=== PATIENT | female | born 1950 | race African-American/Black ===

== ENCOUNTER 2022-09-28 17:21 | Inpatient (IN) | payer OTHER, SELFPAY ==
[2022-09-28] VITALS (7 sets, daily range): BP systolic 133–145; BP diastolic 84–85; PULSE 98–106; RESP 20–28; TEMP 36.4–36.8; O2SAT 94–97; BMI 24.3
--- NOTE | ~2022-09-28 | US_ITS ---
EXAMINATION: US renal BI DATE: 10/01/2022 15:30 INDICATION: Recurrent urinary tract infection TECHNIQUE: Multiple grayscale and Doppler ultrasound images of the kidneys were obtained. COMPARISON: None. FINDINGS: The right kidney measures 7.8 x 4.1 x 3.4 cm. The left kidney measures 9.9 x 3.7 x 4.1 cm. The kidneys demonstrate increased parenchymal echogenicity. There are multiple cysts of the kidneys w hich measure up to 1.7 cm on the right. There is no hydronephrosis. The bladder is not well distended but unremarkable in appearance. IMPRESSION: 1. Bilateral atrophy of the kidneys with medical renal disease. Reviewed, dictated and finalized at location B.
--- NOTE | ~2022-09-28 | CT_ITS ---
EXAMINATION: CT brain wo con DATE: 09/28/2022 18:23 INDICATION: AMS . TECHNIQUE: Computed tomography (CT) of the head was performed without intravenous contrast. The mA wa s adjusted according to patient size. Iterative reconstruction technique was employed. The dose-lengt h product was 605.33 mGy-cm. COMPARISON: None. FINDINGS: No acute intracranial hemorrhage or extra-axial fluid collection. No hydrocephalus, mass, or herniation. No acute ischemic infarct. Unremarkable dural venous sinus attenuation. No acute osseous abnormality. Right inferior maxillary retention cyst or polyp, bilateral mastoid fluid, the remaining aerated spac es are clear. Moderate atrophy and chronic white matter change. Atherosclerotic intracranial calcification. IMPRESSION: No acute intracranial process. Reviewed, dictated and finalized at location K.
--- NOTE | ~2022-09-28 | XR_ITS ---
EXAMINATION: XR chest 1V Exam Date/Time: 09/28/2022 18:20 CDT HISTORY: AMS, UNABLE TO GIVE HX Comparison: None available. RESULT: Lines, tubes, and devices: Partially visualized stent overlying the left axilla. Lungs and pleura: Vascular congestion. Mild diffuse and peripheral reticular opacities. Cardiomediastinal silhouette: Stable. Other: No acute osseous or upper abdominal finding. IMPRESSION: Mild vascular congestion/interstitial edema. Reviewed, dictated and finalized at location K.
--- NOTE | ~2022-09-28 | MR_ITS ---
EXAMINATION: MR brain/brain stem wo con DATE: 10/05/2022 11:02 INDICATION: Altered mental status. TECHNIQUE: Magnetic resonance imaging (MRI) of the brain and brainstem was performed without intraven ous contrast. COMPARISON: Head CT 09/28/2022 FINDINGS: There are scattered areas of nonspecific increased T2-weighted signal intensity in the cere bral white matter. There is no intracranial hemorrhage, acute infarction, or abnormal intracranial ma ss lesion. The ventricles are normal in size. There are bilateral mastoid effusions. The orbits are n ormal. The paranasal sinuses are clear. IMPRESSION: 1. Extensive nonspecific cerebral white matter disease, which likely represents chronic small vessel ischemic disease. Reviewed, dictated and finalized at location A.
--- NOTE | 2022-09-28 18:08 | ECG_ITS ---
Measurements Intervals [place] Rate: 104 P: 59 AL: 158 QRS: 10 QRSD: 80 T: 96 QT: 325 QTc: 428 Interpretive Statements SINUS TACHYCARDIA DELAYED PRECORDIAL R/S TRANSITION LEFT VENTRICULAR HYPERTROPHY AND ST-T CHANGE CONSIDER INFERIOR INFARCT, AGE INDETERMINATE BASELINE ARTIFACT- V5 ABNORMAL ECG NO PREVIOUS ECG AVAILABLE FOR COMPARISON Electronically Signed On 09-28-2022 21:50:35 CDT by Vineet Kumar D.O.
[2022-09-28 18:38] LABS: Basophils Percent Auto 0.3 % (0.2-1.2); Eosinophils Absolute Auto 0.1 K/mm3 (0-0.3); Eosinophils Percent Auto 1.3 % (0-4.4); Hematocrit 32.1 % (37.0-47.0); Immature Granulocyte Absolute 0.02 K/mm3 (0.00-0.031); Immature Granulocyte Percent A 0.3 % (0-0.5); Lymphocytes Absolute Auto 0.75 K/mm3 (0.9-3.2); Lymphocytes Percent Auto 9.6 % (18.3-44.2); Mean Corpuscular HGB Conc 31.2 g/dl (32-36); Mean Corpuscular Volume 96.4 fl (80-100); Mean Platelet Volume 10.1 fl (7.4-10.4); Monocytes Absolute Auto 0.6 K/mm3 (0.1-0.6); Monocytes Percent Auto 7.1 % (2.6-8.5); Neutrophils Absolute Auto 6.3 K/mm3 (1.3-6.7); Neutrophils Percent Auto 81.4 % (45.5-73.1); Platelet Count Result 216 k/mm3 (150-375); Red Blood Count 3.33 M/mm3 (4.2-5.4); Red Cell Distribution Width 15.5 % (11.5-14.5); White Blood Count 7.8 K/mm3 (4.5-10.0)
[2022-09-28 18:48] LABS: Lipase 55 U/L (23-300)
[2022-09-28 18:49] LABS: INR 1.2; Partial Thromboplastin Time 36.7 SECONDS (22.3-36.8); Prothrombin Time 14.6 Seconds (11.1-14.7)
[2022-09-28 19:05] LABS: Troponin I 0.107 ng/mL (0.000-0.034)
[2022-09-28 19:06] LABS: Alanine Aminotransferase 41 U/L (6-35); Albumin Level 3.8 g/dL (3.5-5.1); Alkaline Phosphatase 115 U/L (38-126); Anion Gap 10 mmol/L (8-16); Aspartate Amino Transferase 59 U/L (14-36); Bilirubin,Total 0.8 mg/dL (0.2-1.3); Blood Urea Nitrogen 42 mg/dL (7-17); Calcium 9.3 mg/dL (8.4-10.2); Carbon Dioxide 28 mmol/L (22-30); Chloride 96 mmol/L (98-107); Estimated CRCL calculation 7 ml/min; Estimated Glomerular Filt Rate 8; Glucose 103 mg/dL (65-110); Sodium 134 mmol/L (137-145)
--- NOTE | 2022-09-28 19:34 | ED.GENADULT ---
HPI - General Adult General Chief complaint: Altered Mental Status Stated complaint: ams Time Seen by Provider: 09/28/22 17:54 History of Present Illness HPI narrative: Patient is a 71-year-old female who presents ER from the [facility] for evaluation. [facility] did not call nurse report and they are also not picking up the phone in order to give additional information. They did send the patient's paperwork. Apparently patient was discharged from [facility] yesterday at 1 in the morning and then arrived at their facility. After being at the facility for less than 24 hours she was sent to the ER for evaluation but its not known why. Patient lays in bed and stares at the physician but will not speak or answer questions. She does have dialysis access in her right upper extremity that has recently been accessed. She has an old dialysis access on the left side that does not seem to be working. Related Data Home Medications Medication Instructions Recorded Confirmed allopurinol 100 mg tablet 10 mg PO DAILY 09/28/22 09/28/22 atorvastatin 20 mg tablet 20 mg PO HS 09/28/22 09/28/22 Allergies Allergy/AdvReac Type Severity Reaction Status Date / Time Unable to Assess Allergy Unverified 09/28/22 20:27 Review of Systems Review of Systems: ROS unobtainable: Yes unobtainable due to medical condition PMFSH Past Medical History Medical History (Updated 09/28/22 @ 21:35 by Carlos Pavon MD) Alzheimer disease Schizophrenia Surgical History Surgical History (Updated 09/28/22 @ 21:35 by Carlos Pavon MD) Arteriovenous fistula Surgically formed Exam Narrative: GENERAL: Chronically ill-appearing, well-nourished, and in no acute distress. HEAD: Normocephalic, atraumatic. EYES: PERRL and EOMI. ENT: Mucous membranes moist. CHEST: Clear to auscultation. No respiratory distress. HEART: Regular rate and rhythm. Normal peripheral pulses. ABDOMEN: Soft, nontender, nondistended. EXTREMITIES: Dialysis access right upper extremity with thrill. Former access left upper extremity. SKIN: Warm, dry, no rash. NEURO: Awake alert to speech. She is not oriented. Course Course Emergency Course: I discussed the case with patient's granddaughter and patient has had UTI requiring ceftriaxone recently. She also believes that patient received some medication to stimulate her appetite that may be making her more obtunded. Patient's urine here is infected and she will be started on ceftriaxone. Troponin felt to be elevated in relation to her volume status is a dialysis patient but we will continue to trend it. We will have nephrology consulted as patient gets dialysis Tuesday. Vital Signs Vital signs: Vital Signs Temperature 98.3 F 09/28/22 17:27 Pulse Rate 104 H 09/28/22 17:27 Respiratory Rate 22 H 09/28/22 17:27 Blood Pressure 135/84 09/28/22 17:27 Pulse Oximetry 97 09/28/22 17:27 Oxygen Delivery Room Air 09/28/22 17:27 Temperature 98.3 F 09/28/22 17:27 Pulse Rate 104 H 09/28/22 17:56 Respiratory Rate 26 H 09/28/22 17:56 Blood Pressure 135/84 09/28/22 17:27 Pulse Oximetry 97 09/28/22 17:27 Oxygen Delivery Room Air 09/28/22 17:27 Medical Decision Making Vital Signs Vital Signs: Vital Signs Temperature 98.3 F 09/28/22 17:27 Pulse Rate 104 H 09/28/22 17:27 Respiratory Rate 22 H 09/28/22 17:27 Blood Pressure 135/84 09/28/22 17:27 Pulse Oximetry 97 09/28/22 17:27 Oxygen Delivery Room Air 09/28/22 17:27 Temperature 98.3 F 09/28/22 17:27 Pulse Rate 104 H 09/28/22 17:56 Respiratory Rate 26 H 09/28/22 17:56 Blood Pressure 135/84 09/28/22 17:27 Pulse Oximetry 97 09/28/22 17:27 Oxygen Delivery Room Air 09/28/22 17:27 Lab Data 09/28/22 18:33 09/28/22 18:33 Labs: Lab Results 09/28/22 09/28/22 09/28/22 Range/Units 18:33 18:33 18:33 WBC 7.8 (4.5-10.
[2022-09-28] MEDS: Please add drug allergy info to patient profile. 1 EACH XX (20:27)
--- NOTE | 2022-09-28 20:28 | PM.IMHP ---
H&P: HPI History of Present Illness Date/Time: 09/28/22 20:28 Chief Complaint: Altered mental status Narrative: This is a 71-year-old female with past medical history significant for end-stage renal disease on hemodialysis patient recently discharged from outside hospital to local halfway was sent to the emergency room for evaluation however unknown reason as patient is nonverbal at this time and no report was called. Preliminary workup was significant for urinalysis with numerous WBCs present patient was started on Rocephin in the emergency room. A CT of the head was reported as: FINDINGS: No acute intracranial hemorrhage or extra-axial fluid collection. No hydrocephalus, mass, or herniation. No acute ischemic infarct. Unremarkable dural venous sinus attenuation. No acute osseous abnormality. Right inferior maxillary retention cyst or polyp, bilateral mastoid fluid, the remaining aerated spaces are clear. Moderate atrophy and chronic white matter change. Atherosclerotic intracranial calcification. IMPRESSION:? No acute intracranial process. A chest x-ray was reported as: IMPRESSION: Mild vascular congestion/interstitial edema. Patient is been admitted for further evaluation management and treatment. Review of Systems Review of Systems: ROS unobtainable: Yes unobtainable due to mental status [facility] Past Medical History Medical History (Updated 09/29/22 @ 01:25 by Donny Gardner MD) Alzheimer disease Schizophrenia Surgical History Surgical History (Updated 09/28/22 @ 21:35 by Carlos Pavon MD) Arteriovenous fistula Surgically formed Family History Family History (Updated 09/28/22 @ 23:03 by Anny Gonsales RN) Other Unknown family medical history Social History Social History Smoking status: Unknown if ever smoked Alcohol intake: unknown Substance use: unknown Spiritual care concerns: No Meds Home Medications and Allergies Home Medications Medication Instructions Recorded Confirmed Type acetaminophen 650 mg tablet 650 mg PO Q4H PRN Headache 09/28/22 09/28/22 History allopurinol 100 mg tablet 100 mg PO DAILY 09/28/22 09/28/22 History atorvastatin 20 mg tablet 20 mg PO HS 09/28/22 09/28/22 History folic acid 1 mg tablet 800 mcg PO DAILY 09/28/22 09/28/22 History haloperidol 5 mg tablet 5 mg PO BID 09/28/22 09/28/22 History magnesium hydroxide 400 mg/5 mL 30 ml PO HS PRN Constipation 09/28/22 09/28/22 History oral suspension midodrine 5 mg tablet 5 mg PO PRN PRN Blood Pressure 09/28/22 09/28/22 History ondansetron 4 mg disintegrating 4 mg PO Q6H PRN Nausea And Vomiting 09/28/22 09/28/22 History tablet vitamin B complex and vitamin C 1 cap PO HS 09/28/22 09/28/22 History no.20-folic acid 1 mg capsule (Joey Caps) Allergies Allergy/AdvReac Type Severity Reaction Status Date / Time Unable to Assess Allergy Unverified 09/28/22 20:27 Vital Signs Vital Signs - 24 hr 09/28/22 17:27 09/28/22 17:32 09/28/22 17:56 Temperature 98.3 F Pulse Rate 104 H 102 H 104 H Respiratory Rate 22 H 26 H 26 H Blood Pressure 135/84 Pulse Oximetry 97 Oxygen Delivery Room Air Exam Narrative: Patient is laying in a stretcher in supine position Const: General: comfortable, no acute distress, well developed, alert, awake, ill appearing, thin and other (Dry mucous membranes) Nutritional Appearance: average body habitus Orientation/consciousness: Other orientation findings (Nonverbal) HENMT: Head: normal to inspection, normocephalic and atraumatic Ears: hearing grossly normal bilaterally Face/Nose/Sinus: normal facial exam Face and sinus: normal facial exam Other: Dry mucous membranes Eyes: General: appearance normal, both eyes and all related structures Pupils: Equal, round and reactive pupils present EOM: EOMs intact bilaterally Neck: Neck: full ROM, no lymphadenopathy and no JVD Thyroid: thyroid normal Lymphatic: no lymphadenopathy no
[2022-09-28 21:19] LABS: Appearance Urine Turbid (Clear); Bacteria Urine 4+ /hpf; Bilirubin Urine Negative (Negative); Blood Urine 3+ (Negative); Color Urine Dark Yellow (Yellow); Glucose Urine UA Negative (Negative); Ketones Urine Negative (Negative); Leukocyte Esterase Ur 3+ LEU/UL (Negative); Need Manual Microscopic Reviewed; Nitrate Urine Negative (Negative); Non Pathogenic Casts >20; Protein Urine 3+ mg/dL (Negative); RBC Urine >100 /hpf (0-2); Specific Grav Ur 1.014 (1.001-1.035); Squamous Epithelial Cell Urine Few /hpf (Few); Urobilinogen Urine 0.2 mg/dL (<2.0); WBC Urine >100 /hpf
--- NOTE | 2022-09-28 21:26 | ADMGEN ---
This patient, Dania Demarco, was admitted to IMU Room 210-01 at 2127. Patient/family oriented to hospital policies and general routines including ID bracelet, bed and alarms, visiting hours, pain management, procedures, bathroom and other care routines, personal items, smoking policy, room service/diet, and visiting hours. Information on how to activate the Rapid Response Team has been discussed. Patient/Family are encouraged to report perceived risks to care and to ask questions if they do not understand what they are told or what they should do.
[2022-09-28 21:28] LABS: Add Urine Microscopic? YES
[2022-09-29] VITALS (29 sets, daily range): BP systolic 100–178; BP diastolic 24–83; PULSE 87–110; RESP 18–20; TEMP 36–37; O2SAT 93–100; BMI 25.7
[2022-09-29 00:34] LABS: Troponin I 0.103 ng/mL (0.000-0.034)
--- NOTE | 2022-09-29 12:00 | PM.IMPN ---
Progress Note: A&P Assessment and Plan (1) Altered mental status: Code(s): R41.82 - Altered mental status, unspecified Status: Acute (2) UTI (urinary tract infection): Code(s): N39.0 - Urinary tract infection, site not specified Status: Acute (3) Elevated troponin: Code(s): R77.8 - Other specified abnormalities of plasma proteins Status: Acute (4) End-stage renal disease on hemodialysis: Code(s): N18.6 - End stage renal disease; Z99.2 - Dependence on renal dialysis Status: Acute (5) Alzheimer disease: Code(s): G30.9 - Alzheimer's disease, unspecified; F02.80 - Dementia in other diseases classified elsewhere, unspecified severity, without behavioral disturbance, psychotic disturbance, mood disturbance, and anxiety Status: Acute (6) Schizophrenia: Code(s): F20.9 - Schizophrenia, unspecified Status: Acute Plan # acute encephalopathy may have underlying dementia does have evidence of UTI. Treat with ceftriaxone. Patient was reported to be given appetite stimulant which had made her more sleepy. Will hold this medication. CT head with no acute abnormality. Unclear baseline. # end-stage renal disease on hemodialysis nephrology consulted Tuesday # UTI ceftriaxone blood culture obtained follow urine culture # elevated troponin likely related to underlying end-stage renal disease # dementia # schizophrenia # hyperlipidemia # hypertension no medication at home. Reported to be on midodrine. Will hold this as she is more hypertensive now # DVT prophylaxis: Heparin # code status full code Subjective Date/time seen: 09/29/22 12:00 Interval history: Patient presented from long term for unclear reason. Apparently altered mental status minimally verbal so further history could not be elucidated. Normally goes to [facility] she is on dialysis. Noted to have UTI. Review of Systems Review of Systems: ROS unobtainable: Yes unobtainable due to mental status Exam Narrative: GENERAL: Chronically ill-appearing, thin built, and in no acute distress. HEAD: Normocephalic, atraumatic. EYES: PERRL and EOMI. ENT: Mucous membranes moist. CHEST: Clear to auscultation.? No respiratory distress. HEART: Regular rate and rhythm.? Normal peripheral pulses. ABDOMEN: Soft, nontender, nondistended. EXTREMITIES: Dialysis access right upper extremity with thrill.? Former access left upper extremity. SKIN: Warm, dry, no rash. NEURO: Awake alert minimally verbal states her name. Objective Data Vital Signs Vital Signs: Vital Signs - 24 hr 09/28/22 17:27 09/28/22 17:32 09/28/22 17:56 Temperature 98.3 F Pulse Rate 104 H 102 H 104 H Respiratory Rate 22 H 26 H 26 H Blood Pressure 135/84 Pulse Oximetry 97 Oxygen Delivery Room Air 09/28/22 21:34 09/28/22 22:00 09/28/22 23:55 Temperature 98.0 F Pulse Rate 98 106 H 99 Respiratory Rate 26 H 20 Blood Pressure 145/84 H Pulse Oximetry 97 94 Oxygen Delivery Room Air 09/29/22 00:00 09/29/22 00:00 09/29/22 02:00 Temperature Pulse Rate 98 98 100 Respiratory Rate 20 Blood Pressure Pulse Oximetry 94 Oxygen Delivery Room Air 09/29/22 04:00 09/28/22 21:30 09/29/22 04:00 Temperature 97.4 F L 97.6 F Pulse Rate 100 103 H 95 Respiratory Rate 20 28 H Blood Pressure 147/81 H 133/85 Pulse Oximetry 94 96 Oxygen Delivery 09/29/22 04:00 09/29/22 06:00 09/29/22 08:00 Temperature 97.9 F Pulse Rate 95 88 97 Respiratory Rate 20 18 Blood Pressure 178/77 H Pulse Oximetry 94 99 Oxygen Delivery Room Air 09/29/22 09:03 09/29/22 08:00 09/29/22 08:00 Temperature Pulse Rate 94 94 Respiratory Rate Blood Pressure Pulse Oximetry 93 Oxygen Delivery Room Air Room Air 09/29/22 10:00 Temperature Pulse Rate 98 Respiratory Rate Blood Pressure Pulse Oximetry Oxygen Delivery Meds/Results Medications: Active Medica
--- NOTE | 2022-09-29 14:30 | PM.CNNEP ---
Assessment and Plan Assessment and plan (1) End stage renal disease: Code(s): N18.6 - End stage renal disease Status: Chronic Assessment and Plan: HD today and continue M/W/F dialysis schedule follow electrolytes, volume status, and clearance (2) Altered mental status: Code(s): R41.82 - Altered mental status, unspecified Status: Acute Assessment and Plan: baseline unknown complicated by history of dementia CT of head noted possibly worsened by UTI follow mentation (3) UTI (urinary tract infection): Code(s): N39.0 - Urinary tract infection, site not specified Status: Acute Assessment and Plan: as suggested by admission UA follow culture data empiric antibiotics (4) Hypertension: Code(s): I10 - Essential (primary) hypertension Status: Chronic Assessment and Plan: holding midodrine since BP elevated follow trend of hemodynamics Will continue to follow. History of Present Illness Reason for Consult Consult date: 09/29/22 Reason for consult: end stage renal disease Chief Complaint Chief complaint: altered mental status, elevated troponin History of Present Illness Narrative: All the information I have obtained is from review of the electronic medical record, discussion with her outpatient dialysis unit, and the physicians/ nurses involved in the patient's care as the patient is currently nonverbal at the time my visit. The patient is a 71-year-old female with a past medical history as outlined below who was transferred to [facility] Emergency room from her nursing facility for unclear reasons. The accompanying paperwork did not outline with the concerns were from her nursing facility and attempts to call her nursing facility to get any further information were unsuccessful.The patient is also unable to provide any history as she is non-verbal. Apparently, the patient was just recently discharged for a previous facility for treatment of urinary tract infection. I am assuming her treatment was completed by the time of discharge but I have no records to verify this. Workup and evaluation in the emergency room demonstrated the patient be hemodynamically stable and in no acute distress. There has been some concern about her mental status but she does have a history of schizophrenia as well as dementia so I am unclear what her baseline mentation normally is. Routine blood test demonstrated labs consistent with her known history of end-stage renal disease but her urinalysis was somewhat suggestive of a possible urinary tract infection. CT scan of her head did not demonstrate any acute intracranial process. Her chest x-ray shows some mild interstitial edema. The patient was subsequently admitted to the hospital for further evaluation and therapy. Renal consultation was requested due to her end-stage renal disease. The patient normally receives dialysis on a Tuesday, Tuesday, Tuesday dialysis schedule at [facility] under the care of Dr. Remigio Fuentes. I believe her last dialysis session was on Tuesday and she is due for dialysis today. In spite of her end-stage renal disease, she does not appear to be markedly volume overloaded and she has no critical electrolyte abnormalities. I suppose uremia could be playing a role with her mental status but it is difficult to know since we do not have an established baseline mentation from any type of records available. Currently, the patient is receiving dialysis at the time my visit (seen on HD at 2:30PM) and appears in no apparent distress. Review of Systems Review of Systems: As per HPI (limited by patient's mentation) [facility], [facility] Past Medical History Medical History (Updated 09/29/22 @ 18:11 by Kiran Troncoso MD) Alzheimer disease End-stage renal disease on hemodialysis Hyperlipidemia Schizophrenia Surgical History Surgical History (Updated 09/28/22 @ 21:35
[2022-09-29 14:55] LABS: Hepatitis B Surface Antigen Negative (Negative)
[2022-09-29 15:00] LABS: Hepatitis B Core IgM Result Negative (Negative)
[2022-09-29 15:34] LABS: Hepatitis B Surface Anti Res Positive
[2022-09-29] MEDS: EPOETIN ALFA-EPBX 4,000 UNITS/ML VIAL 4000 UNITS IV PUSH (17:31)
[2022-09-30] VITALS (10 sets, daily range): BP systolic 147–157; BP diastolic 37–61; PULSE 83–110; RESP 16–20; TEMP 36.3–36.8; O2SAT 98–100
[2022-09-30 05:11] LABS: Basophils Percent Auto 0.6 % (0.2-1.2); Eosinophils Absolute Auto 0.4 K/mm3 (0-0.3); Eosinophils Percent Auto 6.5 % (0-4.4); Hematocrit 31.9 % (37.0-47.0); Immature Granulocyte Absolute 0.02 K/mm3 (0.00-0.031); Immature Granulocyte Percent A 0.3 % (0-0.5); Lymphocytes Absolute Auto 0.75 K/mm3 (0.9-3.2); Lymphocytes Percent Auto 11.6 % (18.3-44.2); Mean Corpuscular HGB Conc 31.3 g/dl (32-36); Mean Corpuscular Hemoglobin 30.9 pg (26-34); Mean Corpuscular Volume 98.5 fl (80-100); Mean Platelet Volume 9.5 fl (7.4-10.4); Monocytes Absolute Auto 0.5 K/mm3 (0.1-0.6); Monocytes Percent Auto 7.1 % (2.6-8.5); Neutrophils Absolute Auto 4.8 K/mm3 (1.3-6.7); Neutrophils Percent Auto 73.9 % (45.5-73.1); Platelet Count Result 204 k/mm3 (150-375); Red Blood Count 3.24 M/mm3 (4.2-5.4); Red Cell Distribution Width 15.5 % (11.5-14.5); White Blood Count 6.5 K/mm3 (4.5-10.0)
[2022-09-30 05:33] LABS: Alanine Aminotransferase 47 U/L (6-35); Albumin Level 3.5 g/dL (3.5-5.1); Alkaline Phosphatase 111 U/L (38-126); Anion Gap 8 mmol/L (8-16); Aspartate Amino Transferase 60 U/L (14-36); Bilirubin,Total 0.6 mg/dL (0.2-1.3); Blood Urea Nitrogen 30 mg/dL (7-17); Calcium 9.3 mg/dL (8.4-10.2); Carbon Dioxide 31 mmol/L (22-30); Chloride 100 mmol/L (98-107); Estimated CRCL calculation 8 ml/min; Estimated Glomerular Filt Rate 10; Glucose 116 mg/dL (65-110); Magnesium 2.2 mg/dL (1.6-2.3); Potassium 4.1 mmol/L (3.4-5.0); Sodium 139 mmol/L (137-145)
[2022-09-30] MEDS: FOLIC ACID 0.4 MG TABLET 0.8 MG PO (08:29)
[2022-09-30] MEDS: HALOPERIDOL 5 MG TABLET PO (08:30)
[2022-09-30] MEDS: allopurinoL 100 MG TABLET PO (08:30)
--- NOTE | 2022-09-30 12:52 | PM.PNNEP ---
Progress Note: A&P Assessment and Plan (1) End stage renal disease: Code(s): N18.6 - End stage renal disease Status: Chronic Assessment and Plan: HD tomorrow and continue M/W/F dialysis schedule follow electrolytes, volume status, and clearance (2) Altered mental status: Code(s): R41.82 - Altered mental status, unspecified Status: Acute Assessment and Plan: baseline unknown complicated by history of dementia CT of head noted possibly worsened by UTI (although culture negative) follow mentation (3) UTI (urinary tract infection): Code(s): N39.0 - Urinary tract infection, site not specified Status: Acute Assessment and Plan: as suggested by admission UA however, culture data (blood + urine) negative to date empiric antibiotics (4) Hypertension: Code(s): I10 - Essential (primary) hypertension Status: Chronic Assessment and Plan: holding midodrine since BP elevated follow trend of hemodynamics (5) Anemia: Code(s): D64.9 - Anemia, unspecified Status: Chronic Assessment and Plan: due to ESRD H/H relatively stable Epogen with HD Will continue to follow. Subjective Date/time seen: 09/30/22 12:52 Tolerated dialysis treatment yesterday afternoon without any issues or problems; remains awake and alert but non-verbal but it seems she is nodding to yes/no questions; no apparent distress noted at the time of my visit; no other issues/events overnight or earlier this AM. Exam Narrative: General: chronically ill appearing AA female in NAD Heart: normal S1 and S2; no rub Lungs: clear to auscultation Abdomen: soft, nontender, nondistended, positive bowel sounds Extremities: no cyanosis or clubbing; no edema Skin: warm and dry Objective Data Vital Signs Vital Signs: Vital Signs Temp Pulse Resp BP Pulse Ox O2 Del Method 09/30/22 12:00 83 09/30/22 12:00 97.3 F L 88 20 149/37 H 100 09/30/22 11:53 Room Air 09/30/22 10:00 92 09/30/22 08:00 Room Air 09/30/22 08:00 110 H 09/30/22 08:00 98.3 F 107 H 16 147/51 H 100 09/30/22 06:00 99 09/30/22 04:00 97 20 99 Room Air 09/30/22 04:00 91 09/30/22 02:00 104 H 09/30/22 04:00 97.8 F 97 20 157/40 H 99 09/29/22 22:50 99 Room Air 09/30/22 00:00 92 18 99 Room Air 09/30/22 00:00 92 09/29/22 22:00 95 09/29/22 23:45 97.8 F 92 18 140/47 L 99 09/29/22 20:00 97 09/29/22 20:00 90 18 100 Room Air 09/29/22 19:56 97.8 F 90 18 137/54 L 100 09/29/22 18:15 97.9 F 93 20 156/67 H 96 09/29/22 18:00 99 09/29/22 16:00 94 09/29/22 18:10 98.6 F 95 20 174/75 H 09/29/22 18:00 92 168/66 H 09/29/22 17:40 102 H 149/24 H 09/29/22 17:20 110 H 118/24 L 09/29/22 17:00 94 161/68 H 09/29/22 16:40 102 H 138/50 L 09/29/22 16:20 87 175/80 H 09/29/22 16:00 96 140/78 09/29/22 15:40 87 171/83 H 09/29/22 15:20 95 143/75 H 09/29/22 15:00 108 H 114/53 L Intake/Output Intake/Output: Intake & Output 09/27/22 09/28/22 09/29/22 09/30/22 23:59 23:59 23:59 23:59 Intake Total 452 770 Output Total 500 Balance -48 770 Meds/Results Medications: Active Medications Generic Name Dose Route Start Last Admin Trade Name Freq PRN Reason Stop Dose Admin Acetaminophen 650 mg 09/28/22 20:05 Acetaminophen 325 Mg Tablet PO Q4H PRN Mild Pain (1-3) or Fever Allopurinol 100 mg 09/29/22 08:00 09/30/22 08:30 Allopurinol 100 Mg Tablet PO 100 mg DAILY@0800 MADISYN Administration Atorvastatin Calcium 20 mg 09/29/22 21:00 09/29/22 20:58 Atorvastatin 20 Mg Tablet PO Not Given HS MADISYN Folic Acid 0.8 mg 09/29/22 09:00 09/30/22 08:29 Folic Acid 0.4 Mg Tablet PO 0.8 mg DAILY MADISYN Administration Haloperidol 5 mg 03
--- NOTE | 2022-09-30 15:43 | PM.IMPN ---
Progress Note: A&P Assessment and Plan (1) Altered mental status: Code(s): R41.82 - Altered mental status, unspecified Status: Acute (2) UTI (urinary tract infection): Code(s): N39.0 - Urinary tract infection, site not specified Status: Acute (3) Elevated troponin: Code(s): R77.8 - Other specified abnormalities of plasma proteins Status: Acute (4) End-stage renal disease on hemodialysis: Code(s): N18.6 - End stage renal disease; Z99.2 - Dependence on renal dialysis Status: Acute (5) Alzheimer disease: Code(s): G30.9 - Alzheimer's disease, unspecified; F02.80 - Dementia in other diseases classified elsewhere, unspecified severity, without behavioral disturbance, psychotic disturbance, mood disturbance, and anxiety Status: Acute (6) Schizophrenia: Code(s): F20.9 - Schizophrenia, unspecified Status: Acute Plan # acute encephalopathy may have underlying dementia does have evidence of UTI. Treat with ceftriaxone. Patient was reported to be given appetite stimulant which had made her more sleepy. Will hold this medication. CT head with no acute abnormality. Still remains altered. Unclear baseline. # end-stage renal disease on hemodialysis nephrology consulted Tuesday hemodialysis yesterday # UTI ceftriaxone blood culture negative to date. Urine culture with no growth # elevated troponin likely related to underlying end-stage renal disease # dementia # schizophrenia # hyperlipidemia # hypertension no medication at home. Reported to be on midodrine. Will hold this as she is more hypertensive now # DVT prophylaxis: Heparin # code status full code Subjective Date/time seen: 09/30/22 15:43 Interval history: Patient presented from correction for unclear reason. Apparently altered mental status minimally verbal so further history could not be elucidated. Normally goes to [facility] she is on dialysis. Noted to have UTI. 09/30/2022: No overnight events. Discussed the nursing staff. Still slow to respond. Awake and alert. Minimally verbal. Review of Systems Review of Systems: ROS unobtainable: Yes unobtainable due to mental status Exam Narrative: GENERAL: Chronically ill-appearing, thin built, and in no acute distress. HEAD: Normocephalic, atraumatic. EYES: PERRL and EOMI. ENT: Mucous membranes moist. CHEST: Clear to auscultation.? No respiratory distress. HEART: Regular rate and rhythm.? Normal peripheral pulses. ABDOMEN: Soft, nontender, nondistended. EXTREMITIES: Dialysis access right upper extremity with thrill.? Former access left upper extremity. SKIN: Warm, dry, no rash. NEURO: Awake alert minimally verbal Objective Data Vital Signs Vital Signs: Vital Signs - 24 hr 09/29/22 16:00 09/29/22 16:20 09/29/22 16:40 Temperature Pulse Rate 96 87 102 H Respiratory Rate Blood Pressure 140/78 175/80 H 138/50 L Pulse Oximetry Oxygen Delivery 09/29/22 17:00 09/29/22 17:20 09/29/22 17:40 Temperature Pulse Rate 94 110 H 102 H Respiratory Rate Blood Pressure 161/68 H 118/24 L 149/24 H Pulse Oximetry Oxygen Delivery 09/29/22 18:00 09/29/22 18:10 09/29/22 16:00 Temperature 98.6 F Pulse Rate 92 95 94 Respiratory Rate 20 Blood Pressure 168/66 H 174/75 H Pulse Oximetry Oxygen Delivery 09/29/22 18:00 09/29/22 18:15 09/29/22 19:56 Temperature 97.9 F 97.8 F Pulse Rate 99 93 90 Respiratory Rate 20 18 Blood Pressure 156/67 H 137/54 L Pulse Oximetry 96 100 Oxygen Delivery 09/29/22 20:00 09/29/22 20:00 09/29/22 23:45 Temperature 97.8 F Pulse Rate 90 97 92 Respiratory Rate 18 18 Blood Pressure 140/47 L Pulse Oximetry 100 99 Oxygen Delivery Room Air 09/29/22 22:00 09/30/22 00:00 09/30/22 00:00 Temperature Pulse Rate 95 92 92 Respiratory Rate 18 Blood Pressure Pulse Oximetry 99 Oxygen Delivery Room Air 09/29/22
[2022-09-30 17:00] LABS: Ammonia < 9 umol/L (9-30)
[2022-09-30] MEDS: VITAMIN B CMPLX/VIT C/FOLIC AC 1 CAPSULE 1 CAP PO (21:00)
[2022-09-30] MEDS: ATORVASTATIN 20 MG TABLET PO (21:00)
[2022-10-01] VITALS: BP 185/63; PULSE 80; RESP 14; TEMP 36.4; O2SAT 98
[2022-10-01 00:44] VITALS: BP 157/38
[2022-10-01 05:56] LABS: Basophils Percent Auto 0.3 % (0.2-1.2); Eosinophils Absolute Auto 0.5 K/mm3 (0-0.3); Eosinophils Percent Auto 7.8 % (0-4.4); Hematocrit 28.6 % (37.0-47.0); Immature Granulocyte Absolute 0.03 K/mm3 (0.00-0.031); Immature Granulocyte Percent A 0.5 % (0-0.5); Lymphocytes Absolute Auto 0.96 K/mm3 (0.9-3.2); Lymphocytes Percent Auto 16.6 % (18.3-44.2); Mean Corpuscular HGB Conc 31.5 g/dl (32-36); Mean Corpuscular Hemoglobin 31.3 pg (26-34); Mean Corpuscular Volume 99.3 fl (80-100); Mean Platelet Volume 10.2 fl (7.4-10.4); Monocytes Absolute Auto 0.5 K/mm3 (0.1-0.6); Monocytes Percent Auto 8.4 % (2.6-8.5); Neutrophils Absolute Auto 3.9 K/mm3 (1.3-6.7); Neutrophils Percent Auto 66.4 % (45.5-73.1); Platelet Count Result 195 k/mm3 (150-375); Red Blood Count 2.88 M/mm3 (4.2-5.4); Red Cell Distribution Width 15.4 % (11.5-14.5); White Blood Count 5.8 K/mm3 (4.5-10.0)
[2022-10-01 06:11] LABS: Alanine Aminotransferase 49 U/L (6-35); Albumin Level 3.1 g/dL (3.5-5.1); Alkaline Phosphatase 92 U/L (38-126); Anion Gap 4 mmol/L (8-16); Aspartate Amino Transferase 54 U/L (14-36); Bilirubin,Total 0.5 mg/dL (0.2-1.3); Blood Urea Nitrogen 46 mg/dL (7-17); Calcium 9.1 mg/dL (8.4-10.2); Carbon Dioxide 33 mmol/L (22-30); Chloride 100 mmol/L (98-107); Estimated CRCL calculation 6 ml/min; Estimated Glomerular Filt Rate 7; Glucose 108 mg/dL (65-110); Magnesium 2.1 mg/dL (1.6-2.3); Potassium 4.1 mmol/L (3.4-5.0); Sodium 137 mmol/L (137-145)
[2022-10-01 06:13] LABS: Vancomycin Random 13.5 ug/mL (10-20)
[2022-10-01 08:00] VITALS: BP 154/54; PULSE 82; RESP 16; TEMP 36.2; O2SAT 100
[2022-10-01] MEDS: allopurinoL 100 MG TABLET PO (08:33)
[2022-10-01] MEDS: FOLIC ACID 0.4 MG TABLET 0.8 MG PO (08:33)
[2022-10-01] MEDS: HALOPERIDOL 5 MG TABLET PO ×2 (08:33→18:37)
[2022-10-01] MEDS: amLODIPine BESYLATE 5 MG TABLET PO (12:37)
[2022-10-01] MEDS: ACETAMINOPHEN 325 MG TABLET 650 MG PO (12:42)
--- NOTE | 2022-10-01 13:12 | PM.IMPN ---
Progress Note: A&P Assessment and Plan (1) Altered mental status: Code(s): R41.82 - Altered mental status, unspecified Status: Acute (2) UTI (urinary tract infection): Code(s): N39.0 - Urinary tract infection, site not specified Status: Acute (3) Elevated troponin: Code(s): R77.8 - Other specified abnormalities of plasma proteins Status: Acute (4) End-stage renal disease on hemodialysis: Code(s): N18.6 - End stage renal disease; Z99.2 - Dependence on renal dialysis Status: Acute (5) Alzheimer disease: Code(s): G30.9 - Alzheimer's disease, unspecified; F02.80 - Dementia in other diseases classified elsewhere, unspecified severity, without behavioral disturbance, psychotic disturbance, mood disturbance, and anxiety Status: Acute (6) Schizophrenia: Code(s): F20.9 - Schizophrenia, unspecified Status: Acute Plan # acute encephalopathy may have underlying dementia does have evidence of UTI. Treat with ceftriaxone. Patient was reported to be given appetite stimulant which had made her more sleepy. Medication on hold cT head with no acute abnormality. Still remains altered. Unclear baseline. However previous facility report reviewed and was alert and oriented x1 there.. Likely at her baseline or almost at baseline. Continue to treat UTI. # end-stage renal disease on hemodialysis nephrology consulted Tuesday inpatient hemodialysis as directed by horse wrangler # UTI ceftriaxone blood culture negative to date. Urine culture with no growth recently treated with antibiotics as well # elevated troponin likely related to underlying end-stage renal disease # dementia # schizophrenia # hyperlipidemia # hypertension no medication at home. Reported to be on midodrine. Will hold this as she is more hypertensive now. Will add amlodipine for blood pressure control today. # DVT prophylaxis: Heparin # code status full code # PT OT to see Subjective Date/time seen: 10/01/22 13:12 Interval history: Patient presented from prison for unclear reason. Apparently altered mental status minimally verbal so further history could not be elucidated. Normally goes to [facility] she is on dialysis. Noted to have UTI. 09/30/2022: No overnight events. Discussed the nursing staff. Still slow to respond. Awake and alert. Minimally verbal. 10/01/2022: No overnight events. Patient more verbal today answers few questions. Still slow to respond but answers appropriately. Review of Systems Review of Systems: ROS unobtainable: Yes unobtainable due to mental status Exam Narrative: GENERAL: Chronically ill-appearing, thin built, and in no acute distress. HEAD: Normocephalic, atraumatic. EYES: PERRL and EOMI. ENT: Mucous membranes moist. CHEST: Clear to auscultation.? No respiratory distress. HEART: Regular rate and rhythm.? Normal peripheral pulses. ABDOMEN: Soft, nontender, nondistended. EXTREMITIES: Dialysis access right upper extremity with thrill.? Former access left upper extremity. SKIN: Warm, dry, no rash. NEURO: Awake alert minimally verbal Objective Data Vital Signs Vital Signs: Vital Signs - 24 hr 09/30/22 16:00 09/30/22 20:07 09/30/22 20:00 Temperature 97.5 F L 97.5 F L Pulse Rate 86 84 Respiratory Rate 16 16 Blood Pressure 157/39 H 154/61 H Pulse Oximetry 100 98 Oxygen Delivery Room Air 10/01/22 00:00 10/01/22 00:44 09/30/22 21:52 Temperature 97.6 F Pulse Rate 80 Respiratory Rate 14 Blood Pressure 185/63 H 157/38 H Pulse Oximetry 98 98 Oxygen Delivery Room Air 10/01/22 08:00 Temperature 97.1 F L Pulse Rate 82 Respiratory Rate 16 Blood Pressure 154/54 H Pulse Oximetry 100 Oxygen Delivery Intake/Output Intake/Output: Intake & Output 09/28/22 09/29/22 09/30/22 10/01/22 23:59 23:59 23:59 23:59 Intake Total 452 1180 440 Output Total 500 0 Balance -48 1180
--- NOTE | 2022-10-01 13:50 | PM.PNNEP ---
Progress Note: A&P Assessment and Plan (1) End stage renal disease: Code(s): N18.6 - End stage renal disease Status: Chronic Assessment and Plan: planned HD today and continue M/W/F dialysis schedule unfortunately. due to more critical patient in the ICU who need dialysis, will plan HD treatment tomorrow follow electrolytes, volume status, and clearance (2) Altered mental status: Code(s): R41.82 - Altered mental status, unspecified Status: Acute Assessment and Plan: baseline unknown complicated by history of dementia CT of head noted possibly worsened by UTI/infection urine culture negative one blood culture positive but suspect contamination as repeat cultures negative to date follow mentation (3) UTI (urinary tract infection): Code(s): N39.0 - Urinary tract infection, site not specified Status: Acute Assessment and Plan: as suggested by admission UA however, culture data (urine) negative to date empiric antibiotics (4) Hypertension: Code(s): I10 - Essential (primary) hypertension Status: Chronic Assessment and Plan: holding midodrine since BP elevated started on low dose amlodipine today follow trend of hemodynamics (5) Anemia: Code(s): D64.9 - Anemia, unspecified Status: Chronic Assessment and Plan: due to ESRD H/H relatively stable Epogen with HD Will continue to follow. Subjective Date/time seen: 10/01/22 13:50 A bit more verbal today in comparison to yesterday -- answering a few questions but still somewhat slow to respond; no other acute issue/events noted overnight or earlier today; no distress noted at the time of my visit; no other concerns voiced. Exam Narrative: General: chronically ill appearing AA female in NAD Heart: normal S1 and S2; no rub Lungs: clear to auscultation Abdomen: soft, nontender, nondistended, positive bowel sounds Extremities: no cyanosis or clubbing; no edema Skin: warm and intact Objective Data Vital Signs Vital Signs: Vital Signs Temp Pulse Resp BP Pulse Ox O2 Del Method 10/01/22 08:00 Room Air 10/01/22 08:00 97.1 F L 82 16 154/54 H 100 09/30/22 21:52 98 Room Air 10/01/22 00:44 157/38 H 10/01/22 00:00 97.6 F 80 14 185/63 H 98 09/30/22 20:00 Room Air 09/30/22 20:07 97.5 F L 84 16 154/61 H 98 Intake/Output Intake/Output: Intake & Output 09/28/22 09/29/22 09/30/22 10/01/22 23:59 23:59 23:59 23:59 Intake Total 452 1180 440 Output Total 500 0 Balance -48 1180 440 Meds/Results Medications: Active Medications Generic Name Dose Route Start Last Admin Trade Name Mara PRN Reason Stop Dose Admin Acetaminophen 650 mg 09/28/22 20:05 10/01/22 12:42 Acetaminophen 325 Mg Tablet PO 650 mg Q4H PRN Administration Mild Pain (1-3) or Fever Allopurinol 100 mg 09/29/22 08:00 10/01/22 08:33 Allopurinol 100 Mg Tablet PO 100 mg DAILY@0800 MADISYN Administration Amlodipine Besylate 5 mg 10/01/22 10:46 10/01/22 12:37 Amlodipine Besylate 5 Mg Tablet PO 5 mg DAILY MADISYN Administration Atorvastatin Calcium 20 mg 09/29/22 21:00 09/30/22 21:00 Atorvastatin 20 Mg Tablet PO 20 mg HS MADISYN Administration Epoetin Lucho-epbx 10,000 units 10/01/22 20:20 Epoetin Lucho-Epbx 10,000 Units/Ml Vial IV PUSH 10/01/22 20:21 ONCE ONE Folic Acid 0.8 mg 09/29/22 09:00 10/01/22 08:33 Folic Acid 0.4 Mg Tablet PO 0.8 mg DAILY MADISYN Administration Haloperidol 5 mg 09/29/22 09:00 10/01/22 08:33 Haloperidol 5 Mg Tablet PO 5 mg BID MADISYN Administration Albumin Human 50 mls @ 999 mls/hr 10/01/22 07:20 Albutein IVPB 10/31/22 07:19 Q10M PRN HYPOTENSION Levofloxacin 750 mg 10/01/22 21:00 Levofloxacin 750 Mg Tablet PO 10/01/22 21:01 ONCE ONE Levofloxacin 500 mg 10/03/22 21:00 Levofloxacin 500 Mg Tablet PO 0
--- NOTE | 2022-10-01 13:50 | P.PNNP_ITS ---
Progress Note: A&P Assessment and Plan (1) End stage renal disease: Code(s): N18.6 - End stage renal disease Status: Chronic Assessment and Plan: * planned HD today and continue M/W/ dialysis schedule * unfortunately. due to more critical patient in the ICU who need dialysis, will plan HD treatment tomorrow * follow electrolytes, volume status, and clearance (2) Altered mental status: Code(s): R41.82 - Altered mental status, unspecified Status: Acute Assessment and Plan: * baseline unknown * complicated by history of dementia * CT of head noted * possibly worsened by UTI/infection * urine culture negative * one blood culture positive but suspect contamination as repeat cultures negative to date * follow mentation (3) UTI (urinary tract infection): Code(s): N39.0 - Urinary tract infection, site not specified Status: Acute Assessment and Plan: * as suggested by admission UA * however, culture data (urine) negative to date * empiric antibiotics (4) Hypertension: Code(s): I10 - Essential (primary) hypertension Status: Chronic Assessment and Plan: * holding midodrine since BP elevated * started on low dose amlodipine today * follow trend of hemodynamics (5) Anemia: Code(s): D64.9 - Anemia, unspecified Status: Chronic Assessment and Plan: * due to ESRD * H/H relatively stable * Epogen with HD Will continue to follow. Subjective Date/time seen: 10/01/22 13:50 A bit more verbal today in comparison to yesterday -- answering a few questions but still somewhat slow to respond; no other acute issue/events noted overnight or earlier today; no distress noted at the time of my visit; no other concerns voiced. Exam Narrative: General: chronically ill appearing AA female in NAD Heart: normal S1 and S2; no rub Lungs: clear to auscultation Abdomen: soft, nontender, nondistended, positive bowel sounds Extremities: no cyanosis or clubbing; no edema Skin: warm and intact Objective Data Vital Signs Vital Signs: Vital Signs Temp Pulse Resp BP Pulse Ox O2 Del Method 10/01/22 08:00 Room Air 10/01/22 08:00 97.1 F L 82 16 154/54 H 100 09/30/22 21:52 98 Room Air 10/01/22 00:44 157/38 H 10/01/22 00:00 97.6 F 80 14 185/63 H 98 09/30/22 20:00 Room Air 09/30/22 20:07 97.5 F L 84 16 154/61 H 98 Intake/Output Intake/Output: Intake & Output 09/28/22 09/29/22 09/30/22 10/01/22 23:59 23:59 23:59 23:59 Intake Total 452 1180 440 Output Total 500 0 Balance -48 1180 440 Meds/Results Medications: Active Medications Generic Name Dose Route Start Last Admin Trade Name Freq PRN Reason Stop Dose Admin Acetaminophen 650 mg 09/28/22 20:05 10/01/22 12:42 Acetaminophen 325 Mg Tablet PO 650 mg Q4H PRN Administration Mild Pain (1-3) or Fever Allopurinol 100 mg 09/29/22 08:00 10/01/22 08:33 Allopurinol 100 Mg Tablet PO 100 mg DAILY@0800 MADISYN Administration Amlodipine Besylate 5 mg 10/01/22 10:46 10/01/22 12:37 Amlodipine Besylate 5 Mg
--- NOTE | 2022-10-01 15:15 | PC.NURSE ---
This patient, Dania Demarco, was transferred to [ [facility]-02] on 10/01/22 at 1515. Personal belongings sent with patient. Report given to [Majo ]. Appropriate documentation sent with patient.
--- NOTE | 2022-10-01 16:02 | ADMGEN ---
This patient, Dania Demarco, was admitted to [facility] Surg Room 332-02. Patient oriented to hospital policies and general routines including ID bracelet, bed and alarms, visiting hours, pain management, procedures, bathroom and other care routines, personal items, smoking policy, room service/diet, and visiting hours. Information on how to activate the Rapid Response Team has been discussed. Patient/Family are encouraged to report perceived risks to care and to ask questions if they do not understand what they are told or what they should do.
[2022-10-01 20:00] VITALS: PULSE 82; RESP 16; O2SAT 100
[2022-10-01] MEDS: ATORVASTATIN 20 MG TABLET PO (22:17)
[2022-10-01] MEDS: levoFLOXacin 750 MG TABLET PO (22:17)
[2022-10-01] MEDS: VITAMIN B CMPLX/VIT C/FOLIC AC 1 CAPSULE 1 CAP PO (22:17)
[2022-10-01 23:57] VITALS: BP 152/49; PULSE 94; RESP 16; TEMP 36.7; O2SAT 98
[2022-10-02] VITALS (16 sets, daily range): BP systolic 98–216; BP diastolic 44–88; PULSE 70–97; RESP 18–24; TEMP 35.5–36.5; O2SAT 100
[2022-10-02] MEDS: FOLIC ACID 0.4 MG TABLET 0.8 MG PO (08:56)
[2022-10-02] MEDS: amLODIPine BESYLATE 5 MG TABLET PO ×2 (08:57→18:52)
[2022-10-02] MEDS: HALOPERIDOL 5 MG TABLET PO ×2 (08:57→21:54)
[2022-10-02] MEDS: allopurinoL 100 MG TABLET PO (08:57)
--- NOTE | 2022-10-02 15:26 | PCOTNOTE ---
Attempted to see patient for OT evaluation this afternoon. Patient awake, but not following 1 step commands. When attempting to help her move to the edge of the bed, she yells out in pain, resists therapists attempts to help her. Will continue to attempt as appropriate.
--- NOTE | 2022-10-02 15:27 | PM.IMPN ---
Progress Note: A&P Assessment and Plan (1) Altered mental status: Code(s): R41.82 - Altered mental status, unspecified Status: Acute (2) UTI (urinary tract infection): Code(s): N39.0 - Urinary tract infection, site not specified Status: Acute (3) Elevated troponin: Code(s): R77.8 - Other specified abnormalities of plasma proteins Status: Acute (4) End-stage renal disease on hemodialysis: Code(s): N18.6 - End stage renal disease; Z99.2 - Dependence on renal dialysis Status: Acute (5) Alzheimer disease: Code(s): G30.9 - Alzheimer's disease, unspecified; F02.80 - Dementia in other diseases classified elsewhere, unspecified severity, without behavioral disturbance, psychotic disturbance, mood disturbance, and anxiety Status: Acute (6) Schizophrenia: Code(s): F20.9 - Schizophrenia, unspecified Status: Acute Plan # acute encephalopathy may have underlying dementia does have evidence of UTI. Treat with ceftriaxone. Patient was reported to be given appetite stimulant which had made her more sleepy. Medication on hold cT head with no acute abnormality. Still remains altered. Unclear baseline. However previous facility report reviewed and was alert and oriented x1 there.. Likely at her baseline or almost at baseline. Continue to treat UTI. # end-stage renal disease on hemodialysis nephrology consulted Tuesday inpatient hemodialysis as directed by resource analyst # UTI ceftriaxone blood culture negative to date. Urine culture with no growth recently treated with antibiotics as well recently was treated with cephalosporins. Was switched to Levaquin here. Finished 7 day course of treatment tomorrow # bacteremia: Vancomycin started. B12 blood culture obtained. Came back as Staph hominis. Vancomycin stopped # elevated troponin likely related to underlying end-stage renal disease # dementia # schizophrenia # hyperlipidemia # hypertension no medication at home. Reported to be on midodrine. Will hold this as she is more hypertensive now. added amlodipine for blood pressure control . Will titrate to 10 mg daily # DVT prophylaxis: Heparin # code status full code # PT OT to see Subjective Date/time seen: 10/02/22 15:27 Interval history: Patient presented from senior care for unclear reason. Apparently altered mental status minimally verbal so further history could not be elucidated. Normally goes to [facility] she is on dialysis. Noted to have UTI. 09/30/2022: No overnight events. Discussed the nursing staff. Still slow to respond. Awake and alert. Minimally verbal. 10/01/2022: No overnight events. Patient more verbal today answers few questions. Still slow to respond but answers appropriately. 10/02/2022: No overnight events. Patient more awake and alert talkative today. Denies any chest pain shortness of breath abdominal pain vomiting. Discussed with nursing staff. Labs reviewed. Exam Narrative: GENERAL: Chronically ill-appearing, thin built, and in no acute distress. HEAD: Normocephalic, atraumatic. EYES: PERRL and EOMI. ENT: Mucous membranes moist. CHEST: Clear to auscultation.? No respiratory distress. HEART: Regular rate and rhythm.? Normal peripheral pulses. ABDOMEN: Soft, nontender, nondistended. EXTREMITIES: Dialysis access right upper extremity with thrill.? Former access left upper extremity. SKIN: Warm, dry, no rash. NEURO: Awake alert More communicative today Objective Data Vital Signs Vital Signs: Vital Signs - 24 hr 10/01/22 20:00 10/01/22 23:57 10/02/22 08:55 Temperature 98.1 F Pulse Rate 82 94 Respiratory Rate 16 16 Blood Pressure 152/49 H Pulse Oximetry 100 98 Oxygen Delivery Room Air Room Air 10/02/22 13:21 Temperature 97.7 F Pulse Rate 71 Respiratory Rate 18 Blood Pressure 160/50 H Pulse Oximetry 100 Oxygen Delivery Intake/Output Intake/Outp
--- NOTE | 2022-10-02 17:05 | PC.NURSE ---
To dialysis via bed.
--- NOTE | 2022-10-02 17:30 | P.PNNP_ITS ---
Progress Note: A&P Assessment and Plan (1) End stage renal disease: Code(s): N18.6 - End stage renal disease Status: Chronic Assessment and Plan: * HD today and resume M/W/F dialysis schedule next week * follow electrolytes, volume status, and clearance (2) Altered mental status: Code(s): R41.82 - Altered mental status, unspecified Status: Acute Assessment and Plan: * slow improvement noted * baseline unknown * complicated by history of dementia * CT of head noted * possibly worsened by UTI/infection * urine culture negative * one blood culture positive but suspect contamination as repeat cultures negative to date * follow mentation (3) UTI (urinary tract infection): Code(s): N39.0 - Urinary tract infection, site not specified Status: Acute Assessment and Plan: * as suggested by admission UA * however, culture data (urine) negative to date * empiric antibiotics (4) Hypertension: Code(s): I10 - Essential (primary) hypertension Status: Chronic Assessment and Plan: * holding midodrine since BP elevated * started on low dose amlodipine * follow trend of hemodynamics (5) Anemia: Code(s): D64.9 - Anemia, unspecified Status: Chronic Assessment and Plan: * due to ESRD * H/H relatively stable * Epogen with HD Will continue to follow. Subjective Date/time seen: 10/02/22 17:30 Tolerating hemodialysis treatment at the time of my visit (seen on HD at 5:20PM); mentation seems to be doing better -- she is more awake & alert as well as verbal today; no other issues/events overnight or earlier this morning. Exam Narrative: General: chronically ill appearing AA female in NAD Heart: normal S1 and S2; no rub Lungs: clear to auscultation Abdomen: soft, nontender, nondistended, positive bowel sounds Extremities: no cyanosis or clubbing; no edema Skin: warm and intact Objective Data Vital Signs Vital Signs: Vital Signs Temp Pulse Resp BP Pulse Ox O2 Del Method 10/02/22 13:21 97.7 F 71 18 160/50 H 100 10/02/22 08:55 Room Air 10/01/22 23:57 98.1 F 94 16 152/49 H 98 10/01/22 20:00 82 16 100 Room Air Intake/Output Intake/Output: Intake & Output 09/29/22 09/30/22 10/01/22 10/02/22 23:59 23:59 23:59 23:59 Intake Total 452 1180 676 910 Output Total 500 0 Balance -48 1180 676 910 Meds/Results Medications: Active Medications Generic Name Dose Route Start Last Admin Trade Name Freq PRN Reason Stop Dose Admin Acetaminophen 650 mg 09/28/22 20:05 10/01/22 12:42 Acetaminophen 325 Mg Tablet PO 650 mg Q4H PRN Administration Mild Pain (1-3) or Fever Allopurinol 100 mg 09/29/22 08:00 10/02/22 08:57 Allopurinol 100 Mg Tablet PO 100 mg DAILY@0800 MADISYN Administration Amlodipine Besylate 5 mg 10/02/22 17:00 Amlodipine Besylate 5 Mg Tablet PO BID MADISYN Atorvastatin Calcium 20 mg 09/29/22 21:00 10/01/22 22:17 Atorvastatin 20 Mg Tablet PO 20 mg HS MADISYN Administration Folic Acid 0.8 mg 09/29/22 09:00 10/02/22 08:56 Fo
--- NOTE | 2022-10-02 17:30 | PM.PNNEP ---
Progress Note: A&P Assessment and Plan (1) End stage renal disease: Code(s): N18.6 - End stage renal disease Status: Chronic Assessment and Plan: HD today and resume M/W/F dialysis schedule next week follow electrolytes, volume status, and clearance (2) Altered mental status: Code(s): R41.82 - Altered mental status, unspecified Status: Acute Assessment and Plan: slow improvement noted baseline unknown complicated by history of dementia CT of head noted possibly worsened by UTI/infection urine culture negative one blood culture positive but suspect contamination as repeat cultures negative to date follow mentation (3) UTI (urinary tract infection): Code(s): N39.0 - Urinary tract infection, site not specified Status: Acute Assessment and Plan: as suggested by admission UA however, culture data (urine) negative to date empiric antibiotics (4) Hypertension: Code(s): I10 - Essential (primary) hypertension Status: Chronic Assessment and Plan: holding midodrine since BP elevated started on low dose amlodipine follow trend of hemodynamics (5) Anemia: Code(s): D64.9 - Anemia, unspecified Status: Chronic Assessment and Plan: due to ESRD H/H relatively stable Epogen with HD Will continue to follow. Subjective Date/time seen: 10/02/22 17:30 Tolerating hemodialysis treatment at the time of my visit (seen on HD at 5:20PM); mentation seems to be doing better -- she is more awake & alert as well as verbal today; no other issues/events overnight or earlier this morning. Exam Narrative: General: chronically ill appearing AA female in NAD Heart: normal S1 and S2; no rub Lungs: clear to auscultation Abdomen: soft, nontender, nondistended, positive bowel sounds Extremities: no cyanosis or clubbing; no edema Skin: warm and intact Objective Data Vital Signs Vital Signs: Vital Signs Temp Pulse Resp BP Pulse Ox O2 Del Method 10/02/22 13:21 97.7 F 71 18 160/50 H 100 10/02/22 08:55 Room Air 10/01/22 23:57 98.1 F 94 16 152/49 H 98 10/01/22 20:00 82 16 100 Room Air Intake/Output Intake/Output: Intake & Output 09/29/22 09/30/22 10/01/22 10/02/22 23:59 23:59 23:59 23:59 Intake Total 452 1180 676 910 Output Total 500 0 Balance -48 1180 676 910 Meds/Results Medications: Active Medications Generic Name Dose Route Start Last Admin Trade Name Mara PRN Reason Stop Dose Admin Acetaminophen 650 mg 09/28/22 20:05 10/01/22 12:42 Acetaminophen 325 Mg Tablet PO 650 mg Q4H PRN Administration Mild Pain (1-3) or Fever Allopurinol 100 mg 09/29/22 08:00 10/02/22 08:57 Allopurinol 100 Mg Tablet PO 100 mg DAILY@0800 MADISYN Administration Amlodipine Besylate 5 mg 10/02/22 17:00 Amlodipine Besylate 5 Mg Tablet PO BID MADISYN Atorvastatin Calcium 20 mg 09/29/22 21:00 10/01/22 22:17 Atorvastatin 20 Mg Tablet PO 20 mg HS MADISYN Administration Folic Acid 0.8 mg 09/29/22 09:00 10/02/22 08:56 Folic Acid 0.4 Mg Tablet PO 0.8 mg DAILY MADISYN Administration Haloperidol 5 mg 09/29/22 09:00 10/02/22 08:57 Haloperidol 5 Mg Tablet PO 5 mg BID MADISYN Administration Albumin Human 50 mls @ 999 mls/hr 10/01/22 07:20 Albutein IVPB 10/31/22 07:19 Q10M PRN HYPOTENSION Levofloxacin 500 mg 10/03/22 21:00 Levofloxacin 500 Mg Tablet PO 10/03/22 21:01 ONCE ONE Magnesium Hydroxide 30 ml 09/29/22 01:10 Magnesium Hydroxide Susp 30 Ml Udc PO HS PRN Constipation Midodrine 5 mg 09/29/22 01:10 Midodrine Hcl 2.5 Mg Tablet PO TuThSa PRN Blood Pressure Promethazine HCl 12.5 mg 09/28/22 20:05 Promethazine Hcl 25 Mg/Ml Ampul IV PUSH Q6H PRN Nausea Vitamin B Complex/Folic Acid 1 cap 09/29/22 21:00 10/01/22 22:17 Vitamin B Cmplx/Vit C/Folic Ac 1 Capsule
[2022-10-02 17:44] LABS: Basophils Percent Auto 1.1 % (0.2-1.2); Eosinophils Absolute Auto 0.2 K/mm3 (0-0.3); Eosinophils Percent Auto 8.6 % (0-4.4); Hematocrit 27.1 % (37.0-47.0); Hemoglobin 8.7 g/dL (12.0-15.0); Immature Granulocyte Absolute 0.01 K/mm3 (0.00-0.031); Immature Granulocyte Percent A 0.4 % (0-0.5); Lymphocytes Absolute Auto 0.83 K/mm3 (0.9-3.2); Lymphocytes Percent Auto 30.9 % (18.3-44.2); Mean Corpuscular HGB Conc 32.1 g/dl (32-36); Mean Corpuscular Volume 96.4 fl (80-100); Monocytes Absolute Auto 0.2 K/mm3 (0.1-0.6); Monocytes Percent Auto 6.7 % (2.6-8.5); Neutrophils Absolute Auto 1.4 K/mm3 (1.3-6.7); Neutrophils Percent Auto 52.3 % (45.5-73.1); Platelet Count Result 198 k/mm3 (150-375); Red Blood Count 2.81 M/mm3 (4.2-5.4); Red Cell Distribution Width 15.4 % (11.5-14.5); White Blood Count 2.7 K/mm3 (4.5-10.0)
[2022-10-02 17:55] LABS: Alanine Aminotransferase 60 U/L (6-35); Alkaline Phosphatase 92 U/L (38-126); Anion Gap 5 mmol/L (8-16); Aspartate Amino Transferase 61 U/L (14-36); Bilirubin,Total 0.5 mg/dL (0.2-1.3); Blood Urea Nitrogen 64 mg/dL (7-17); Calcium 8.7 mg/dL (8.4-10.2); Carbon Dioxide 30 mmol/L (22-30); Chloride 99 mmol/L (98-107); Estimated CRCL calculation 5 ml/min; Estimated Glomerular Filt Rate 6; Glucose 105 mg/dL (65-110); Magnesium 2.1 mg/dL (1.6-2.3); Potassium 4.7 mmol/L (3.4-5.0); Sodium 134 mmol/L (137-145)
[2022-10-02] MEDS: EPOETIN ALFA-EPBX 10,000 UNITS/ML VIAL 10000 UNITS IV PUSH (19:35)
[2022-10-02] MEDS: SODIUM CHLORIDE 0.9% IV 1,000 ML 999 ML IV CONT (19:36)
--- NOTE | 2022-10-02 21:00 | PCHDNOTE ---
Dialysis treatment completed as ordered. Time and UF met. Hemostasis achieved in cannulation sites x 2. Net UF 1.5 Liters. No acute distress noted.
--- NOTE | 2022-10-02 21:40 | PC.NURSE ---
Spoke with Dr. Gardner at this time r/t elevated BP of 201/88. Dr. Gardner says to give hydralazine 10 mg IV push now and we will go from there.
[2022-10-02] MEDS: ATORVASTATIN 20 MG TABLET PO (21:54)
[2022-10-02] MEDS: VITAMIN B CMPLX/VIT C/FOLIC AC 1 CAPSULE 1 CAP PO (21:54)
[2022-10-02] MEDS: hydrALAZINE HCL 20 MG/ML VIAL 10 MG IV PUSH (21:55)
[2022-10-03 00:26] VITALS: BP 102/64
[2022-10-03 05:09] VITALS: BP 154/25; PULSE 64; RESP 16; TEMP 36.2; O2SAT 100
--- NOTE | 2022-10-03 08:45 | PCOTNOTE ---
Attempted OT evaluation, patient is awake but unable to follow simple one step commands, repositioned in bed and patient unable to follow commands to assist, not appropriate for therapy evaluation at this time. Will follow.
--- NOTE | 2022-10-03 08:45 | PCPTNOTE ---
The patient treatment was not able to be completed on [10/03/22] due to inability to follow one step instruction. Will recheck patient status tomorrow.
[2022-10-03 09:00] VITALS: BP 153/77; PULSE 102; O2SAT 100
[2022-10-03] MEDS: allopurinoL 100 MG TABLET PO (09:00)
[2022-10-03] MEDS: HALOPERIDOL 5 MG TABLET PO ×2 (09:00→16:30)
[2022-10-03] MEDS: FOLIC ACID 0.4 MG TABLET 0.8 MG PO (09:00)
[2022-10-03] MEDS: amLODIPine BESYLATE 5 MG TABLET PO ×2 (09:00→16:30)
--- NOTE | 2022-10-03 12:14 | PM.PNNEP ---
Progress Note: A&P Assessment and Plan (1) End stage renal disease: Code(s): N18.6 - End stage renal disease Status: Chronic Assessment and Plan: HD yesterday and resume M/W/ dialysis schedule next week follow electrolytes, volume status, and clearance (2) Altered mental status: Code(s): R41.82 - Altered mental status, unspecified Status: Acute Assessment and Plan: slow improvement noted baseline unknown complicated by history of dementia CT of head noted possibly worsened by UTI/infection urine culture negative one blood culture positive but suspect contamination as repeat cultures negative to date follow mentation (3) UTI (urinary tract infection): Code(s): N39.0 - Urinary tract infection, site not specified Status: Acute Assessment and Plan: as suggested by admission UA however, culture data (urine) negative to date empiric antibiotics (4) Hypertension: Code(s): I10 - Essential (primary) hypertension Status: Chronic Assessment and Plan: holding midodrine since BP elevated titrate amlodipine but may need another agent (i.e. lsinopril) follow trend of hemodynamics (5) Anemia: Code(s): D64.9 - Anemia, unspecified Status: Chronic Assessment and Plan: due to ESRD Epogen with HD follow trend of H/H Will continue to follow. Subjective Date/time seen: 10/03/22 12:14 Tolerated dialysis treatment yesterday afternoon/evening without any issues or problems; no other acute issues/events/problems overnight or earlier this morning; no apparent distress noted at the time of my visit; mentation seems stable although she is not as communicative today; BP noted to be running on the higher side in the last 24 hours. Exam Narrative: General: chronically ill appearing AA female in NAD Heart: normal S1 and S2; no rub Lungs: clear to auscultation Abdomen: soft, nontender, nondistended, positive bowel sounds Extremities: no cyanosis or clubbing; no edema Skin: no rash Objective Data Vital Signs Vital Signs: Vital Signs Temp Pulse Resp BP Pulse Ox O2 Del Method 10/03/22 12:00 98.4 F 105 H 16 184/63 H 100 10/03/22 09:00 102 H 153/77 H 100 10/03/22 09:00 Room Air 10/03/22 05:09 97.1 F L 64 16 154/25 H 100 10/03/22 00:26 102/64 10/02/22 20:51 87 202/64 H 10/02/22 20:40 85 189/57 H 10/02/22 22:00 97 F L 97 24 H 98/72 L 100 10/02/22 20:00 Room Air 10/02/22 20:20 78 164/54 H 10/02/22 20:56 97.4 F L 84 18 201/88 H 10/02/22 19:40 93 210/79 H 10/02/22 19:20 89 216/58 H 10/02/22 19:00 70 210/58 H 10/02/22 18:40 76 208/87 H 10/02/22 18:20 92 191/47 H 10/02/22 18:00 93 178/47 H 10/02/22 20:00 81 194/70 H 10/02/22 17:40 92 198/60 H 10/02/22 17:20 92 174/57 H 10/02/22 17:09 97.6 F 94 18 182/44 H Intake/Output Intake/Output: Intake & Output 09/30/22 10/01/22 10/02/22 10/03/22 23:59 23:59 23:59 23:59 Intake Total 1180 676 910 150 Output Total 0 1500 Balance 1180 676 -590 150 Meds/Results Medications: Active Medications Generic Name Dose Route Start Last Admin Trade Name Mraa PRN Reason Stop Dose Admin Acetaminophen 650 mg 09/28/22 20:05 10/01/22 12:42 Acetaminophen 325 Mg Tablet PO 650 mg Q4H PRN Administration Mild Pain (1-3) or Fever Allopurinol 100 mg 09/29/22 08:00 10/03/22 09:00 Allopurinol 100 Mg Tablet PO 100 mg DAILY@0800 MADISYN Administration Amlodipine Besylate 5 mg 10/02/22 17:00 10/03/22 09:00 Amlodipine Besylate 5 Mg Tablet PO 5 mg BID MADISYN Administration Atorvastatin Calcium 20 mg 09/29/22 21:00 10/02/22 21:54 Atorvastatin 20 Mg Tablet PO 20 mg HS MADISYN Administration Folic Acid 0.8 mg 09/29/22 09:00 10/03/22 09:00 Folic Acid 0.4 Mg Tablet PO 0.8 mg DAILY MADISYN
[2022-10-03 14:00] VITALS: BP 184/63; PULSE 105; RESP 16; TEMP 36.9; O2SAT 100
--- NOTE | 2022-10-03 15:23 | PM.IMPN ---
Progress Note: A&P Assessment and Plan (1) Altered mental status: Code(s): R41.82 - Altered mental status, unspecified Status: Acute (2) UTI (urinary tract infection): Code(s): N39.0 - Urinary tract infection, site not specified Status: Acute (3) Elevated troponin: Code(s): R77.8 - Other specified abnormalities of plasma proteins Status: Acute (4) End-stage renal disease on hemodialysis: Code(s): N18.6 - End stage renal disease; Z99.2 - Dependence on renal dialysis Status: Acute (5) Alzheimer disease: Code(s): G30.9 - Alzheimer's disease, unspecified; F02.80 - Dementia in other diseases classified elsewhere, unspecified severity, without behavioral disturbance, psychotic disturbance, mood disturbance, and anxiety Status: Acute (6) Schizophrenia: Code(s): F20.9 - Schizophrenia, unspecified Status: Acute Plan # acute encephalopathy may have underlying dementia does have evidence of UTI. Treat with ceftriaxone. Patient was reported to be given appetite stimulant which had made her more sleepy. Medication on hold cT head with no acute abnormality. Still remains altered. Unclear baseline. However previous facility report reviewed and was alert and oriented x1 there.. Likely at her baseline or almost at baseline. Continue to treat UTI. # end-stage renal disease on hemodialysis nephrology consulted Tuesday inpatient hemodialysis as directed by dry room attendant # UTI ceftriaxone blood culture negative to date. Urine culture with no growth recently treated with antibiotics as well recently was treated with cephalosporins. Was switched to Levaquin here. Finished 7 day course of treatment tomorrow # bacteremia: Vancomycin started. B12 blood culture obtained. Came back as Staph hominis. Vancomycin stopped # elevated troponin likely related to underlying end-stage renal disease # dementia # schizophrenia # hyperlipidemia # hypertension no medication at home. Reported to be on midodrine. Will hold this as she is more hypertensive now. added amlodipine for blood pressure control . Will titrate to 10 mg daily # DVT prophylaxis: Heparin # code status full code # PT OT to see comes from [facility] Subjective Date/time seen: 10/03/22 15:23 Interval history: [facility]. Apparently altered mental status minimally verbal so further history could not be elucidated. Normally goes to [facility] she is on dialysis. Noted to have UTI. 09/30/2022: No overnight events. Discussed the nursing staff. Still slow to respond. Awake and alert. Minimally verbal. 10/01/2022: No overnight events. Patient more verbal today answers few questions. Still slow to respond but answers appropriately. 10/02/2022: No overnight events. Patient more awake and alert talkative today. Denies any chest pain shortness of breath abdominal pain vomiting. Discussed with nursing staff. Labs reviewed. 10/03/2022: No overnight events. Patient awake and alert less conversive today. Follow some commands though. Review of Systems Review of Systems: ROS unobtainable: Yes unobtainable due to mental status Exam Narrative: GENERAL: Chronically ill-appearing, thin built, and in no acute distress. HEAD: Normocephalic, atraumatic. EYES: PERRL and EOMI. ENT: Mucous membranes moist. CHEST: Clear to auscultation.? No respiratory distress. HEART: Regular rate and rhythm.? Normal peripheral pulses. ABDOMEN: Soft, nontender, nondistended. EXTREMITIES: Dialysis access right upper extremity with thrill.? Former access left upper extremity. SKIN: Warm, dry, no rash. NEURO: Awake alert S communicative today Objective Data Vital Signs Vital Signs: Vital Signs - 24 hr 10/02/22 17:09 10/02/22 17:20 10/02/22 17:40 Temperature 97.6 F Pulse Rate 94 92 92 Respiratory Rate 18 Bloo
[2022-10-03 20:00] VITALS: PULSE 99; RESP 20; O2SAT 100
[2022-10-03] MEDS: levoFLOXacin 500 MG TABLET PO (21:52)
[2022-10-03] MEDS: VITAMIN B CMPLX/VIT C/FOLIC AC 1 CAPSULE 1 CAP PO (21:52)
[2022-10-03] MEDS: ATORVASTATIN 20 MG TABLET PO (21:52)
[2022-10-03 22:00] VITALS: BP 106/81; PULSE 99; RESP 20; TEMP 36.5; O2SAT 100
[2022-10-04] VITALS (17 sets, daily range): BP systolic 113–161; BP diastolic 45–82; PULSE 65–110; RESP 16–20; TEMP 35.3–37.1; O2SAT 98–100; BMI 11.0
[2022-10-04] MEDS: HALOPERIDOL 5 MG TABLET PO ×2 (09:39→17:30)
[2022-10-04] MEDS: allopurinoL 100 MG TABLET PO (09:39)
[2022-10-04] MEDS: amLODIPine BESYLATE 5 MG TABLET PO ×2 (09:39→17:30)
[2022-10-04] MEDS: FOLIC ACID 0.4 MG TABLET 0.8 MG PO (09:40)
--- NOTE | 2022-10-04 10:07 | PCNFU ---
Nutrition Follow-Up Complete: Inadequate oral intake related to altered mental status, loss of appetite as evidenced by RN report Goal: Improved PO intake at least 50% meals and supplements - Progressing toward goal. Not meeting goal consistently Pt current nutrition is Heart healthy diet. intakes 5-100% over last 48 hours. Drinking Ensure compact 100%. Nutrition recommendation: Continue with same care plan. Agree with orders. Last recorded weight is 65.5 kg. Bowel Motility: Last BM 09/30/22 Labs Reviewed: Hgb 8.7, Hct 27.1, Alb 3.0, Na 134, GFR 6, BUN 64, Cre 8.1 Meds Noted: Albumin; folic acid; milk of magnesia, phenergan, nephrocaps vitamins Skin: WNL Additional Notes: Appetite is sporadic. She is drinking supplements. Mental status improved. Continue same care plan and orders. Agree with orders. Monitoring intakes, supplement tolerance, labs, weights, plan of care Follow up in 5 days
--- NOTE | 2022-10-04 13:10 | PC.NURSE ---
To dialysis via bed.
[2022-10-04 13:34] LABS: Basophils Percent Auto 0.4 % (0.2-1.2); Eosinophils Absolute Auto 0.3 K/mm3 (0-0.3); Eosinophils Percent Auto 3.9 % (0-4.4); Hematocrit 29.2 % (37.0-47.0); Hemoglobin 9.1 g/dL (12.0-15.0); Immature Granulocyte Absolute 0.05 K/mm3 (0.00-0.031); Immature Granulocyte Percent A 0.6 % (0-0.5); Lymphocytes Percent Auto 11.2 % (18.3-44.2); Mean Corpuscular HGB Conc 31.2 g/dl (32-36); Mean Corpuscular Hemoglobin 30.8 pg (26-34); Monocytes Absolute Auto 0.6 K/mm3 (0.1-0.6); Monocytes Percent Auto 7.5 % (2.6-8.5); Neutrophils Absolute Auto 6.2 K/mm3 (1.3-6.7); Neutrophils Percent Auto 76.4 % (45.5-73.1); Platelet Count Result 221 k/mm3 (150-375); Red Blood Count 2.95 M/mm3 (4.2-5.4); Red Cell Distribution Width 15.8 % (11.5-14.5); White Blood Count 8.1 K/mm3 (4.5-10.0)
--- NOTE | 2022-10-04 13:38 | P.PNNP_ITS ---
Progress Note: A&P Assessment and Plan (1) End stage renal disease: Code(s): N18.6 - End stage renal disease Status: Chronic Assessment and Plan: * HD today to resume M/W/ dialysis schedule * follow electrolytes, volume status, and clearance (2) Altered mental status: Code(s): R41.82 - Altered mental status, unspecified Status: Acute Assessment and Plan: * continues to fluctuate * baseline unknown * complicated by history of dementia * CT of head noted * possibly worsened by UTI/infection * urine culture negative * one blood culture positive but suspect contamination as repeat cultures negative to date * follow mentation (3) UTI (urinary tract infection): Code(s): N39.0 - Urinary tract infection, site not specified Status: Acute Assessment and Plan: * as suggested by admission UA * however, culture data (urine) negative to date * empiric antibiotics (4) Hypertension: Code(s): I10 - Essential (primary) hypertension Status: Chronic Assessment and Plan: * holding midodrine since BP elevated * titrate amlodipine but may need another agent (i.e. lsinopril) * follow trend of hemodynamics (5) Anemia: Code(s): D64.9 - Anemia, unspecified Status: Chronic Assessment and Plan: * due to ESRD * Epogen with HD * follow trend of H/H Will continue to follow. Subjective Date/time seen: 10/04/22 13:38 Tolerating dialysis treatment at the time of my visit (seen on HD at 1:30PM); she seems a bit more lethargic/somnolent today but in no apparent distress; apparently, mentation has been fluctuation as reported she was more awake/alert earlier today; no issues/events overnight or earlier this AM. Exam Narrative: General: chronically ill appearing AA female in NAD Heart: normal S1 and S2; no rub Lungs: clear to auscultation Abdomen: soft, nontender, nondistended, positive bowel sounds Extremities: no cyanosis or clubbing; no edema Skin: no nodules Objective Data Vital Signs Vital Signs: Vital Signs Temp Pulse Resp BP Pulse Ox O2 Del Method 10/04/22 13:30 90 138/72 10/04/22 13:05 98.3 F 97 16 157/82 H 10/04/22 13:18 94 153/74 H 10/04/22 08:30 Room Air 10/04/22 08:35 Room Air 10/04/22 03:15 96.6 F L 97 18 149/45 H 100 10/03/22 20:00 99 20 100 Room Air 10/03/22 22:00 97.7 F 99 20 106/81 100 10/03/22 14:00 98.4 F 105 H 16 184/63 H 100 Intake/Output Intake/Output: Intake & Output 10/01/22 10/02/22 10/03/22 10/04/22 23:59 23:59 23:59 23:59 Intake Total 676 910 350 265 Output Total 0 1500 Balance 676 -590 350 265 Meds/Results Medications: Active Medications Generic Name Dose Route Start Last Admin Trade Name Domenicoq PRN Reason Stop Dose Admin Acetaminophen 650 mg 09/28/22 20:05 10/01/22 12:42 Acetaminophen 325 Mg Tablet PO 650 mg Q4H PRN Administration Mild Pain (1-3) or Fever Allopurinol 100 mg 09/29/22 08:00 10/04/22 09:39 Allopurinol 100 Mg Tablet PO 100 mg DAILY@0800 MADISYN Administration Amlodipine Besyl
--- NOTE | 2022-10-04 13:38 | PM.PNNEP ---
Progress Note: A&P Assessment and Plan (1) End stage renal disease: Code(s): N18.6 - End stage renal disease Status: Chronic Assessment and Plan: HD today to resume M/W/F dialysis schedule follow electrolytes, volume status, and clearance (2) Altered mental status: Code(s): R41.82 - Altered mental status, unspecified Status: Acute Assessment and Plan: continues to fluctuate baseline unknown complicated by history of dementia CT of head noted possibly worsened by UTI/infection urine culture negative one blood culture positive but suspect contamination as repeat cultures negative to date follow mentation (3) UTI (urinary tract infection): Code(s): N39.0 - Urinary tract infection, site not specified Status: Acute Assessment and Plan: as suggested by admission UA however, culture data (urine) negative to date empiric antibiotics (4) Hypertension: Code(s): I10 - Essential (primary) hypertension Status: Chronic Assessment and Plan: holding midodrine since BP elevated titrate amlodipine but may need another agent (i.e. lsinopril) follow trend of hemodynamics (5) Anemia: Code(s): D64.9 - Anemia, unspecified Status: Chronic Assessment and Plan: due to ESRD Epogen with HD follow trend of H/H Will continue to follow. Subjective Date/time seen: 10/04/22 13:38 Tolerating dialysis treatment at the time of my visit (seen on HD at 1:30PM); she seems a bit more lethargic/somnolent today but in no apparent distress; apparently, mentation has been fluctuation as reported she was more awake/alert earlier today; no issues/events overnight or earlier this AM. Exam Narrative: General: chronically ill appearing AA female in NAD Heart: normal S1 and S2; no rub Lungs: clear to auscultation Abdomen: soft, nontender, nondistended, positive bowel sounds Extremities: no cyanosis or clubbing; no edema Skin: no nodules Objective Data Vital Signs Vital Signs: Vital Signs Temp Pulse Resp BP Pulse Ox O2 Del Method 10/04/22 13:30 90 138/72 10/04/22 13:05 98.3 F 97 16 157/82 H 10/04/22 13:18 94 153/74 H 10/04/22 08:30 Room Air 10/04/22 08:35 Room Air 10/04/22 03:15 96.6 F L 97 18 149/45 H 100 10/03/22 20:00 99 20 100 Room Air 10/03/22 22:00 97.7 F 99 20 106/81 100 10/03/22 14:00 98.4 F 105 H 16 184/63 H 100 Intake/Output Intake/Output: Intake & Output 10/01/22 10/02/22 10/03/22 10/04/22 23:59 23:59 23:59 23:59 Intake Total 676 910 350 265 Output Total 0 1500 Balance 676 -590 350 265 Meds/Results Medications: Active Medications Generic Name Dose Route Start Last Admin Trade Name Freq PRN Reason Stop Dose Admin Acetaminophen 650 mg 09/28/22 20:05 10/01/22 12:42 Acetaminophen 325 Mg Tablet PO 650 mg Q4H PRN Administration Mild Pain (1-3) or Fever Allopurinol 100 mg 09/29/22 08:00 10/04/22 09:39 Allopurinol 100 Mg Tablet PO 100 mg DAILY@0800 MADISYN Administration Amlodipine Besylate 5 mg 10/02/22 17:00 10/04/22 09:39 Amlodipine Besylate 5 Mg Tablet PO 5 mg BID MADISYN Administration Atorvastatin Calcium 20 mg 09/29/22 21:00 10/03/22 21:52 Atorvastatin 20 Mg Tablet PO 20 mg HS MADISYN Administration Epoetin Lucho-epbx 10,000 units 10/04/22 21:19 Epoetin Lucho-Epbx 10,000 Units/Ml Vial IV PUSH 10/04/22 21:20 ONCE ONE Folic Acid 0.8 mg 09/29/22 09:00 10/04/22 09:40 Folic Acid 0.4 Mg Tablet PO 0.8 mg DAILY MADISYN Administration Haloperidol 5 mg 09/29/22 09:00 10/04/22 09:39 Haloperidol 5 Mg Tablet PO 5 mg BID MADISYN Administration Albumin Human 50 mls @ 999 mls/hr 10/01/22 07:20 Albutein IVPB 10/31/22 07:19 Q10M PRN HYPOTENSION Magnesium Hydroxide 30 ml 09/29/22 01:10 Magnesium Hydroxide Susp 30 Ml Udc PO HS PRN Consti
[2022-10-04 14:04] LABS: Alanine Aminotransferase 71 U/L (6-35); Albumin Level 3.3 g/dL (3.5-5.1); Alkaline Phosphatase 101 U/L (38-126); Anion Gap 8 mmol/L (8-16); Aspartate Amino Transferase 85 U/L (14-36); Bilirubin,Total 0.5 mg/dL (0.2-1.3); Blood Urea Nitrogen 60 mg/dL (7-17); Calcium 9.5 mg/dL (8.4-10.2); Carbon Dioxide 30 mmol/L (22-30); Chloride 101 mmol/L (98-107); Estimated CRCL calculation 5 ml/min; Estimated Glomerular Filt Rate 6; Glucose 133 mg/dL (65-110); Magnesium 2.3 mg/dL (1.6-2.3); Potassium 5.1 mmol/L (3.4-5.0); Sodium 139 mmol/L (137-145)
[2022-10-04] MEDS: SODIUM CHLORIDE 0.9% IV 1,000 ML 999 ML IV CONT (15:12)
[2022-10-04] MEDS: EPOETIN ALFA-EPBX 10,000 UNITS/ML VIAL 10000 UNITS IV PUSH (15:12)
--- NOTE | 2022-10-04 16:01 | PM.IMPN ---
Progress Note: A&P Assessment and Plan (1) Altered mental status: Code(s): R41.82 - Altered mental status, unspecified Status: Acute (2) UTI (urinary tract infection): Code(s): N39.0 - Urinary tract infection, site not specified Status: Acute (3) Elevated troponin: Code(s): R77.8 - Other specified abnormalities of plasma proteins Status: Acute (4) End-stage renal disease on hemodialysis: Code(s): N18.6 - End stage renal disease; Z99.2 - Dependence on renal dialysis Status: Acute (5) Alzheimer disease: Code(s): G30.9 - Alzheimer's disease, unspecified; F02.80 - Dementia in other diseases classified elsewhere, unspecified severity, without behavioral disturbance, psychotic disturbance, mood disturbance, and anxiety Status: Acute (6) Schizophrenia: Code(s): F20.9 - Schizophrenia, unspecified Status: Acute Plan # acute encephalopathy may have underlying dementia does have evidence of UTI. Treat with ceftriaxone. Patient was reported to be given appetite stimulant which had made her more sleepy. Medication on hold cT head with no acute abnormality. Still remains altered. Unclear baseline. However previous facility report reviewed and was alert and oriented x1 there.. Likely at her baseline or almost at baseline. Continue to treat UTI. Not her baseline. Encephalopathy likely due to medication side effect/UTI. Will get MRI brain to further evaluate any underlying neurological problem. Get EEG # end-stage renal disease on hemodialysis nephrology consulted Tuesday inpatient hemodialysis as directed by refinery operator # UTI ceftriaxone blood culture negative to date. Urine culture with no growth recently treated with antibiotics as well recently was treated with cephalosporins. Was switched to Levaquin here. Finished 7 day course of treatment tomorrow. Off antibiotics now continue to monitor # bacteremia: Vancomycin started. B12 blood culture obtained. Came back as Staph hominis. Vancomycin stopped # elevated troponin likely related to underlying end-stage renal disease # dementia # schizophrenia # hyperlipidemia # hypertension no medication at home. Reported to be on midodrine. Will hold this as she is more hypertensive now. added amlodipine for blood pressure control . Will titrate to 10 mg daily. Blood pressure much better now # DVT prophylaxis: Heparin # code status full code # PT OT to see comes from [facility] Subjective Date/time seen: 10/04/22 16:01 Interval history: Patient presented from residential for unclear reason. Apparently altered mental status minimally verbal so further history could not be elucidated. Normally goes to [facility] she is on dialysis. Noted to have UTI. 09/30/2022: No overnight events. Discussed the nursing staff. Still slow to respond. Awake and alert. Minimally verbal. 10/01/2022: No overnight events. Patient more verbal today answers few questions. Still slow to respond but answers appropriately. 10/02/2022: No overnight events. Patient more awake and alert talkative today. Denies any chest pain shortness of breath abdominal pain vomiting. Discussed with nursing staff. Labs reviewed. 10/03/2022: No overnight events. Patient awake and alert less conversive today. Follow some commands though. 10/04/2022: No overnight events. Patient awake and alert converses okay but slow to respond. Follows commands. Did not eat well yesterday however she did ate her breakfast today. Discussed with her granddaughter over the phone today. Review of Systems Review of Systems: ROS unobtainable: Yes unobtainable due to mental status Exam Narrative: GENERAL: Chronically ill-appearing, thin built, and in no acute distress. HEAD: Normocephalic, atraumatic. EYES: PERRL and EOMI. ENT: Mucous membranes moist. CHEST: Clear to auscultation.? No r
--- NOTE | 2022-10-04 16:45 | PC.NURSE ---
Back from dialysis via bed.
[2022-10-04] MEDS: VITAMIN B CMPLX/VIT C/FOLIC AC 1 CAPSULE 1 CAP PO (20:03)
[2022-10-04] MEDS: ATORVASTATIN 20 MG TABLET PO (20:03)
[2022-10-05 05:39] VITALS: BP 134/48; PULSE 94; RESP 16; TEMP 36; O2SAT 97
[2022-10-05 08:52] LABS: Basophils Percent Auto 0.4 % (0.2-1.2); Eosinophils Percent Auto 0.5 % (0-4.4); Hematocrit 31.6 % (37.0-47.0); Hemoglobin 9.8 g/dL (12.0-15.0); Immature Granulocyte Absolute 0.04 K/mm3 (0.00-0.031); Immature Granulocyte Percent A 0.5 % (0-0.5); Lymphocytes Absolute Auto 0.59 K/mm3 (0.9-3.2); Mean Corpuscular Hemoglobin 30.8 pg (26-34); Mean Corpuscular Volume 99.4 fl (80-100); Mean Platelet Volume 9.3 fl (7.4-10.4); Monocytes Absolute Auto 0.5 K/mm3 (0.1-0.6); Monocytes Percent Auto 5.5 % (2.6-8.5); Neutrophils Absolute Auto 7.3 K/mm3 (1.3-6.7); Neutrophils Percent Auto 86.1 % (45.5-73.1); Platelet Count Result 195 k/mm3 (150-375); Red Blood Count 3.18 M/mm3 (4.2-5.4); Red Cell Distribution Width 15.9 % (11.5-14.5); White Blood Count 8.4 K/mm3 (4.5-10.0)
[2022-10-05 09:05] LABS: Alanine Aminotransferase 83 U/L (6-35); Albumin Level 3.2 g/dL (3.5-5.1); Alkaline Phosphatase 110 U/L (38-126); Anion Gap 7 mmol/L (8-16); Aspartate Amino Transferase 93 U/L (14-36); Bilirubin,Total 0.6 mg/dL (0.2-1.3); Blood Urea Nitrogen 36 mg/dL (7-17); Calcium 9.4 mg/dL (8.4-10.2); Carbon Dioxide 31 mmol/L (22-30); Chloride 99 mmol/L (98-107); Estimated CRCL calculation 8 ml/min; Estimated Glomerular Filt Rate 10; Glucose 122 mg/dL (65-110); Magnesium 2.2 mg/dL (1.6-2.3); Potassium 4.9 mmol/L (3.4-5.0); Sodium 137 mmol/L (137-145)
[2022-10-05] MEDS: HALOPERIDOL 5 MG TABLET PO ×2 (09:14→17:23)
[2022-10-05] MEDS: allopurinoL 100 MG TABLET PO (09:14)
[2022-10-05] MEDS: FOLIC ACID 0.4 MG TABLET 0.8 MG PO (09:15)
[2022-10-05] MEDS: amLODIPine BESYLATE 5 MG TABLET PO ×2 (09:15→17:24)
[2022-10-05] MEDS: ACETAMINOPHEN 325 MG TABLET 650 MG PO (09:23)
--- NOTE | 2022-10-05 10:48 | WPDNEUROLOGY ---
Neurology EEG Report General Information Date of Study: 10/05/22 TEST Routine EEG DIAGNOSIS Altered mental status CONDITION OF RECORDING Sleeping EEG NUMBER [id number] CLINICAL HISTORY Patient has a history of dementia, currently admitted with UTI. Patient has been encephalopathic during admission. EEG DESCRIPTION The recording is continuos. Background is symmetric and consists of diffuse theta range activity, and at times slower at delta range. Normal posterior dominant rhythm and anterior posterior gradient are not present. There are occasional triphasic waves noted. Normal sleep architecture is not noted. Hyperventilation and photic stimulation were not performed. There are no epileptiform discharges or electrographic seizures noted during the recording. IMPRESSION This is an abnormal EEG. There are no electrographic seizures or epileptiform features identified. Diffuse slowing and triphasic waves may be seen in the setting of metabolic encephalopathy. Clinical correlation is recommended.
--- NOTE | 2022-10-05 11:26 | PM.PNNEP ---
Progress Note: A&P Assessment and Plan (1) End stage renal disease: Code(s): N18.6 - End stage renal disease Status: Chronic Assessment and Plan: HD tomorrow and continue M/W/F dialysis schedule follow electrolytes, volume status, and clearance (2) Altered mental status: Code(s): R41.82 - Altered mental status, unspecified Status: Acute Assessment and Plan: continues to fluctuate baseline reportedly A & O x 1 complicated by history of dementia CT of head noted possibly worsened by UTI/infection urine culture negative one blood culture positive but suspect contamination as repeat cultures negative to date follow mentation Neurology consultation? (3) UTI (urinary tract infection): Code(s): N39.0 - Urinary tract infection, site not specified Status: Acute Assessment and Plan: as suggested by admission UA however, culture data (urine) negative to date - suspect colonization empiric antibiotics (4) Hypertension: Code(s): I10 - Essential (primary) hypertension Status: Chronic Assessment and Plan: holding midodrine since BP elevated titrate amlodipine but may need another agent (i.e. lsinopril) follow trend of hemodynamics (5) Anemia: Code(s): D64.9 - Anemia, unspecified Status: Chronic Assessment and Plan: due to ESRD Epogen with HD follow trend of H/H Will continue to follow. Subjective Date/time seen: 10/05/22 11:26 Tolerated dialysis treatment yesterday without any issues or problems; mentation seems about the same (no worse but no better); no issues/events overnight or earlier this AM; no apparent distress noted at the time of my visit. Exam Narrative: General: chronically ill appearing AA female in NAD Heart: normal S1 and S2; no rub Lungs: clear to auscultation Abdomen: soft, nontender, nondistended, positive bowel sounds Extremities: no cyanosis or clubbing; no edema Skin: warm and dry Objective Data Vital Signs Vital Signs: Vital Signs Temp Pulse Resp BP Pulse Ox O2 Del Method 10/05/22 09:15 Room Air 10/05/22 05:39 96.8 F L 94 16 134/48 L 97 10/04/22 22:00 96.3 F L 110 H 18 135/80 100 10/04/22 20:00 Room Air 10/04/22 17:25 97.4 F L 105 H 19 161/75 H 98 10/04/22 16:43 98.7 F 78 20 156/78 H 10/04/22 16:34 102 H 136/56 L 10/04/22 16:20 81 147/65 H 10/04/22 16:00 81 147/65 H 10/04/22 15:40 75 145/55 H 10/04/22 15:20 71 148/55 H 10/04/22 15:00 72 147/60 H 10/04/22 14:40 94 113/61 10/04/22 14:20 105 H 129/74 10/04/22 14:05 71 146/57 H 10/04/22 13:45 65 132/50 L 10/04/22 13:30 90 138/72 10/04/22 13:18 94 153/74 H Intake/Output Intake/Output: Intake & Output 10/02/22 10/03/22 10/04/22 10/05/22 23:59 23:59 23:59 23:59 Intake Total 910 350 385 550 Output Total 1500 2000 Balance -590 350 -1615 550 Meds/Results Medications: Active Medications Generic Name Dose Route Start Last Admin Trade Name Mara PRN Reason Stop Dose Admin Acetaminophen 650 mg 09/28/22 20:05 10/05/22 09:23 Acetaminophen 325 Mg Tablet PO 650 mg Q4H PRN Administration Mild Pain (1-3) or Fever Allopurinol 100 mg 09/29/22 08:00 10/05/22 09:14 Allopurinol 100 Mg Tablet PO 100 mg DAILY@0800 MADISYN Administration Amlodipine Besylate 5 mg 10/02/22 17:00 10/05/22 09:15 Amlodipine Besylate 5 Mg Tablet PO 5 mg BID MADISYN Administration Atorvastatin Calcium 20 mg 09/29/22 21:00 10/04/22 20:03 Atorvastatin 20 Mg Tablet PO 20 mg HS MADISYN Administration Folic Acid 0.8 mg 09/29/22 09:00 10/05/22 09:15 Folic Acid 0.4 Mg Tablet PO 0.8 mg DAILY MADISYN Administration Haloperidol 5 mg 09/29/22 09:00 10/05/22 09:14 Haloperidol 5 Mg Tablet PO 5 mg BID MADISYN Administration Albumin Human 50 mls @ 999 mls/hr
--- NOTE | 2022-10-05 11:26 | P.PNNP_ITS ---
Progress Note: A&P Assessment and Plan (1) End stage renal disease: Code(s): N18.6 - End stage renal disease Status: Chronic Assessment and Plan: * HD tomorrow and continue M/W/F dialysis schedule * follow electrolytes, volume status, and clearance (2) Altered mental status: Code(s): R41.82 - Altered mental status, unspecified Status: Acute Assessment and Plan: * continues to fluctuate * baseline reportedly A & O x 1 * complicated by history of dementia * CT of head noted * possibly worsened by UTI/infection * urine culture negative * one blood culture positive but suspect contamination as repeat cultures negative to date * follow mentation * Neurology consultation? (3) UTI (urinary tract infection): Code(s): N39.0 - Urinary tract infection, site not specified Status: Acute Assessment and Plan: * as suggested by admission UA * however, culture data (urine) negative to date - suspect colonization * empiric antibiotics (4) Hypertension: Code(s): I10 - Essential (primary) hypertension Status: Chronic Assessment and Plan: * holding midodrine since BP elevated * titrate amlodipine but may need another agent (i.e. lsinopril) * follow trend of hemodynamics (5) Anemia: Code(s): D64.9 - Anemia, unspecified Status: Chronic Assessment and Plan: * due to ESRD * Epogen with HD * follow trend of H/H Will continue to follow. Subjective Date/time seen: 10/05/22 11:26 Tolerated dialysis treatment yesterday without any issues or problems; mentation seems about the same (no worse but no better); no issues/events overnight or earlier this AM; no apparent distress noted at the time of my visit. Exam Narrative: General: chronically ill appearing AA female in NAD Heart: normal S1 and S2; no rub Lungs: clear to auscultation Abdomen: soft, nontender, nondistended, positive bowel sounds Extremities: no cyanosis or clubbing; no edema Skin: warm and dry Objective Data Vital Signs Vital Signs: Vital Signs Temp Pulse Resp BP Pulse Ox O2 Del Method 10/05/22 09:15 Room Air 10/05/22 05:39 96.8 F L 94 16 134/48 L 97 10/04/22 22:00 96.3 F L 110 H 18 135/80 100 10/04/22 20:00 Room Air 10/04/22 17:25 97.4 F L 105 H 19 161/75 H 98 10/04/22 16:43 98.7 F 78 20 156/78 H 10/04/22 16:34 102 H 136/56 L 10/04/22 16:20 81 147/65 H 10/04/22 16:00 81 147/65 H 10/04/22 15:40 75 145/55 H 10/04/22 15:20 71 148/55 H 10/04/22 15:00 72 147/60 H 10/04/22 14:40 94 113/61 10/04/22 14:20 105 H 129/74 10/04/22 14:05 71 146/57 H 10/04/22 13:45 65 132/50 L 10/04/22 13:30 90 138/72 10/04/22 13:18 94 153/74 H Intake/Output Intake/Output: Intake & Output 10/02/22 10/03/22 10/04/22 10/05/22 23:59 23:59 23:59 23:59 Intake Total 910 350 385 550 Output Total 1500 1999 Balance -590 350 -4169 550 Meds/Results Medications: Active Medications Generic Name Dose Route Start Last Admin Trade Name F
[2022-10-05 14:00] VITALS: BP 141/50; PULSE 100; RESP 16; TEMP 36.5; O2SAT 100
--- NOTE | 2022-10-05 14:45 | PM.IMPN ---
Progress Note: A&P Assessment and Plan (1) Altered mental status: Code(s): R41.82 - Altered mental status, unspecified Status: Acute (2) UTI (urinary tract infection): Code(s): N39.0 - Urinary tract infection, site not specified Status: Acute (3) Elevated troponin: Code(s): R77.8 - Other specified abnormalities of plasma proteins Status: Acute (4) End-stage renal disease on hemodialysis: Code(s): N18.6 - End stage renal disease; Z99.2 - Dependence on renal dialysis Status: Acute (5) Alzheimer disease: Code(s): G30.9 - Alzheimer's disease, unspecified; F02.80 - Dementia in other diseases classified elsewhere, unspecified severity, without behavioral disturbance, psychotic disturbance, mood disturbance, and anxiety Status: Acute (6) Schizophrenia: Code(s): F20.9 - Schizophrenia, unspecified Status: Acute Plan # acute encephalopathy may have underlying dementia does have evidence of UTI. Treat with ceftriaxone. Patient was reported to be given appetite stimulant which had made her more sleepy. Medication on hold cT head with no acute abnormality. Still remains altered. Unclear baseline. However previous facility report reviewed and was alert and oriented x1 there.. Likely at her baseline or almost at baseline. Continue to treat UTI. Not her baseline. Encephalopathy likely due to medication side effect/UTI. MRI brain with extensive ischemic changes with no acute findings. EEG without any seizure-like activity. Will have Neurology evaluate her # end-stage renal disease on hemodialysis nephrology consulted Tuesday inpatient hemodialysis as directed by senior software analyst # UTI ceftriaxone blood culture negative to date. Urine culture with no growth recently treated with antibiotics as well recently was treated with cephalosporins. Was switched to Levaquin here. Finished 7 day course of treatment tomorrow. Off antibiotics now continue to monitor. Will recheck urinalysis # bacteremia: Vancomycin started. B12 blood culture obtained. Came back as Staph hominis. Vancomycin stopped # elevated troponin likely related to underlying end-stage renal disease # dementia # schizophrenia # hyperlipidemia # hypertension no medication at home. Reported to be on midodrine. Will hold this as she is more hypertensive now. added amlodipine for blood pressure control . Will titrate to 10 mg daily. Blood pressure much better now # DVT prophylaxis: Heparin # code status full code # PT OT to see comes from [facility] Subjective Date/time seen: 10/05/22 14:45 Interval history: Patient presented from snf for unclear reason. Apparently altered mental status minimally verbal so further history could not be elucidated. Normally goes to [facility] she is on dialysis. Noted to have UTI. 09/30/2022: No overnight events. Discussed the nursing staff. Still slow to respond. Awake and alert. Minimally verbal. 10/01/2022: No overnight events. Patient more verbal today answers few questions. Still slow to respond but answers appropriately. 10/02/2022: No overnight events. Patient more awake and alert talkative today. Denies any chest pain shortness of breath abdominal pain vomiting. Discussed with nursing staff. Labs reviewed. 10/03/2022: No overnight events. Patient awake and alert less conversive today. Follow some commands though. 10/04/2022: No overnight events. Patient awake and alert converses okay but slow to respond. Follows commands. Did not eat well yesterday however she did ate her breakfast today. Discussed with her granddaughter over the phone today. 10/05/2022: No overnight events patient very slow to respond. Reviewed MRI brain and. much Attentive today does follow commands slowly Review of Systems Review of Systems: ROS unobtainable: Yes unobtainable due to mental s
[2022-10-05] MEDS: ATORVASTATIN 20 MG TABLET PO (21:45)
[2022-10-05] MEDS: VITAMIN B CMPLX/VIT C/FOLIC AC 1 CAPSULE 1 CAP PO (21:45)
[2022-10-05 22:00] VITALS: BP 142/48; PULSE 99; RESP 16; TEMP 35.8; O2SAT 100
[2022-10-06] VITALS (18 sets, daily range): BP systolic 93–170; BP diastolic 24–62; PULSE 71–107; RESP 16–23; TEMP 35.8–36.8; O2SAT 100
[2022-10-06 04:21] LABS: Appearance Urine Turbid (Clear); Bacteria Urine 4+ /hpf; Bilirubin Urine Negative (Negative); Blood Urine 2+ (Negative); Color Urine Orange (Yellow); Glucose Urine UA Negative (Negative); Ketones Urine Negative (Negative); Leukocyte Esterase Ur 3+ LEU/UL (NEGATIVE); Mucus Urine Present /lpf; Nitrate Urine Positive (Negative); Non Pathogenic Casts >20; Protein Urine 3+ mg/dL (Negative); RBC Urine >100 /hpf (0-2); Squamous Epithelial Cell Urine Many /hpf (Few); Urobilinogen Urine 0.2 mg/dL (<2.0); WBC Urine >100 /hpf (0-3)
[2022-10-06 04:24] LABS: Add Urine Microscopic? YES
--- NOTE | 2022-10-06 08:10 | PC.NURSE ---
Patient to dialysis at 0810 via bed.
[2022-10-06 08:37] LABS: Basophils Absolute Auto 0.1 K/mm3 (0.0-0.1); Basophils Percent Auto 0.7 % (0.2-1.2); Eosinophils Absolute Auto 0.3 K/mm3 (0-0.3); Eosinophils Percent Auto 3.4 % (0-4.4); Hematocrit 28.4 % (37.0-47.0); Hemoglobin 8.8 g/dL (12.0-15.0); Immature Granulocyte Absolute 0.04 K/mm3 (0.00-0.031); Immature Granulocyte Percent A 0.6 % (0-0.5); Lymphocytes Absolute Auto 0.87 K/mm3 (0.9-3.2); Mean Corpuscular Volume 96.9 fl (80-100); Mean Platelet Volume 9.9 fl (7.4-10.4); Monocytes Absolute Auto 0.6 K/mm3 (0.1-0.6); Monocytes Percent Auto 8.3 % (2.6-8.5); Neutrophils Absolute Auto 5.5 K/mm3 (1.3-6.7); Platelet Count Result 213 k/mm3 (150-375); Red Blood Count 2.93 M/mm3 (4.2-5.4); Red Cell Distribution Width 15.5 % (11.5-14.5); White Blood Count 7.3 K/mm3 (4.5-10.0)
[2022-10-06 09:00] LABS: Alanine Aminotransferase 84 U/L (6-35); Albumin Level 3.3 g/dL (3.5-5.1); Alkaline Phosphatase 103 U/L (38-126); Anion Gap 6 mmol/L (8-16); Aspartate Amino Transferase 76 U/L (14-36); Bilirubin,Total 0.6 mg/dL (0.2-1.3); Blood Urea Nitrogen 52 mg/dL (7-17); Calcium 9.3 mg/dL (8.4-10.2); Carbon Dioxide 31 mmol/L (22-30); Chloride 99 mmol/L (98-107); Estimated CRCL calculation 5 ml/min; Estimated Glomerular Filt Rate 6; Glucose 115 mg/dL (65-110); Magnesium 2.2 mg/dL (1.6-2.3); Potassium 4.8 mmol/L (3.4-5.0); Sodium 136 mmol/L (137-145)
--- NOTE | 2022-10-06 09:43 | WPDNEURCNPN ---
Assessment and Plan Assessment and plan (1) Alzheimer disease: Code(s): G30.9 - Alzheimer's disease, unspecified; F02.80 - Dementia in other diseases classified elsewhere, unspecified severity, without behavioral disturbance, psychotic disturbance, mood disturbance, and anxiety Status: Acute (2) Schizophrenia: Code(s): F20.9 - Schizophrenia, unspecified Status: Acute (3) Altered mental status: Code(s): R41.82 - Altered mental status, unspecified Status: Acute (4) UTI (urinary tract infection): Code(s): N39.0 - Urinary tract infection, site not specified Status: Acute (5) End stage renal disease: Code(s): N18.6 - End stage renal disease Status: Chronic Plan Dania Demarco is a 71 year old female with a history of dementia, schizophrenia, ESRD who presented from assisted, found to have a UTI. There has been ongoing concern for encephalopathy. MRI brain and EEG unrevealing. Patient's UTI was treated, but most recent UA did show positive LE and bacteria -- unclear significance. This could be patient's baseline mental status. Would confirm with patient's assisted. Consult date: 10/07/22 Reason for consult: Altered mental status HPI: Dania Demarco is a 71 year old female with a history of dementia, schizophrenia, ESRD who presented from assisted due to unknown concerns. When she was brought to the ED she was non-verbal. Patient was ultimately found to have a urinary tract infection. She was treated with Rocephin. Her urine culture showed no growth. Her blood culture grew staph hominis. Her repeat UTI yesterday is positive for leukocyte esterase and bacteria. Due to concerns for ongoing encephalopathy, patient had an MRI brain which showed extensive white matter disease but no acute findings. Her EEG showed diffuse slowing. Unclear what patient's baseline is, but she does have a documented history of dementia. She is on Haldol 5mg BID scheduled, but this is a home medication. Review of Systems Review of Systems: ROS unobtainable: Yes unobtainable due to mental status PMFSH Past Medical History Medical History Alzheimer disease End-stage renal disease on hemodialysis Hyperlipidemia Schizophrenia Surgical History Surgical History Arteriovenous fistula Surgically formed Family History Family History Other Unknown family medical history Social History Social History Smoking status: Unknown if ever smoked Alcohol intake: unknown Substance use: unknown Spiritual care concerns: No Meds Home Medications and Allergies Home Medications Medication Instructions Recorded Confirmed Type acetaminophen 650 mg tablet 650 mg PO Q4H PRN Headache 09/28/22 09/28/22 History allopurinol 100 mg tablet 100 mg PO DAILY 09/28/22 09/28/22 History atorvastatin 20 mg tablet 20 mg PO HS 09/28/22 09/28/22 History folic acid 1 mg tablet 800 mcg PO DAILY 09/28/22 09/28/22 History haloperidol 5 mg tablet 5 mg PO BID 09/28/22 09/28/22 History magnesium hydroxide 400 mg/5 mL 30 ml PO HS PRN Constipation 09/28/22 09/28/22 History oral suspension midodrine 5 mg tablet 5 mg PO PRN PRN Blood Pressure 09/28/22 09/28/22 History ondansetron 4 mg disintegrating 4 mg PO Q6H PRN Nausea And Vomiting 09/28/22 09/28/22 History tablet vitamin B complex and vitamin C 1 cap PO HS 09/28/22 09/28/22 History no.20-folic acid 1 mg capsule (Joey Caps) Allergies Allergy/AdvReac Type Severity Reaction Status Date / Time aspirin Allergy Unknown Verified 09/29/22 02:19 cabbage Allergy Unknown Verified 09/29/22 02:19 chocolate flavor Allergy Unknown Verified 09/29/22 02:19 erythromycin base Allergy Unknown Verified 09/29/22 02:19 metrizamide Allergy Un
[2022-10-06] MEDS: EPOETIN ALFA-EPBX 10,000 UNITS/ML VIAL 10000 UNITS IV PUSH (11:28)
--- NOTE | 2022-10-06 12:02 | PM.PNNEP ---
Progress Note: A&P Assessment and Plan (1) End stage renal disease: Code(s): N18.6 - End stage renal disease Status: Chronic Assessment and Plan: HD today and continue M/W/F dialysis schedule follow electrolytes, volume status, and clearance (2) Altered mental status: Code(s): R41.82 - Altered mental status, unspecified Status: Acute Assessment and Plan: continues to fluctuate baseline reportedly A & O x 1 complicated by history of dementia CT and MRI of head noted possibly worsened by UTI/infection urine culture negative one blood culture positive but suspect contamination as repeat cultures negative to date follow mentation Neurology recommendations noted (3) UTI (urinary tract infection): Code(s): N39.0 - Urinary tract infection, site not specified Status: Acute Assessment and Plan: as suggested by admission UA however, culture data (urine) negative to date - suspect colonization empiric antibiotics completed (4) Hypertension: Code(s): I10 - Essential (primary) hypertension Status: Chronic Assessment and Plan: holding midodrine since BP elevated titrate amlodipine but may need another agent (i.e. lsinopril) follow trend of hemodynamics (5) Anemia: Code(s): D64.9 - Anemia, unspecified Status: Chronic Assessment and Plan: due to ESRD Epogen with HD follow trend of H/H Will continue to follow. Subjective Date/time seen: 10/06/22 12:02 Tolerating dialysis treatment at the time of my visit (seen on HD at 11:50AM); mentation seems about the same/stable; no acute issues/events overnight or earlier this AM; Neurology consulted with recommendations noted. Exam Narrative: General: chronically ill appearing AA female in NAD Heart: normal S1 and S2; no rub Lungs: clear to auscultation Abdomen: soft, nontender, nondistended, positive bowel sounds Extremities: no cyanosis or clubbing; no edema Skin: warm and intact Objective Data Vital Signs Vital Signs: Vital Signs Temp Pulse Resp BP Pulse Ox O2 Del Method 10/06/22 11:50 96 105/31 L 10/06/22 11:00 88 113/37 L 10/06/22 10:40 81 93/37 L 10/06/22 10:20 84 102/42 L 10/06/22 10:00 78 103/41 L 10/06/22 09:40 71 104/24 L 10/06/22 09:20 83 124/39 L 10/06/22 09:00 78 138/41 L 10/06/22 08:40 80 149/47 H 10/06/22 08:37 85 135/39 L 10/06/22 08:10 97.5 F L 84 16 156/50 H 10/06/22 06:00 96.5 F L 87 16 147/39 H 100 10/05/22 22:00 96.5 F L 99 16 142/48 H 100 10/05/22 20:00 Room Air 10/05/22 14:00 97.7 F 100 16 141/50 H 100 Intake/Output Intake/Output: Intake & Output 10/03/22 10/04/22 10/05/22 10/06/22 23:59 23:59 23:59 23:59 Intake Total 835 459 8144 50 Output Total 2000 25 Balance 350 -1615 1030 25 Meds/Results Medications: Active Medications Generic Name Dose Route Start Last Admin Trade Name Mara PRN Reason Stop Dose Admin Acetaminophen 650 mg 09/28/22 20:05 10/05/22 09:23 Acetaminophen 325 Mg Tablet PO 650 mg Q4H PRN Administration Mild Pain (1-3) or Fever Allopurinol 100 mg 09/29/22 08:00 10/05/22 09:14 Allopurinol 100 Mg Tablet PO 100 mg DAILY@0800 MADISYN Administration Amlodipine Besylate 5 mg 10/02/22 17:00 10/05/22 17:24 Amlodipine Besylate 5 Mg Tablet PO 5 mg BID MADISYN Administration Atorvastatin Calcium 20 mg 09/29/22 21:00 10/05/22 21:45 Atorvastatin 20 Mg Tablet PO 20 mg HS MADISYN Administration Epoetin Lucho-epbx 10,000 units 10/06/22 21:08 10/06/22 11:28 Epoetin Lucho-Epbx 10,000 Units/Ml Vial IV PUSH 10/06/22 21:09 10,000 units ONCE ONE Administration Folic Acid 0.8 mg 09/29/22 09:00 10/05/22 09:15 Folic Acid 0.4 Mg Tablet PO 0.8 mg DAILY MADISYN Administration Haloperidol 5 mg 09/29/22 09:00 10/05/22 17:23 Haloperidol 5 Mg Tab
--- NOTE | 2022-10-06 12:02 | P.PNNP_ITS ---
Progress Note: A&P Assessment and Plan (1) End stage renal disease: Code(s): N18.6 - End stage renal disease Status: Chronic Assessment and Plan: * HD today and continue M/W/ dialysis schedule * follow electrolytes, volume status, and clearance (2) Altered mental status: Code(s): R41.82 - Altered mental status, unspecified Status: Acute Assessment and Plan: * continues to fluctuate * baseline reportedly A & O x 1 * complicated by history of dementia * CT and MRI of head noted * possibly worsened by UTI/infection * urine culture negative * one blood culture positive but suspect contamination as repeat cultures negative to date * follow mentation * Neurology recommendations noted (3) UTI (urinary tract infection): Code(s): N39.0 - Urinary tract infection, site not specified Status: Acute Assessment and Plan: * as suggested by admission UA * however, culture data (urine) negative to date - suspect colonization * empiric antibiotics completed (4) Hypertension: Code(s): I10 - Essential (primary) hypertension Status: Chronic Assessment and Plan: * holding midodrine since BP elevated * titrate amlodipine but may need another agent (i.e. lsinopril) * follow trend of hemodynamics (5) Anemia: Code(s): D64.9 - Anemia, unspecified Status: Chronic Assessment and Plan: * due to ESRD * Epogen with HD * follow trend of H/H Will continue to follow. Subjective Date/time seen: 10/06/22 12:02 Tolerating dialysis treatment at the time of my visit (seen on HD at 11:50AM); mentation seems about the same/stable; no acute issues/events overnight or earlier this AM; Neurology consulted with recommendations noted. Exam Narrative: General: chronically ill appearing AA female in NAD Heart: normal S1 and S2; no rub Lungs: clear to auscultation Abdomen: soft, nontender, nondistended, positive bowel sounds Extremities: no cyanosis or clubbing; no edema Skin: warm and intact Objective Data Vital Signs Vital Signs: Vital Signs Temp Pulse Resp BP Pulse Ox O2 Del Method 10/06/22 11:50 96 105/31 L 10/06/22 11:00 88 113/37 L 10/06/22 10:40 81 93/37 L 10/06/22 10:20 84 102/42 L 10/06/22 10:00 78 103/41 L 10/06/22 09:40 71 104/24 L 10/06/22 09:20 83 124/39 L 10/06/22 09:00 78 138/41 L 10/06/22 08:40 80 149/47 H 10/06/22 08:37 85 135/39 L 10/06/22 08:10 97.5 F L 84 16 156/50 H 10/06/22 06:00 96.5 F L 87 16 147/39 H 100 10/05/22 22:00 96.5 F L 99 16 142/48 H 100 10/05/22 20:00 Room Air 10/05/22 14:00 97.7 F 100 16 141/50 H 100 Intake/Output Intake/Output: Intake & Output 10/03/22 10/04/22 10/05/22 10/06/22 23:59 23:59 23:59 23:59 Intake Total 058 072 8886 50 Output Total 1999 25 Balance 350 -1615 1030 25 Meds/Results Medications: Active Medications Generic Name Dose Route Start Last Admin Trade Name Mara PRN Reason Stop Dose Admin Acetaminophen 650 mg 09/28/22 20:05 10/05/22 09:23 Acetaminop
--- NOTE | 2022-10-06 12:20 | PC.NURSE ---
Back from dialysis via bed.
--- NOTE | 2022-10-06 12:31 | PM.IMPN ---
Progress Note: A&P Assessment and Plan (1) Altered mental status: Code(s): R41.82 - Altered mental status, unspecified Status: Acute (2) UTI (urinary tract infection): Code(s): N39.0 - Urinary tract infection, site not specified Status: Acute (3) Elevated troponin: Code(s): R77.8 - Other specified abnormalities of plasma proteins Status: Acute (4) End-stage renal disease on hemodialysis: Code(s): N18.6 - End stage renal disease; Z99.2 - Dependence on renal dialysis Status: Acute (5) Alzheimer disease: Code(s): G30.9 - Alzheimer's disease, unspecified; F02.80 - Dementia in other diseases classified elsewhere, unspecified severity, without behavioral disturbance, psychotic disturbance, mood disturbance, and anxiety Status: Acute (6) Schizophrenia: Code(s): F20.9 - Schizophrenia, unspecified Status: Acute Plan # acute encephalopathy may have underlying dementia. does have evidence of UTI. Treat with ceftriaxone. CT head with no acute abnormality. Still remains altered. Unclear baseline. Encephalopathy likely due to medication side effect/UTI. MRI brain with extensive ischemic changes with no acute findings. EEG without any seizure-like activity. Will have Neurology evaluate her # end-stage renal disease on hemodialysis. nephrology consulted Tuesday inpatient hemodialysis as directed by cogn[employer] bi developer # UTI Finished 7 day course of treatment. Off antibiotics now continue to monitor. urinalysis again shows bacteria and leukocytes. Not sure if she has actual infection or this is bacteriuria versus colonization # bacteremia: Vancomycin started. B12 blood culture obtained. Came back as Staph hominis. Vancomycin stopped # elevated troponin likely related to underlying end-stage renal disease # dementia # schizophrenia # hyperlipidemia # hypertension no medication at home. amlodipine for blood pressure control . # DVT prophylaxis: Heparin # code status full code # PT OT to see. comes from Health system Subjective Date/time seen: 10/06/22 12:31 Confused Review of Systems Review of Systems: ROS unobtainable: Yes unobtainable due to mental status Exam Narrative: GENERAL: Chronically ill-appearing, thin built, and in no acute distress. HEAD: Normocephalic, atraumatic. EYES: PERRL and EOMI. ENT: Mucous membranes moist. CHEST: Clear to auscultation.? No respiratory distress. HEART: Regular rate and rhythm.? Normal peripheral pulses. ABDOMEN: Soft, nontender, nondistended. EXTREMITIES: Dialysis access right upper extremity with thrill.? Former access left upper extremity. SKIN: Warm, dry, no rash. NEURO: Awake alert communicative today following command slow to respond Objective Data Vital Signs Vital Signs: Vital Signs - 24 hr 10/05/22 14:00 10/05/22 20:00 10/05/22 22:00 Temperature 97.7 F 96.5 F L Pulse Rate 100 99 Respiratory Rate 16 16 Blood Pressure 141/50 H 142/48 H Pulse Oximetry 100 100 Oxygen Delivery Room Air 10/06/22 06:00 10/06/22 08:10 10/06/22 08:37 Temperature 96.5 F L 97.5 F L Pulse Rate 87 84 85 Respiratory Rate 16 16 Blood Pressure 147/39 H 156/50 H 135/39 L Pulse Oximetry 100 Oxygen Delivery 10/06/22 08:40 10/06/22 09:00 10/06/22 09:20 Temperature Pulse Rate 80 78 83 Respiratory Rate Blood Pressure 149/47 H 138/41 L 124/39 L Pulse Oximetry Oxygen Delivery 10/06/22 09:40 10/06/22 10:00 10/06/22 10:20 Temperature Pulse Rate 71 78 84 Respiratory Rate Blood Pressure 104/24 L 103/41 L 102/42 L Pulse Oximetry Oxygen Delivery 10/06/22 10:40 10/06/22 11:00 10/06/22 11:20 Temperature Pulse Rate 81 88 96 Respiratory Rate Blood Pressure 93/37 L 113/37 L 105/31 L Pulse Oximetry Oxygen Delivery 10/06/22 08:00 Temperature Pulse Rate Respiratory Rate Blood Pressure Pulse Oximetry
[2022-10-06] MEDS: ACETAMINOPHEN 325 MG TABLET 650 MG PO (13:04)
[2022-10-06] MEDS: allopurinoL 100 MG TABLET PO (13:05)
[2022-10-06] MEDS: amLODIPine BESYLATE 5 MG TABLET PO ×2 (13:06→21:14)
[2022-10-06] MEDS: FOLIC ACID 0.4 MG TABLET 0.8 MG PO (13:06)
[2022-10-06] MEDS: HALOPERIDOL 5 MG TABLET PO ×2 (13:06→21:14)
[2022-10-06] MEDS: VITAMIN B CMPLX/VIT C/FOLIC AC 1 CAPSULE 1 CAP PO (21:14)
[2022-10-06] MEDS: ATORVASTATIN 20 MG TABLET PO (21:14)
[2022-10-07 05:50] VITALS: BP 128/54
[2022-10-07 06:28] VITALS: BP 102/71; PULSE 104; RESP 14; TEMP 36.6; O2SAT 100
--- NOTE | 2022-10-07 06:37 | ADMGEN ---
This patient, Dania Demarco, was admitted to [facility] Surg Room 332-02. Patient/family oriented to hospital policies and general routines including ID bracelet, bed and alarms, visiting hours, pain management, procedures, bathroom and other care routines, personal items, smoking policy, room service/diet, and visiting hours. Information on how to activate the Rapid Response Team has been discussed. Patient/Family are encouraged to report perceived risks to care and to ask questions if they do not understand what they are told or what they should do.
--- NOTE | 2022-10-07 11:00 | PCNFU ---
Nutrition Follow-Up Complete: Inadequate oral intake related to altered mental status, loss of appetite as evidenced by RN report Goal:Improved PO intake at least 50% meals and supplements. Pt not consistently hitting goal. Pt current nutrition is heart healthy, Ensure compact BID. Nutrition recommendation: Increased ensure compact to TID Last recorded weight is 60.6 kg. Bowel Motility: +BM 10/05 Labs Reviewed: Hgb:8.8, HCT:28.4, Alb:3.3, Na:136, GFR:6, BUN:52, Cr:7.6 Meds Noted: folic acid, nephrocaps Skin: WNL Additional Notes: pt intake remains sporadic, 0-50% of meals. Ensure compact BID in place and pt consuming. Will increase to TID. Encourage po intake of meals and supplements. Monitoring intakes, supplement tolerance, labs, weights, plan of care Follow up in 5 days
--- NOTE | 2022-10-07 11:09 | PM.IMPN ---
Progress Note: A&P Assessment and Plan (1) Altered mental status: Code(s): R41.82 - Altered mental status, unspecified Status: Acute (2) UTI (urinary tract infection): Code(s): N39.0 - Urinary tract infection, site not specified Status: Acute (3) Elevated troponin: Code(s): R77.8 - Other specified abnormalities of plasma proteins Status: Acute (4) End-stage renal disease on hemodialysis: Code(s): N18.6 - End stage renal disease; Z99.2 - Dependence on renal dialysis Status: Acute (5) Alzheimer disease: Code(s): G30.9 - Alzheimer's disease, unspecified; F02.80 - Dementia in other diseases classified elsewhere, unspecified severity, without behavioral disturbance, psychotic disturbance, mood disturbance, and anxiety Status: Acute (6) Schizophrenia: Code(s): F20.9 - Schizophrenia, unspecified Status: Acute Plan # acute encephalopathy. may have underlying dementia. CT head with no acute abnormality. Still remains altered. Unclear baseline. Encephalopathy likely due to medication side effect/UTI. MRI brain with extensive ischemic changes with no acute findings. EEG without any seizure-like activity. Appreciate neurology input # end-stage renal disease on hemodialysis. nephrology consulted Tuesday inpatient hemodialysis as directed by commissioning specialist # UTI - Initial UA showed UTI, patient was treated with ceftriaxone. Urine culture was negative. Repeat UA again shows bacteria and leukocytes. Repeat culture pending. Hold off on antibiotics for now # bacteremia: Vancomycin started. blood culture obtained. Came back as Staph hominis. Vancomycin stopped # elevated troponin likely related to underlying end-stage renal disease # dementia # schizophrenia # hyperlipidemia # hypertension no medication at home. amlodipine for blood pressure control . # DVT prophylaxis: Heparin # code status full code # PT OT to see. comes from [facility] Subjective Date/time seen: 10/07/22 11:09 Patient remains confused Review of Systems Review of Systems: ROS unobtainable: Yes unobtainable due to mental status Exam Narrative: GENERAL: Chronically ill-appearing, thin built, and in no acute distress. HEAD: Normocephalic, atraumatic. EYES: PERRL and EOMI. ENT: Mucous membranes moist. CHEST: Clear to auscultation.? No respiratory distress. HEART: Regular rate and rhythm.? Normal peripheral pulses. ABDOMEN: Soft, nontender, nondistended. EXTREMITIES: Dialysis access right upper extremity with thrill.? Former access left upper extremity. SKIN: Warm, dry, no rash. NEURO: Confused Objective Data Vital Signs Vital Signs: Vital Signs - 24 hr 10/06/22 11:20 10/06/22 11:40 10/06/22 11:52 Temperature Pulse Rate 96 100 79 Respiratory Rate Blood Pressure 105/31 L 122/31 L 109/51 L Pulse Oximetry Oxygen Delivery 10/06/22 11:58 10/06/22 14:18 10/06/22 20:00 Temperature 97.6 F 97.5 F L Pulse Rate 83 107 H Respiratory Rate 20 23 H Blood Pressure 147/33 H 133/47 L Pulse Oximetry 100 Oxygen Delivery Room Air 10/06/22 22:00 10/07/22 05:50 10/07/22 06:28 Temperature 98.2 F 97.9 F Pulse Rate 93 104 H Respiratory Rate 16 14 Blood Pressure 170/62 H 128/54 L 102/71 Pulse Oximetry 100 100 Oxygen Delivery Intake/Output Intake/Output: Intake & Output 10/04/22 10/05/22 10/06/22 10/07/22 23:59 23:59 23:59 23:59 Intake Total 385 / 385 1030 / 1030 430 / 430 170 / 170 Output Total 1999 1525 / 1525 Balance -1615 / -1615 1030 / 1030 -1095 / -1095 170 / 170 Meds/Results Medications: Active Medications Generic Name Dose Route Start Last Admin Trade Name Freq PRN Reason Stop Dose Admin Acetaminophen 650 mg 09/28/22 20:05 10/06/22 13:04 Acetaminophen 325 Mg Tablet PO 650 mg Q4H PRN Administration Mild Pain (1-3) or Fever Allopurinol 100 mg
--- NOTE | 2022-10-07 12:32 | PM.PNNEP ---
Progress Note: A&P Assessment and Plan (1) End stage renal disease: Code(s): N18.6 - End stage renal disease Status: Chronic Assessment and Plan: HD tomorrow and continue M/W/ dialysis schedule follow electrolytes, volume status, and clearance (2) Altered mental status: Code(s): R41.82 - Altered mental status, unspecified Status: Acute Assessment and Plan: continues to fluctuate -- suspect at baseline baseline reportedly A & O x 1 complicated by history of dementia CT and MRI of head noted possibly worsened by UTI/infection urine culture negative one blood culture positive but suspect contamination as repeat cultures negative to date follow mentation Neurology recommendations noted (3) UTI (urinary tract infection): Code(s): N39.0 - Urinary tract infection, site not specified Status: Acute Assessment and Plan: as suggested by admission UA however, culture data (urine) negative to date - suspect colonization empiric antibiotics completed (4) Hypertension: Code(s): I10 - Essential (primary) hypertension Status: Chronic Assessment and Plan: holding midodrine since BP elevated titrate amlodipine but may need another agent (i.e. lsinopril) follow trend of hemodynamics (5) Anemia: Code(s): D64.9 - Anemia, unspecified Status: Chronic Assessment and Plan: due to ESRD Epogen with HD follow trend of H/H Discussed with Dr. Pan. Will continue to follow. Subjective Date/time seen: 10/07/22 12:32 Tolerated dialysis yesterday without any issues or problems; mentation remains stable (awake but non-verbal); no other acute issues/events overnight or earlier this AM. Exam Narrative: General: chronically ill appearing AA female in NAD Heart: normal S1 and S2; no rub Lungs: clear to auscultation Abdomen: soft, nontender, nondistended, positive bowel sounds Extremities: no cyanosis or clubbing; no edema Skin: no rash or nodules Objective Data Vital Signs Vital Signs: Vital Signs Temp Pulse Resp BP Pulse Ox O2 Del Method 10/07/22 06:28 97.9 F 104 H 14 102/71 100 10/07/22 05:50 128/54 L 10/06/22 22:00 98.2 F 93 16 170/62 H 100 10/06/22 20:00 Room Air Intake/Output Intake/Output: Intake & Output 10/04/22 10/05/22 10/06/22 10/07/22 23:59 23:59 23:59 23:59 Intake Total 385 1030 430 170 Output Total 1133 0914 Balance -1615 1030 -1095 170 Meds/Results Medications: Active Medications Generic Name Dose Route Start Last Admin Trade Name Freq PRN Reason Stop Dose Admin Acetaminophen 650 mg 09/28/22 20:05 10/07/22 13:59 Acetaminophen 325 Mg Tablet PO 650 mg Q4H PRN Administration Mild Pain (1-3) or Fever Allopurinol 100 mg 09/29/22 08:00 10/07/22 13:56 Allopurinol 100 Mg Tablet PO 100 mg DAILY@0800 MADISYN Administration Amlodipine Besylate 5 mg 10/02/22 17:00 10/07/22 13:57 Amlodipine Besylate 5 Mg Tablet PO Not Given BID MADISYN Atorvastatin Calcium 20 mg 09/29/22 21:00 10/06/22 21:14 Atorvastatin 20 Mg Tablet PO 20 mg HS MADISYN Administration Folic Acid 0.8 mg 09/29/22 09:00 10/07/22 13:57 Folic Acid 0.4 Mg Tablet PO 0.8 mg DAILY MADISYN Administration Haloperidol 5 mg 09/29/22 09:00 10/07/22 13:56 Haloperidol 5 Mg Tablet PO 5 mg BID MADISYN Administration Albumin Human 50 mls @ 999 mls/hr 10/01/22 07:20 Albutein IVPB 10/31/22 07:19 Q10M PRN HYPOTENSION Magnesium Hydroxide 30 ml 09/29/22 01:10 Magnesium Hydroxide Susp 30 Ml Udc PO HS PRN Constipation Midodrine 5 mg 09/29/22 01:10 10/07/22 13:56 Midodrine Hcl 2.5 Mg Tablet PO 5 mg TuThSa PRN Administration Blood Pressure Promethazine HCl 12.5 mg 09/28/22 20:05 Promethazine Hcl 25 Mg/Ml Ampul IV PUSH Q6H PRN Nausea Vitamin B Complex/Folic Acid 1 cap 09/29/22 21:00
--- NOTE | 2022-10-07 12:32 | P.PNNP_ITS ---
Progress Note: A&P Assessment and Plan (1) End stage renal disease: Code(s): N18.6 - End stage renal disease Status: Chronic Assessment and Plan: * HD tomorrow and continue M/W/ dialysis schedule * follow electrolytes, volume status, and clearance (2) Altered mental status: Code(s): R41.82 - Altered mental status, unspecified Status: Acute Assessment and Plan: * continues to fluctuate -- suspect at baseline * baseline reportedly A & O x 1 * complicated by history of dementia * CT and MRI of head noted * possibly worsened by UTI/infection * urine culture negative * one blood culture positive but suspect contamination as repeat cultures negative to date * follow mentation * Neurology recommendations noted (3) UTI (urinary tract infection): Code(s): N39.0 - Urinary tract infection, site not specified Status: Acute Assessment and Plan: * as suggested by admission UA * however, culture data (urine) negative to date - suspect colonization * empiric antibiotics completed (4) Hypertension: Code(s): I10 - Essential (primary) hypertension Status: Chronic Assessment and Plan: * holding midodrine since BP elevated * titrate amlodipine but may need another agent (i.e. lsinopril) * follow trend of hemodynamics (5) Anemia: Code(s): D64.9 - Anemia, unspecified Status: Chronic Assessment and Plan: * due to ESRD * Epogen with HD * follow trend of H/H Discussed with Dr. Pan. Will continue to follow. Subjective Date/time seen: 10/07/22 12:32 Tolerated dialysis yesterday without any issues or problems; mentation remains stable (awake but non-verbal); no other acute issues/events overnight or earlier this AM. Exam Narrative: General: chronically ill appearing AA female in NAD Heart: normal S1 and S2; no rub Lungs: clear to auscultation Abdomen: soft, nontender, nondistended, positive bowel sounds Extremities: no cyanosis or clubbing; no edema Skin: no rash or nodules Objective Data Vital Signs Vital Signs: Vital Signs Temp Pulse Resp BP Pulse Ox O2 Del Method 10/07/22 06:28 97.9 F 104 H 14 102/71 100 10/07/22 05:50 128/54 L 10/06/22 22:00 98.2 F 93 16 170/62 H 100 10/06/22 20:00 Room Air Intake/Output Intake/Output: Intake & Output 10/04/22 10/05/22 10/06/22 10/07/22 23:59 23:59 23:59 23:59 Intake Total 385 1030 430 170 Output Total 1999 1525 Balance -1615 1030 -1095 170 Meds/Results Medications: Active Medications Generic Name Dose Route Start Last Admin Trade Name Freq PRN Reason Stop Dose Admin Acetaminophen 650 mg 09/28/22 20:05 10/07/22 13:59 Acetaminophen 325 Mg Tablet PO 650 mg Q4H PRN Administration Mild Pain (1-3) or Fever Allopurinol 100 mg 09/29/22 08:00 10/07/22 13:56 Allopurinol 100 Mg Tablet PO 100 mg DAILY@0800 MADISYN Administration Amlodipine Besylate 5 mg 10/02/22 17:00 10/07/22 13:57 Amlodipine Besylate 5 Mg Tablet PO Not Given BID MADISYN Atorvastatin Calcium 20 mg 09/29/22 21:00 10/06/22 21:14 Atorvastatin 2
--- NOTE | 2022-10-07 12:55 | PM.DS ---
DS: Admitting Diagnosis Discharge Date 10/07/22 Admitting Diagnosis AMS DS: Discharge Diagnosis Discharge Diagnosis (1) End-stage renal disease on hemodialysis: Code(s): N18.6 - End stage renal disease; Z99.2 - Dependence on renal dialysis Status: Acute (2) Altered mental status: Code(s): R41.82 - Altered mental status, unspecified Status: Acute (3) Alzheimer disease: Code(s): G30.9 - Alzheimer's disease, unspecified; F02.80 - Dementia in other diseases classified elsewhere, unspecified severity, without behavioral disturbance, psychotic disturbance, mood disturbance, and anxiety Status: Acute (4) Schizophrenia: Code(s): F20.9 - Schizophrenia, unspecified Status: Acute (5) UTI (urinary tract infection): Code(s): N39.0 - Urinary tract infection, site not specified Status: Acute DS: Summary Hospital Course Hospital Course: # acute encephalopathy. may have underlying dementia.? CT head with no acute abnormality.? Unclear baseline.? Encephalopathy likely due to medication side effect/UTI. ? MRI brain with extensive ischemic changes? with no acute findings.? EEG? without any seizure-like activity.? Appreciate neurology input. this appears to be her baseline. # end-stage renal disease on hemodialysis. nephrology consulted Tuesday inpatient hemodialysis as directed by parts coordinator # UTI? - Initial UA showed UTI, patient was treated with ceftriaxone.? Urine culture was negative.? Repeat UA again shows bacteria and leukocytes.? patient is likely colonized. Hold off on antibiotics for now # bacteremia:? Vancomycin started.? blood culture obtained.? Came back as Staph hominis.? Vancomycin stopped # elevated troponin likely related to underlying end-stage renal disease # dementia # schizophrenia # hyperlipidemia # hypertension no medication at home.? patient back to baseline and is being discharged back to [place]. Time Spent with Patient Time attestation: Total time spent providing and/or coordinating discharge services: Exam Narrative: GENERAL: Chronically ill-appearing, thin built, and in no acute distress. HEAD: Normocephalic, atraumatic. EYES: PERRL and EOMI. ENT: Mucous membranes moist. CHEST: Clear to auscultation.? No respiratory distress. HEART: Regular rate and rhythm.? Normal peripheral pulses. ABDOMEN: Soft, nontender, nondistended. EXTREMITIES: Dialysis access right upper extremity with thrill.? Former access left upper extremity. SKIN: Warm, dry, no rash. NEURO: Confused Discharge Plan Discharge Consulting providers: Kiran Troncoso ; Bloss[employer] Discharging Clinician: Neftali Pan Anticipated Discharge Date/Time: 10/07/22 12:54 Patient Disposition: SNF Activity: may shower Diet: renal Stand Alone Forms: General Discharge Information Follow-up/Referrals: Erin,MD Daron [Primary Care Provider] - Discharge Medications: Continued atorvastatin 20 mg tablet 20 mg PO HS allopurinol 100 mg tablet 100 mg PO DAILY haloperidol 5 mg Tablet 5 mg PO BID midodrine 5 mg Tablet 5 mg PO PRN PRN (Reason: Blood Pressure) Rx Instructions: do not give last dose of day after 6PM or within 4 hrs of bedtime Take as need on Tuesday - - Tuesday acetaminophen 650 mg Tablet 650 mg PO Q4H PRN (Reason: Headache) magnesium hydroxide 400 mg/5 mL Suspension 30 ml PO HS PRN (Reason: Constipation) folic acid [Folvite] 1 mg Tablet 800 mcg PO DAILY Joey Caps 1 mg Capsule 1 cap PO HS ondansetron 4 mg Tablet,Disintegrating 4 mg PO Q6H PRN (Reason: Nausea And Vomiting) Date of admission: 09/30/22 16:22 Primary Care Provider: AnnettaDaron Admitting Provider: Donny Gardner V. Attending physician on admission: Neftali Pan Condition: Stable
[2022-10-07] MEDS: MIDODRINE HCL 2.5 MG TABLET 5 MG PO (13:56)
[2022-10-07] MEDS: HALOPERIDOL 5 MG TABLET PO ×2 (13:56→20:09)
[2022-10-07] MEDS: allopurinoL 100 MG TABLET PO (13:56)
[2022-10-07] MEDS: FOLIC ACID 0.4 MG TABLET 0.8 MG PO (13:57)
[2022-10-07] MEDS: ACETAMINOPHEN 325 MG TABLET 650 MG PO (13:59)
[2022-10-07 14:00] VITALS: BP 162/68; PULSE 90; RESP 16; TEMP 36.6; O2SAT 100
[2022-10-07 16:19] LABS: EDCOVIDSCREEN Negative (Negative)
[2022-10-07] MEDS: VITAMIN B CMPLX/VIT C/FOLIC AC 1 CAPSULE 1 CAP PO (20:09)
[2022-10-07] MEDS: amLODIPine BESYLATE 5 MG TABLET PO (20:10)
[2022-10-07] MEDS: ATORVASTATIN 20 MG TABLET PO (20:10)
[2022-10-07 22:00] VITALS: BP 153/61; PULSE 87; RESP 16; TEMP 36.3; O2SAT 100
== END 2022-10-07 23:55 | DRG 463 ==
LOC: ANHED 17:54 → ANHIMU 20:29 → ANH3MEDSUR 10-01 15:58
PROVIDERS: Internal Medicine; Internal Medicine Nephrology; Admitting Provider Internal Medicine; Emergency Provider Emergency Medicine; PCP Internal Medicine; Visit Provider Hospitalist
DX: N39.0 Urinary tract infection, site not specified (principal); G93.41 Metabolic encephalopathy; G92.8 Other toxic encephalopathy; B95.7 Other staphylococcus as the cause of diseases classified elsewhere; R78.81 Bacteremia; T50.905A Adverse effect of unspecified drugs, medicaments and biological substances, initial encounter; I12.0 Hypertensive chronic kidney disease with stage 5 chronic kidney disease or end stage renal disease; N18.6 End stage renal disease; Z20.822 Contact with and (suspected) exposure to COVID-19; F20.9 Schizophrenia, unspecified; G30.9 Alzheimer's disease, unspecified; F02.80 Dementia in other diseases classified elsewhere, unspecified severity, without behavioral disturbance, psychotic disturbance, mood disturbance, and anxiety; D63.1 Anemia in chronic kidney disease; R41.82 Altered mental status, unspecified; E78.5 Hyperlipidemia, unspecified; R77.8 Other specified abnormalities of plasma proteins; Z99.2 Dependence on renal dialysis
CPT/HCPCS: 36415; 70450; 70551; 71045; 76775; 80053; 80202; 81001; 82140; 83690; 83735; 84484; 85025; 85610; 85730; 86705; 86706; 87040; 87086; 87147; 87181; 87186; 87340; 87426; 93005; 95816; 96365; 96366; 96374; 96375; 97161; 97165; 97530; 99285; A9270; C9803; G0257; G0378; G0379; J0360; J0696; J3370; J7030; Q5105

== ENCOUNTER 2022-10-21 16:35 | Emergency (ER) | payer OTHER, SELFPAY ==
[2022-10-21] VITALS (19 sets, daily range): BP systolic 103–109; BP diastolic 52–85; PULSE 83–94; RESP 17–20; TEMP 36.6; O2SAT 91–100
--- NOTE | ~2022-10-21 | XR_ITS ---
EXAMINATION: XR knee LT min 4V DATE: 10/21/2022 21:58 INDICATION: Left knee pain TECHNIQUE: Four views of the left knee were obtained. COMPARISON: None. FINDINGS: Alignment is normal. No fracture or osteochondral lesion. There is tricompartmental osteoar thritis of the knee. Moderate in the patellofemoral compartment and mild in the lateral and medial co mpartments. There is a large joint effusion. Soft tissues are unremarkable. IMPRESSION: 1. Large knee joint effusion and osteoarthritis without acute osseous abnormality. Reviewed, dictated and finalized at location F. IMPRESSION: 1. Large knee joint effusion and osteoarthritis without acute osseous abnormali ty.
--- NOTE | ~2022-10-21 | CT_ITS ---
EXAMINATION: CT cervical spine wo con DATE: 10/21/2022 17:45 INDICATION: Head injury TECHNIQUE: Computed tomography (CT) of the cervical spine was performed without intravenous contrast. The dose-length product (DLP) was 233.11 mGy-cm. Automated exposure control and iterative reconstruc tion technique were employed. COMPARISON: None FINDINGS: Bone alignment is normal. There is no fracture. The vertebral body heights are maintained. There is mild loss of intervertebral disc space height throughout the cervical spine. The odontoid pr ocess is intact. There is moderate to severe arthritis at the atlantoaxial joint. The prevertebral so ft tissues are normal. There are bilateral calcified thyroid nodules. IMPRESSION: 1. Mild cervical spondylosis without acute findings. 2. Multinodular goiter. Consider nonemergent thyroid ultrasound for risk stratification. Reviewed, dictated and finalized at location F. IMPRESSION: 1. Mild cervical spondylosis without acute findings. 2. Multinodular goiter. Consider nonemergent thyroid ultrasound for risk strati fication.
--- NOTE | ~2022-10-21 | CT_ITS ---
EXAMINATION: CT lumbar spine wo con DATE: 10/21/2022 21:49 INDICATION: Low back pain TECHNIQUE: Computed tomography (CT) of the lumbar spine was performed without intravenous contrast. T he dose-length product (DLP) was 1104.48 mGy-cm. Iterative reconstruction was used. COMPARISON: None FINDINGS: There are 3 mm of anterolisthesis of L4 on L5. There is mild loss of intervertebral disc sp ochoa height at L3-4 and L4-5. The vertebral body heights are maintained. There is no fracture. There i s moderate loss of intervertebral disc space height at T12-L1. There is moderate facet joint osteoart hritis at L4-5 and L5-S1. Nonobstructing stones of the kidneys measure up to 3 mm on the left. There are cysts of the kidneys which measure up to 2.3 cm on the left. There are at least two soft tissue d ensity masses of the left kidney which measure up torr 2.6 cm. IMPRESSION: 1. Mild lumbar spondylosis without acute findings. 2. At least two soft tissue density masses of the left kidney. Follow-up with nonemergent CT or MRI w ithout and with contrast is recommended. Reviewed, dictated and finalized at location F. IMPRESSION: 1. Mild lumbar spondylosis without acute findings. 2. At least two soft tissue density masses of the left kidney. Follow-up with n onemergent CT or MRI without and with contrast is recommended.
--- NOTE | ~2022-10-21 | CT_ITS ---
EXAMINATION: CT brain wo con INDICATION: Head injury COMPARISON: 09/28/2022 TECHNIQUE: Standard unenhanced head CT. The dose-length product (DLP) was 605.33 mGy-cm. The mA was a djusted according to patient size. Iterative reconstruction technique was employed. FINDINGS: There is no acute intraparenchymal hemorrhage. No evidence of mass lesion. No evidence of a cute infarction. There is mild periventricular and subcortical hypodensity probably related to small vessel ischemic disease. There is mild prominence of the sulci and ventricles related to cerebral atr ophy. Intracranial calcified cerebral atherosclerosis is noted. There are no extra-axial collections. There is no mass effect or midline shift. The orbits and soft tissues are unremarkable. There is mil d mucosal thickening of the paranasal sinuses. There are small mastoid effusions. IMPRESSION: 1. No acute intracranial abnormality. 2. Age related findings. Reviewed, dictated and finalized at location F.
--- NOTE | ~2022-10-21 | XR_ITS ---
EXAMINATION: XR chest 1V INDICATION: Pain after fall TECHNIQUE: AP view of the chest is obtained. COMPARISON: 09/28/2022 FINDINGS: A vascular stent projects in the left axilla. There is chronic elevation of the right hemid iaphragm. The lungs are free of acute opacities. No pleural effusion or pneumothorax. The cardiomedia stinal silhouette is stable. IMPRESSION: 1. No acute cardiopulmonary abnormality. Reviewed, dictated and finalized at location F.
--- NOTE | ~2022-10-21 | XR_ITS ---
EXAMINATION: XR hip RT 2V w AP pelvis INDICATION: Right hip pain TECHNIQUE: AP view the pelvis and two views of the right hip are obtained. COMPARISON: None available FINDINGS: Bone alignment is normal. There is no fracture. There is moderate osteoarthritis of the hip s. IMPRESSION: 1. No acute osseous abnormality. Reviewed, dictated and finalized at location F.
--- NOTE | ~2022-10-21 | CT_ITS ---
EXAMINATION: CT pelvis wo con DATE: 10/21/2022 21:54 INDICATION: Pain after fall TECHNIQUE: Computed tomography (CT) of the pelvis was performed without intravenous contrast. The dos e-length product (DLP) was 372.81 mGy-cm. Automated exposure control and iterative reconstruction steve hnique were employed. COMPARISON: None FINDINGS: There is no acute fracture. There appears to be an old healed fracture of left inferior pub ic ramus. Osteitis pubis is noted. There is moderate osteoarthritis of the hips. Calcified atheroscle rosis is noted. There are no pathologically enlarged pelvic lymph nodes. IMPRESSION: 1. No acute osseous abnormality. Reviewed, dictated and finalized at location F.
--- NOTE | 2022-10-21 17:26 | ED.FALL ---
HPI - Fall General Chief Complaint: Fall Stated Complaint: fall x2 Time Seen by Provider: 10/21/22 17:26 Source: EMS Mode of arrival: EMS Limitations: altered mental status, clinical condition and dementia History of Present Illness HPI Narrative: Patient is a 72-year-old female with a history of hypertension, hyperlipidemia, end-stage renal disease on hemodialysis, dementia, presenting to the emergency department for evaluation of falls. Per report from her for [place], patient apparently had 2 unwitnessed falls today. It was reported that patient was found wedged between bed and wheelchair. These falls were not witnessed. Patient reportedly positive for COVID. No hypoxia per facility. Patient is currently alert to person, not to place or time. Apparently this is consistent with her dementia. Pt not a realiable historian. She does report buttock pain as well as left knee pain. Per my review of the patient's chart, patient was recently admitted to this facility for falls and encephalopathy, found to have a urinary tract infection, discharged back to facility. Related Data Home Medications Medication Instructions Recorded Confirmed acetaminophen 650 mg tablet 650 mg PO Q4H PRN Headache 09/28/22 09/28/22 allopurinol 100 mg tablet 100 mg PO DAILY 09/28/22 09/28/22 atorvastatin 20 mg tablet 20 mg PO HS 09/28/22 09/28/22 folic acid 1 mg tablet 800 mcg PO DAILY 09/28/22 09/28/22 haloperidol 5 mg tablet 5 mg PO BID 09/28/22 09/28/22 magnesium hydroxide 400 mg/5 mL 30 ml PO HS PRN Constipation 09/28/22 09/28/22 oral suspension midodrine 5 mg tablet 5 mg PO PRN PRN Blood Pressure 09/28/22 09/28/22 ondansetron 4 mg disintegrating 4 mg PO Q6H PRN Nausea And Vomiting 09/28/22 09/28/22 tablet vitamin B complex and vitamin C 1 cap PO HS 09/28/22 09/28/22 no.20-folic acid 1 mg capsule (Toole Caps) Allergies Allergy/AdvReac Type Severity Reaction Status Date / Time aspirin Allergy Unknown Verified 10/21/22 22:05 cabbage Allergy Unknown Verified 10/21/22 22:05 chocolate flavor Allergy Unknown Verified 10/21/22 22:05 erythromycin base Allergy Unknown Verified 10/21/22 22:05 metrizamide Allergy Unknown Verified 10/21/22 22:05 nitrofurantoin Allergy Unknown Verified 10/21/22 22:05 Penicillins Allergy Unknown Verified 10/21/22 22:05 tositumomab Allergy Unknown Verified 10/21/22 22:05 Review of Systems Review of Systems: ROS unobtainable: Yes unobtainable due to medical condition (dementia) COUNTS INCLUDE 234 BEDS AT THE [facility] Past Medical History Medical History Alzheimer disease End-stage renal disease on hemodialysis Hyperlipidemia Schizophrenia Surgical History Surgical History Arteriovenous fistula Surgically formed Family History Family History Other Unknown family medical history Social History Social History Smoking status: Unknown if ever smoked Alcohol intake: unknown Substance use: unknown Spiritual care concerns: No Exam Narrative: GENERAL: Awake, alert HEAD: Normocephalic, atraumatic. EYES: PERRLA and EOMI. ENT: Nares clear, no rhinorrhea or epistaxis. Mucous membranes moist. NECK: Supple. CHEST: No respiratory distress, breathing even and non labored HEART: Regular rate, sinus rhythm ABDOMEN:Non distended, non tender EXTREMITIES: Pain with internal and external rotation of the right leg. Pain with palpation of right hip. DP pulses 2+ bilaterally. Right leg held in ext rotation. SKIN: Warm, dry, no rash. NEURO:No focal deficits. Alert,oriented to person, not to place or time Course Vital Signs Vital signs: Vital Signs Temperature 36.6 C 10/21/22 16:47 Pulse Rate 88 10/21/22 16:47 Respiratory Rate 17 10/21/22 16:47 Blood Pressure 105/85 10/21/22 16:47 Pulse Oximetry 100
--- NOTE | 2022-10-21 17:29 | ECG_ITS ---
Measurements Intervals [place] Rate: 89 P: 60 MS: 164 QRS: 16 QRSD: 88 T: 34 QT: 368 QTc: 448 Interpretive Statements SINUS RHYTHM WITH SINUS ARRHYTHMIA BASELINE ARTIFACT NONSPECIFIC T-WAVE ABNORMALITY BORDERLINE ECG COMPARED TO ECG 09/28/2022 18:50:42 HEART RATE HAS DECREASED Electronically Signed On 10-22-2022 16:33:33 CDT by Aneesh Zendejas M.D.
--- NOTE | 2022-10-21 18:51 | PC.NURSE ---
Attempting to obtain IV and get blood work. Provider made aware of delay.
[2022-10-21 20:21] LABS: Basophils Absolute Auto 0.1 K/mm3 (0.0-0.1); Basophils Percent Auto 0.7 % (0.2-1.2); Eosinophils Absolute Auto 0.6 K/mm3 (0-0.3); Eosinophils Percent Auto 8.2 % (0-4.4); Hematocrit 26.6 % (37.0-47.0); Hemoglobin 8.4 g/dL (12.0-15.0); Immature Granulocyte Absolute 0.19 K/mm3 (0.00-0.031); Immature Granulocyte Percent A 2.5 % (0-0.5); Lymphocytes Absolute Auto 0.92 K/mm3 (0.9-3.2); Lymphocytes Percent Auto 12.2 % (18.3-44.2); Mean Corpuscular HGB Conc 31.6 g/dl (32-36); Mean Corpuscular Hemoglobin 29.6 pg (26-34); Mean Corpuscular Volume 93.7 fl (80-100); Mean Platelet Volume 9.8 fl (7.4-10.4); Monocytes Absolute Auto 0.6 K/mm3 (0.1-0.6); Monocytes Percent Auto 7.9 % (2.6-8.5); Neutrophils Absolute Auto 5.2 K/mm3 (1.3-6.7); Neutrophils Percent Auto 68.5 % (45.5-73.1); Nucleated Red Blood Cells Perc 0.3 % (0.0-0.2); Platelet Count Result 200 k/mm3 (150-375); Red Blood Count 2.84 M/mm3 (4.2-5.4); Red Cell Distribution Width 15.6 % (11.5-14.5); White Blood Count 7.6 K/mm3 (4.5-10.0)
--- NOTE | 2022-10-21 20:26 | PC.NURSE ---
Unable to obtain IV. Provider obtained blood draw, but no IV was placed.
[2022-10-21 20:34] LABS: Anion Gap 7 mmol/L (8-16); Blood Urea Nitrogen 37 mg/dL (7-17); Calcium 8.9 mg/dL (8.4-10.2); Carbon Dioxide 33 mmol/L (22-30); Chloride 89 mmol/L (98-107); Estimated CRCL calculation 10 ml/min; Estimated Glomerular Filt Rate 12; Glucose 111 mg/dL (65-110); Potassium 3.6 mmol/L (3.4-5.0); Sodium 129 mmol/L (137-145)
[2022-10-21 21:18] LABS: Appearance Urine Turbid (Clear); Bacteria Urine 4+ /hpf; Bilirubin Urine 1+ (Negative); Blood Urine 3+ (Negative); Color Urine Dark Yellow (Yellow); Glucose Urine UA Negative (Negative); Ketones Urine Negative (Negative); Leukocyte Esterase Ur 3+ LEU/UL (Negative); Mucus Urine Present /lpf; Need Manual Microscopic Reviewed; Nitrate Urine Positive (Negative); Protein Urine 3+ mg/dL (Negative); RBC Urine >100 /hpf (0-2); Specific Grav Ur 1.021 (1.001-1.035); Squamous Epithelial Cell Urine Many /hpf (Few); Urobilinogen Urine 0.2 mg/dL (<2.0); WBC Urine >100 /hpf
[2022-10-21 21:19] LABS: Add Urine Microscopic? YES
[2022-10-21 22:54] LABS: Influenza A QL RT-PCR Negative (Negative); Influenza B QL RT-PCR Negative (Negative); RSV RNA, RT-PCR Negative (Negative); SARS-CoV-2 RNA PCR Positive
== END 2022-10-21 23:49 ==
PROVIDERS: Emergency Provider Emergency Medicine; PCP Internal Medicine
DX: S89.92XA Unspecified injury of left lower leg, initial encounter (principal); U07.1 COVID-19; N39.0 Urinary tract infection, site not specified; G30.9 Alzheimer's disease, unspecified; F02.80 Dementia in other diseases classified elsewhere, unspecified severity, without behavioral disturbance, psychotic disturbance, mood disturbance, and anxiety; I12.0 Hypertensive chronic kidney disease with stage 5 chronic kidney disease or end stage renal disease; N18.6 End stage renal disease; Z99.2 Dependence on renal dialysis; E78.5 Hyperlipidemia, unspecified; M17.12 Unilateral primary osteoarthritis, left knee; R94.31 Abnormal electrocardiogram [ECG] [EKG]; M47.812 Spondylosis without myelopathy or radiculopathy, cervical region; E04.2 Nontoxic multinodular goiter; M47.816 Spondylosis without myelopathy or radiculopathy, lumbar region; N28.89 Other specified disorders of kidney and ureter; W19.XXXA Unspecified fall, initial encounter
CPT/HCPCS: 36415; 70450; 71045; 72125; 72131; 72192; 73502; 73564; 80048; 81001; 85025; 87086; 87637; 93005; 96372; 99283; 99284

== ENCOUNTER 2022-10-24 18:17 | Emergency (ER) | payer OTHER, SELFPAY ==
[2022-10-24] VITALS (20 sets, daily range): BP systolic 98–132; BP diastolic 49–85; PULSE 88–96; RESP 14–21; TEMP 36.5; O2SAT 98–100
--- NOTE | ~2022-10-24 | CT_ITS ---
EXAMINATION: CT cervical spine wo con DATE: 10/24/2022 20:22 INDICATION: Patient with dementia and head injury 3 days prior presenting with recurrent falls. TECHNIQUE: Computed tomography (CT) of the cervical spine was performed without intravenous contrast. Automated exposure control and iterative reconstruction technique were employed. The dose-length pro duct was 380.76 mGy-cm. COMPARISON: 10/21/2022 FINDINGS: Severe osteoarthritis at the atlantoaxial articulation. Straightening of the normal cervical lordosis . Vertebral body heights are normal. Small corticated ossicle posterior to the tip of the C7 spinous process which could represent heterotopic ossification or potentially a chronic nonunited avulsion fr acture. No acute fractures identified. And minimal to mild disc height loss throughout the cervical s pine and visualized upper thoracic spine. Multilevel disc bulges along with some ossification along t he posterior longitudinal ligament resulting in mild central canal stenosis throughout the cervical s pine and at T1-T2. There is also bilateral multilevel mild facet and uncovertebral osteoarthritis thr oughout the cervical spine. No significant neural foraminal stenosis. Atherosclerotic calcific a cyst at the bilateral carotid bulbs. Multinodular goiter including a 2.1 cm nodule with coarse calcificat ions in the left thyroid. Cervical soft tissues are otherwise unremarkable. Visualized upper lungs ar e clear. IMPRESSION: 1. Mild cervical spondylosis with no acute onset multiple. 2. Multinodular goiter. Consider thyroid ultrasound for risk stratification. Reviewed, dictated and finalized at location A.
--- NOTE | ~2022-10-24 | XR_ITS ---
EXAMINATION: XR pelvis 1-2V DATE: 10/24/2022 21:08 INDICATION: Fall TECHNIQUE: An anteroposterior view of the pelvis was obtained. COMPARISON: CT pelvis dated 10/21/2022 FINDINGS: Alignment is normal. No fracture. Mild bilateral hip osteoarthritis. Osteitis pubis and bilateral sac roiliitis. Postoperative changes with multiple sutures project over the central pelvis. IMPRESSION: 1. No acute osseous abnormality. Reviewed, dictated and finalized at location A.
--- NOTE | ~2022-10-24 | CT_ITS ---
EXAMINATION: CT brain wo con DATE: 10/24/2022 20:23 INDICATION: Head injury 3 days prior with recurrent falls in a patient with dementia. TECHNIQUE: Computed tomography (CT) of the head was performed without intravenous contrast. Sagittal and coronal reconstructions were performed. The mA was adjusted according to patient size. Iterative reconstruction technique was employed. The dose-length product was 605.33 mGy-cm. COMPARISON: head CT dated 10/21/2022 FINDINGS: No fracture. No acute intracranial hemorrhage, acute infarction or abnormal extra axial fluid collect ion. There is moderate scattered white matter hypoattenuation consistent with chronic small vessel is chemic disease. Symmetric prominence of the sulci consistent with moderate age-appropriate diffuse ce rebral volume loss. Ventricles are normal and symmetric. No mass/mass effect. Mild mucosal thickenin g the paranasal sinuses. Unchanged bilateral mastoid effusions, left greater than right. The orbits a re normal. Intracranial calcified cerebral atherosclerosis is noted. IMPRESSION: 1. No fracture or acute intracranial process. 2. Age-related changes including moderate diffuse volume loss and moderate scattered white matter hyp oattenuation consistent with chronic small vessel ischemic disease. Reviewed, dictated and finalized at location A. IMPRESSION: 1. No fracture or acute intracranial process. 2. Age-related changes including moderate diffuse volume loss and moderate scat tered white matter hypoattenuation consistent with chronic small vessel ischemi c disease.
--- NOTE | ~2022-10-24 | XR_ITS ---
EXAMINATION: XR chest 1V portable DATE: 10/24/2022 19:40 INDICATION: Weakness TECHNIQUE: frontal view of the chest was obtained. COMPARISON: Chest radiograph dated 10/21/2022 FINDINGS: Again seen is chronic elevation the right hemidiaphragm. No focal airspace opacities, pulmonary edema , pleural effusion or pneumothorax. The cardiomediastinal silhouette is within normal limits for AP t echnique. Postoperative change including a vascular stent in several surgical clips at the left upper arm. Electronic device possibly external to the patient projects of the lateral left chest wall. IMPRESSION: 1. Chronic elevation the right hemidiaphragm. No acute cardiopulmonary disease. Reviewed, dictated and finalized at location A.
--- NOTE | 2022-10-24 18:25 | ECG_ITS ---
Measurements Intervals [place] Rate: 90 P: 59 IN: 163 QRS: 16 QRSD: 81 T: 42 QT: 358 QTc: 439 Interpretive Statements SINUS RHYTHM WITH OCCASIONAL VENTRICULAR PREMATURE COMPLEXES WITH OCCASIONAL SUPRAVENTRICULAR PREMATURE COMPLEXES POOR R-WAVE PROGRESSION ABNORMAL ECG COMPARED TO ECG 10/21/2022 18:16:17 ECTOPIC ACTIVITY IS NOW SEEN Electronically Signed On 10-25-2022 10:33:52 CDT by Jaime Varela M.D.
[2022-10-24 18:58] LABS: Basophils Absolute Auto 0.1 K/mm3 (0.0-0.1); Basophils Percent Auto 0.6 % (0.2-1.2); Eosinophils Absolute Auto 0.3 K/mm3 (0-0.3); Eosinophils Percent Auto 4.2 % (0-4.4); Hematocrit 30.1 % (37.0-47.0); Hemoglobin 9.3 g/dL (12.0-15.0); Immature Granulocyte Absolute 0.16 K/mm3 (0.00-0.031); Lymphocytes Percent Auto 12.7 % (18.3-44.2); Mean Corpuscular HGB Conc 30.9 g/dl (32-36); Mean Corpuscular Hemoglobin 29.6 pg (26-34); Mean Corpuscular Volume 95.9 fl (80-100); Mean Platelet Volume 8.9 fl (7.4-10.4); Monocytes Absolute Auto 0.5 K/mm3 (0.1-0.6); Monocytes Percent Auto 5.7 % (2.6-8.5); Neutrophils Absolute Auto 5.9 K/mm3 (1.3-6.7); Neutrophils Percent Auto 74.8 % (45.5-73.1); Platelet Count Result 250 k/mm3 (150-375); Red Blood Count 3.14 M/mm3 (4.2-5.4); Red Cell Distribution Width 16.6 % (11.5-14.5); White Blood Count 7.9 K/mm3 (4.5-10.0)
[2022-10-24 19:07] LABS: Alanine Aminotransferase 51 U/L (6-35); Albumin Level 3.6 g/dL (3.5-5.1); Alkaline Phosphatase 126 U/L (38-126); Anion Gap 11 mmol/L (8-16); Aspartate Amino Transferase 36 U/L (14-36); Bilirubin,Total 0.7 mg/dL (0.2-1.3); Blood Urea Nitrogen 38 mg/dL (7-17); Calcium 9.2 mg/dL (8.4-10.2); Carbon Dioxide 29 mmol/L (22-30); Chloride 93 mmol/L (98-107); Estimated Glomerular Filt Rate 9; Glucose 109 mg/dL (65-110); Sodium 133 mmol/L (137-145)
--- NOTE | 2022-10-24 19:10 | PC.NURSE ---
Report given to Oralia Cabrera RN at this time.
--- NOTE | 2022-10-24 19:16 | PC.NURSE ---
Report received from KESHA Sims. Assumed care of patient at this time.
--- NOTE | 2022-10-24 19:21 | ED.GENADULT ---
HPI - General Adult General Chief complaint: Fall Stated complaint: covid+/doesn't feel well/GLF Time Seen by Provider: 10/24/22 18:58 History of Present Illness HPI narrative: This is a 72[facility] with a history of dementia, end-stage renal disease, and heart failure presenting ED with multiple ground level falls. Patient has dementia and cannot provide me any information other than that she feels weak. Related Data Home Medications Medication Instructions Recorded Confirmed acetaminophen 650 mg tablet 650 mg PO Q4H PRN Headache 09/28/22 09/28/22 allopurinol 100 mg tablet 100 mg PO DAILY 09/28/22 09/28/22 atorvastatin 20 mg tablet 20 mg PO HS 09/28/22 09/28/22 folic acid 1 mg tablet 800 mcg PO DAILY 09/28/22 09/28/22 haloperidol 5 mg tablet 5 mg PO BID 09/28/22 09/28/22 magnesium hydroxide 400 mg/5 mL 30 ml PO HS PRN Constipation 09/28/22 09/28/22 oral suspension midodrine 5 mg tablet 5 mg PO PRN PRN Blood Pressure 09/28/22 09/28/22 ondansetron 4 mg disintegrating 4 mg PO Q6H PRN Nausea And Vomiting 09/28/22 09/28/22 tablet vitamin B complex and vitamin C 1 cap PO HS 09/28/22 09/28/22 no.20-folic acid 1 mg capsule ([facility] Caps) Allergies Allergy/AdvReac Type Severity Reaction Status Date / Time aspirin Allergy Unknown Verified 10/24/22 18:21 cabbage Allergy Unknown Verified 10/24/22 18:21 chocolate flavor Allergy Unknown Verified 10/24/22 18:21 erythromycin base Allergy Unknown Verified 10/24/22 18:21 iodine Allergy Unknown Verified 10/24/22 18:21 metrizamide Allergy Unknown Verified 10/24/22 18:21 nitrofurantoin Allergy Unknown Verified 10/24/22 18:21 Penicillins Allergy Unknown Verified 10/24/22 18:21 tositumomab Allergy Unknown Verified 10/24/22 18:21 [facility] Past Medical History Medical History Alzheimer disease End-stage renal disease on hemodialysis Hyperlipidemia Schizophrenia Surgical History Surgical History Arteriovenous fistula Surgically formed Family History Family History Other Unknown family medical history Social History Social History Smoking status: Unknown if ever smoked Alcohol intake: unknown Substance use: unknown Spiritual care concerns: No Exam Narrative: APPEARANCE: No apparent distress. A&O x1 Head: atraumatic. EYES: EOMI, NOSE: Atraumatic NECK: Trachea midline RESPIRATORY: No increased rate of breathing, scattered crackles, 100% on room air CARDIOVASCULAR: RRR, no peripheral edema ABDOMINAL: Non-distended, soft no guarding rebound MUSCULOSKELETAl: No obvious deformities, Head to toe trauma exam was performed which revealed no obvious deformities or areas of pain /tenderness. NEURO: Alert. Moving 4/4 extremities SKIN:: Stage II/3 decubitus ulcer without evidence of infection, Warm, dry. Normal color PSYCHIATRIC: Normal affect Course Vital Signs Vital signs: Vital Signs Temperature 97.7 F 10/24/22 18:16 Pulse Rate 92 10/24/22 18:16 Respiratory Rate 18 10/24/22 18:16 Blood Pressure 106/85 10/24/22 18:16 Pulse Oximetry 100 10/24/22 18:16 Oxygen Delivery Room Air 10/24/22 18:16 Temperature 97.7 F 10/24/22 18:16 Pulse Rate 92 10/24/22 18:16 Respiratory Rate 20 10/24/22 18:29 Blood Pressure 106/85 10/24/22 18:16 Pulse Oximetry 100 10/24/22 18:16 Oxygen Delivery Room Air 10/24/22 18:16 Medical Decision Making [facility] Narrative Medical decision making narrative: -Presentation: 72-year-old female presenting with weakness and multiple falls. -DDX includes but is not limited to: Sepsis, UTI, dehydration, pneumonia, COVID -Co-morbidities complicating care: dementia, end-stage renal disease, heart failure, history of TIA -Social determinants of health:
[2022-10-24 19:25] LABS: Magnesium 2.1 mg/dL (1.6-2.3)
[2022-10-24] MEDS: SODIUM CHLORIDE 0.9% IV 1,000 ML 999 ML IV CONT (19:33)
[2022-10-24 19:35] LABS: NT Pro B Type Natriuretic Pept 6790 pg/mL (19.9-100)
[2022-10-24 19:35] LABS: Lactic Acid Reflex 1.9 mmol/L (0.7-2.0)
[2022-10-24 20:03] LABS: Influenza A QL RT-PCR Negative (Negative); Influenza B QL RT-PCR Negative (Negative); RSV RNA, RT-PCR Negative (Negative); SARS-CoV-2 RNA PCR Positive
--- NOTE | 2022-10-24 21:49 | PC.NURSE ---
[facility]
--- NOTE | 2022-10-24 21:49 | PC.NURSE ---
Attempted to call report twice, no answer. EMS here to transport patient back to the [place].
== END 2022-10-24 21:52 ==
PROVIDERS: Emergency Medicine; Emergency Provider Emergency Medicine; PCP Internal Medicine
DX: U07.1 COVID-19 (principal); G30.9 Alzheimer's disease, unspecified; F02.80 Dementia in other diseases classified elsewhere, unspecified severity, without behavioral disturbance, psychotic disturbance, mood disturbance, and anxiety; F20.9 Schizophrenia, unspecified; N18.6 End stage renal disease; Z99.2 Dependence on renal dialysis; E78.5 Hyperlipidemia, unspecified
CPT/HCPCS: 36415; 70450; 71045; 72125; 72170; 80053; 83605; 83735; 83880; 85025; 87040; 87637; 93005; 96360; 99284; J7030

== ENCOUNTER 2023-02-26 13:12 | Inpatient (IN) | payer OTHER, SELFPAY ==
[2023-02-26] VITALS (22 sets, daily range): BP systolic 113–143; BP diastolic 60–77; PULSE 83–101; RESP 19–29; TEMP 36–36.6; O2SAT 100; BMI 22.8
--- NOTE | ~2023-02-26 | XR_ITS ---
EXAMINATION: XR humerus LT DATE: 03/01/2023 18:21 INDICATION: Concern for foreign body TECHNIQUE: AP and lateral views of the left humerus were obtained. COMPARISON: None. FINDINGS: Bone alignment is normal. No fracture. Mild osteoarthritis at the left shoulder and elbow. Prominent erosive change along the greater tuberosity which can be seen in the setting of chronic rotator cuff disease. Postoperative change of prior dialysis graft placement with surgical clips along the medial side of the upper arm and subtle tubular density in the soft tissues at the anterolateral aspect of t he distal left forearm. Vascular stent likely along the efferent limb of the graft extending from the mid upper arm to the left axilla. Partially visualized catheter external to the patient projects ove r the left forearm. No other radiopaque foreign bodies identified. IMPRESSION: 1. Likely dialysis graft and vascular stenting at the left upper arm. Correlate with surgical history . No other radiopaque foreign bodies identified. Reviewed, dictated and finalized at location A. IMPRESSION: 1. Likely dialysis graft and vascular stenting at the left upper arm. Correlate with surgical history. No other radiopaque foreign bodies identified.
--- NOTE | ~2023-02-26 | XR_ITS ---
EXAMINATION: XR chest 1V DATE: 02/26/2023 14:00 INDICATION: Altered mental status. TECHNIQUE: A single frontal view of the chest was obtained. COMPARISON: Chest single view 10/24/2022 FINDINGS: There is chronic mild elevation of right hemidiaphragm. There is no pneumonia, pleural effu dona, or pneumothorax. Cardiomegaly is noted. Surgical clips in the right upper quadrant are likely f rom cholecystectomy. IMPRESSION: 1. Cardiomegaly. Reviewed, dictated and finalized at location A. IMPRESSION: 1. Cardiomegaly.
--- NOTE | ~2023-02-26 | CT_ITS ---
EXAMINATION: CT brain wo con DATE: 02/26/2023 13:57 INDICATION: Transient alteration of awareness. TECHNIQUE: Computed tomography (CT) of the head was performed without intravenous contrast. The mA wa s adjusted according to patient size. Iterative reconstruction technique was employed. The dose-lengt h product was 605.33 mGy-cm. COMPARISON: Head CT 10/24/2022 FINDINGS: There are scattered areas of low attenuation in the cerebral white matter. There is no intr acranial hemorrhage, acute infarction, or abnormal intracranial mass lesion. The ventricles are asia l in size. The orbits are normal. There is mucosal thickening in the paranasal sinuses. There are rayshawn ateral mastoid effusions. IMPRESSION: 1. Stable moderate nonspecific cerebral white matter disease, which likely represents chronic small v essel ischemic disease. Reviewed, dictated and finalized at location A. IMPRESSION: 1. Stable moderate nonspecific cerebral white matter disease, which likely repr esents chronic small vessel ischemic disease.
--- NOTE | 2023-02-26 13:16 | ECG_ITS ---
Measurements Intervals [place] Rate: 91 P: 67 OR: 144 QRS: 5 QRSD: 85 T: 123 QT: 346 QTc: 426 Interpretive Statements SINUS RHYTHM WITH SINUS ARRHYTHMIA LEFT VENTRICULAR HYPERTROPHY WITH SECONDARY REPOLARIZATION ABNORMALITY ABNORMAL ECG COMPARED TO ECG 10/24/2022 18:29:04 LATERAL T-WAVE INVERSION IS NOW PRESENT MOST CONSISTENT WITH LVH Electronically Signed On 02-27-2023 7:10:33 CDT by Jaime Varela M.D.
--- NOTE | 2023-02-26 13:34 | ED.AMS ---
HPI - Altered Mental Status General Chief Complaint: Altered Mental Status Stated Complaint: Less Responsive Than Normal Time Seen by Provider: 02/26/23 13:34 History of Present Illness HPI narrative: 72 years old -[place] female came from prison with altered mental status. Patient has been at the prison for 7 days, the nurse who is taking care of her today just not familiar with the patient and today was the first time to take care of her she noted that the patient is lethargic which could be chronically lethargic then referred her to our emergency room. I was able to speak to the granddaughter who have the power of commercial attorney and told me that patient normally awake, alert with history of dementia and he can carry sometimes normal conversation. In the last 2 days been going south. Last hemodialysis was yesterday. Patient is full code. Patient normally goes to [facility] Related Data Home Medications Medication Instructions Recorded Confirmed acetaminophen 650 mg tablet 650 mg PO Q4H PRN Headache 09/28/22 09/28/22 allopurinol 100 mg tablet 100 mg PO DAILY 09/28/22 09/28/22 atorvastatin 20 mg tablet 20 mg PO HS 09/28/22 09/28/22 folic acid 1 mg tablet 800 mcg PO DAILY 09/28/22 09/28/22 haloperidol 5 mg tablet 5 mg PO BID 09/28/22 09/28/22 magnesium hydroxide 400 mg/5 mL 30 ml PO HS PRN Constipation 09/28/22 09/28/22 oral suspension midodrine 5 mg tablet 5 mg PO PRN PRN Blood Pressure 09/28/22 09/28/22 ondansetron 4 mg disintegrating 4 mg PO Q6H PRN Nausea And Vomiting 09/28/22 09/28/22 tablet vitamin B complex and vitamin C 1 cap PO HS 09/28/22 09/28/22 no.20-folic acid 1 mg capsule ([facility] Caps) Allergies Allergy/AdvReac Type Severity Reaction Status Date / Time aspirin Allergy Unknown Verified 02/26/23 13:27 cabbage Allergy Unknown Verified 02/26/23 13:27 chocolate flavor Allergy Unknown Verified 02/26/23 13:27 erythromycin base Allergy Unknown Verified 02/26/23 13:27 iodine Allergy Unknown Verified 02/26/23 13:27 metrizamide Allergy Unknown Verified 02/26/23 13:27 nitrofurantoin Allergy Unknown Verified 02/26/23 13:27 Penicillins Allergy Unknown Verified 02/26/23 13:27 tositumomab Allergy Unknown Verified 02/26/23 13:27 Review of Systems Review of Systems: All systems reviewed & are unremarkable except as noted in HPI and below PMFSH Past Medical History Medical History Alzheimer disease End-stage renal disease on hemodialysis Hyperlipidemia Schizophrenia Surgical History Surgical History Arteriovenous fistula Surgically formed Family History Family History Other Unknown family medical history Social History Social History Smoking status: Unknown if ever smoked Alcohol intake: unknown Substance use: unknown Spiritual care concerns: No Exam Narrative: General appearance: Well-developed, well-nourished, somnolent, nonverbal Skin: Normal color Head: Normocephalic, nontraumatic Eyes: Clear conjunctiva ENT: Oropharynx normal, ears normal, nose normal, no teeth Neck: Supple, nontender Chest and respiratory: Airway patent, no respiratory distress, no accessory muscle use Heart: Regular rate/rhythm Abdomen: Soft, nontender, no organomegaly, quiet bowel sounds Musculoskeletal: Normal range of motion, nontender back Neurologic: Nonverbal, unresponsive to verbal commands, responsive to painful stimuli Course Reevaluation(s) Reevaluation #1: No new changes c
[2023-02-26 13:44] LABS: Basophils Percent Auto 0.4 % (0.2-1.2); Eosinophils Absolute Auto 0.1 K/mm3 (0-0.3); Hematocrit 41.4 % (37.0-47.0); Immature Granulocyte Absolute 0.05 K/mm3 (0.00-0.031); Immature Granulocyte Percent A 0.6 % (0-0.5); Lymphocytes Absolute Auto 0.66 K/mm3 (0.9-3.2); Lymphocytes Percent Auto 8.2 % (18.3-44.2); Mean Corpuscular HGB Conc 31.4 g/dl (32-36); Mean Corpuscular Hemoglobin 27.3 pg (26-34); Mean Platelet Volume 9.9 fl (7.4-10.4); Monocytes Absolute Auto 0.9 K/mm3 (0.1-0.6); Monocytes Percent Auto 11.6 % (2.6-8.5); Neutrophils Absolute Auto 6.3 K/mm3 (1.3-6.7); Neutrophils Percent Auto 78.2 % (45.5-73.1); Platelet Count Result 194 k/mm3 (150-375); Red Blood Count 4.76 M/mm3 (4.2-5.4); Red Cell Distribution Width 18.7 % (11.5-14.5)
[2023-02-26 13:53] LABS: INR 1.1; Prothrombin Time 14.5 Seconds (11.1-14.7)
[2023-02-26 13:54] LABS: Partial Thromboplastin Time 29.8 SECONDS (22.3-36.8)
[2023-02-26 15:00] LABS: Alanine Aminotransferase 27 U/L (6-35); Albumin Level 3.7 g/dL (3.5-5.1); Alkaline Phosphatase 77 U/L (38-126); Anion Gap 9 mmol/L (8-16); Aspartate Amino Transferase 29 U/L (14-36); Bilirubin,Total 0.5 mg/dL (0.2-1.3); Blood Urea Nitrogen 46 mg/dL (7-17); Calcium 10.1 mg/dL (8.4-10.2); Carbon Dioxide 32 mmol/L (22-30); Chloride 89 mmol/L (98-107); Estimated Glomerular Filt Rate 9; Glucose 127 mg/dL (65-110); Potassium 4.3 mmol/L (3.4-5.0); Sodium 130 mmol/L (137-145)
[2023-02-26 15:26] LABS: Appearance Urine Turbid (Clear); Bacteria Urine Rare /hpf; Bilirubin Urine Negative (Negative); Blood Urine 3+ (Negative); Color Urine Dark Yellow (Yellow); Glucose Urine UA Negative (Negative); Hyaline Casts Urine Present /lpf; Ketones Urine Negative (Negative); Leukocyte Esterase Ur 3+ LEU/UL (Negative); Nitrate Urine Negative (Negative); Protein Urine 4+ mg/dL (Negative); RBC Urine 21-50 /hpf (0-2); Specific Grav Ur 1.014 (1.001-1.035); Squamous Epithelial Cell Urine Few /hpf (Few); Urobilinogen Urine 0.2 mg/dL (<2.0); WBC Urine 21-50 /hpf; pH Urine 7.5 (5.0-9.0)
[2023-02-26 15:27] LABS: Add Urine Microscopic? YES
--- NOTE | 2023-02-26 16:10 | PC.NURSE ---
Lying on stretcher with eyes open. Turns head when spoken to but is nonverbal.
--- NOTE | 2023-02-27 01:29 | PM.IMHP ---
H&P: HPI History of Present Illness Date/Time: 02/26/230 Chief Complaint: Altered mental status Narrative: This is a 72-year-old female patient that resides at a correction. She came to the emergency room did today due to altered mental status. According to the ER notes the correction staff felt that the patient was lethargic. The ER provider did speak with the granddaughter has the power border machine operator. It was reported that the patient is normally awake but she does have a history of dementia. It was noted that the patient can sometimes carry on a normal conversation. Patient has a history of hemodialysis and had her last dialysis treatment yesterday. The patient typically goes to [facility] [place]. Her sodium is 130 which appears to be her baseline. BUN is 46 creatinine 5.6 which is her baseline. Her urine is turbid 4+ protein 3+ blood. 3+ leukocyte esterase. RBCs 21-50 with white count 21-50. The patient was started on Rocephin. The patient refused to open her eyes and is not answering any questions for me. The patient is nonverbal. After reviewing patient's chart she had been nonverbal with her previous admission. Chest x-ray today was read as cardiomegaly. Head CT from today Stable moderate nonspecific cerebral white matter disease, which likely represents chronic small vessel ischemic disease. the patient is being admitted to observation status on the date of service of 02/26/2023. Review of Systems Review of Systems: All systems reviewed & are unremarkable except as noted in HPI and below Constitutional: Constitutional: Reports as per HPI and Reports no additional constitutional complaints Eyes: Eyes: Reports as per HPI and Reports no additional eye complaints ENT: Reports system reviewed and no additional complaints, except as documented and Reports Normal hearing present Cardiovascular: Cardiovascular: Reports no additional cardiovascular complaints Respiratory: Respiratory: Reports no additional respiratory complaints and Reports no additional respiratory complaints Gastrointestinal: Gastrointestinal: Reports as per HPI and Reports no additional gastrointestinal complaints Musculoskeletal: Musculoskeletal: Reports no additional musculoskeletal complaints Integumentary/Breasts: Skin/Breast: Reports system reviewed and no additional complaints, except as docu and Reports as per HPI Neurologic: Reports system reviewed and no additional complaints, except as documented, Reports as per HPI and Reports Normal hearing present Psychiatric: Psychiatric: Reports no additional psychiatric complaints and Reports as per HPI Endocrine: Endocrine: Reports no additional endocrine complaints Hematologic/Lymphatic: Hematologic/Lymphatic: Reports no additional hematologic/lymphatic complaints Allergic/Immunologic: Allergic/Immunologic: Reports no additional allergic/immunologic complaints PMFSH Past Medical History Medical History Alzheimer disease End-stage renal disease on hemodialysis Hyperlipidemia Schizophrenia Surgical History Surgical History Arteriovenous fistula Surgically formed Family History Family History Other Unknown family medical history Social History Social History (Updated 02/27/23 @ 01:42 by Suzan Bergeron NP) Social History: The patient is reported as being and retired. She only has a granddaughter who is listed as a contact. She is a former smoker. She is from and [facility] home Code status full code Smoking status: Former smoker Alcohol intake: unknown Substance use: unknown Spiritual care concerns: No Meds Home Medications and Allergies Home Medications Medication Instructions Recorded Confirmed Type allopurinol 100 mg tablet 100 mg PO DAILY 09/28/22
[2023-02-27 06:00] VITALS: BP 148/63; PULSE 98; RESP 20; TEMP 36; O2SAT 100
[2023-02-27 07:07] LABS: Hematocrit 38.7 % (37.0-47.0); Hemoglobin 12.1 g/dL (12.0-15.0); Mean Corpuscular HGB Conc 31.3 g/dl (32-36); Mean Corpuscular Hemoglobin 27.2 pg (26-34); Mean Platelet Volume 9.6 fl (7.4-10.4); Platelet Count Result 179 k/mm3 (150-375); Red Blood Count 4.45 M/mm3 (4.2-5.4); Red Cell Distribution Width 18.6 % (11.5-14.5); White Blood Count 6.2 K/mm3 (4.5-10.0)
[2023-02-27 07:27] LABS: Estimated CRCL calculation 7 ml/min; Estimated Glomerular Filt Rate 8
[2023-02-27 11:41] LABS: Alanine Aminotransferase 25 U/L (6-35); Albumin Level 3.4 g/dL (3.5-5.1); Alkaline Phosphatase 80 U/L (38-126); Anion Gap 10 mmol/L (8-16); Aspartate Amino Transferase 28 U/L (14-36); Bilirubin,Total 0.5 mg/dL (0.2-1.3); Blood Urea Nitrogen 55 mg/dL (7-17); Calcium 10.6 mg/dL (8.4-10.2); Carbon Dioxide 29 mmol/L (22-30); Chloride 88 mmol/L (98-107); Glucose 118 mg/dL (65-110); Magnesium 2.4 mg/dL (1.6-2.3); Phosphorus 6.2 mg/dL (2.5-4.5); Potassium 4.4 mmol/L (3.4-5.0); Sodium 127 mmol/L (137-145)
[2023-02-27 14:00] VITALS: BP 145/76; PULSE 91; RESP 22; TEMP 37.4; O2SAT 100
--- NOTE | 2023-02-27 14:07 | PM.IMPN ---
Progress Note: A&P Assessment and Plan (1) UTI (urinary tract infection): Qualifiers: Hematuria presence: without hematuria Urinary tract infection type: site unspecified Qualified Code(s): N39.0 - Urinary tract infection, site not specified Code(s): N39.0 - Urinary tract infection, site not specified Status: Acute Assessment and Plan: UA with 4+ protein, 3+ blood 3+ leukocyte esterase, 21-50 rbc's, 21-50 wbc's The patient was started on Rocephin. Blood and urine cultures are pending IV fluids, monitor fluid status. Discussed with criminal court judge before starting fluids. Patient has been treated for multiple UTIs. She gets them every couple months. Consider urology consultation (2) Altered mental status: Qualifiers: Altered mental status type: somnolence Qualified Code(s): R40.0 - Somnolence Code(s): R41.82 - Altered mental status, unspecified Status: Acute Assessment and Plan: From her old records from here the patient was nonverbal. Although according to patient's daughter she was walking and talking 1 month ago. According to the granddaughter this happens every several months and is always due to UTI. She does have a history of dementia and schizophrenia. The patient is nonverbal today. She has had an EEG to rule out any seizure activity earlier this year September of this year. The patient also had a UTI her last admission and was felt that the UTI exacerbate her dementia. Please see her discharge note and neurology evaluation September of this year. (3) Alzheimer disease: Code(s): G30.9 - Alzheimer's disease, unspecified; F02.80 - Dementia in other diseases classified elsewhere, unspecified severity, without behavioral disturbance, psychotic disturbance, mood disturbance, and anxiety Status: Acute Assessment and Plan: Restart her home medications with at this point she does not look like she will be able to take them. (4) Schizophrenia: Code(s): F20.9 - Schizophrenia, unspecified Status: Acute Assessment and Plan: Continue with home medications when she is able to take oral intake. The patient is on Haldol b.i.d. but according to the granddaughter she has not taken this for couple weeks. Will hold due to do patient not being able to take anything by mouth currently. (5) End-stage renal disease on hemodialysis: Code(s): N18.6 - End stage renal disease; Z99.2 - Dependence on renal dialysis Status: Acute Assessment and Plan: She has dialysis on Tuesday and is reported that she had her last dialysis this Tuesday. Nephrology has been consulted. Continue with her Renvela and she is on midodrine. (6) Hypertension: Code(s): I10 - Essential (primary) hypertension Status: Chronic Assessment and Plan: It looks like the patient is on midodrine for hypotension. (7) Anemia: Code(s): D64.9 - Anemia, unspecified Status: Chronic Assessment and Plan: Anemia of chronic disease she is at her baseline. Subjective Date/time seen: 02/27/23 14:07 Interval history: Patient only opens her eyes but does not communicate. This is not her normal cording to her granddaughter. Patient typically lives with her granddaughter and the granddaughter is primary roof panel hanger as well as power of civil rights attorney. According to the granddaughter patient was walking and talking at the end of January, approximately 1 month ago. Approximately 4 days ago patient was up in her bed and eating wall she was being fed by her granddaughter. At that time granddaughter noticed that patient was a little bit more drowsy than usual. According to the granddaughter this happens every several months and is always due to UTI. Patient [facility] She was recently at [facility] for treatment
--- NOTE | 2023-02-27 14:37 | PM.CNNEP ---
Assessment and Plan Assessment and plan (1) End-stage renal disease on hemodialysis: Code(s): N18.6 - End stage renal disease; Z99.2 - Dependence on renal dialysis Status: Acute Assessment and Plan: the patient has end-stage renal disease. She is due for dialysis tomorrow. Her potassium is okay. Her volume status looks okay my exam and also by chest x-ray. She is comfortable lying flat in bed. Will order dialysis for the morning. (2) Alzheimer disease: Code(s): G30.9 - Alzheimer's disease, unspecified; F02.80 - Dementia in other diseases classified elsewhere, unspecified severity, without behavioral disturbance, psychotic disturbance, mood disturbance, and anxiety Status: Acute Assessment and Plan: The patient does have senile dementia of the Alzheimer's type. Fortunately she does not have anxiety or depression. She is getting supportive care. (3) Anemia: Code(s): D64.9 - Anemia, unspecified Status: Chronic Assessment and Plan: Hemoglobin is 13. No need for Epogen (4) Renal osteodystrophy: Code(s): N25.0 - Renal osteodystrophy Status: Acute Assessment and Plan: will check a phosphorus level morning History of Present Illness Reason for Consult Consult date: 02/27/23 Chief Complaint Chief complaint: Urinary Tract Infection/Change of Mental Status History of Present Illness Narrative: Dania is a very pleasant 72-year-old lady who has end-stage renal disease under the care of Dr. Miranda in [facility]. The patient dialyzes 3 days a week on Wednesdays and Fridays. The patient also has senile dementia of the Alzheimer's type, hyperlipidemia, schizophrenia, anemia of chronic kidney disease, renal osteodystrophy, hyperlipidemia, and chronic hypotension. The patient was newly in a residential. Apparently the staff did not know her very well and felt that she had change in mental status so sent her to the ER. She was admitted from the ER. According to the granddaughter the patient does have conversations although is forgetful. Yesterday on admission the patient would not open her eyes and would not say anything to LISA Bergeron. the patient was found to have pyuria and so urine culture was obtained and she was started on Rocephin. CT of the brain was unremarkable for acute changes. renal consultation was requested because she needs dialysis tomorrow. The patient really can't give a history. She does say okay when I ask her how she is doing but does not elaborate on any other symptoms and review of systems was not able to be done. Review of Systems Review of Systems: ROS unobtainable: Yes unobtainable due to medical condition PMFSH Past Medical History Medical History Alzheimer disease End-stage renal disease on hemodialysis Hyperlipidemia Schizophrenia Surgical History Surgical History Arteriovenous fistula Surgically formed Family History Family History Other Unknown family medical history Social History Social History Social History: The patient is reported as being and retired. She only has a granddaughter who is listed as a contact. She is a former smoker. She is from [facility] Code status full code Smoking status: Former smoker Alcohol intake: unknown Substance use: unknown Spiritual care concerns: No Meds Home Medications and Allergies Home Medications Medication Instructions Recorded Confirmed Type allopurinol 100 mg tablet 100 mg PO DAILY 09/28/22 02/26/23 History atorvastatin 20 mg tablet 20 mg PO HS 09/28/22 02/26/23 History folic acid 1 mg tablet 800 mcg PO DAILY 09/28/22 02/26/23 History haloperid
[2023-02-27] MEDS: DEXTROSE 5%/0.9% SOD CHL 1,000 ML 50 ML IV CONT (14:45)
[2023-02-27 17:15] LABS: Hepatitis B Surface Antigen Negative (Negative)
[2023-02-27 21:32] VITALS: BP 140/51; PULSE 90; RESP 20; TEMP 35.9; O2SAT 100
[2023-02-28] VITALS (16 sets, daily range): BP systolic 120–176; BP diastolic 51–88; PULSE 84–101; RESP 15–20; TEMP 35.8–36.6; O2SAT 97–100
--- NOTE | 2023-02-28 07:23 | PC.NURSE ---
Upon the beginning of shift, pt was asked if she was in any pain, pt states you are so loud. Pt was asked again if she was in pain and pt responded yeah. Pt was asked where was she feeling pain and no response was was given ever since. Pt is known to be non-verbal. Pt does make moaning noises when in pain or when uncomfortable. Communication with pt maintained throughout the night even when pt does not respond.
[2023-02-28] MEDS: DEXTROSE 5%/0.9% SOD CHL 1,000 ML 50 ML IV CONT (08:18)
--- NOTE | 2023-02-28 09:49 | PCPTNOTE ---
Attempted PT evaluation, pt not able to follow 1 step commands to participate in skilled therapy at this time. Will follow.
--- NOTE | 2023-02-28 09:56 | PCOTNOTE ---
Attempted to evaluate pt. for occupational therapy evaluation. Pt. unable to consistently follow directions and communicate verbally and non-verbally. Pt. not appropriate for participation in at this time. Nursing and hospitalist aware. Following.
--- NOTE | 2023-02-28 13:58 | PM.IMPN ---
Progress Note: A&P Assessment and Plan (1) UTI (urinary tract infection): Qualifiers: Hematuria presence: without hematuria Urinary tract infection type: site unspecified Qualified Code(s): N39.0 - Urinary tract infection, site not specified Code(s): N39.0 - Urinary tract infection, site not specified Status: Acute Assessment and Plan: UA with 4+ protein, 3+ blood 3+ leukocyte esterase, 21-50 rbc's, 21-50 wbc's The patient was started on Rocephin. Blood no growth to date. Urine culture negative but will continue to treat due to symptoms. IV fluids, monitor fluid status. Discussed with flight coordinator before starting fluids. Patient has been treated for multiple UTIs. She gets them every couple months. Consider urology consultation (2) Altered mental status: Qualifiers: Altered mental status type: somnolence Qualified Code(s): R40.0 - Somnolence Code(s): R41.82 - Altered mental status, unspecified Status: Acute Assessment and Plan: From her old records from here the patient was nonverbal. Although according to patient's daughter she was walking and talking 1 month ago. According to the granddaughter this happens every several months and is always due to UTI. She does have a history of dementia and schizophrenia. The patient is nonverbal today. She has had an EEG to rule out any seizure activity earlier this year September of this year. The patient also had a UTI her last admission and was felt that the UTI exacerbate her dementia. Please see her discharge note and neurology evaluation September of this year. (3) Alzheimer disease: Code(s): G30.9 - Alzheimer's disease, unspecified; F02.80 - Dementia in other diseases classified elsewhere, unspecified severity, without behavioral disturbance, psychotic disturbance, mood disturbance, and anxiety Status: Acute Assessment and Plan: Restart her home medications with at this point she does not look like she will be able to take them. (4) Schizophrenia: Code(s): F20.9 - Schizophrenia, unspecified Status: Acute Assessment and Plan: Continue with home medications when she is able to take oral intake. The patient is on Haldol b.i.d. but according to the granddaughter she has not taken this for couple weeks. Will hold due to do patient not being able to take anything by mouth currently. (5) End-stage renal disease on hemodialysis: Code(s): N18.6 - End stage renal disease; Z99.2 - Dependence on renal dialysis Status: Acute Assessment and Plan: She has dialysis on Tuesday and is reported that she had her last dialysis this Tuesday. Nephrology has been consulted. Continue with her Renvela and she is on midodrine. (6) Hypertension: Code(s): I10 - Essential (primary) hypertension Status: Chronic Assessment and Plan: It looks like the patient is on midodrine for hypotension. (7) Anemia: Code(s): D64.9 - Anemia, unspecified Status: Chronic Assessment and Plan: Anemia of chronic disease she is at her baseline. Subjective Date/time seen: 02/28/23 13:58 Interval history: Patient is slightly more alert today. She was able to move her left arm slightly when I asked her to. When I asked if she was hungry she also nodded her head slightly. Other than those 2 things she was pretty much the same as yesterday. Exam Narrative: GENERAL: Comfortable, no acute distress, nonverbal, follows with eyes HENMT: moist mucous membranes EYES: EOM intact b/l NECK: no lymphadenopathy RESPIRATORY: clear to auscultation CARDIO: RRR GI: soft, nontender, bowel sounds present SKIN: no rashes EXTREMITIES: no edema, redness or tenderness Objective Data Vital Signs Vital Signs: Vital Signs - 24 hr 02/27/23 14:00 02/27/23 21:32 02/27/23 20:00 Temperat
[2023-02-28 15:31] LABS: Basophils Percent Auto 0.5 % (0.2-1.2); Eosinophils Absolute Auto 0.2 K/mm3 (0-0.3); Eosinophils Percent Auto 3.9 % (0-4.4); Hematocrit 34.4 % (37.0-47.0); Hemoglobin 10.8 g/dL (12.0-15.0); Immature Granulocyte Absolute 0.04 K/mm3 (0.00-0.031); Immature Granulocyte Percent A 0.7 % (0-0.5); Lymphocytes Absolute Auto 0.46 K/mm3 (0.9-3.2); Lymphocytes Percent Auto 8.1 % (18.3-44.2); Mean Corpuscular HGB Conc 31.4 g/dl (32-36); Mean Corpuscular Hemoglobin 26.8 pg (26-34); Mean Corpuscular Volume 85.4 fl (80-100); Mean Platelet Volume 8.9 fl (7.4-10.4); Monocytes Absolute Auto 0.4 K/mm3 (0.1-0.6); Monocytes Percent Auto 7.6 % (2.6-8.5); Neutrophils Absolute Auto 4.5 K/mm3 (1.3-6.7); Neutrophils Percent Auto 79.2 % (45.5-73.1); Platelet Count Result 182 k/mm3 (150-375); Red Blood Count 4.03 M/mm3 (4.2-5.4); Red Cell Distribution Width 18.5 % (11.5-14.5); White Blood Count 5.7 K/mm3 (4.5-10.0)
[2023-02-28 15:52] LABS: Alanine Aminotransferase 19 U/L (6-35); Alkaline Phosphatase 71 U/L (38-126); Anion Gap 6 mmol/L (8-16); Aspartate Amino Transferase 21 U/L (14-36); Bilirubin,Total 0.4 mg/dL (0.2-1.3); Blood Urea Nitrogen 40 mg/dL (7-17); Carbon Dioxide 30 mmol/L (22-30); Chloride 97 mmol/L (98-107); Estimated CRCL calculation 9 ml/min; Estimated Glomerular Filt Rate 12; Glucose 98 mg/dL (65-110); Phosphorus 4.5 mg/dL (2.5-4.5); Potassium 3.4 mmol/L (3.4-5.0); Sodium 133 mmol/L (137-145)
[2023-02-28] MEDS: HEPARIN SODIUM 1,000 UNITS/ML VIAL 500 UNITS IV CONT (16:38)
--- NOTE | 2023-02-28 16:46 | P.PNNP_ITS ---
Progress Note: A&P Assessment and Plan (1) End stage renal disease: Code(s): N18.6 - End stage renal disease Status: Chronic Assessment and Plan: * HD today and continue M/W/ dialysis schedule * follow electrolytes, volume status, and clearance (2) UTI (urinary tract infection): Qualifiers: Hematuria presence: without hematuria Urinary tract infection type: site unspecified Qualified Code(s): N39.0 - Urinary tract infection, site not specified Code(s): N39.0 - Urinary tract infection, site not specified Status: Acute Assessment and Plan: * admission UA highly suggestive * however, blood and urine cultures negative to date * on antibiotics * possibly this is just reflective of bladder colonization(?) (3) Altered mental status: Qualifiers: Altered mental status type: somnolence Qualified Code(s): R40.0 - Somnolence Code(s): R41.82 - Altered mental status, unspecified Status: Acute Assessment and Plan: * seems at baseline per my previous care of her on last [facility] admission * baseline reportedly A & O x 1 (from discussion with outpatient dialysis unit) * complicated by history of dementia * possibly worsened by UTI/infection * however, blood/urine culture negative * follow mentation * extensive evaluation on last hospitalization here (4) Hypertension: Code(s): I10 - Essential (primary) hypertension Status: Chronic Assessment and Plan: * reasonable control at this time * follow trend of hemodynamics (5) Anemia: Code(s): D64.9 - Anemia, unspecified Status: Chronic Assessment and Plan: * due to ESRD * holding Epogen with HD at this time * follow trend of H/H Will continue to follow. Subjective Date/time seen: 02/28/23 16:46 Interval history: Follow-up for end stage renal disease on hemodialysis. Tolerating HD treatment at the time of my visit (seen on HD at ~ 4:35PM); mentation seems about baseline to me (awake and regards examiner but is non- communicative/nonverbal) in comparison the last time I took care of her when she was hospitalized here at [facility]; no apparent distress noted; no issues/events overnight or earlier this AM. Exam Narrative: General: elderly female in NAD Heart: normal S1 and S2; no rub Lungs: clear to auscultation Abdomen: soft, nontender, nondistended, positive bowel sounds Extremities: no cyanosis or clubbing; no edema Skin: warm and dry Objective Data Vital Signs Vital Signs: Vital Signs Temp Pulse Resp BP Pulse Ox O2 Del Method 02/28/23 13:54 96.6 F L 86 16 156/76 H 100 02/28/23 08:00 Room Air 02/28/23 06:00 96.7 F L 84 20 137/80 97 02/27/23 20:00 Room Air 02/27/23 21:32 96.7 F L 90 20 140/51 L 100 Intake/Output Intake/Output: Intake & Output 02/25/23 02/26/23 02/27/23 02/28/23 23:59 23:59 23:59 23:59 Intake Total 50 150 1100 Output Total 0 Balance 50 150 1100 Meds/Results Medications: Active Medications Generic Name Dose Route Start Last Admin Trade Name Freq PRN Reason Stop Dose Admin Acetaminophen 650 mg 02/27/23 01:
--- NOTE | 2023-02-28 16:46 | PM.PNNEP ---
Progress Note: A&P Assessment and Plan (1) End stage renal disease: Code(s): N18.6 - End stage renal disease Status: Chronic Assessment and Plan: HD today and continue M/W/F dialysis schedule follow electrolytes, volume status, and clearance (2) UTI (urinary tract infection): Qualifiers: Hematuria presence: without hematuria Urinary tract infection type: site unspecified Qualified Code(s): N39.0 - Urinary tract infection, site not specified Code(s): N39.0 - Urinary tract infection, site not specified Status: Acute Assessment and Plan: admission UA highly suggestive however, blood and urine cultures negative to date on antibiotics possibly this is just reflective of bladder colonization(?) (3) Altered mental status: Qualifiers: Altered mental status type: somnolence Qualified Code(s): R40.0 - Somnolence Code(s): R41.82 - Altered mental status, unspecified Status: Acute Assessment and Plan: seems at baseline per my previous care of her on last [facility] admission baseline reportedly A & O x 1 (from discussion with outpatient dialysis unit) complicated by history of dementia possibly worsened by UTI/infection however, blood/urine culture negative follow mentation extensive evaluation on last hospitalization here (4) Hypertension: Code(s): I10 - Essential (primary) hypertension Status: Chronic Assessment and Plan: reasonable control at this time follow trend of hemodynamics (5) Anemia: Code(s): D64.9 - Anemia, unspecified Status: Chronic Assessment and Plan: due to ESRD holding Epogen with HD at this time follow trend of H/H Will continue to follow. Subjective Date/time seen: 02/28/23 16:46 Interval history: Follow-up for end stage renal disease on hemodialysis. Tolerating HD treatment at the time of my visit (seen on HD at ~ 4:35PM); mentation seems about baseline to me (awake and regards examiner but is non-communicative/nonverbal) in comparison the last time I took care of her when she was hospitalized here at [facility]; no apparent distress noted; no issues/events overnight or earlier this AM. Exam Narrative: General: elderly female in NAD Heart: normal S1 and S2; no rub Lungs: clear to auscultation Abdomen: soft, nontender, nondistended, positive bowel sounds Extremities: no cyanosis or clubbing; no edema Skin: warm and dry Objective Data Vital Signs Vital Signs: Vital Signs Temp Pulse Resp BP Pulse Ox O2 Del Method 02/28/23 13:54 96.6 F L 86 16 156/76 H 100 02/28/23 08:00 Room Air 02/28/23 06:00 96.7 F L 84 20 137/80 97 02/27/23 20:00 Room Air 02/27/23 21:32 96.7 F L 90 20 140/51 L 100 Intake/Output Intake/Output: Intake & Output 02/25/23 02/26/23 02/27/23 02/28/23 23:59 23:59 23:59 23:59 Intake Total 50 150 1100 Output Total 0 Balance 50 150 1100 Meds/Results Medications: Active Medications Generic Name Dose Route Start Last Admin Trade Name Freq PRN Reason Stop Dose Admin Acetaminophen 650 mg 02/27/23 01:33 Acetaminophen 325 Mg Tablet PO Q4H PRN Pain Rated 1-3 Allopurinol 100 mg 02/27/23 09:00 02/28/23 08:14 Allopurinol 100 Mg Tablet PO Not Given DAILY MADISYN Atorvastatin Calcium 20 mg 02/27/23 21:00 02/27/23 20:32 Atorvastatin 20 Mg Tablet PO Not Given HS MADISYN Bisacodyl 10 mg 02/27/23 01:33 Bisacodyl 10 Mg Suppository RECTAL DAILY PRN Constipation Folic Acid 0.8 mg 02/27/23 09:00 02/28/23 08:14 Folic Acid 0.4 Mg Tablet PO Not Given DAILY MADISYN Haloperidol 5 mg 02/27/23 09:00 02/27/23 08:10 Haloperidol 5 Mg Tablet PO Not Given BID MADISYN Ceftriaxone Sodium 1 gm in 50 mls @ 100 mls/hr 02/27/23 18:00 02/28/23 18:14 Rocephin 1 Gm/Ns 50 Ml IVPB Infused Q24H SC
[2023-02-28 18:28] LABS: Hepatitis B Surface Antigen Negative (Negative)
[2023-02-28 18:46] LABS: Hepatitis B Surface Anti Res Positive
[2023-03-01 06:00] VITALS: BP 138/60; PULSE 74; RESP 16; TEMP 35.6; O2SAT 99
[2023-03-01 09:14] VITALS: BMI 11.0
[2023-03-01 09:33] LABS: Hematocrit 40.7 % (37.0-47.0); Hemoglobin 12.1 g/dL (12.0-15.0); Mean Corpuscular HGB Conc 29.7 g/dl (32-36); Mean Corpuscular Hemoglobin 26.7 pg (26-34); Mean Corpuscular Volume 89.8 fl (80-100); Mean Platelet Volume 8.9 fl (7.4-10.4); Platelet Count Result 198 k/mm3 (150-375); Red Blood Count 4.53 M/mm3 (4.2-5.4); Red Cell Distribution Width 18.7 % (11.5-14.5); White Blood Count 5.7 K/mm3 (4.5-10.0)
[2023-03-01 09:34] LABS: Basophils Absolute Auto 0.1 K/mm3 (0.0-0.1); Basophils Percent Auto 0.9 % (0.2-1.2); Eosinophils Absolute Auto 0.2 K/mm3 (0-0.3); Eosinophils Percent Auto 3.1 % (0-4.4); Immature Granulocyte Absolute 0.04 K/mm3 (0.00-0.031); Immature Granulocyte Percent A 0.7 % (0-0.5); Lymphocytes Absolute Auto 0.75 K/mm3 (0.9-3.2); Lymphocytes Percent Auto 13.1 % (18.3-44.2); Monocytes Absolute Auto 0.6 K/mm3 (0.1-0.6); Monocytes Percent Auto 10.5 % (2.6-8.5); Neutrophils Absolute Auto 4.1 K/mm3 (1.3-6.7); Neutrophils Percent Auto 71.7 % (45.5-73.1)
[2023-03-01 09:51] LABS: Alanine Aminotransferase 22 U/L (6-35); Albumin Level 3.5 g/dL (3.5-5.1); Alkaline Phosphatase 76 U/L (38-126); Anion Gap 8 mmol/L (8-16); Aspartate Amino Transferase 25 U/L (14-36); Bilirubin,Total 0.6 mg/dL (0.2-1.3); Blood Urea Nitrogen 41 mg/dL (7-17); Carbon Dioxide 26 mmol/L (22-30); Chloride 99 mmol/L (98-107); Estimated CRCL calculation 8 ml/min; Estimated Glomerular Filt Rate 10; Glucose 96 mg/dL (65-110); Potassium 4.4 mmol/L (3.4-5.0); Sodium 133 mmol/L (137-145)
--- NOTE | 2023-03-01 11:37 | PM.PNNEP ---
Progress Note: A&P Assessment and Plan (1) End stage renal disease: Code(s): N18.6 - End stage renal disease Status: Chronic Assessment and Plan: HD tomorrow and continue M/W/F dialysis schedule follow electrolytes, volume status, and clearance (2) UTI (urinary tract infection): Qualifiers: Hematuria presence: without hematuria Urinary tract infection type: site unspecified Qualified Code(s): N39.0 - Urinary tract infection, site not specified Code(s): N39.0 - Urinary tract infection, site not specified Status: Acute Assessment and Plan: admission UA highly suggestive however, blood and urine cultures negative to date on antibiotics possibly this is just reflection of bladder colonization(?) (3) Altered mental status: Qualifiers: Altered mental status type: somnolence Qualified Code(s): R40.0 - Somnolence Code(s): R41.82 - Altered mental status, unspecified Status: Acute Assessment and Plan: seems at baseline per my previous care of her on last [facility] admission baseline reportedly A & O x 1 (from discussion with outpatient dialysis unit) complicated by history of dementia possibly worsened by UTI/infection however, blood/urine culture negative follow mentation extensive evaluation on last hospitalization here (4) Hypertension: Code(s): I10 - Essential (primary) hypertension Status: Chronic Assessment and Plan: reasonable control at this time follow trend of hemodynamics (5) Anemia: Code(s): D64.9 - Anemia, unspecified Status: Chronic Assessment and Plan: due to ESRD holding Epogen with HD at this time follow trend of H/H Will continue to follow. Subjective Date/time seen: 03/01/23 11:37 Interval history: Follow-up for end stage renal disease on hemodialysis. Tolerated dialysis treatment yesterday without any issue or problems; no apparent distress noted; remains non-verbal at the time of my visit but looks at me and follows me with her eyes when I talk with her. Exam Narrative: General: elderly female in NAD Heart: normal S1 and S2; no rub Lungs: clear to auscultation Abdomen: soft, nontender, nondistended, positive bowel sounds Extremities: no cyanosis or clubbing; no edema Skin: warm and intact Objective Data Vital Signs Vital Signs: Vital Signs Temp Pulse Resp BP Pulse Ox O2 Del Method 03/01/23 11:07 153/79 H 03/01/23 09:14 Room Air 03/01/23 06:00 96.1 F L 74 16 138/60 99 02/28/23 22:00 96.4 F L 101 H 16 147/75 H 99 02/28/23 20:00 Room Air 02/28/23 17:23 98 F 95 15 152/57 H 02/28/23 17:00 91 135/53 L 02/28/23 16:40 88 134/52 L 02/28/23 16:20 88 130/52 L 02/28/23 16:00 89 120/53 L 02/28/23 15:40 89 138/56 L 02/28/23 15:20 90 147/65 H 02/28/23 15:00 89 121/51 L 02/28/23 14:40 87 128/58 L 02/28/23 14:20 92 129/61 02/28/23 14:00 88 176/69 H 02/28/23 13:56 92 170/88 H 02/28/23 13:45 97.7 F 92 16 170/88 H 02/28/23 13:54 96.6 F L 86 16 156/76 H 100 Intake/Output Intake/Output: Intake & Output 02/26/23 02/27/23 02/28/23 03/01/23 23:59 23:59 23:59 23:59 Intake Total 50 150 1100 100 Output Total 0 Balance 50 150 1100 100 Meds/Results Medications: Active Medications Generic Name Dose Route Start Last Admin Trade Name [facility] PRN Reason Stop Dose Admin Acetaminophen 650 mg 02/27/23 01:33 Acetaminophen 325 Mg Tablet PO Q4H PRN Pain Rated 1-3 Allopurinol 100 mg 02/27/23 09:00 03/01/23 08:41 Allopurinol 100 Mg Tablet PO Not Given DAILY MADISYN Atorvastatin Calcium 20 mg 02/27/23 21:00 02/28/23 20:08 Atorvastatin 20 Mg Tablet PO Not Given HS MADISYN Bisacodyl 10 mg 02/27/23 01:33 Bisacodyl 10 Mg Suppository RECTAL DAILY DE
[2023-03-01 12:07] VITALS: BP 153/79
--- NOTE | 2023-03-01 15:03 | PM.IMPN ---
Progress Note: A&P Assessment and Plan (1) UTI (urinary tract infection): Qualifiers: Hematuria presence: without hematuria Urinary tract infection type: site unspecified Qualified Code(s): N39.0 - Urinary tract infection, site not specified Code(s): N39.0 - Urinary tract infection, site not specified Status: Acute Assessment and Plan: UA with 4+ protein, 3+ blood 3+ leukocyte esterase, 21-50 rbc's, 21-50 wbc's The patient was started on Rocephin. Blood no growth to date. Urine culture negative but will continue to treat due to symptoms. IV fluids, monitor fluid status. Discussed with tile sprayer before starting fluids. Patient has been treated for multiple UTIs. She gets them every couple months. Consider urology consultation. (2) Altered mental status: Qualifiers: Altered mental status type: somnolence Qualified Code(s): R40.0 - Somnolence Code(s): R41.82 - Altered mental status, unspecified Status: Acute Assessment and Plan: From her old records from here the patient was nonverbal. Although according to patient's daughter she was walking and talking 1 month ago. According to the granddaughter this happens every several months and is always due to UTI. She does have a history of dementia and schizophrenia. The patient is nonverbal today. She has had an EEG to rule out any seizure activity earlier this year September of this year. The patient also had a UTI her last admission and was felt that the UTI exacerbate her dementia. Please see her discharge note and neurology evaluation September of this year. (3) Alzheimer disease: Code(s): G30.9 - Alzheimer's disease, unspecified; F02.80 - Dementia in other diseases classified elsewhere, unspecified severity, without behavioral disturbance, psychotic disturbance, mood disturbance, and anxiety Status: Acute Assessment and Plan: Restart her home medications with at this point she does not look like she will be able to take them. (4) Schizophrenia: Code(s): F20.9 - Schizophrenia, unspecified Status: Acute Assessment and Plan: Continue with home medications when she is able to take oral intake. The patient is on Haldol b.i.d. but according to the granddaughter she has not taken this for couple weeks. Will hold due to do patient not being able to take anything by mouth currently. (5) End-stage renal disease on hemodialysis: Code(s): N18.6 - End stage renal disease; Z99.2 - Dependence on renal dialysis Status: Acute Assessment and Plan: She has dialysis on Tuesday and is reported that she had her last dialysis this Tuesday. Nephrology has been consulted. Continue with her Renvela and she is on midodrine. (6) Hypertension: Code(s): I10 - Essential (primary) hypertension Status: Chronic Assessment and Plan: It looks like the patient is on midodrine for hypotension. (7) Anemia: Code(s): D64.9 - Anemia, unspecified Status: Chronic Assessment and Plan: Anemia of chronic disease she is at her baseline. Subjective Date/time seen: 03/01/23 15:03 Interval history: Patient stable and not showing much sign of improvement as far as talking or moving involuntarily. Continuing to try and get her to work with PT and OT. Again according to patient's granddaughter this is not her normal and she was walking and talking several days prior to ED arrival. Very conflicted rather this is patient has normal or not. Exam Narrative: GENERAL: Comfortable, no acute distress, nonverbal, follows with eyes HENMT: moist mucous membranes EYES: EOM intact b/l NECK: no lymphadenopathy RESPIRATORY: clear to auscultation CARDIO: RRR GI: soft, nontender, bowel sounds present SKIN: no rashes EXTREMITIES: no edema, redness or tenderness Objective Data V
[2023-03-01 16:22] VITALS: BP 137/64; PULSE 93; RESP 18; TEMP 36.3; O2SAT 98
[2023-03-01 22:00] VITALS: BP 129/29; PULSE 70; RESP 18; TEMP 36.4; O2SAT 98
[2023-03-02] VITALS (19 sets, daily range): BP systolic 110–194; BP diastolic 26–100; PULSE 89–109; RESP 16–24; TEMP 36–37.2; O2SAT 97–99
[2023-03-02 06:42] LABS: Basophils Absolute Auto 0.1 K/mm3 (0.0-0.1); Basophils Percent Auto 0.8 % (0.2-1.2); Eosinophils Absolute Auto 0.2 K/mm3 (0-0.3); Hematocrit 34.4 % (37.0-47.0); Hemoglobin 10.3 g/dL (12.0-15.0); Immature Granulocyte Absolute 0.04 K/mm3 (0.00-0.031); Immature Granulocyte Percent A 0.7 % (0-0.5); Lymphocytes Percent Auto 9.9 % (18.3-44.2); Mean Corpuscular HGB Conc 29.9 g/dl (32-36); Mean Corpuscular Hemoglobin 26.5 pg (26-34); Mean Corpuscular Volume 88.7 fl (80-100); Monocytes Absolute Auto 0.7 K/mm3 (0.1-0.6); Monocytes Percent Auto 11.7 % (2.6-8.5); Neutrophils Absolute Auto 4.5 K/mm3 (1.3-6.7); Neutrophils Percent Auto 73.9 % (45.5-73.1); Platelet Count Result 200 k/mm3 (150-375); Red Blood Count 3.88 M/mm3 (4.2-5.4); Red Cell Distribution Width 18.6 % (11.5-14.5); White Blood Count 6.1 K/mm3 (4.5-10.0)
[2023-03-02 06:55] LABS: Alanine Aminotransferase 19 U/L (6-35); Albumin Level 3.1 g/dL (3.5-5.1); Alkaline Phosphatase 68 U/L (38-126); Anion Gap 9 mmol/L (8-16); Aspartate Amino Transferase 22 U/L (14-36); Bilirubin,Total 0.5 mg/dL (0.2-1.3); Blood Urea Nitrogen 55 mg/dL (7-17); Calcium 9.6 mg/dL (8.4-10.2); Carbon Dioxide 25 mmol/L (22-30); Chloride 99 mmol/L (98-107); Glucose 91 mg/dL (65-110); Potassium 4.6 mmol/L (3.4-5.0); Sodium 133 mmol/L (137-145)
[2023-03-02 07:00] LABS: Estimated CRCL calculation 3 ml/min; Estimated Glomerular Filt Rate 7
--- NOTE | 2023-03-02 10:03 | PCSTNOTE ---
Please refer to the Bedside Swallow Evaluation in the EMR. Please note, silent aspiration cannot be ruled out at bedside.
--- NOTE | 2023-03-02 10:30 | PM.IMPN ---
Progress Note: A&P Assessment and Plan (1) UTI (urinary tract infection): Qualifiers: Hematuria presence: without hematuria Urinary tract infection type: site unspecified Qualified Code(s): N39.0 - Urinary tract infection, site not specified Code(s): N39.0 - Urinary tract infection, site not specified Status: Acute Assessment and Plan: UA with 4+ protein, 3+ blood 3+ leukocyte esterase, 21-50 rbc's, 21-50 wbc's The patient was started on Rocephin. Blood no growth to date. Will continue current treatment and IV ceftriaxone. (2) Altered mental status: Qualifiers: Altered mental status type: somnolence Qualified Code(s): R40.0 - Somnolence Code(s): R41.82 - Altered mental status, unspecified Status: Acute Assessment and Plan: From her old records from here the patient was nonverbal. Although according to patient's daughter she was walking and talking 1 month ago. According to the granddaughter this happens every several months and is always due to UTI. She does have a history of dementia and schizophrenia. The patient is nonverbal today. She has had an EEG to rule out any seizure activity earlier this year September of this year. The patient also had a UTI her last admission and was felt that the UTI exacerbate her dementia. Please see her discharge note and neurology evaluation September this year. 03/02/2023 Will continue physical therapy and monitor closely. Patient getting treatment for UTI. (3) Alzheimer disease: Code(s): G30.9 - Alzheimer's disease, unspecified; F02.80 - Dementia in other diseases classified elsewhere, unspecified severity, without behavioral disturbance, psychotic disturbance, mood disturbance, and anxiety Status: Acute Assessment and Plan: Restart her home medications with at this point she does not look like she will be able to take them. Stable, continue current regimen. (4) Schizophrenia: Code(s): F20.9 - Schizophrenia, unspecified Status: Acute Assessment and Plan: Continue with home medications when she is able to take oral intake. (5) End-stage renal disease on hemodialysis: Code(s): N18.6 - End stage renal disease; Z99.2 - Dependence on renal dialysis Status: Acute Assessment and Plan: She has dialysis on Tuesday and is reported that she had her last dialysis this Tuesday. Nephrology has been consulted. Continue with her Renvela and she is on midodrine. Stable, continue continued treatment. (6) Hypertension: Code(s): I10 - Essential (primary) hypertension Status: Chronic Assessment and Plan: Stable (7) Anemia: Code(s): D64.9 - Anemia, unspecified Status: Chronic Assessment and Plan: Anemia of chronic disease she is at her baseline. Subjective Date/time seen: 03/02/23 10:30 Interval history: Patient was seen during morning rounds today. No new overnight complaints. No shortness of breath or chest pain No abdominal pain, nausea, no vomiting. Mood stable Review of Systems Review of Systems: All systems reviewed & are unremarkable except as noted in HPI and below Constitutional: Constitutional: Reports as per HPI and Reports no additional constitutional complaints Eyes: Eyes: Reports as per HPI and Reports no additional eye complaints ENT: Reports system reviewed and no additional complaints, except as documented and Reports Normal hearing present Cardiovascular: Cardiovascular: Reports no additional cardiovascular complaints Respiratory: Respiratory: Reports no additional respiratory complaints and Reports no additional respiratory complaints Gastrointestinal: Gastrointestinal: Reports as per HPI and Reports no additional gastrointestinal complaints Musculoskeletal: Musculoskeletal: Reports no additional musculoskeletal complaints In
--- NOTE | 2023-03-02 11:28 | PCDIET ---
Nutrition note: Pt was screened for BMI 10.6 with recorded weight of 61 lb. Re-weighed pt on bedscale (covers not removed) and obtained weight of 62.8 kg, which is consistent with pt's weight history. Weight corrected in EMR. RN aware. Will continue to monitor or consult for additional needs.
[2023-03-02] MEDS: SEVELAMER CARBONATE 800 MG TABLET PO ×2 (12:13→18:38)
--- NOTE | 2023-03-02 14:00 | PC.NURSE ---
patient going to dialysis per bed
[2023-03-02] MEDS: allopurinoL 100 MG TABLET PO (14:01)
--- NOTE | 2023-03-02 15:20 | PM.PNNEP ---
Progress Note: A&P Assessment and Plan (1) End stage renal disease: Code(s): N18.6 - End stage renal disease Status: Chronic Assessment and Plan: HD today and continue M/W/ dialysis schedule follow electrolytes, volume status, and clearance (2) UTI (urinary tract infection): Qualifiers: Hematuria presence: without hematuria Urinary tract infection type: site unspecified Qualified Code(s): N39.0 - Urinary tract infection, site not specified Code(s): N39.0 - Urinary tract infection, site not specified Status: Acute Assessment and Plan: admission UA highly suggestive however, blood and urine cultures negative to date on antibiotics possibly this is just reflection of bladder colonization(?) (3) Altered mental status: Qualifiers: Altered mental status type: somnolence Qualified Code(s): R40.0 - Somnolence Code(s): R41.82 - Altered mental status, unspecified Status: Acute Assessment and Plan: seems at baseline per my previous care of her on last [facility] admission baseline reportedly A & O x 1 (from discussion with outpatient dialysis unit) complicated by history of dementia possibly worsened by UTI/infection however, blood/urine culture negative follow mentation extensive evaluation on last hospitalization here (4) Hypertension: Code(s): I10 - Essential (primary) hypertension Status: Chronic Assessment and Plan: reasonable control at this time follow trend of hemodynamics (5) Anemia: Code(s): D64.9 - Anemia, unspecified Status: Chronic Assessment and Plan: due to ESRD holding Epogen with HD at this time follow trend of H/H Not opposed to discharge from renal perspective if otherwise medically stable. Will continue to follow. Subjective Date/time seen: 03/02/23 15:20 Interval history: Follow-up for end stage renal disease on hemodialysis. Tolerating dialysis treatment at the time of my visit (seen on HD at 3:15PM); no apparent distress noted currently; no issues/events overnight or earlier this morning. Exam Narrative: General: elderly female in NAD Heart: normal S1 and S2; no rub Lungs: clear to auscultation Abdomen: soft, nontender, nondistended, positive bowel sounds Extremities: no cyanosis or clubbing; no edema Skin: no rash Objective Data Vital Signs Vital Signs: Vital Signs Temp Pulse Resp BP Pulse Ox O2 Del Method 03/02/23 15:20 103 H 159/38 H 03/02/23 15:00 102 H 174/46 H 03/02/23 14:40 100 151/39 H 03/02/23 14:35 102 H 178/32 H 03/02/23 14:08 99.0 F 105 H 16 144/40 H 03/02/23 14:00 98.5 F 104 H 24 H 194/56 H 98 03/02/23 08:42 97 Room Air 03/02/23 06:00 97 F L 100 16 110/52 L 99 03/01/23 22:00 97.5 F L 70 18 129/29 L 98 Intake/Output Intake/Output: Intake & Output 02/27/23 02/28/23 03/01/23 03/02/23 23:59 23:59 23:59 23:59 Intake Total 150 1100 100 240 Output Total 0 0 Balance 150 1100 100 240 Meds/Results Medications: Active Medications Generic Name Dose Route Start Last Admin Trade Name Freq PRN Reason Stop Dose Admin Acetaminophen 650 mg 02/27/23 01:33 Acetaminophen 325 Mg Tablet PO Q4H PRN Pain Rated 1-3 Allopurinol 100 mg 02/27/23 09:00 03/02/23 14:01 Allopurinol 100 Mg Tablet PO 100 mg DAILY MADISYN Administration Atorvastatin Calcium 20 mg 02/27/23 21:00 03/01/23 21:32 Atorvastatin 20 Mg Tablet PO Not Given HS MADISYN Bisacodyl 10 mg 02/27/23 01:33 Bisacodyl 10 Mg Suppository RECTAL DAILY PRN Constipation Folic Acid 0.8 mg 02/27/23 09:00 03/02/23 08:00 Folic Acid 0.4 Mg Tablet PO Not Given DAILY MADISYN Haloperidol 5 mg 02/27/23 09:00 02/27/23 08:10 Haloperidol 5 Mg Tablet PO Not Given BID MADISYN Hydralazine HCl 10 mg 03/01/23 15:03 Hyd
--- NOTE | 2023-03-02 15:20 | P.PNNP_ITS ---
Progress Note: A&P Assessment and Plan (1) End stage renal disease: Code(s): N18.6 - End stage renal disease Status: Chronic Assessment and Plan: * HD today and continue M// dialysis schedule * follow electrolytes, volume status, and clearance (2) UTI (urinary tract infection): Qualifiers: Hematuria presence: without hematuria Urinary tract infection type: site unspecified Qualified Code(s): N39.0 - Urinary tract infection, site not specified Code(s): N39.0 - Urinary tract infection, site not specified Status: Acute Assessment and Plan: * admission UA highly suggestive * however, blood and urine cultures negative to date * on antibiotics * possibly this is just reflection of bladder colonization(?) (3) Altered mental status: Qualifiers: Altered mental status type: somnolence Qualified Code(s): R40.0 - Somnolence Code(s): R41.82 - Altered mental status, unspecified Status: Acute Assessment and Plan: * seems at baseline per my previous care of her on last [facility] admission * baseline reportedly A & O x 1 (from discussion with outpatient dialysis unit) * complicated by history of dementia * possibly worsened by UTI/infection * however, blood/urine culture negative * follow mentation * extensive evaluation on last hospitalization here (4) Hypertension: Code(s): I10 - Essential (primary) hypertension Status: Chronic Assessment and Plan: * reasonable control at this time * follow trend of hemodynamics (5) Anemia: Code(s): D64.9 - Anemia, unspecified Status: Chronic Assessment and Plan: * due to ESRD * holding Epogen with HD at this time * follow trend of H/H Not opposed to discharge from renal perspective if otherwise medically stable. Will continue to follow. Subjective Date/time seen: 03/02/23 15:20 Interval history: Follow-up for end stage renal disease on hemodialysis. Tolerating dialysis treatment at the time of my visit (seen on HD at 3:15PM); no apparent distress noted currently; no issues/events overnight or earlier this morning. Exam Narrative: General: elderly female in NAD Heart: normal S1 and S2; no rub Lungs: clear to auscultation Abdomen: soft, nontender, nondistended, positive bowel sounds Extremities: no cyanosis or clubbing; no edema Skin: no rash Objective Data Vital Signs Vital Signs: Vital Signs Temp Pulse Resp BP Pulse Ox O2 Del Method 03/02/23 15:20 103 H 159/38 H 03/02/23 15:00 102 H 174/46 H 03/02/23 14:40 100 151/39 H 03/02/23 14:35 102 H 178/32 H 03/02/23 14:08 99.0 F 105 H 16 144/40 H 03/02/23 14:00 98.5 F 104 H 24 H 194/56 H 98 03/02/23 08:42 97 Room Air 03/02/23 06:00 97 F L 100 16 110/52 L 99 03/01/23 22:00 97.5 F L 70 18 129/29 L 98 Intake/Output Intake/Output: Intake & Output 02/27/23 02/28/23 03/01/23 03/02/23 23:59 23:59 23:59 23:59 Intake Total 150 1100 100 240 Output Total 0 0 Balance 150 1100 100 240 Meds/Results Medications: Active Medications Generic Name Dose Route S
--- NOTE | 2023-03-02 18:37 | PC.NURSE ---
patient returning to room from dialysis.
[2023-03-02] MEDS: ACETAMINOPHEN 325 MG TABLET 650 MG PO (18:49)
[2023-03-02] MEDS: ATORVASTATIN 20 MG TABLET PO (21:09)
[2023-03-02] MEDS: VITAMIN B CMPLX/VIT C/FOLIC AC 1 CAPSULE 1 CAP PO (21:09)
[2023-03-03 06:00] VITALS: BP 99/58; PULSE 97; RESP 18; TEMP 36.1; O2SAT 97
[2023-03-03] MEDS: allopurinoL 100 MG TABLET PO (08:40)
[2023-03-03] MEDS: SEVELAMER CARBONATE 800 MG TABLET PO ×3 (08:40→17:04)
[2023-03-03] MEDS: FOLIC ACID 0.4 MG TABLET 0.8 MG PO (08:40)
[2023-03-03] MEDS: VITAMIN B COMPLEX/VIT C CAPSULE 1 EACH PO (08:41)
[2023-03-03 13:57] VITALS: BP 146/71; PULSE 98; RESP 18; TEMP 36.9; O2SAT 100
--- NOTE | 2023-03-03 14:30 | P.PNNP_ITS ---
Progress Note: A&P Assessment and Plan (1) End stage renal disease: Code(s): N18.6 - End stage renal disease Status: Chronic Assessment and Plan: * HD tomorrow and continue M/W/ dialysis schedule * follow electrolytes, volume status, and clearance (2) UTI (urinary tract infection): Qualifiers: Hematuria presence: without hematuria Urinary tract infection type: site unspecified Qualified Code(s): N39.0 - Urinary tract infection, site not specified Code(s): N39.0 - Urinary tract infection, site not specified Status: Acute Assessment and Plan: * admission UA highly suggestive * however, blood and urine cultures negative to date * on antibiotics * possibly this is just reflection of bladder colonization(?) (3) Altered mental status: Qualifiers: Altered mental status type: somnolence Qualified Code(s): R40.0 - Somnolence Code(s): R41.82 - Altered mental status, unspecified Status: Acute Assessment and Plan: * seems at baseline per my previous care of her on last [facility] admission * baseline reportedly A & O x 1 (from discussion with outpatient dialysis unit) * complicated by history of dementia * possibly worsened by UTI/infection * however, blood/urine culture negative * follow mentation * extensive evaluation on last hospitalization here (4) Hypertension: Code(s): I10 - Essential (primary) hypertension Status: Chronic Assessment and Plan: * reasonable control at this time * follow trend of hemodynamics (5) Anemia: Code(s): D64.9 - Anemia, unspecified Status: Chronic Assessment and Plan: * due to ESRD * holding Epogen with HD at this time * follow trend of H/H Not opposed to discharge from renal perspective if otherwise medically stable. Will continue to follow. Subjective Date/time seen: 03/03/23 14:30 Interval history: Follow-up for end stage renal disease on hemodialysis. Tolerated dialysis yesterday without any issues or problems; mentation seems about the same (follows me with her eyes but remains non-verbal without any responses to questions asked); no apparnet distress noted; no issues/events overnight. Exam Narrative: General: elderly female in NAD Heart: normal S1 and S2; no rub Lungs: clear to auscultation Abdomen: soft, nontender, nondistended, positive bowel sounds Extremities: no cyanosis or clubbing; no edema Skin: no nodules Objective Data Vital Signs Vital Signs: Vital Signs Temp Pulse Resp BP Pulse Ox 03/03/23 13:57 98.4 F 98 18 146/71 H 100 03/03/23 06:00 97 F L 97 18 99/58 L 97 03/02/23 22:00 98.1 F 98 18 120/26 L 97 Intake/Output Intake/Output: Intake & Output 02/28/23 03/01/23 03/02/23 03/03/23 23:59 23:59 23:59 23:59 Intake Total 1100 150 590 780 Output Total 0 0 500 Balance 1100 150 90 780 Meds/Results Medications: Active Medications Generic Name Dose Route Start Last Admin Trade Name Freq PRN Reason Stop Dose Admin Acetaminophen 650 mg 02/27/23 01:33 03/02/23 18:49 Acetaminophen 325 Mg Tablet PO 650 mg Q4H PRN Administration
--- NOTE | 2023-03-03 14:30 | PM.PNNEP ---
Progress Note: A&P Assessment and Plan (1) End stage renal disease: Code(s): N18.6 - End stage renal disease Status: Chronic Assessment and Plan: HD tomorrow and continue M/W/ dialysis schedule follow electrolytes, volume status, and clearance (2) UTI (urinary tract infection): Qualifiers: Hematuria presence: without hematuria Urinary tract infection type: site unspecified Qualified Code(s): N39.0 - Urinary tract infection, site not specified Code(s): N39.0 - Urinary tract infection, site not specified Status: Acute Assessment and Plan: admission UA highly suggestive however, blood and urine cultures negative to date on antibiotics possibly this is just reflection of bladder colonization(?) (3) Altered mental status: Qualifiers: Altered mental status type: somnolence Qualified Code(s): R40.0 - Somnolence Code(s): R41.82 - Altered mental status, unspecified Status: Acute Assessment and Plan: seems at baseline per my previous care of her on last [facility] admission baseline reportedly A & O x 1 (from discussion with outpatient dialysis unit) complicated by history of dementia possibly worsened by UTI/infection however, blood/urine culture negative follow mentation extensive evaluation on last hospitalization here (4) Hypertension: Code(s): I10 - Essential (primary) hypertension Status: Chronic Assessment and Plan: reasonable control at this time follow trend of hemodynamics (5) Anemia: Code(s): D64.9 - Anemia, unspecified Status: Chronic Assessment and Plan: due to ESRD holding Epogen with HD at this time follow trend of H/H Not opposed to discharge from renal perspective if otherwise medically stable. Will continue to follow. Subjective Date/time seen: 03/03/23 14:30 Interval history: Follow-up for end stage renal disease on hemodialysis. Tolerated dialysis yesterday without any issues or problems; mentation seems about the same (follows me with her eyes but remains non-verbal without any responses to questions asked); no apparnet distress noted; no issues/events overnight. Exam Narrative: General: elderly female in NAD Heart: normal S1 and S2; no rub Lungs: clear to auscultation Abdomen: soft, nontender, nondistended, positive bowel sounds Extremities: no cyanosis or clubbing; no edema Skin: no nodules Objective Data Vital Signs Vital Signs: Vital Signs Temp Pulse Resp BP Pulse Ox 08/24/23 13:57 98.4 F 98 18 146/71 H 100 03/03/23 06:00 97 F L 97 18 99/58 L 97 03/02/23 22:00 98.1 F 98 18 120/26 L 97 Intake/Output Intake/Output: Intake & Output 02/28/23 03/01/23 03/02/23 03/03/23 23:59 23:59 23:59 23:59 Intake Total 1100 150 590 780 Output Total 0 0 500 Balance 1100 150 90 780 Meds/Results Medications: Active Medications Generic Name Dose Route Start Last Admin Trade Name Freq PRN Reason Stop Dose Admin Acetaminophen 650 mg 02/27/23 01:33 03/02/23 18:49 Acetaminophen 325 Mg Tablet PO 650 mg Q4H PRN Administration Pain Rated 1-3 Allopurinol 100 mg 02/27/23 09:00 03/03/23 08:40 Allopurinol 100 Mg Tablet PO 100 mg DAILY MADISYN Administration Atorvastatin Calcium 20 mg 02/27/23 21:00 03/02/23 21:09 Atorvastatin 20 Mg Tablet PO 20 mg HS MADISYN Administration Bisacodyl 10 mg 02/27/23 01:33 Bisacodyl 10 Mg Suppository RECTAL DAILY PRN Constipation Folic Acid 0.8 mg 02/27/23 09:00 03/03/23 08:40 Folic Acid 0.4 Mg Tablet PO 0.8 mg DAILY MADISYN Administration Haloperidol 5 mg 02/27/23 09:00 02/27/23 08:10 Haloperidol 5 Mg Tablet PO Not Given BID MADISYN Hydralazine HCl 10 mg 03/01/23 15:03 Hydralazine Hcl 20 Mg/Ml Vial IV PUSH Q8H PRN Blood Pressure - High Ceftriaxone Sodium 1 gm in 50 mls @ 10
--- NOTE | 2023-03-03 17:06 | PM.IMPN ---
Progress Note: A&P Assessment and Plan (1) UTI (urinary tract infection): Qualifiers: Hematuria presence: without hematuria Urinary tract infection type: site unspecified Qualified Code(s): N39.0 - Urinary tract infection, site not specified Code(s): N39.0 - Urinary tract infection, site not specified Status: Acute Assessment and Plan: UA with 4+ protein, 3+ blood 3+ leukocyte esterase, 21-50 rbc's, 21-50 wbc's On Rocephin Blood culture negative to date (2) Altered mental status: Qualifiers: Altered mental status type: somnolence Qualified Code(s): R40.0 - Somnolence Code(s): R41.82 - Altered mental status, unspecified Status: Acute Assessment and Plan: From her old records from here the patient was nonverbal. Although according to patient's daughter she was walking and talking 1 month ago. According to the granddaughter this happens every several months and is always due to UTI. She does have a history of dementia and schizophrenia. The patient is nonverbal She has had an EEG to rule out any seizure activity earlier this year September of this year. The patient also had a UTI her last admission and was felt that the UTI exacerbate her dementia. Please see her discharge note and neurology evaluation September of this year. (3) Alzheimer disease: Code(s): G30.9 - Alzheimer's disease, unspecified; F02.80 - Dementia in other diseases classified elsewhere, unspecified severity, without behavioral disturbance, psychotic disturbance, mood disturbance, and anxiety Status: Acute Assessment and Plan: Home medication (4) Schizophrenia: Code(s): F20.9 - Schizophrenia, unspecified Status: Acute Assessment and Plan: Continue with home medications (5) End-stage renal disease on hemodialysis: Code(s): N18.6 - End stage renal disease; Z99.2 - Dependence on renal dialysis Status: Acute Assessment and Plan: She has dialysis on Tuesday nephrology on board (6) Hypertension: Code(s): I10 - Essential (primary) hypertension Status: Chronic Assessment and Plan: Stable (7) Anemia: Code(s): D64.9 - Anemia, unspecified Status: Chronic Assessment and Plan: Anemia of chronic disease she is at her baseline. Subjective Date/time seen: 03/03/23 17:06 Interval history: Patient seen and examined. Chart reviewed. Discussed with nursing staff. Patient nonverbal at baseline. Review of system could not be completed. Review of Systems Review of Systems: ROS unobtainable: Yes unobtainable due to medical condition Exam Narrative: GENERAL: Comfortable, no acute distress, nonverbal, follows with eyes HENMT: moist mucous membranes EYES: EOM intact b/l NECK: no lymphadenopathy RESPIRATORY: clear to auscultation CARDIO: RRR GI: soft, nontender, bowel sounds present SKIN: no rashes EXTREMITIES: no edema, redness or tenderness Objective Data Vital Signs Vital Signs: Vital Signs - 24 hr 03/02/23 17:20 03/02/23 17:40 03/02/23 18:28 Temperature 98.7 F Pulse Rate 109 H 107 H 106 H Respiratory Rate 18 Blood Pressure 135/88 165/76 H 145/34 H Pulse Oximetry 03/02/23 18:00 03/02/23 18:06 03/02/23 22:00 Temperature 98.1 F Pulse Rate 106 H 93 98 Respiratory Rate 18 Blood Pressure 144/74 H 134/34 L 120/26 L Pulse Oximetry 97 03/03/23 06:00 03/03/23 13:57 Temperature 97 F L 98.4 F Pulse Rate 97 98 Respiratory Rate 18 18 Blood Pressure 99/58 L 146/71 H Pulse Oximetry 97 100 Intake/Output Intake/Output: Intake & Output 02/28/23 03/01/23 03/02/23 03/03/23 23:59 23:59 23:59 23:59 Intake Total 1100 150 540 490 Output Total 0 0 500 Balance 1100 150 40 490 Meds/Results Medications: Active Medications Generic Name Dose Route Start Last Admin Trade Name Freq PRN Reason Sto
[2023-03-03] MEDS: ATORVASTATIN 20 MG TABLET PO (20:09)
[2023-03-03] MEDS: VITAMIN B CMPLX/VIT C/FOLIC AC 1 CAPSULE 1 CAP PO (20:10)
[2023-03-03 22:00] VITALS: BP 170/26; PULSE 98; RESP 18; TEMP 36.3; O2SAT 100
[2023-03-04] VITALS (16 sets, daily range): BP systolic 89–144; BP diastolic 24–72; PULSE 66–104; RESP 16–17; TEMP 36–36.9; O2SAT 98–100
[2023-03-04 06:24] LABS: Basophils Percent Auto 0.5 % (0.2-1.2); Eosinophils Absolute Auto 0.4 K/mm3 (0-0.3); Hematocrit 36.5 % (37.0-47.0); Hemoglobin 10.7 g/dL (12.0-15.0); Immature Granulocyte Absolute 0.04 K/mm3 (0.00-0.031); Immature Granulocyte Percent A 0.7 % (0-0.5); Lymphocytes Absolute Auto 0.94 K/mm3 (0.9-3.2); Lymphocytes Percent Auto 15.6 % (18.3-44.2); Mean Corpuscular HGB Conc 29.3 g/dl (32-36); Mean Corpuscular Hemoglobin 26.6 pg (26-34); Mean Corpuscular Volume 90.6 fl (80-100); Mean Platelet Volume 8.9 fl (7.4-10.4); Monocytes Absolute Auto 0.6 K/mm3 (0.1-0.6); Monocytes Percent Auto 10.6 % (2.6-8.5); Neutrophils Percent Auto 66.6 % (45.5-73.1); Platelet Count Result 155 k/mm3 (150-375); Red Blood Count 4.03 M/mm3 (4.2-5.4); Red Cell Distribution Width 18.7 % (11.5-14.5)
[2023-03-04 06:38] LABS: Alanine Aminotransferase 18 U/L (6-35); Albumin Level 3.2 g/dL (3.5-5.1); Alkaline Phosphatase 71 U/L (38-126); Anion Gap 6 mmol/L (8-16); Aspartate Amino Transferase 23 U/L (14-36); Bilirubin,Total 0.4 mg/dL (0.2-1.3); Blood Urea Nitrogen 42 mg/dL (7-17); Calcium 9.6 mg/dL (8.4-10.2); Carbon Dioxide 27 mmol/L (22-30); Chloride 104 mmol/L (98-107); Estimated CRCL calculation 7 ml/min; Estimated Glomerular Filt Rate 9; Glucose 115 mg/dL (65-110); Magnesium 2.2 mg/dL (1.6-2.3); Potassium 4.9 mmol/L (3.4-5.0); Sodium 137 mmol/L (137-145)
[2023-03-04] MEDS: FOLIC ACID 0.4 MG TABLET 0.8 MG PO (08:51)
[2023-03-04] MEDS: allopurinoL 100 MG TABLET PO (08:52)
[2023-03-04] MEDS: VITAMIN B COMPLEX/VIT C CAPSULE 1 EACH PO (08:52)
[2023-03-04] MEDS: SEVELAMER CARBONATE 800 MG TABLET PO ×3 (08:52→18:43)
--- NOTE | 2023-03-04 14:43 | PC.NURSE ---
Transported pt to dialysis room.
--- NOTE | 2023-03-04 15:20 | PM.IMPN ---
Progress Note: A&P Assessment and Plan (1) UTI (urinary tract infection): Qualifiers: Hematuria presence: without hematuria Urinary tract infection type: site unspecified Qualified Code(s): N39.0 - Urinary tract infection, site not specified Code(s): N39.0 - Urinary tract infection, site not specified Status: Acute Assessment and Plan: UA with 4+ protein, 3+ blood 3+ leukocyte esterase, 21-50 rbc's, 21-50 wbc's On Rocephin see finishes the course today Blood culture negative to date (2) Altered mental status: Qualifiers: Altered mental status type: somnolence Qualified Code(s): R40.0 - Somnolence Code(s): R41.82 - Altered mental status, unspecified Status: Acute Assessment and Plan: From her old records from here the patient was nonverbal. Although according to patient's daughter she was walking and talking 1 month ago. According to the granddaughter this happens every several months and is always due to UTI. She does have a history of dementia and schizophrenia. The patient is nonverbal She has had an EEG to rule out any seizure activity earlier this year September of this year. The patient also had a UTI her last admission and was felt that the UTI exacerbate her dementia. Please see her discharge note and neurology evaluation September of this year. (3) Alzheimer disease: Code(s): G30.9 - Alzheimer's disease, unspecified; F02.80 - Dementia in other diseases classified elsewhere, unspecified severity, without behavioral disturbance, psychotic disturbance, mood disturbance, and anxiety Status: Acute Assessment and Plan: Home medication (4) Schizophrenia: Code(s): F20.9 - Schizophrenia, unspecified Status: Acute Assessment and Plan: Continue with home medications (5) End-stage renal disease on hemodialysis: Code(s): N18.6 - End stage renal disease; Z99.2 - Dependence on renal dialysis Status: Acute Assessment and Plan: She has dialysis on Tuesday nephrology on board (6) Hypertension: Code(s): I10 - Essential (primary) hypertension Status: Chronic Assessment and Plan: Stable (7) Anemia: Code(s): D64.9 - Anemia, unspecified Status: Chronic Assessment and Plan: Anemia of chronic disease she is at her baseline. Subjective Date/time seen: 03/04/23 15:20 Interval history: No overnight events. Patient nonverbal. Review of system could not be completed. Labs and vitals reviewed. Discussed with nursing staff. Review of Systems Review of Systems: ROS unobtainable: Yes unobtainable due to medical condition Exam Narrative: GENERAL: Comfortable, no acute distress, nonverbal, HENMT: moist mucous membranes EYES: EOM intact b/l NECK: no lymphadenopathy RESPIRATORY: clear to auscultation CARDIO: RRR GI: soft, nontender, bowel sounds present SKIN: no rashes EXTREMITIES: no edema, redness or tenderness Objective Data Vital Signs Vital Signs: Vital Signs - 24 hr 03/03/23 22:00 03/04/23 06:00 03/04/23 08:00 Temperature 97.3 F L 97 F L Pulse Rate 98 71 Respiratory Rate 18 16 Blood Pressure 170/26 H 89/63 L Pulse Oximetry 100 100 Oxygen Delivery Room Air 03/04/23 12:35 Temperature 97.4 F L Pulse Rate 70 Respiratory Rate 16 Blood Pressure 97/63 L Pulse Oximetry 98 Oxygen Delivery Intake/Output Intake/Output: Intake & Output 03/01/23 03/02/23 03/03/23 03/04/23 23:59 23:59 23:59 23:59 Intake Total 150 590 780 530 Output Total 0 500 Balance 150 90 780 530 Meds/Results Medications: Active Medications Generic Name Dose Route Start Last Admin Trade Name Freq PRN Reason Stop Dose Admin Acetaminophen 650 mg 02/27/23 01:33 03/02/23 18:49 Acetaminophen 325 Mg Tablet PO 650 mg Q4H PRN Administration Pain Rated 1-3 Allopurinol 100 mg
--- NOTE | 2023-03-04 15:49 | PM.PNNEP ---
Progress Note: A&P Assessment and Plan (1) End stage renal disease: Code(s): N18.6 - End stage renal disease Status: Chronic Assessment and Plan: HD today and continue M/W/ dialysis schedule follow electrolytes, volume status, and clearance (2) UTI (urinary tract infection): Qualifiers: Hematuria presence: without hematuria Urinary tract infection type: site unspecified Qualified Code(s): N39.0 - Urinary tract infection, site not specified Code(s): N39.0 - Urinary tract infection, site not specified Status: Acute Assessment and Plan: admission UA highly suggestive however, blood and urine cultures negative to date on antibiotics possibly this is just reflection of bladder colonization(?) (3) Altered mental status: Qualifiers: Altered mental status type: somnolence Qualified Code(s): R40.0 - Somnolence Code(s): R41.82 - Altered mental status, unspecified Status: Acute Assessment and Plan: seems at baseline per my previous care of her on last [facility] admission baseline reportedly A & O x 1 (from discussion with outpatient dialysis unit) complicated by history of dementia possibly worsened by UTI/infection however, blood/urine culture negative follow mentation extensive evaluation on last hospitalization here (4) Hypertension: Code(s): I10 - Essential (primary) hypertension Status: Chronic Assessment and Plan: reasonable control at this time follow trend of hemodynamics (5) Anemia: Code(s): D64.9 - Anemia, unspecified Status: Chronic Assessment and Plan: due to ESRD holding Epogen with HD at this time follow trend of H/H Not opposed to discharge from renal perspective if otherwise medically stable. Will continue to follow. Subjective Date/time seen: 03/04/23 15:49 Interval history: Follow-up for end stage renal disease on hemodialysis. Tolerating dialysis treatment at the time of my visit (seen on HD at 3:40PM); no apparent distress noted; a bit more verbal at the time of my visit (she usually is non-communicative when seen previously); no other issues/events overnight or earlier this morning. Exam Narrative: General: elderly female in NAD Heart: normal S1 and S2; no rub Lungs: clear to auscultation Abdomen: soft, nontender, nondistended, positive bowel sounds Extremities: no cyanosis or clubbing; no edema Skin: warm and dry Objective Data Vital Signs Vital Signs: Vital Signs Temp Pulse Resp BP Pulse Ox O2 Del Method 03/04/23 15:20 66 127/57 L 03/04/23 15:10 68 136/48 L 03/04/23 15:00 98.5 F 93 17 140/72 03/04/23 12:35 97.4 F L 70 16 97/63 L 98 03/04/23 08:00 Room Air 03/04/23 06:00 97 F L 71 16 89/63 L 100 03/03/23 22:00 97.3 F L 98 18 170/26 H 100 Intake/Output Intake/Output: Intake & Output 03/01/23 03/02/23 03/03/23 03/04/23 23:59 23:59 23:59 23:59 Intake Total 150 590 780 530 Output Total 0 500 Balance 150 90 780 530 Meds/Results Medications: Active Medications Generic Name Dose Route Start Last Admin Trade Name Freq PRN Reason Stop Dose Admin Acetaminophen 650 mg 02/27/23 01:33 03/02/23 18:49 Acetaminophen 325 Mg Tablet PO 650 mg Q4H PRN Administration Pain Rated 1-3 Allopurinol 100 mg 02/27/23 09:00 03/04/23 08:52 Allopurinol 100 Mg Tablet PO 100 mg DAILY MADISYN Administration Atorvastatin Calcium 20 mg 02/27/23 21:00 03/03/23 20:09 Atorvastatin 20 Mg Tablet PO 20 mg HS MADISYN Administration Bisacodyl 10 mg 02/27/23 01:33 Bisacodyl 10 Mg Suppository RECTAL DAILY PRN Constipation Epoetin Lucho 10,000 units 03/04/23 20:00 03/04/23 17:26 Epoetin Lucho 10,000 Units/Ml Vial IV PUSH 03/04/23 20:01 10,000 units ONCE ONE Administration Folic Acid 0.8 mg 02/27/23 09:00
[2023-03-04] MEDS: EPOETIN ALFA 10,000 UNITS/ML VIAL 10000 UNITS IV PUSH (17:26)
[2023-03-04] MEDS: HALOPERIDOL 5 MG TABLET PO (18:43)
--- NOTE | 2023-03-04 18:44 | PC.NURSE ---
returned from HD
[2023-03-04] MEDS: ATORVASTATIN 20 MG TABLET PO (20:19)
[2023-03-04] MEDS: VITAMIN B CMPLX/VIT C/FOLIC AC 1 CAPSULE 1 CAP PO (20:19)
--- NOTE | 2023-03-04 21:56 | ECG_ITS ---
Measurements Intervals [place] Rate: 101 P: 67 NM: 128 QRS: 20 QRSD: 81 T: 129 QT: 325 QTc: 423 Interpretive Statements SINUS TACHYCARDIA POSSIBLE LEFT ATRIAL ENLARGEMENT [-0.1mV P WAVE IN V1/V2] LEFT VENTRICULAR HYPERTROPHY AND ST-T CHANGE [VOLTAGE CRITERIA PLUS ST/T ABNORMALITY] COMPARED TO ECG 02/26/2023 13:17:24 [address]INUS [address]YCARDIA NOW PRESENT ST (T WAVE) DEVIATION NOW PRESENT Electronically Signed On 03-05-2023 11:37:54 CDT by Farrah Velez MD
--- NOTE | 2023-03-04 22:27 | PC.NURSE ---
ekg sinus tachycardiac possible Left atrial enlargement left ventricular hypertrophy and ST- t changes called to MD Reina
--- NOTE | 2023-03-04 22:50 | PC.NURSE ---
bp 136/24 reported to MD Gardner
[2023-03-05 02:06] LABS: Anion Gap 0 mmol/L (8-16); Blood Urea Nitrogen 28 mg/dL (7-17); Calcium 9.4 mg/dL (8.4-10.2); Carbon Dioxide 32 mmol/L (22-30); Chloride 102 mmol/L (98-107); Estimated CRCL calculation 11 ml/min; Estimated Glomerular Filt Rate 14; Glucose 134 mg/dL (65-110); Magnesium 2.1 mg/dL (1.6-2.3); Phosphorus 3.7 mg/dL (2.5-4.5); Potassium 4.5 mmol/L (3.4-5.0); Sodium 134 mmol/L (137-145)
[2023-03-05 06:00] VITALS: BP 133/71; PULSE 87; RESP 13; TEMP 36.3; O2SAT 100
[2023-03-05 08:52] VITALS: O2SAT 100
[2023-03-05] MEDS: allopurinoL 100 MG TABLET PO (09:32)
[2023-03-05] MEDS: VITAMIN B COMPLEX/VIT C CAPSULE 1 EACH PO (09:32)
[2023-03-05] MEDS: FOLIC ACID 0.4 MG TABLET 0.8 MG PO (09:32)
[2023-03-05] MEDS: SEVELAMER CARBONATE 800 MG TABLET PO ×3 (09:32→17:28)
[2023-03-05] MEDS: HALOPERIDOL 5 MG TABLET PO ×2 (09:32→17:28)
--- NOTE | 2023-03-05 12:15 | PM.PNNEP ---
Progress Note: A&P Assessment and Plan (1) End stage renal disease: Code(s): N18.6 - End stage renal disease Status: Chronic Assessment and Plan: HD yesterday and continue M// dialysis schedule follow electrolytes, volume status, and clearance (2) UTI (urinary tract infection): Qualifiers: Hematuria presence: without hematuria Urinary tract infection type: site unspecified Qualified Code(s): N39.0 - Urinary tract infection, site not specified Code(s): N39.0 - Urinary tract infection, site not specified Status: Acute Assessment and Plan: admission UA highly suggestive however, blood and urine cultures negative to date completed course of antibiotics possibly this is just reflection of bladder colonization(?) (3) Altered mental status: Qualifiers: Altered mental status type: somnolence Qualified Code(s): R40.0 - Somnolence Code(s): R41.82 - Altered mental status, unspecified Status: Acute Assessment and Plan: seems at baseline per my previous care of her on last [facility] admission baseline reportedly A & O x 1 (from discussion with outpatient dialysis unit) complicated by history of dementia possibly worsened by UTI/infection however, blood/urine culture negative follow mentation extensive evaluation on last hospitalization here (4) Hypertension: Code(s): I10 - Essential (primary) hypertension Status: Chronic Assessment and Plan: reasonable control at this time follow trend of hemodynamics (5) Anemia: Code(s): D64.9 - Anemia, unspecified Status: Chronic Assessment and Plan: due to ESRD holding Epogen with HD at this time follow trend of H/H Not opposed to discharge from renal perspective if otherwise medically stable. Will continue to follow. Subjective Date/time seen: 03/05/23 12:15 Interval history: Follow-up for end stage renal disease on hemodialysis. Tolerated dialysis treatment yesterday without any issues or problems; mentation seems back to baseline (although it seems to fluctuate in general); no apparent distress noted; no other issues/events overnight or earlier this morning. Exam Narrative: General: elderly female in NAD Heart: normal S1 and S2; no rub Lungs: clear to auscultation Abdomen: soft, nontender, nondistended, positive bowel sounds Extremities: no cyanosis or clubbing; no edema Skin: warm and intact Objective Data Vital Signs Vital Signs: Vital Signs Temp Pulse Resp BP Pulse Ox O2 Del Method 03/05/23 12:15 97.5 F L 99 14 132/50 L 100 03/05/23 09:30 Room Air 03/05/23 08:52 100 Room Air 03/05/23 06:00 97.3 F L 87 13 133/71 100 03/04/23 18:30 98 F 103 H 16 114/58 L 03/04/23 18:11 104 H 122/54 L 03/04/23 18:00 100 121/58 L 03/04/23 17:40 100 114/50 L 03/04/23 17:20 102 H 119/58 L 03/04/23 17:00 100 127/62 03/04/23 20:00 101 H 16 98 Room Air 03/04/23 21:59 97.6 F 101 H 16 136/24 L 98 Intake/Output Intake/Output: Intake & Output 03/02/23 03/03/23 03/04/23 03/05/23 23:59 23:59 23:59 23:59 Intake Total 590 780 650 740 Output Total 500 2000 Balance 90 780 -1350 740 Meds/Results Medications: Active Medications Generic Name Dose Route Start Last Admin Trade Name Freq PRN Reason Stop Dose Admin Acetaminophen 650 mg 02/27/23 01:33 03/02/23 18:49 Acetaminophen 325 Mg Tablet PO 650 mg Q4H PRN Administration Pain Rated 1-3 Allopurinol 100 mg 02/27/23 09:00 03/05/23 09:32 Allopurinol 100 Mg Tablet PO 100 mg DAILY MADISYN Administration Atorvastatin Calcium 20 mg 02/27/23 21:00 03/04/23 20:19 Atorvastatin 20 Mg Tablet PO 20 mg HS MADISYN Administration Bisacodyl 10 mg 02/27/23 01:33 Bisacodyl 10 Mg Suppository RECTAL DAILY PRN Constipation Folic Aci
[2023-03-05 14:15] VITALS: BP 132/50; PULSE 99; RESP 14; TEMP 36.4; O2SAT 100
[2023-03-05] MEDS: SODIUM CHLORIDE 0.9% IV 500 ML 167 ML IV CONT (14:49)
[2023-03-05 17:30] VITALS: BP 130/70
--- NOTE | 2023-03-05 18:09 | PM.IMPN ---
Progress Note: A&P Assessment and Plan (1) UTI (urinary tract infection): Qualifiers: Hematuria presence: without hematuria Urinary tract infection type: site unspecified Qualified Code(s): N39.0 - Urinary tract infection, site not specified Code(s): N39.0 - Urinary tract infection, site not specified Status: Acute Assessment and Plan: UA with 4+ protein, 3+ blood 3+ leukocyte esterase, 21-50 rbc's, 21-50 wbc's patient finished 5 days course of IV Rocephin Blood culture negative to date (2) Altered mental status: Qualifiers: Altered mental status type: somnolence Qualified Code(s): R40.0 - Somnolence Code(s): R41.82 - Altered mental status, unspecified Status: Acute Assessment and Plan: From her old records from here the patient was nonverbal. Although according to patient's daughter she was walking and talking 1 month ago. According to the granddaughter this happens every several months and is always due to UTI. She does have a history of dementia and schizophrenia. The patient is nonverbal She has had an EEG to rule out any seizure activity earlier this year September of this year. The patient also had a UTI her last admission and was felt that the UTI exacerbate her dementia. Please see her discharge note and neurology evaluation September 2022 (3) Alzheimer disease: Code(s): G30.9 - Alzheimer's disease, unspecified; F02.80 - Dementia in other diseases classified elsewhere, unspecified severity, without behavioral disturbance, psychotic disturbance, mood disturbance, and anxiety Status: Acute Assessment and Plan: please see above continue with Home medications (4) Schizophrenia: Code(s): F20.9 - Schizophrenia, unspecified Status: Acute Assessment and Plan: Continue with home medications (5) End-stage renal disease on hemodialysis: Code(s): N18.6 - End stage renal disease; Z99.2 - Dependence on renal dialysis Status: Acute Assessment and Plan: She has dialysis on Tuesday nephrology on board (6) Hypertension: Code(s): I10 - Essential (primary) hypertension Status: Chronic Assessment and Plan: Stable (7) Anemia: Code(s): D64.9 - Anemia, unspecified Status: Chronic Assessment and Plan: Anemia of chronic disease she is at her baseline. (8) Hypotension due to hypovolemia: Code(s): I95.89 - Other hypotension; E86.1 - Hypovolemia Status: Acute Assessment and Plan: patient has mild diastolic hypertension likely due to hemodialysis Patient given IV normal saline 500 cc over 3 hours x1 dose monitor vitals closely Plan ? Patient seen and examined at bedside during my morning rounds ? Collaborated with patient's nurse at the bedside in detail and addressed all concerns ? Labs, electrolytes, radiology, investigations and test results reviewed ? Consult notes on the case reviewed and appreciated ? Spoke with patient/family at the bedside and answered all the questions that they had Repeat labs in a.m. Electrolyte replacement as per protocol. Patient will be monitored very closely on the floor. Further recommendations as per the hospital course. Subjective Date/time seen: 03/05/23 18:09 Interval history: 03/04/2023: Follow-up for end stage renal disease on hemodialysis. Tolerated dialysis treatment yesterday without any issues or problems; mentation seems back to baseline (although it seems to fluctuate in general); no apparent distress noted; no other issues/events overnight or earlier this morning. 03/05/2023: patient remains nonverbal with limited interaction. her diastolic blood pressure was 50 hence I ordered 500 cc IV normal saline bolus x1. kidney functions responding to hemodialysis. Review of Systems Review of Systems: ROS unobtainable: Yes unobta
[2023-03-05 20:00] VITALS: PULSE 64; RESP 13; O2SAT 100
[2023-03-05] MEDS: ATORVASTATIN 20 MG TABLET PO (20:03)
[2023-03-05] MEDS: VITAMIN B CMPLX/VIT C/FOLIC AC 1 CAPSULE 1 CAP PO (20:03)
[2023-03-05 21:26] VITALS: BP 173/63; PULSE 64; RESP 13; TEMP 36.3; O2SAT 100
[2023-03-06 05:42] VITALS: BP 148/71; PULSE 65; RESP 14; TEMP 36.1; O2SAT 100
[2023-03-06 06:12] LABS: Hematocrit 32.8 % (37.0-47.0); Hemoglobin 9.8 g/dL (12.0-15.0); Mean Corpuscular HGB Conc 29.9 g/dl (32-36); Mean Corpuscular Hemoglobin 26.6 pg (26-34); Mean Corpuscular Volume 89.1 fl (80-100); Mean Platelet Volume 9.4 fl (7.4-10.4); Platelet Count Result 144 k/mm3 (150-375); Red Blood Count 3.68 M/mm3 (4.2-5.4); Red Cell Distribution Width 18.5 % (11.5-14.5); White Blood Count 6.4 K/mm3 (4.5-10.0)
[2023-03-06 06:27] LABS: Anion Gap 4 mmol/L (8-16); Blood Urea Nitrogen 43 mg/dL (7-17); Calcium 9.5 mg/dL (8.4-10.2); Carbon Dioxide 28 mmol/L (22-30); Chloride 102 mmol/L (98-107); Estimated CRCL calculation 7 ml/min; Estimated Glomerular Filt Rate 9; Glucose 116 mg/dL (65-110); Potassium 4.3 mmol/L (3.4-5.0); Sodium 134 mmol/L (137-145)
[2023-03-06] MEDS: FOLIC ACID 0.4 MG TABLET 0.8 MG PO (08:27)
[2023-03-06] MEDS: allopurinoL 100 MG TABLET PO (08:28)
[2023-03-06] MEDS: HALOPERIDOL 5 MG TABLET PO ×2 (08:28→16:09)
[2023-03-06] MEDS: VITAMIN B COMPLEX/VIT C CAPSULE 1 EACH PO (08:28)
[2023-03-06] MEDS: SEVELAMER CARBONATE 800 MG TABLET PO ×3 (08:28→16:09)
--- NOTE | 2023-03-06 12:19 | PM.IMPN ---
Progress Note: A&P Assessment and Plan (1) UTI (urinary tract infection): Qualifiers: Hematuria presence: without hematuria Urinary tract infection type: site unspecified Qualified Code(s): N39.0 - Urinary tract infection, site not specified Code(s): N39.0 - Urinary tract infection, site not specified Status: Acute Assessment and Plan: UA with 4+ protein, 3+ blood 3+ leukocyte esterase, 21-50 rbc's, 21-50 wbc's patient finished 5 days course of IV Rocephin Blood culture negative to date no leukocytosis (2) Altered mental status: Qualifiers: Altered mental status type: somnolence Qualified Code(s): R40.0 - Somnolence Code(s): R41.82 - Altered mental status, unspecified Status: Acute Assessment and Plan: From her old records from here the patient was nonverbal. Although according to patient's daughter she was walking and talking 1 month ago. According to the granddaughter this happens every several months and is always due to UTI. She does have a history of dementia and schizophrenia. The patient is nonverbal She has had an EEG to rule out any seizure activity earlier this year September of this year. The patient also had a UTI her last admission and was felt that the UTI exacerbate her dementia. Please see her discharge note and neurology evaluation September 2022 (3) Alzheimer disease: Code(s): G30.9 - Alzheimer's disease, unspecified; F02.80 - Dementia in other diseases classified elsewhere, unspecified severity, without behavioral disturbance, psychotic disturbance, mood disturbance, and anxiety Status: Acute Assessment and Plan: please see above continue with Home medications (4) Schizophrenia: Code(s): F20.9 - Schizophrenia, unspecified Status: Acute Assessment and Plan: Continue with home medications (5) End-stage renal disease on hemodialysis: Code(s): N18.6 - End stage renal disease; Z99.2 - Dependence on renal dialysis Status: Acute Assessment and Plan: She has dialysis on Tuesday nephrology on board follow-up closely as per catalytic converter operator monitor renal functions (6) Hypertension: Code(s): I10 - Essential (primary) hypertension Status: Chronic Assessment and Plan: Stable (7) Anemia: Code(s): D64.9 - Anemia, unspecified Status: Chronic Assessment and Plan: Anemia of chronic disease she is at her baseline. (8) Hypotension due to hypovolemia: Code(s): I95.89 - Other hypotension; E86.1 - Hypovolemia Status: Acute Assessment and Plan: 03/05/2023 ... patient had mild diastolic hypertension likely due to hemodialysis which responded well to IV normal saline 500 cc over 3 hours x1 dose vitals are now stable monitor vitals closely Plan ? Patient seen and examined at bedside during my morning rounds ? Collaborated with patient's nurse at the bedside in detail and addressed all concerns ? Labs, electrolytes, radiology, investigations and test results reviewed ? Consult notes on the case reviewed and appreciated ? Spoke with patient/family at the bedside and answered all the questions that they had Repeat labs in a.m. Electrolyte replacement as per protocol. Patient will be monitored very closely on the floor. Further recommendations as per the hospital course. Subjective Date/time seen: 03/06/23 12:19 Interval history: 03/04/2023: Follow-up for end stage renal disease on hemodialysis. Tolerated dialysis treatment yesterday without any issues or problems; mentation seems back to baseline (although it seems to fluctuate in general); no apparent distress noted; no other issues/events overnight or earlier this morning. 03/05/2023: patient remains nonverbal with limited interaction. her diastolic blood pressure was 50 hence I ordered 500 cc IV normal salin
--- NOTE | 2023-03-06 13:31 | PM.PNNEP ---
Progress Note: A&P Assessment and Plan (1) End stage renal disease: Code(s): N18.6 - End stage renal disease Status: Chronic Assessment and Plan: HD tomorrow continue M/W/F dialysis schedule follow electrolytes, volume status, and clearance (2) UTI (urinary tract infection): Qualifiers: Hematuria presence: without hematuria Urinary tract infection type: site unspecified Qualified Code(s): N39.0 - Urinary tract infection, site not specified Code(s): N39.0 - Urinary tract infection, site not specified Status: Acute Assessment and Plan: admission UA highly suggestive however, blood and urine cultures negative to date completed course of antibiotics possibly this is just reflection of bladder colonization(?) (3) Altered mental status: Qualifiers: Altered mental status type: somnolence Qualified Code(s): R40.0 - Somnolence Code(s): R41.82 - Altered mental status, unspecified Status: Acute Assessment and Plan: seems at baseline per my previous care of her on last [facility] admission baseline reportedly A & O x 1 (from discussion with outpatient dialysis unit) complicated by history of dementia possibly worsened by UTI/infection however, blood/urine culture negative follow mentation extensive evaluation on last hospitalization here (4) Hypertension: Code(s): I10 - Essential (primary) hypertension Status: Chronic Assessment and Plan: reasonable control at this time follow trend of hemodynamics (5) Anemia: Code(s): D64.9 - Anemia, unspecified Status: Chronic Assessment and Plan: due to ESRD holding Epogen with HD at this time follow trend of H/H Not opposed to discharge from renal perspective if otherwise medically stable. Will continue to follow. Subjective Date/time seen: 03/06/23 13:31 Interval history: Follow-up for end stage renal disease on hemodialysis. No new issues or problems noted at the time of my visit; mentation seems stable if not better (minimally verbal which is unchanged from admission and apparently her baseline); no events overnight or earlier this morning; no apparent distress. Exam Narrative: General: elderly female in NAD Heart: normal S1 and S2; no rub Lungs: clear to auscultation Abdomen: soft, nontender, nondistended, positive bowel sounds Extremities: no cyanosis or clubbing; no edema Skin: warm and intact Objective Data Vital Signs Vital Signs: Vital Signs Temp Pulse Resp BP Pulse Ox O2 Del Method 03/06/23 13:30 98.4 F 88 32 H 121/82 100 03/06/23 05:42 97.0 F L 65 14 148/71 H 100 03/05/23 20:00 64 13 100 Room Air 03/05/23 21:26 97.4 F L 64 13 173/63 H 100 03/05/23 17:30 130/70 Intake/Output Intake/Output: Intake & Output 03/03/23 03/04/23 03/05/23 03/06/23 23:59 23:59 23:59 23:59 Intake Total 780 938 164 3450 Output Total 1999 Balance 780 -5461 722 2500 Meds/Results Medications: Active Medications Generic Name Dose Route Start Last Admin Trade Name Freq PRN Reason Stop Dose Admin Acetaminophen 650 mg 02/27/23 01:33 03/02/23 18:49 Acetaminophen 325 Mg Tablet PO 650 mg Q4H PRN Administration Pain Rated 1-3 Allopurinol 100 mg 02/27/23 09:00 03/06/23 08:28 Allopurinol 100 Mg Tablet PO 100 mg DAILY MADISYN Administration Atorvastatin Calcium 20 mg 02/27/23 21:00 03/05/23 20:03 Atorvastatin 20 Mg Tablet PO 20 mg HS MADISYN Administration Bisacodyl 10 mg 02/27/23 01:33 Bisacodyl 10 Mg Suppository RECTAL DAILY PRN Constipation Folic Acid 0.8 mg 02/27/23 09:00 03/06/23 08:27 Folic Acid 0.4 Mg Tablet PO 0.8 mg DAILY MADISYN Administration Haloperidol 5 mg 02/27/23 09:00 03/06/23 16:09 Haloperidol 5 Mg Tablet PO 5 mg BID MADISYN Administration Hydralazine HCl 10 mg 03/01/23
--- NOTE | 2023-03-06 13:31 | P.PNNP_ITS ---
Progress Note: A&P Assessment and Plan (1) End stage renal disease: Code(s): N18.6 - End stage renal disease Status: Chronic Assessment and Plan: * HD tomorrow * continue M/W/F dialysis schedule * follow electrolytes, volume status, and clearance (2) UTI (urinary tract infection): Qualifiers: Hematuria presence: without hematuria Urinary tract infection type: site unspecified Qualified Code(s): N39.0 - Urinary tract infection, site not specified Code(s): N39.0 - Urinary tract infection, site not specified Status: Acute Assessment and Plan: * admission UA highly suggestive * however, blood and urine cultures negative to date * completed course of antibiotics * possibly this is just reflection of bladder colonization(?) (3) Altered mental status: Qualifiers: Altered mental status type: somnolence Qualified Code(s): R40.0 - Somnolence Code(s): R41.82 - Altered mental status, unspecified Status: Acute Assessment and Plan: * seems at baseline per my previous care of her on last [facility] admission * baseline reportedly A & O x 1 (from discussion with outpatient dialysis unit) * complicated by history of dementia * possibly worsened by UTI/infection * however, blood/urine culture negative * follow mentation * extensive evaluation on last hospitalization here (4) Hypertension: Code(s): I10 - Essential (primary) hypertension Status: Chronic Assessment and Plan: * reasonable control at this time * follow trend of hemodynamics (5) Anemia: Code(s): D64.9 - Anemia, unspecified Status: Chronic Assessment and Plan: * due to ESRD * holding Epogen with HD at this time * follow trend of H/H Not opposed to discharge from renal perspective if otherwise medically stable. Will continue to follow. Subjective Date/time seen: 03/06/23 13:31 Interval history: Follow-up for end stage renal disease on hemodialysis. No new issues or problems noted at the time of my visit; mentation seems stable if not better (minimally verbal which is unchanged from admission and apparently her baseline); no events overnight or earlier this morning; no apparent distress. Exam Narrative: General: elderly female in NAD Heart: normal S1 and S2; no rub Lungs: clear to auscultation Abdomen: soft, nontender, nondistended, positive bowel sounds Extremities: no cyanosis or clubbing; no edema Skin: warm and intact Objective Data Vital Signs Vital Signs: Vital Signs Temp Pulse Resp BP Pulse Ox O2 Del Method 03/06/23 13:30 98.4 F 88 32 H 121/82 100 03/06/23 05:42 97.0 F L 65 14 148/71 H 100 03/05/23 20:00 64 13 100 Room Air 03/05/23 21:26 97.4 F L 64 13 173/63 H 100 03/05/23 17:30 130/70 Intake/Output Intake/Output: Intake & Output 03/03/23 03/04/23 03/05/23 03/06/23 23:59 23:59 23:59 23:59 Intake Total 780 652 208 1362 Output Total 1999 Balance 780 -9131 843 4091 Meds/Results Medications: Active Medications Generic Name Dose Route Start Last Admin Trade Name Freq PRN Reason Stop Dose Admin Acetami
[2023-03-06 14:00] VITALS: BP 121/82; PULSE 88; RESP 32; TEMP 36.9; O2SAT 100
[2023-03-06 16:10] VITALS: RESP 25
[2023-03-06 21:11] VITALS: BP 101/56; PULSE 99; RESP 18; TEMP 36.2; O2SAT 98
[2023-03-06] MEDS: VITAMIN B CMPLX/VIT C/FOLIC AC 1 CAPSULE 1 CAP PO (22:17)
[2023-03-06] MEDS: ATORVASTATIN 20 MG TABLET PO (22:18)
[2023-03-07] VITALS (18 sets, daily range): BP systolic 90–204; BP diastolic 51–92; PULSE 75–111; RESP 14–20; TEMP 36–37; O2SAT 99–100; BMI 23.0
[2023-03-07 06:37] LABS: Hematocrit 34.5 % (37.0-47.0); Hemoglobin 10.7 g/dL (12.0-15.0); Mean Corpuscular Hemoglobin 26.6 pg (26-34); Mean Corpuscular Volume 85.6 fl (80-100); Mean Platelet Volume 9.2 fl (7.4-10.4); Platelet Count Result 189 k/mm3 (150-375); Red Blood Count 4.03 M/mm3 (4.2-5.4); Red Cell Distribution Width 18.2 % (11.5-14.5); White Blood Count 6.8 K/mm3 (4.5-10.0)
[2023-03-07 06:45] LABS: Anion Gap 6 mmol/L (8-16); Blood Urea Nitrogen 53 mg/dL (7-17); Calcium 9.6 mg/dL (8.4-10.2); Carbon Dioxide 28 mmol/L (22-30); Chloride 100 mmol/L (98-107); Estimated CRCL calculation 5 ml/min; Estimated Glomerular Filt Rate 6; Glucose 125 mg/dL (65-110); Potassium 5.2 mmol/L (3.4-5.0); Sodium 134 mmol/L (137-145)
[2023-03-07] MEDS: MIDODRINE HCL 2.5 MG TABLET 5 MG PO ×2 (08:42→13:09)
[2023-03-07] MEDS: EPOETIN ALFA 10,000 UNITS/ML VIAL 10000 UNITS IV PUSH (09:57)
--- NOTE | 2023-03-07 10:47 | P.PNNP_ITS ---
Progress Note: A&P Assessment and Plan (1) End stage renal disease: Code(s): N18.6 - End stage renal disease Status: Chronic Assessment and Plan: * HD today * continue M/W/ dialysis schedule * follow electrolytes, volume status, and clearance (2) UTI (urinary tract infection): Qualifiers: Hematuria presence: without hematuria Urinary tract infection type: site unspecified Qualified Code(s): N39.0 - Urinary tract infection, site not specified Code(s): N39.0 - Urinary tract infection, site not specified Status: Acute Assessment and Plan: * admission UA highly suggestive * however, blood and urine cultures negative to date * completed course of antibiotics * possibly this is just reflection of bladder colonization(?) (3) Altered mental status: Qualifiers: Altered mental status type: somnolence Qualified Code(s): R40.0 - Somnolence Code(s): R41.82 - Altered mental status, unspecified Status: Acute Assessment and Plan: * seems at baseline per my previous care of her on last [facility] admission * baseline reportedly A & O x 1 (from discussion with outpatient dialysis unit) * complicated by history of dementia * possibly worsened by UTI/infection * however, blood/urine culture negative * follow mentation * extensive evaluation on last hospitalization here (4) Hypertension: Code(s): I10 - Essential (primary) hypertension Status: Chronic Assessment and Plan: * reasonable control at this time * follow trend of hemodynamics (5) Anemia: Code(s): D64.9 - Anemia, unspecified Status: Chronic Assessment and Plan: * due to ESRD * holding Epogen with HD at this time * follow trend of H/H Not opposed to discharge from renal perspective if otherwise medically stable. Will continue to follow. Subjective Date/time seen: 03/07/23 10:47 Interval history: Follow-up for end stage renal disease on hemodialysis. Tolerating dialysis treatment at the time of my visit (seen on HD at 10:35AM); no apparent distress noted currently; mentation seems stable if not back to baseline; no other issues/events overnight or earlier this morning. Exam Narrative: General: elderly female in NAD Heart: normal S1 and S2; no rub Lungs: clear to auscultation Abdomen: soft, nontender, nondistended, positive bowel sounds Extremities: no cyanosis or clubbing; no edema Skin: no rash Objective Data Vital Signs Vital Signs: Vital Signs Temp Pulse Resp BP Pulse Ox O2 Del Method 03/07/23 10:40 109 H 114/60 03/07/23 10:20 108 H 131/69 03/07/23 10:00 99 118/67 03/07/23 09:40 75 204/92 H 03/07/23 09:20 94 204/58 H 03/07/23 09:09 93 175/58 H 03/07/23 08:56 98.3 F 93 16 176/58 H 03/07/23 06:00 97.2 F L 80 18 103/61 100 03/06/23 20:00 Room Air 03/06/23 21:11 97.2 F L 99 18 101/56 L 98 03/06/23 16:10 25 H 03/06/23 14:00 98.4 F 88 32 H 121/82 100 Intake/Output Intake/Output: Intake & Output 03/04/23 03/05/23 03/06/23 03/07/23 23:59 23:59 23:59 23:59 Intake Total 482 194 4922 60 Output Total 1999
--- NOTE | 2023-03-07 10:47 | PM.PNNEP ---
Progress Note: A&P Assessment and Plan (1) End stage renal disease: Code(s): N18.6 - End stage renal disease Status: Chronic Assessment and Plan: HD today continue M/W/F dialysis schedule follow electrolytes, volume status, and clearance (2) UTI (urinary tract infection): Qualifiers: Hematuria presence: without hematuria Urinary tract infection type: site unspecified Qualified Code(s): N39.0 - Urinary tract infection, site not specified Code(s): N39.0 - Urinary tract infection, site not specified Status: Acute Assessment and Plan: admission UA highly suggestive however, blood and urine cultures negative to date completed course of antibiotics possibly this is just reflection of bladder colonization(?) (3) Altered mental status: Qualifiers: Altered mental status type: somnolence Qualified Code(s): R40.0 - Somnolence Code(s): R41.82 - Altered mental status, unspecified Status: Acute Assessment and Plan: seems at baseline per my previous care of her on last [facility] admission baseline reportedly A & O x 1 (from discussion with outpatient dialysis unit) complicated by history of dementia possibly worsened by UTI/infection however, blood/urine culture negative follow mentation extensive evaluation on last hospitalization here (4) Hypertension: Code(s): I10 - Essential (primary) hypertension Status: Chronic Assessment and Plan: reasonable control at this time follow trend of hemodynamics (5) Anemia: Code(s): D64.9 - Anemia, unspecified Status: Chronic Assessment and Plan: due to ESRD holding Epogen with HD at this time follow trend of H/H Not opposed to discharge from renal perspective if otherwise medically stable. Will continue to follow. Subjective Date/time seen: 03/07/23 10:47 Interval history: Follow-up for end stage renal disease on hemodialysis. Tolerating dialysis treatment at the time of my visit (seen on HD at 10:35AM); no apparent distress noted currently; mentation seems stable if not back to baseline; no other issues/events overnight or earlier this morning. Exam Narrative: General: elderly female in NAD Heart: normal S1 and S2; no rub Lungs: clear to auscultation Abdomen: soft, nontender, nondistended, positive bowel sounds Extremities: no cyanosis or clubbing; no edema Skin: no rash Objective Data Vital Signs Vital Signs: Vital Signs Temp Pulse Resp BP Pulse Ox O2 Del Method 03/07/23 10:40 109 H 114/60 03/07/23 10:20 108 H 131/69 03/07/23 10:00 99 118/67 03/07/23 09:40 75 204/92 H 03/07/23 09:20 94 204/58 H 03/07/23 09:09 93 175/58 H 03/07/23 08:56 98.3 F 93 16 176/58 H 03/07/23 06:00 97.2 F L 80 18 103/61 100 03/06/23 20:00 Room Air 03/06/23 21:11 97.2 F L 99 18 101/56 L 98 03/06/23 16:10 25 H 03/06/23 14:00 98.4 F 88 32 H 121/82 100 Intake/Output Intake/Output: Intake & Output 03/04/23 03/05/23 03/06/23 03/07/23 23:59 23:59 23:59 23:59 Intake Total 207 331 4053 60 Output Total 1999 Balance -3162 121 6161 60 Meds/Results Medications: Active Medications Generic Name Dose Route Start Last Admin Trade Name Freq PRN Reason Stop Dose Admin Acetaminophen 650 mg 02/27/23 01:33 03/02/23 18:49 Acetaminophen 325 Mg Tablet PO 650 mg Q4H PRN Administration Pain Rated 1-3 Allopurinol 100 mg 02/27/23 09:00 03/06/23 08:28 Allopurinol 100 Mg Tablet PO 100 mg DAILY MADISYN Administration Atorvastatin Calcium 20 mg 02/27/23 21:00 03/06/23 22:18 Atorvastatin 20 Mg Tablet PO 20 mg HS MADISYN Administration Bisacodyl 10 mg 02/27/23 01:33 Bisacodyl 10 Mg Suppository RECTAL DAILY PRN Constipation Epoetin Lucho 10,000 units 03/07/23 20:00 03/07/23 09:57 Epoe
--- NOTE | 2023-03-07 12:36 | PC.NURSE ---
morning meds late this am due to pt in dialysis. dialysis nurse told this nurse to hold all meds besides midodrine until after dialysis
[2023-03-07] MEDS: SEVELAMER CARBONATE 800 MG TABLET PO ×2 (13:10→16:32)
[2023-03-07] MEDS: VITAMIN B COMPLEX/VIT C CAPSULE 1 EACH PO (13:10)
[2023-03-07] MEDS: FOLIC ACID 0.4 MG TABLET 0.8 MG PO (13:10)
[2023-03-07] MEDS: allopurinoL 100 MG TABLET PO (13:10)
[2023-03-07] MEDS: HALOPERIDOL 5 MG TABLET PO (16:32)
--- NOTE | 2023-03-07 17:57 | PM.IMPN ---
Progress Note: A&P Assessment and Plan (1) UTI (urinary tract infection): Qualifiers: Hematuria presence: without hematuria Urinary tract infection type: site unspecified Qualified Code(s): N39.0 - Urinary tract infection, site not specified Code(s): N39.0 - Urinary tract infection, site not specified Status: Acute Assessment and Plan: UA with 4+ protein, 3+ blood 3+ leukocyte esterase, 21-50 rbc's, 21-50 wbc's patient finished 5 days course of IV Rocephin Blood culture negative to date no leukocytosis (2) Altered mental status: Qualifiers: Altered mental status type: somnolence Qualified Code(s): R40.0 - Somnolence Code(s): R41.82 - Altered mental status, unspecified Status: Acute Assessment and Plan: From her old records from here the patient was nonverbal. Although according to patient's daughter she was walking and talking 1 month ago. According to the granddaughter this happens every several months and is always due to UTI. She does have a history of dementia and schizophrenia. The patient is nonverbal She has had an EEG to rule out any seizure activity earlier this year September of this year. The patient also had a UTI her last admission and was felt that the UTI exacerbate her dementia. Please see her discharge note and neurology evaluation September 2022 (3) Alzheimer disease: Code(s): G30.9 - Alzheimer's disease, unspecified; F02.80 - Dementia in other diseases classified elsewhere, unspecified severity, without behavioral disturbance, psychotic disturbance, mood disturbance, and anxiety Status: Acute Assessment and Plan: please see above continue with Home medications (4) Schizophrenia: Code(s): F20.9 - Schizophrenia, unspecified Status: Acute Assessment and Plan: Continue with home medications (5) End-stage renal disease on hemodialysis: Code(s): N18.6 - End stage renal disease; Z99.2 - Dependence on renal dialysis Status: Acute Assessment and Plan: She has dialysis on Tuesday nephrology on board follow-up closely as per log brander monitor renal functions (6) Hypertension: Code(s): I10 - Essential (primary) hypertension Status: Chronic Assessment and Plan: Stable (7) Anemia: Code(s): D64.9 - Anemia, unspecified Status: Chronic Assessment and Plan: Anemia of chronic disease she is at her baseline. (8) Hypotension due to hypovolemia: Code(s): I95.89 - Other hypotension; E86.1 - Hypovolemia Status: Acute Assessment and Plan: 03/05/2023 ... patient had mild diastolic hypertension likely due to hemodialysis which responded well to IV normal saline 500 cc over 3 hours x1 dose vitals are now stable monitor vitals closely Subjective Date/time seen: 03/07/23 17:57 Interval history: 03/04/2023: Follow-up for end stage renal disease on hemodialysis. Tolerated dialysis treatment yesterday without any issues or problems; mentation seems back to baseline (although it seems to fluctuate in general); no apparent distress noted; no other issues/events overnight or earlier this morning. 03/05/2023: patient remains nonverbal with limited interaction. her diastolic blood pressure was 50 hence I ordered 500 cc IV normal saline bolus x1. kidney functions responding to hemodialysis. 03/06/2023: patient is more awake and alert and responding to myself and nursing staff. Still remains minimally verbal. vitals are stable. continue with P.T./OT with the patient. follow-up closely with Nephrology for renal functions. DC planning back to half-way when stable. 03/07/2023: No overnight events. More awake and alert. Answering questions. Review of Systems Review of Systems: All systems reviewed & are unremarkable except as noted in HPI and below
[2023-03-07] MEDS: VITAMIN B CMPLX/VIT C/FOLIC AC 1 CAPSULE 1 CAP PO (21:04)
[2023-03-07] MEDS: ATORVASTATIN 20 MG TABLET PO (21:04)
[2023-03-08 06:00] VITALS: BP 121/74; PULSE 100; RESP 20; TEMP 36.4; O2SAT 100
[2023-03-08 06:27] LABS: Hematocrit 34.9 % (37.0-47.0); Hemoglobin 10.7 g/dL (12.0-15.0); Mean Corpuscular HGB Conc 30.7 g/dl (32-36); Mean Corpuscular Hemoglobin 26.5 pg (26-34); Mean Corpuscular Volume 86.4 fl (80-100); Mean Platelet Volume 9.4 fl (7.4-10.4); Platelet Count Result 189 k/mm3 (150-375); Red Blood Count 4.04 M/mm3 (4.2-5.4); Red Cell Distribution Width 18.4 % (11.5-14.5); White Blood Count 8.5 K/mm3 (4.5-10.0)
[2023-03-08 06:37] LABS: Anion Gap 9 mmol/L (8-16); Blood Urea Nitrogen 34 mg/dL (7-17); Calcium 9.8 mg/dL (8.4-10.2); Carbon Dioxide 30 mmol/L (22-30); Chloride 99 mmol/L (98-107); Estimated CRCL calculation 8 ml/min; Estimated Glomerular Filt Rate 10; Glucose 136 mg/dL (65-110); Sodium 138 mmol/L (137-145)
[2023-03-08] MEDS: SEVELAMER CARBONATE 800 MG TABLET PO ×2 (08:30→12:20)
[2023-03-08] MEDS: HALOPERIDOL 5 MG TABLET PO (08:30)
[2023-03-08] MEDS: FOLIC ACID 0.4 MG TABLET 0.8 MG PO (08:30)
[2023-03-08] MEDS: allopurinoL 100 MG TABLET PO (08:30)
[2023-03-08] MEDS: VITAMIN B COMPLEX/VIT C CAPSULE 1 EACH PO (09:07)
--- NOTE | 2023-03-08 11:11 | PM.DS ---
DS: Admitting Diagnosis Discharge Date 03/08/2023 Admitting Diagnosis Altered mental status DS: Discharge Diagnosis Discharge Diagnosis (1) UTI (urinary tract infection): Qualifiers: Hematuria presence: without hematuria Urinary tract infection type: site unspecified Qualified Code(s): N39.0 - Urinary tract infection, site not specified Code(s): N39.0 - Urinary tract infection, site not specified Status: Acute (2) Altered mental status: Qualifiers: Altered mental status type: somnolence Qualified Code(s): R40.0 - Somnolence Code(s): R41.82 - Altered mental status, unspecified Status: Acute (3) Alzheimer disease: Code(s): G30.9 - Alzheimer's disease, unspecified; F02.80 - Dementia in other diseases classified elsewhere, unspecified severity, without behavioral disturbance, psychotic disturbance, mood disturbance, and anxiety Status: Acute (4) Schizophrenia: Code(s): F20.9 - Schizophrenia, unspecified Status: Acute (5) End-stage renal disease on hemodialysis: Code(s): N18.6 - End stage renal disease; Z99.2 - Dependence on renal dialysis Status: Acute (6) Hypertension: Code(s): I10 - Essential (primary) hypertension Status: Chronic (7) Anemia: Code(s): D64.9 - Anemia, unspecified Status: Chronic (8) Hypotension due to hypovolemia: Code(s): I95.89 - Other hypotension; E86.1 - Hypovolemia Status: Acute DS: Summary Hospital Course Hospital Course: This is 72-year-old female who presented to the ER from [facility] with altered mental status. Patient was noted to be lethargic and was referred to the ER. She is normally awake alert. However the patient does have history of dementia and has intermittent episodes of altered mental status particularly when she has urinary tract infection. On the ED evaluation she was noted to be mildly hyponatremic and her urine analysis did show evidence of UTI. She was admitted for further treatment was started on IV antibiotics. Her mental status continued to improve with treatment. She finished IV antibiotics well she was in the hospital. Nephrology was also consulted for inpatient hemodialysis during a hospital stay. He stable and was back to her baseline mental status by the time of discharge. Time Spent with Patient Time attestation: Total time spent providing and/or coordinating discharge services: 35 minutes Exam Narrative: General physical exam:? patient is minimally verbal with limitedl interaction, in no acute distress. Head/eyes: Atraumatic, EOMI, PERRLA. ENT: Moist mucous membranes, nasal passages clear. Neck: Supple, full range of motion, trachea midline. CVS: S1 + S2 + 0, regular rate and rhythm, no murmurs Respiratory: Bilaterally fair air entry in both lung goldberg, mild B/L crackles, symmetric expansion of chest, no distress Abdomen: Soft, non-tender, bowel sounds +ve, no organomegaly. Extremities: No clubbing, no cyanosis, no edema, no calf tenderness Musculoskeletal: Moves all, decreased range of motion, no muscle spasms Skin: Warm, dry, no jaundice, no cyanosis Neurological:? More awake and verbal Psychiatric:? Flat affect conversive ? DS: Data Data Completed and Pending Labs on day of discharge: Labs from last 24 hours 03/08/23 06:03 WBC 8.5 RBC 4.04 L Hgb 10.7 L Hct 34.9 L MCV 86.4 MCH 26.5 MCHC 30.7 L RDW 18.4 H Plt Count 189 MPV 9.4 Sodium 138 Potassium 5.0 Chloride 99 Carbon Dioxide 30 Anion Gap 9 BUN 34 H D Creatinine 5.10 H Estim Creat Clear Calc 8 Estimated GFR 10 L Glucose 136 H Calcium 9.8 Imaging Radiologist's impression: ITS Impressions Head CT 02/26/23 13:58 IMPRESSION: 1. Stable moderate nonspecific cerebral white matter disease, which likely represents chronic small vessel ischemic disease. Chest X-Ray 02/26/23 14:03 IMPRESSION: 1. Cardiomegaly.
[2023-03-08 12:14] LABS: SARS-CoV-2 RNA PCR Negative (Negative)
[2023-03-08 14:00] VITALS: BP 147/63; PULSE 99; RESP 12; TEMP 36.4; O2SAT 99
--- NOTE | 2023-03-08 15:00 | PC.NURSE ---
This nurse has reviewed the charting of the orienting license pending nurse and agree with the findings
== END 2023-03-08 14:25 | DRG 463 ==
LOC: ANHED 17:39 → ANH3MEDSUR 17:55
PROVIDERS: Family Medicine; Internal Medicine; Internal Medicine Critical Care Medicine; Internal Medicine Nephrology; Nurse Practitioner; Admitting Provider Hospitalist; Emergency Provider Emergency Medicine; PCP Internal Medicine; Visit Provider Internal Medicine
DX: N39.0 Urinary tract infection, site not specified (principal); I12.0 Hypertensive chronic kidney disease with stage 5 chronic kidney disease or end stage renal disease; I95.89 Other hypotension; G30.9 Alzheimer's disease, unspecified; D63.1 Anemia in chronic kidney disease; N18.6 End stage renal disease; F02.80 Dementia in other diseases classified elsewhere, unspecified severity, without behavioral disturbance, psychotic disturbance, mood disturbance, and anxiety; E86.1 Hypovolemia; E78.5 Hyperlipidemia, unspecified; F20.9 Schizophrenia, unspecified; Z20.822 Contact with and (suspected) exposure to COVID-19; Z88.0 Allergy status to penicillin; Z87.891 Personal history of nicotine dependence; Z99.2 Dependence on renal dialysis
CPT/HCPCS: 36415; 70450; 71045; 73060; 80048; 80053; 81001; 83735; 84100; 84443; 85025; 85027; 85610; 85730; 86706; 87040; 87086; 87340; 87635; 92610; 93005; 96360; 96361; 96365; 96374; 97110; 97162; 97166; 97530; 99285; A9270; G0257; G0378; G0379; J0696; J1644; J7030; J7040; J7042; Q4081

== ENCOUNTER 2023-03-15 07:47 | Emergency (ER) | payer OTHER, SELFPAY ==
--- NOTE | ~2023-03-15 | CT_ITS ---
EXAMINATION: CT brain wo con INDICATION: Headache COMPARISON: 02/26/2023 TECHNIQUE: Standard unenhanced head CT. The dose-length product (DLP) was 681.00 mGy-cm. The mA was a djusted according to patient size. Iterative reconstruction technique was employed. FINDINGS: Motion artifact slightly limits the examination. No acute intraparenchymal hemorrhage. No e vidence of mass lesion. No evidence of acute infarction. There is moderate periventricular and subcor tical hypodensity probably related to small vessel ischemic disease. There is moderate prominence of the sulci and ventricles related to cerebral atrophy. Intracranial calcified cerebral atherosclerosis is noted. No extra-axial collections. No mass effect or midline shift. The orbits and soft tissues a re unremarkable. There are bilateral mastoid effusions. There is mild mucosal thickening of the paran tennille sinuses. IMPRESSION: 1. No acute intracranial abnormality. 2. Age related findings. Reviewed, dictated and finalized at location L.
--- NOTE | ~2023-03-15 | CT_ITS ---
EXAMINATION: CT cervical spine wo con DATE: 03/15/2023 10:12 INDICATION: Neck pain TECHNIQUE: Computed tomography (CT) of the cervical spine was performed without intravenous contrast. The dose-length product (DLP) was 310.94 mGy-cm. Automated exposure control and iterative reconstruc tion technique were employed. COMPARISON: 10/24/2022 FINDINGS: Bone alignment is normal. There is no fracture. There is mild loss of intervertebral disc s pace height at multiple levels in the cervical spine. Advanced osteoarthritis is again noted at the a tlantoaxial articulation. There is a corticated ossicle posterior to this tip of the C7 spinous proce ss without significant change. The vertebral body heights are maintained. Small degenerative osteophy jonathan project from the anterior endplates of multiple vertebral bodies. There is mild ossification gena g the posterior longitudinal ligament. There is multilevel mild facet and uncovertebral joint osteoar thritis. Multinodular goiter is again noted. IMPRESSION: 1. Mild cervical spondylosis without acute findings or significant interval change. Reviewed, dictated and finalized at location L. IMPRESSION: 1. Mild cervical spondylosis without acute findings or significant interval lexi nge.
[2023-03-15 07:53] VITALS: BP 98/70; PULSE 97; RESP 20; TEMP 36.4; O2SAT 95
[2023-03-15 08:03] VITALS: BP 98/70; PULSE 87; RESP 17
[2023-03-15 09:02] VITALS: PULSE 76; RESP 22; O2SAT 100
[2023-03-15 09:14] VITALS: BP 108/80; PULSE 94; RESP 23
[2023-03-15 09:15] VITALS: PULSE 88; RESP 26
--- NOTE | 2023-03-15 09:46 | PC.NURSE ---
RN called [facility] spoke with Vanda, who states she witnessed pt fall foward out of w/c hitting head on floor
--- NOTE | 2023-03-15 10:00 | PC.NURSE ---
0930- RN called [facility] spoke with Vanda who states she witnessed fall. Pt leaning foward in w/c fell out of w/c hitting her head on the floor.
--- NOTE | 2023-03-15 10:35 | ED.FALL ---
HPI - Fall General Chief Complaint: Fall Stated Complaint: fall Time Seen by Provider: 03/15/23 08:58 History of Present Illness HPI Narrative: This is a 72-year-old female, with past history of end-stage renal disease and dementia with baseline orientation x1 (self), brought in by EMS after a fall. EMS reports the fall was witnessed. The patient slipped forward from her wheelchair while at breakfast, striking her head on the ground. There is no reported loss of consciousness. The patient appears to be at her baseline. Nursing staff contacted the patient's fpc with corroboration of the story above. There is no reported loss of consciousness. The patient is at her baseline and had no other changes in her health. Related Data Home Medications Medication Instructions Recorded Confirmed allopurinol 100 mg tablet 100 mg PO DAILY 09/28/22 02/26/23 atorvastatin 20 mg tablet 20 mg PO HS 09/28/22 02/26/23 folic acid 1 mg tablet 800 mcg PO DAILY 09/28/22 02/26/23 haloperidol 5 mg tablet 5 mg PO BID 09/28/22 02/26/23 magnesium hydroxide 400 mg/5 mL 30 ml PO HS PRN Constipation 09/28/22 02/26/23 oral suspension midodrine 5 mg tablet 5 mg PO PRN PRN Blood Pressure 09/28/22 02/26/23 ondansetron 4 mg disintegrating 4 mg PO Q6H PRN Nausea And Vomiting 09/28/22 02/26/23 tablet vitamin B complex and vitamin C 1 cap PO HS 09/28/22 02/26/23 no.20-folic acid 1 mg capsule ([place] Caps) acetaminophen 325 mg tablet 650 mg PO Q4H PRN Pain, Mild 02/26/23 02/26/23 bisacodyl 10 mg rectal suppository 10 mg RECTAL DAILY PRN Constipation 02/26/23 02/26/23 magnesium citrate 300 ml PO DAILY PRN Constipation 02/26/23 02/26/23 sevelamer carbonate 800 mg tablet 800 mg PO TID 02/26/23 02/26/23 sodium phosphates 19 gram-7 118 ml RECTAL PRN PRN Constipation 02/26/23 02/26/23 gram/118 mL enema (Fleet Enema) [id number] 1 tablet PO DAILY 02/26/23 02/26/23 18 mg-10 mg-45 mg-5 mg-250 mg tablet (B Complex w-Vit C) Allergies Allergy/AdvReac Type Severity Reaction Status Date / Time aspirin Allergy Unknown Verified 02/26/23 13:27 cabbage Allergy Unknown Verified 02/26/23 13:27 chocolate flavor Allergy Unknown Verified 02/26/23 13:27 erythromycin base Allergy Unknown Verified 02/26/23 13:27 iodine Allergy Unknown Verified 02/26/23 13:27 metrizamide Allergy Unknown Verified 02/26/23 13:27 nitrofurantoin Allergy Unknown Verified 02/26/23 13:27 Penicillins Allergy Unknown Verified 03/04/23 09:01 tositumomab Allergy Unknown Verified 02/26/23 13:27 Review of Systems Review of Systems: Unable to obtain review of systems due to patient's baseline altered mental status PMFSH Past Medical History Medical History Alzheimer disease End-stage renal disease on hemodialysis Hyperlipidemia Schizophrenia Surgical History Surgical History Arteriovenous fistula Surgically formed Family History Family History Other Unknown family medical history Social History Social History Social History: The patient is reported as being and retired. She only has a granddaughter who is listed as a contact. She is a former smoker. She is from [facility] home Code status full code Smoking status: Former smoker Alcohol intake: unknown Substance use: unknown Spiritual care concerns: No Exam Narrative: GENERAL: Well-developed, well-nourished, and in no acute distress. HEAD: Normocephalic, atraumatic. EYES: PERRLA and EOMI. ENT: Nares clear, no rhinorrhea or epistaxis. Mucous membranes moist. Oropharynx without tonsillar hypertrophy exudate or other lesions. NECK: Supple. No midline spine tenderness to palpation, no step-off or crepitus CHEST: Elvie
[2023-03-15 11:12] VITALS: BP 120/79; PULSE 85; RESP 18; TEMP 36.6; O2SAT 99
== END 2023-03-15 12:01 ==
PROVIDERS: Emergency Provider Preventive Medicine Aerospace Medicine; PCP Internal Medicine
DX: S00.93XA Contusion of unspecified part of head, initial encounter (principal); N18.6 End stage renal disease; E78.5 Hyperlipidemia, unspecified; G30.9 Alzheimer's disease, unspecified; F02.80 Dementia in other diseases classified elsewhere, unspecified severity, without behavioral disturbance, psychotic disturbance, mood disturbance, and anxiety; Z87.891 Personal history of nicotine dependence; W05.0XXA Fall from non-moving wheelchair, initial encounter
CPT/HCPCS: 70450; 72125; 99284

== ENCOUNTER 2023-03-21 18:13 | Observation (INO) | payer OTHER, SELFPAY ==
--- NOTE | ~2023-03-21 | CT_ITS ---
EXAMINATION: CT brain wo con DATE: 03/21/2023 19:20 INDICATION: fall . TECHNIQUE: Computed tomography (CT) of the head was performed without intravenous contrast. The mA wa s adjusted according to patient size. Iterative reconstruction technique was employed. The dose-lengt h product was 605.33 mGy-cm. COMPARISON: 03/15/2023. FINDINGS: No acute intracranial hemorrhage or extra-axial fluid collection. No hydrocephalus, mass, or herniation. No acute ischemic infarct. Unremarkable dural venous sinus attenuation. No acute osseous abnormality. Retention cysts/polyps in the right maxillary and sphenoid sinuses, bilateral mastoid fluid without e rosion or middle ear fluid, the remaining aerated spaces are clear. Moderate atrophy and chronic white matter change. Atherosclerotic intracranial calcification. IMPRESSION: No acute intracranial process. Reviewed, dictated and finalized at location K.
--- NOTE | ~2023-03-21 | XR_ITS ---
Portable chest x-ray Comparison: 03/21/2023 Clinical History: Fracture Findings: There is minimal bibasilar haziness, nonspecific. Cardiomediastinal silhouette is stable. Bones and soft tissues are unremarkable. Impression: Probable minimal bibasilar pulmonary edema. Reviewed, dictated and finalized at [facility]. Impression: Probable minimal bibasilar pulmonary edema.
--- NOTE | ~2023-03-21 | XR_ITS ---
EXAMINATION: XR chest 1V Exam Date/Time: 03/21/2023 19:10 CDT HISTORY: fall WITH NAUSEA AND VOMITTING Comparison: 02/26/2023; concurrent CT abdomen and pelvis. RESULT: Lines, tubes, and devices: Vascular stent overlying the left axilla. Lungs and pleura: Clear. Cardiomediastinal silhouette: Stable. Other: No acute upper abdominal finding. Mildly displaced fractures of the right eighth and ninth an terolateral ribs. IMPRESSION: Small bilateral pleural effusions seen on the concurrent CT are not radiographically visible. Mildly displaced fractures of the right eighth and ninth anterolateral ribs, appear healed in the con current CT. The right lateral 10th rib fracture is not radiograph likely visualized. Reviewed, dictated and finalized at location K. IMPRESSION: Small bilateral pleural effusions seen on the concurrent CT are not radiographi krystle visible. Mildly displaced fractures of the right eighth and ninth anterolateral ribs, ap pear healed in the concurrent CT. The right lateral 10th rib fracture is not ra diograph likely visualized.
--- NOTE | ~2023-03-21 | CT_ITS ---
EXAMINATION: CT cervical spine wo con DATE: 03/21/2023 19:21 INDICATION: fall TECHNIQUE: Computed tomography (CT) of the cervical spine was performed without intravenous contrast. Automated exposure control and iterative reconstruction technique were employed. The dose-length pro duct was 418.85 mGy-cm. COMPARISON: 03/15/2023. FINDINGS: Vertebral Body Alignment: Intact. Upper cervical spine straightening which can occur with positioning or spasm. Stable trace anterolisthesis at C6-7. Craniocervical and atlantoaxial alignment: Moderate degenerative change with pannus. Alignment intact . Osseous structures/fracture: No evidence of a lytic or blastic process in the visualized spine. No e vidence of acute fracture. Cervical soft tissues: Stable prominent soft tissue anterior to C1 1 portion of which is secondary to degenerative pannus. Multinodular goiter. Bilateral mastoid effusions. Sphenoid retention cyst/polyp . Degenerative changes: No significant degenerative changes. IMPRESSION: No acute fracture or traumatic malalignment in the cervical spine. Reviewed, dictated and finalized at location K.
--- NOTE | ~2023-03-21 | XR_ITS ---
EXAMINATION: XR barium swallow modified DATE: 03/24/2023 14:07 INDICATION: Dysphagia. TECHNIQUE: The patient was given barium-containing material of multiple consistencies to swallow by t he speech pathologist while I performed fluoroscopy. Fluoroscopy exposure time was 1.4 minutes. The n umber of fluoroscopy images saved to the PACS was 1. Dose-area product was 1.039 Gy-cm^2. FINDINGS: There is reduced laryngeal elevation and reduced tongue base retraction. There is laryngeal penetrati on with thin and mildly thick liquids. IMPRESSION: 1. Laryngeal penetration with thin and mildly thick liquids. 2. Please refer to the speech therapy report for recommendations. Reviewed, dictated and finalized at location A.
--- NOTE | ~2023-03-21 | CT_ITS ---
EXAMINATION: CT abdomen pelvis wo con DATE: 03/21/2023 19:21 INDICATION: Vomiting TECHNIQUE: Computed tomography (CT) of the abdomen and pelvis was performed without intravenous contr ast. Automated exposure control and iterative reconstruction technique were employed. The dose-length product was 989.88 mGy-cm. COMPARISON: 10/21/[address] L-spine. FINDINGS: Exam limited by motion and beam hardening from arm positioning. Lower thorax: Atherosclerotic aortic, mitral and aortic valve, and coronary artery calcifications. Mi ld cardiomegaly. Senescent changes in the lungs. Minimal dependent atelectasis. Small bilateral effus ions. Moderate hiatal hernia. Liver: Periportal edema. Biliary/Gallbladder: Gallbladder is absent. No bile duct dilation, noting the ducts are partially obs cured. Pancreas: Pancreatic atrophy, also partially obscured Spleen: Normal. Adrenals:No mass. Kidneys: Bilateral atrophy. Multiple bilateral cysts. 2 soft tissue density left renal masses are aga in noted but less well visualized in today's study. Nonobstructing left upper pole calculus. No suspi cious mass, obstructing stone, or hydronephrosis. GI tract: Moderate distal esophageal wall thickening and edema. No small or large bowel dilation. Von endix not confidently visualized. Diverticulosis without diverticulitis. Mesentery/Peritoneum: No ascites, mass, or free air. Retroperitoneum: No mass. Atherosclerotic abdominal aortic and/or arterial calcifications. Pelvis: Urinary bladder is decompressed. Surgically absent uterus. Small volume slightly hyperdense f ree pelvic fluid. Soft Tissues: Marked body wall edema. Bones: Anterolateral right eighth and ninth rib fractures in the prior radiograph appear healed. Non displaced right lateral 10th rib fracture. No other acute osseous finding. IMPRESSION: Acute-appearing nondisplaced right lateral 10th rib fracture. Apparently healed right anterolateral e ighth and ninth rib fractures. Small bilateral pleural effusions. Moderate esophagitis. Consider referral for nonemergent endoscopy. Nonspecific periportal edema. Two soft tissue density left renal lesions, prior recommendation for follow-up nonemergent CT or MRI without and with contrast is unchanged. Small volume, slightly hyperdense free pelvic fluid. Marked body wall edema Reviewed, dictated and finalized at location K. IMPRESSION: Acute-appearing nondisplaced right lateral 10th rib fracture. Apparently healed right anterolateral eighth and ninth rib fractures. Small bilateral pleural effusions. Moderate esophagitis. Consider referral for nonemergent endoscopy. Nonspecific periportal edema. Two soft tissue density left renal lesions, prior recommendation for follow-up nonemergent CT or MRI without and with contrast is unchanged. Small volume, slightly hyperdense free pelvic fluid. Marked body wall edema
[2023-03-21 18:14] VITALS: BP 166/127; PULSE 89; RESP 25; TEMP 36.4; O2SAT 99
--- NOTE | 2023-03-21 18:17 | ED.FALL ---
HPI - Fall General Chief Complaint: Fall Stated Complaint: fall Time Seen by Provider: 03/21/23 18:17 Source: patient and EMS Mode of arrival: EMS History of Present Illness HPI Narrative: 72 years old -Luxembourger female oriented to herself only brought to the emergency room by ambulance because of 2 times fall yesterday out of her wheelchair, one of them struck her head on the floor. No loss of consciousness. No other injuries. Today around noon patient started vomiting at least 4 times prior to arrival . Patient missed her dialysis today because of the vomiting Patient is full code. Last dialysis was Tuesday. Related Data Home Medications Medication Instructions Recorded Confirmed allopurinol 100 mg tablet 100 mg PO DAILY 09/28/22 02/26/23 atorvastatin 20 mg tablet 20 mg PO HS 09/28/22 02/26/23 folic acid 1 mg tablet 800 mcg PO DAILY 09/28/22 02/26/23 haloperidol 5 mg tablet 5 mg PO BID 09/28/22 02/26/23 magnesium hydroxide 400 mg/5 mL 30 ml PO HS PRN Constipation 09/28/22 02/26/23 oral suspension midodrine 5 mg tablet 5 mg PO PRN PRN Blood Pressure 09/28/22 02/26/23 ondansetron 4 mg disintegrating 4 mg PO Q6H PRN Nausea And Vomiting 09/28/22 02/26/23 tablet vitamin B complex and vitamin C 1 cap PO HS 09/28/22 02/26/23 no.20-folic acid 1 mg capsule ([place] Caps) acetaminophen 325 mg tablet 650 mg PO Q4H PRN Pain, Mild 02/26/23 02/26/23 bisacodyl 10 mg rectal suppository 10 mg RECTAL DAILY PRN Constipation 02/26/23 02/26/23 magnesium citrate 300 ml PO DAILY PRN Constipation 02/26/23 02/26/23 sevelamer carbonate 800 mg tablet 800 mg PO TID 02/26/23 02/26/23 sodium phosphates 19 gram-7 118 ml RECTAL PRN PRN Constipation 02/26/23 02/26/23 gram/118 mL enema (Fleet Enema) [id number] 1 tablet PO DAILY 02/26/23 02/26/23 18 mg-10 mg-45 mg-5 mg-250 mg tablet (B Complex w-Vit C) Allergies Allergy/AdvReac Type Severity Reaction Status Date / Time aspirin Allergy Unknown Verified 03/21/23 18:25 cabbage Allergy Unknown Verified 03/21/23 18:25 chocolate flavor Allergy Unknown Verified 03/21/23 18:25 erythromycin base Allergy Unknown Verified 03/21/23 18:25 iodine Allergy Unknown Verified 03/21/23 18:25 metrizamide Allergy Unknown Verified 03/21/23 18:25 nitrofurantoin Allergy Unknown Verified 03/21/23 18:25 Penicillins Allergy Unknown Verified 03/21/23 18:25 tositumomab Allergy Unknown Verified 03/21/23 18:25 Review of Systems Review of Systems: ROS unobtainable: Yes unobtainable due to mental status PMFSH Past Medical History Medical History Alzheimer disease End-stage renal disease on hemodialysis Hyperlipidemia Schizophrenia Surgical History Surgical History Arteriovenous fistula Surgically formed Family History Family History Other Unknown family medical history Social History Social History Social History: The patient is reported as being and retired. She only has a granddaughter who is listed as a contact. She is a former smoker. She is from [facility] Code status full code Smoking status: Former smoker Alcohol intake: unknown Substance use: unknown Spiritual care concerns: No Exam Narrative: General appearance: Well-developed, well-nourished Skin: Normal color Head: Normocephalic, nontraumatic Eyes: Clear conjunctiva ENT: Oropharynx normal, ears normal, nose normal Neck: Supple, nontender Chest and respiratory: Airway patent, no respiratory distress, no accessory muscle use Heart: Regular rate/rhythm Abdomen: Soft, nontender, no organomegaly, quiet bowel sounds V Musculoskeletal: Normal range of motion, nontender back Neurologic: Alert and oriented to herself only
--- NOTE | 2023-03-21 18:24 | ECG_ITS ---
Measurements Intervals [place] Rate: 92 P: 68 CT: 159 QRS: 35 QRSD: 94 T: 67 QT: 325 QTc: 402 Interpretive Statements SINUS RHYTHM WITH MARKED SINUS ARRHYTHMIA ATRIAL PREMATURE COMPLEXES POSSIBLE LEFT ATRIAL ENLARGEMENT VOLTAGE CRITERIA FOR LVH BORDERLINE ST-T WAVE ABNORMALITY- HIGH LATERAL LEADS BASELINE ARTIFACT- V1-V2, V4 ABNORMAL ECG COMPARED TO ECG 03/04/2023 22:19:43 SINUS RHYTHM NOW PRESENT Electronically Signed On 03-22-2023 6:45:11 CDT by Vineet Kumar D.O.
[2023-03-21 18:48] VITALS: BP 154/99; PULSE 95; RESP 20
[2023-03-21] MEDS: ONDANSETRON INJ 4 MG/2 ML VIAL IV PUSH (18:53)
[2023-03-21 19:26] LABS: Basophils Percent Auto 0.5 % (0.2-1.2); Eosinophils Absolute Auto 0.6 K/mm3 (0-0.3); Eosinophils Percent Auto 7.7 % (0-4.4); Hematocrit 32.3 % (37.0-47.0); Hemoglobin 9.8 g/dL (12.0-15.0); Immature Granulocyte Absolute 0.04 K/mm3 (0.00-0.031); Immature Granulocyte Percent A 0.5 % (0-0.5); Lymphocytes Absolute Auto 0.89 K/mm3 (0.9-3.2); Lymphocytes Percent Auto 11.8 % (18.3-44.2); Mean Corpuscular HGB Conc 30.3 g/dl (32-36); Mean Corpuscular Volume 85.7 fl (80-100); Mean Platelet Volume 9.4 fl (7.4-10.4); Monocytes Absolute Auto 0.6 K/mm3 (0.1-0.6); Monocytes Percent Auto 7.3 % (2.6-8.5); Neutrophils Absolute Auto 5.4 K/mm3 (1.3-6.7); Neutrophils Percent Auto 72.2 % (45.5-73.1); Platelet Count Result 186 k/mm3 (150-375); Red Blood Count 3.77 M/mm3 (4.2-5.4); Red Cell Distribution Width 18.6 % (11.5-14.5); White Blood Count 7.5 K/mm3 (4.5-10.0)
[2023-03-21 19:46] LABS: Alanine Aminotransferase 21 U/L (6-35); Albumin Level 3.4 g/dL (3.5-5.1); Alkaline Phosphatase 97 U/L (38-126); Anion Gap 9 mmol/L (8-16); Aspartate Amino Transferase 33 U/L (14-36); Bilirubin,Total 0.6 mg/dL (0.2-1.3); Blood Urea Nitrogen 31 mg/dL (7-17); Calcium 11.4 mg/dL (8.4-10.2); Carbon Dioxide 33 mmol/L (22-30); Chloride 86 mmol/L (98-107); Estimated CRCL calculation 9 ml/min; Estimated Glomerular Filt Rate 11; Glucose 102 mg/dL (65-110); Potassium 4.5 mmol/L (3.4-5.0); Sodium 128 mmol/L (137-145)
[2023-03-21 20:43] LABS: Appearance Urine Turbid (Clear); Bacteria Urine 4+ /hpf; Bilirubin Urine 1+ (Negative); Blood Urine 2+ (Negative); Color Urine Dark Yellow (Yellow); Glucose Urine UA Negative (Negative); Ketones Urine Negative (Negative); Leukocyte Esterase Ur 3+ LEU/UL (Negative); Need Manual Microscopic Reviewed; Nitrate Urine Negative (Negative); Protein Urine 3+ mg/dL (Negative); RBC Urine >100 /hpf (0-2); Specific Grav Ur 1.017 (1.001-1.035); Squamous Epithelial Cell Urine Many /hpf (Few); Urobilinogen Urine 0.2 mg/dL (<2.0); WBC Urine >100 /hpf; pH Urine 7.5 (5.0-9.0)
[2023-03-21 20:51] LABS: SARS-CoV-2 RNA PCR Negative (Negative)
[2023-03-21 20:55] LABS: Add Urine Microscopic? YES
[2023-03-21 22:59] VITALS: BP 150/90; PULSE 93; RESP 20; O2SAT 100
[2023-03-22] VITALS (22 sets, daily range): BP systolic 69–163; BP diastolic 46–89; PULSE 50–102; RESP 12–18; TEMP 36.2–37; O2SAT 96–100; BMI 26.2
--- NOTE | 2023-03-22 00:33 | PM.IMHP ---
H&P: HPI History of Present Illness Date/Time: 03/22/23 00:33 Chief Complaint: Nausea and vomiting, multiple falls Narrative: 72-year-old female with a past medical history of dementia, end-stage renal disease on hemodialysis and schizophrenia who presented to the ER via EMS from [facility] due to multiple falls and vomiting. The entirety of information was obtained from fpc records, ER records and past medical records. Patient is alert orient x1 at baseline. Patient until recently received all of her care in [facility] but was recently placed in a fpc close to our facility. She has subsequently been hospitalized here twice since September. The patient has fallen out of her wheelchair twice at the fpc yesterday and once today. One of those times she struck her head on the floor. She denied having loss of consciousness or other injuries. Today around noon patient started vomiting. She had at least 4 episodes of vomiting at the fpc prior them calling EMS. She did miss her dialysis today due to her having frequent emesis. She was brought to the ER for evaluation. In the ER the patient did not have a white count and no fever. She was moderately hypertensive which is a change from her baseline. It looks like the patient has blood pressures are usually 120s to 140s unless it is a dialysis day which time her blood pressures are in the upper 90s systolic. Patient did have some mild hyponatremia and mildly elevated serum bicarb. Her BUN creatinine were relatively stable compared to prior value of 5.1. Her calcium was slightly elevated at 11.4. Her UA collected in the ER demonstrated 3+ protein 2+ blood 3+ esterase greater than 100 red greater than 100 white 4+ bacteria and many squamous cells. Patient has remained afebrile. She is unable to delineate any specific complaints Review of Systems Review of Systems: ROS unobtainable: Yes unobtainable due to mental status PMFSH Past Medical History Medical History Alzheimer disease End-stage renal disease on hemodialysis Hyperlipidemia Orthostatic hypotension Renal osteodystrophy Schizophrenia Surgical History Surgical History Arteriovenous fistula Surgically formed right upper extremity Patient has a her left upper extremity dialysis graft that has failed Family History Family History Other Unknown family medical history Social History Social History (Updated 03/22/23 @ 04:52 by Radha Alfonso DO) Social History: The patient is reported as being and retired. She only has a granddaughter who is listed as a contact. She is a former smoker. She is from and [facility] Code status: Full code Smoking status: Former smoker Alcohol intake: unknown Substance use: unknown Spiritual care concerns: No Meds Home Medications and Allergies Home Medications Medication Instructions Recorded Confirmed Type allopurinol 100 mg tablet 100 mg PO DAILY 09/28/22 03/22/23 History atorvastatin 20 mg tablet 20 mg PO HS 09/28/22 03/22/23 History folic acid 1 mg tablet 800 mcg PO DAILY 09/28/22 03/22/23 History haloperidol 5 mg tablet 5 mg PO BID 09/28/22 03/22/23 History magnesium hydroxide 400 mg/5 mL 30 ml PO HS PRN Constipation 09/28/22 03/22/23 History oral suspension midodrine 5 mg tablet 5 mg PO PRN PRN Blood Pressure 09/28/22 03/22/23 History acetaminophen 325 mg tablet 650 mg PO Q4H PRN Pain, Mild 02/26/23 03/22/23 History bisacodyl 10 mg rectal suppository 10 mg RECTAL DAILY PRN Constipation 02/26/23 03/22/23 History magnesium citrate 296 ml PO DAILY PRN Constipation 02/26/23 03/22/23 History sevelamer carbonate 800 mg tablet 800 mg PO TID 02/26/23 03/22/23 History sodium phosphates 19 gram-7 118 ml RECTAL PRN PRN Const
--- NOTE | 2023-03-22 01:42 | ADMGEN ---
This patient, Dania Demarco, was admitted to 3 [facility] Surg Room 321-01 @0045. Patient/family oriented to hospital policies and general routines including ID bracelet, bed and alarms, visiting hours, pain management, procedures, bathroom and other care routines, personal items, smoking policy, room service/diet, and visiting hours. Information on how to activate the Rapid Response Team has been discussed. Patient/Family are encouraged to report perceived risks to care and to ask questions if they do not understand what they are told or what they should do.
[2023-03-22] MEDS: PANTOPRAZOLE 40 MG TABLET PO (08:15)
[2023-03-22] MEDS: FOLIC ACID 0.4 MG TABLET 0.8 MG PO (08:15)
[2023-03-22] MEDS: allopurinoL 100 MG TABLET PO (08:15)
[2023-03-22] MEDS: HALOPERIDOL 5 MG TABLET PO ×2 (08:15→16:29)
[2023-03-22] MEDS: SEVELAMER CARBONATE 800 MG TABLET PO ×2 (08:15→16:29)
[2023-03-22] MEDS: HEPARIN SODIUM 5,000 UNITS/ML VIAL 5000 UNITS SUB-Q ×2 (08:20→21:29)
--- NOTE | 2023-03-22 10:33 | PM.CNNEP ---
Assessment and Plan Assessment and plan (1) End stage renal disease: Code(s): N18.6 - End stage renal disease Status: Chronic Assessment and Plan: HD today and resume M/W/F dialysis schedule tomorrow follow electrolytes, volume status, and clearance (2) UTI (urinary tract infection): Qualifiers: Hematuria presence: without hematuria Urinary tract infection type: site unspecified Qualified Code(s): N39.0 - Urinary tract infection, site not specified Code(s): N39.0 - Urinary tract infection, site not specified Status: Acute Assessment and Plan: as suggested by admission UA follow culture data empiric antibiotics (3) Hypertension: Code(s): I10 - Essential (primary) hypertension Status: Chronic Assessment and Plan: holding midodrine since BP elevated follow trend of hemodynamics (4) CHI (closed head injury): Qualifiers: Encounter type: initial encounter Qualified Code(s): S09.90XA - Unspecified injury of head, initial encounter Code(s): S09.90XA - Unspecified injury of head, initial encounter Status: Acute Assessment and Plan: secondary to fall previous imaging noted supportive therapy I will continue to follow the patient with you while the patient remains hospitalized and make further recommendations as needed. Thank you for allowing me to participate in the care of this patient. History of Present Illness Reason for Consult Consult date: 03/22/23 Reason for consult: end stage renal disease Chief Complaint Chief complaint: Multiple Falls, Right 10th Rib Fracture, Urinary T History of Present Illness Narrative: All the information I have obtained is from review of the electronic medical record and discussion with the physicians/nurses involved in the patient's care as the patient is currently nonverbal at the time my visit. The patient is a 72-year-old female with a past medical history as outlined below who was transferred to [facility] Emergency room from her nursing facility for vomiting and frequent falls. Apparently, patient fallen her wheelchair twice yesterday for the day of admission and once on the day of admission one of those time she apparently struck her head but reported no loss of consciousness or other injuries. She was apparently seen here at [facility] emergency room last week after one of these falls for evaluation and was subsequently transferred back to her nursing facility when she was deemed stable. However, today, she started having issues and problems with vomiting did not seem to zainab despite conservative therapy. EMS was called and she was subsequently transferred to the emergency room for further assessment. Workup and evaluation emergency room demonstrated the patient to be hemodynamically stable if not hypertensive and her mental status seemed to be about where it normally runs at baseline. Routine blood test demonstrated labs consistent her known history end-stage disease with no critical electrolyte abnormalities although her calcium was slightly elevated. Her urinalysis is highly suggestive of urinary tract infection. After appropriate cultures were obtained, she was started on IV antibiotic therapy and subsequently admitted to the hospital for further evaluation and therapy. Renal consultation was requested due to her end-stage renal disease. The patient normally receives dialysis on a Tuesday, Tuesday, Tuesday dialysis schedule at [facility] Dialysis under the care of Dr. Remigio Fuentes. She missed her scheduled dialysis yesterday due to the issues noted above and subsequent ER visit. I believe her last dialysis session was on Tuesday (03/18/23). In spite of her end-stage renal disease, she does not appear to be markedly volume overloaded and she has no critical electrolyte abnormalities. I suppose uremia could be playing a role with her menta
[2023-03-22] MEDS: SODIUM CHLORIDE 0.9% IV 1,000 ML 999 ML IV CONT (10:42)
[2023-03-22] MEDS: ALBUMIN HUMAN 25% 12.5 GM/50ML 50 ML IVPB (12:08)
[2023-03-22] MEDS: EPOETIN ALFA 10,000 UNITS/ML VIAL 10000 UNITS IV PUSH (12:15)
[2023-03-22 15:52] LABS: Basophils Percent Auto 0.4 % (0.2-1.2); Eosinophils Absolute Auto 0.5 K/mm3 (0-0.3); Hematocrit 28.5 % (37.0-47.0); Hemoglobin 8.6 g/dL (12.0-15.0); Immature Granulocyte Absolute 0.04 K/mm3 (0.00-0.031); Immature Granulocyte Percent A 0.7 % (0-0.5); Lymphocytes Absolute Auto 0.52 K/mm3 (0.9-3.2); Lymphocytes Percent Auto 9.6 % (18.3-44.2); Mean Corpuscular HGB Conc 30.2 g/dl (32-36); Mean Corpuscular Hemoglobin 26.2 pg (26-34); Mean Corpuscular Volume 86.9 fl (80-100); Mean Platelet Volume 8.9 fl (7.4-10.4); Monocytes Absolute Auto 0.6 K/mm3 (0.1-0.6); Monocytes Percent Auto 10.6 % (2.6-8.5); Neutrophils Absolute Auto 3.7 K/mm3 (1.3-6.7); Neutrophils Percent Auto 68.7 % (45.5-73.1); Platelet Count Result 152 k/mm3 (150-375); Red Blood Count 3.28 M/mm3 (4.2-5.4); Red Cell Distribution Width 18.7 % (11.5-14.5); White Blood Count 5.4 K/mm3 (4.5-10.0)
[2023-03-22 16:09] LABS: Alanine Aminotransferase 17 U/L (6-35); Albumin Level 3.2 g/dL (3.5-5.1); Alkaline Phosphatase 98 U/L (38-126); Anion Gap 7 mmol/L (8-16); Aspartate Amino Transferase 19 U/L (14-36); Bilirubin,Total 0.5 mg/dL (0.2-1.3); Blood Urea Nitrogen 13 mg/dL (7-17); Carbon Dioxide 28 mmol/L (22-30); Chloride 99 mmol/L (98-107); Estimated CRCL calculation 14 ml/min; Estimated Glomerular Filt Rate 20; Glucose 82 mg/dL (65-110); Potassium 3.7 mmol/L (3.4-5.0); Sodium 134 mmol/L (137-145)
[2023-03-22] MEDS: VITAMIN B COMPLEX/VIT C CAPSULE 1 EACH PO (16:29)
[2023-03-22 17:01] LABS: Hepatitis B Surface Antigen Negative (Negative)
[2023-03-22 17:22] LABS: Hepatitis B Surface Anti Res Positive
[2023-03-22] MEDS: ATORVASTATIN 20 MG TABLET PO (21:29)
[2023-03-23] VITALS (22 sets, daily range): BP systolic 92–181; BP diastolic 45–98; PULSE 68–111; RESP 16–24; TEMP 36.2–37.7; O2SAT 92–100
[2023-03-23] MEDS: ACETAMINOPHEN 325 MG TABLET 650 MG PO ×2 (01:16→08:25)
[2023-03-23 08:06] LABS: Basophils Absolute Auto 0.1 K/mm3 (0.0-0.1); Basophils Percent Auto 0.8 % (0.2-1.2); Eosinophils Absolute Auto 0.6 K/mm3 (0-0.3); Eosinophils Percent Auto 9.8 % (0-4.4); Hematocrit 29.2 % (37.0-47.0); Hemoglobin 8.8 g/dL (12.0-15.0); Immature Granulocyte Absolute 0.06 K/mm3 (0.00-0.031); Immature Granulocyte Percent A 0.9 % (0-0.5); Lymphocytes Percent Auto 12.5 % (18.3-44.2); Mean Corpuscular HGB Conc 30.1 g/dl (32-36); Mean Corpuscular Hemoglobin 26.4 pg (26-34); Mean Corpuscular Volume 87.7 fl (80-100); Mean Platelet Volume 9.1 fl (7.4-10.4); Monocytes Absolute Auto 0.6 K/mm3 (0.1-0.6); Neutrophils Absolute Auto 4.3 K/mm3 (1.3-6.7); Platelet Count Result 146 k/mm3 (150-375); Red Blood Count 3.33 M/mm3 (4.2-5.4); Red Cell Distribution Width 18.7 % (11.5-14.5); White Blood Count 6.4 K/mm3 (4.5-10.0)
[2023-03-23 08:11] LABS: Anion Gap 5 mmol/L (8-16); Blood Urea Nitrogen 17 mg/dL (7-17); Calcium 10.4 mg/dL (8.4-10.2); Carbon Dioxide 30 mmol/L (22-30); Chloride 100 mmol/L (98-107); Estimated CRCL calculation 11 ml/min; Estimated Glomerular Filt Rate 15; Glucose 80 mg/dL (65-110); Sodium 135 mmol/L (137-145)
[2023-03-23] MEDS: allopurinoL 100 MG TABLET PO (08:26)
[2023-03-23] MEDS: PANTOPRAZOLE 40 MG TABLET PO (08:26)
[2023-03-23] MEDS: HEPARIN SODIUM 5,000 UNITS/ML VIAL 5000 UNITS SUB-Q ×2 (08:26→21:28)
[2023-03-23] MEDS: SEVELAMER CARBONATE 800 MG TABLET PO ×2 (08:26→17:44)
[2023-03-23] MEDS: HALOPERIDOL 5 MG TABLET PO ×2 (08:27→17:44)
[2023-03-23] MEDS: FOLIC ACID 0.4 MG TABLET 0.8 MG PO (08:27)
[2023-03-23] MEDS: VITAMIN B COMPLEX/VIT C CAPSULE 1 EACH PO (08:27)
--- NOTE | 2023-03-23 10:41 | PM.IMPN ---
Progress Note: A&P Assessment and Plan (1) UTI (urinary tract infection): Qualifiers: Hematuria presence: without hematuria Urinary tract infection type: site unspecified Qualified Code(s): N39.0 - Urinary tract infection, site not specified Code(s): N39.0 - Urinary tract infection, site not specified Status: Acute Assessment and Plan: On IV antibiotics (2) Altered mental status: Qualifiers: Altered mental status type: somnolence Qualified Code(s): R40.0 - Somnolence Code(s): R41.82 - Altered mental status, unspecified Status: Acute Assessment and Plan: From her old records from here the patient was nonverbal. Although according to patient's daughter she was walking and talking 1 month ago. According to the granddaughter this happens every several months and is always due to UTI. She does have a history of dementia and schizophrenia. The patient is nonverbal She has had an EEG to rule out any seizure activity earlier this year September of this year. The patient also had a UTI her last admission and was felt that the UTI exacerbate her dementia. Please see her discharge note and neurology evaluation September 2022 (3) Alzheimer disease: Code(s): G30.9 - Alzheimer's disease, unspecified; F02.80 - Dementia in other diseases classified elsewhere, unspecified severity, without behavioral disturbance, psychotic disturbance, mood disturbance, and anxiety Status: Acute Assessment and Plan: continue with Home medications (4) Schizophrenia: Code(s): F20.9 - Schizophrenia, unspecified Status: Acute Assessment and Plan: Continue with home medications (5) End-stage renal disease on hemodialysis: Code(s): N18.6 - End stage renal disease; Z99.2 - Dependence on renal dialysis Status: Acute Assessment and Plan: She has dialysis on Tuesday nephrology on board follow-up closely as per electroencephalographic technician monitor renal functions (6) Hypertension: Code(s): I10 - Essential (primary) hypertension Status: Chronic Assessment and Plan: Stable (7) Anemia: Code(s): D64.9 - Anemia, unspecified Status: Chronic Assessment and Plan: Anemia of chronic disease she is at her baseline. (8) Hypotension due to hypovolemia: Code(s): I95.89 - Other hypotension; E86.1 - Hypovolemia Status: Acute Assessment and Plan: 03/05/2023 ... patient had mild diastolic hypertension likely due to hemodialysis which responded well to IV normal saline 500 cc over 3 hours x1 dose vitals are now stable monitor vitals closely Subjective Date/time seen: 03/23/23 10:41 Interval history: Patient is not responsive to any verbal stimuli Review of Systems Review of Systems: ROS unobtainable: Yes unobtainable due to mental status Exam Narrative: Weight 67.2 kg BMI 26.2 Const: Other: No acute distress, well-nourished, chronically ill-appearing HENMT: Other: Mucous membranes are dry, Eyes: Other: Pupils are equal and reactive, mild conjunctival pallor, no scleral icterus Neck: Other: No JVD, trachea midline Resp: Other: Clear to auscultation bilaterally, no increased work of breathing Cardio: Other: Irregularly irregular, 2+ bilateral pedal pulse, palpable thrill over right upper extremity AV fistula GI: Other: Soft, nontender, nondistended, positive bowel sounds Skin: Other: No pallor, non jaundice, surgical scar noted to bilateral upper arms Neuro: Other: The patient was sleeping but awoke easily to verbal stimuli, responded to her name but did not respond verbally, intermittently was following commands such as sticking her tongue out, no obvious facial asymmetry but neuro exam limited due to lack of patient participation in understanding Ex
--- NOTE | 2023-03-23 11:32 | PC.NURSE ---
patient to dialysis per bed.
[2023-03-23] MEDS: SODIUM CHLORIDE 0.9% IV 1,000 ML 999 ML IV CONT (11:40)
--- NOTE | 2023-03-23 12:10 | PM.PNNEP ---
Progress Note: A&P Assessment and Plan (1) End stage renal disease: Code(s): N18.6 - End stage renal disease Status: Chronic Assessment and Plan: HD today and resume M/W/ dialysis schedule tomorrow follow electrolytes, volume status, and clearance (2) UTI (urinary tract infection): Qualifiers: Hematuria presence: without hematuria Urinary tract infection type: site unspecified Qualified Code(s): N39.0 - Urinary tract infection, site not specified Code(s): N39.0 - Urinary tract infection, site not specified Status: Acute Assessment and Plan: as suggested by admission UA follow culture data empiric antibiotics (3) Hypertension: Code(s): I10 - Essential (primary) hypertension Status: Chronic Assessment and Plan: holding midodrine since BP elevated follow trend of hemodynamics (4) CHI (closed head injury): Qualifiers: Encounter type: initial encounter Qualified Code(s): S09.90XA - Unspecified injury of head, initial encounter Code(s): S09.90XA - Unspecified injury of head, initial encounter Status: Acute Assessment and Plan: secondary to fall previous imaging noted supportive therapy Will continue to follow. Subjective Date/time seen: 03/23/23 12:10 Interval history: Follow-up for end stage renal disease on hemodialysis. Tolerating hemodialysis treatment at the time of my visit (seen on HD at 12:00pm); no apparent distress noted; awake and looks at me but is non-verbal (seems at baseline from my experience taken care of her on previous [facility] admissions). Exam Narrative: General: elderly female in NAD Heart: normal S1 and S2; no rub Lungs: clear to auscultation Abdomen: soft, nontender, nondistended, positive bowel sounds Extremities: no cyanosis or clubbing; no edema Skin: warm and dry Objective Data Vital Signs Vital Signs: Vital Signs Temp Pulse Resp BP Pulse Ox 03/23/23 12:00 87 152/70 H 03/23/23 11:40 94 148/78 H 03/23/23 11:40 98.2 F 97 18 139/78 03/23/23 12:00 98.7 F 95 16 154/51 H 100 03/23/23 08:50 70 03/23/23 08:00 98.7 F 93 18 146/70 H 97 03/23/23 04:00 97.8 F 101 H 16 149/75 H 98 03/23/23 04:00 89 03/23/23 00:00 98.3 F 111 H 19 139/80 95 03/23/23 00:00 100 03/22/23 20:00 97.5 F L 50 L 16 148/69 H 97 03/22/23 20:20 102 H 03/22/23 16:00 98.2 F 95 16 144/57 H 98 03/22/23 16:00 102 H Intake/Output Intake/Output: Intake & Output 03/20/23 03/21/23 03/22/23 03/23/23 23:59 23:59 23:59 23:59 Intake Total 50 240 120 Output Total 926 0 Balance 50 -686 120 Meds/Results Medications: Active Medications Generic Name Dose Route Start Last Admin Trade Name Freq PRN Reason Stop Dose Admin Acetaminophen 650 mg 03/22/23 04:49 03/23/23 08:25 Acetaminophen 325 Mg Tablet PO 650 mg Q4H PRN Administration Mild Pain (1-3) or Fever Allopurinol 100 mg 03/22/23 09:00 03/23/23 08:26 Allopurinol 100 Mg Tablet PO 100 mg DAILY MADISYN Administration Atorvastatin Calcium 20 mg 03/22/23 21:00 03/22/23 21:29 Atorvastatin 20 Mg Tablet PO 20 mg HS MADISYN Administration Bisacodyl 10 mg 03/22/23 04:49 Bisacodyl 10 Mg Suppository RECTAL DAILY PRN Constipation Epoetin Lucho-epbx 10,000 units 03/23/23 20:00 03/23/23 14:13 Epoetin Lucho-Epbx 10,000 Units/Ml Vial IV PUSH 03/23/23 20:01 10,000 units ONCE ONE Administration Folic Acid 0.8 mg 03/22/23 09:00 03/23/23 08:27 Folic Acid 0.4 Mg Tablet PO 0.8 mg DAILY MADISYN Administration Haloperidol 5 mg 03/22/23 09:00 03/23/23 08:27 Haloperidol 5 Mg Tablet PO 5 mg BID MADISYN Administration Heparin Sodium (Porcine) 5,000 units 03/22/23 09:00 03/23/23 08:26 Heparin Sodium 5,000 Units/Ml Vial SUB-Q 5,000 units Q12HR MADISYN Administration
[2023-03-23] MEDS: EPOETIN ALFA-EPBX 10,000 UNITS/ML VIAL 10000 UNITS IV PUSH (14:13)
--- NOTE | 2023-03-23 15:23 | PC.NURSE ---
patient returning to room after dialysis.
[2023-03-23] MEDS: ATORVASTATIN 20 MG TABLET PO (21:28)
[2023-03-24 04:00] VITALS: BP 172/77; PULSE 89; RESP 26; TEMP 35.7; O2SAT 98
--- NOTE | 2023-03-24 05:16 | PC.NURSE ---
This RN spoke with Dr. Castaneda regarding this pt at 2124. The pt's BP was 181/[address] Castaneda asked for a repeat BP and the BP was retaken at 2320 and the BP was 166/79. No new orders were given at this time.
[2023-03-24 08:00] VITALS: BP 152/77; PULSE 52; RESP 22; TEMP 36.4; O2SAT 100
[2023-03-24] MEDS: HEPARIN SODIUM 5,000 UNITS/ML VIAL 5000 UNITS SUB-Q ×2 (09:23→20:34)
[2023-03-24] MEDS: SEVELAMER CARBONATE 800 MG TABLET PO ×2 (09:23→18:15)
[2023-03-24] MEDS: FOLIC ACID 0.4 MG TABLET 0.8 MG PO (09:23)
[2023-03-24] MEDS: HALOPERIDOL 5 MG TABLET PO ×2 (09:24→18:15)
[2023-03-24] MEDS: PANTOPRAZOLE 40 MG TABLET PO (09:24)
[2023-03-24] MEDS: VITAMIN B COMPLEX/VIT C CAPSULE 1 EACH PO (09:24)
[2023-03-24] MEDS: allopurinoL 100 MG TABLET PO (09:24)
--- NOTE | 2023-03-24 11:19 | PM.DS ---
DS: Admitting Diagnosis Discharge Date 03/24/2023 Admitting Diagnosis weakness UTI DS: Summary Hospital Course Hospital Course: 72-year-old female with a past medical history of dementia, end-stage renal disease on hemodialysis and schizophrenia who presented to the ER via EMS from [facility] due to multiple falls and vomiting.? The entirety of information was obtained from residential records, ER records and past medical records.? Patient is alert orient x1 at baseline.? Patient until recently received all of her care in [facility] but was recently placed in a residential close to our facility.? She has subsequently been hospitalized here twice since September.? The patient has fallen out of her wheelchair twice at the residential yesterday and once today.? One of those times she struck her head on the floor.? She denied having loss of consciousness or other injuries.? Today around noon patient started vomiting.? She had at least 4 episodes of vomiting at the residential prior them calling EMS.? She did miss her dialysis today due to her having frequent emesis.? She was brought to the ER for evaluation.? In the ER the patient did not have a white count and no fever.? She was moderately hypertensive which is a change from her baseline.? It looks like the patient has blood pressures are usually 120s to 140s unless it is a dialysis day which time her blood pressures are in the upper 90s systolic.? Patient did have some mild hyponatremia and mildly elevated serum bicarb.? Her BUN creatinine were relatively stable compared to prior value of 5.1.? Her calcium was slightly elevated at 11.4.? Her UA collected in the ER demonstrated 3+ protein 2+ blood 3+ esterase greater than 100 red greater than 100 white 4+ bacteria and many squamous cells.? Patient has remained afebrile.? She is unable to delineate any specific complaints. Urine culture is negative. Patient was started on IV Rocephin. Currently stable and back to baseline. Continue dialysis as per schedule. Discharge with oral Keflex Time Spent with Patient Time attestation: Total time spent providing and/or coordinating discharge services: Discharge Plan Discharge Consulting providers: Kiran Troncoso Discharging Clinician: Neftali Pan Anticipated Discharge Date/Time: 03/24/23 11:18 Patient Disposition: SNF Activity: no preference Diet: heart healthy and renal Patient Instructions: Urinary Tract Infection in Women (DC) Stand Alone Forms: General Discharge Information Follow-up/Referrals: Kiran Troncoso MD [Physician] - Navin Castañeda MD [Primary Care Provider] - Discharge Medications: New cephalexin 250 mg capsule 250 mg PO Q8H Qty: 14 0RF Continued atorvastatin 20 mg tablet 20 mg PO HS allopurinol 100 mg tablet 100 mg PO DAILY haloperidol 5 mg Tablet 5 mg PO BID midodrine 5 mg Tablet 5 mg PO PRN PRN (Reason: Blood Pressure) Rx Instructions: do not give last dose of day after 6PM or within 4 hrs of bedtime Take as need on Tuesday - - Tuesday magnesium hydroxide 400 mg/5 mL Suspension 30 ml PO HS PRN (Reason: Constipation) folic acid 1 mg Tablet 800 mcg PO DAILY acetaminophen 325 mg Tablet 650 mg PO Q4H PRN (Reason: Pain, Mild) bisacodyl 10 mg Suppository 10 mg RECTAL DAILY PRN (Reason: Constipation) Fleet Enema 19-7 gram/118 mL Enema 118 ml RECTAL PRN PRN (Reason: Constipation) magnesium citrate Solution 296 ml PO DAILY PRN (Reason: Constipation) sevelamer carbonate 800 mg tablet 800 mg PO TID B Complex w-Vit C 22-71-15-5-250 mg Tablet 1 tablet PO DAILY Date of admission: 03/21/23 22:59 Primary Care Provider: Navin Castañeda Admitting Provider: Radha Alfonso Attending physician on admission: Neftali Pan Condition: Stable
--- NOTE | 2023-03-24 11:50 | PCSTNOTE ---
Please refer to the Bedside Swallow Evaluation in the EMR. Please note, silent aspiration cannot be ruled out at bedside.
[2023-03-24 12:00] VITALS: BP 146/67; PULSE 52; RESP 22; TEMP 36.6; O2SAT 100
--- NOTE | 2023-03-24 12:37 | PM.PNNEP ---
Progress Note: A&P Assessment and Plan (1) End stage renal disease: Code(s): N18.6 - End stage renal disease Status: Chronic Assessment and Plan: HD tomorrow and continue M/W/F dialysis schedule tomorrow follow electrolytes, volume status, and clearance (2) UTI (urinary tract infection): Qualifiers: Hematuria presence: without hematuria Urinary tract infection type: site unspecified Qualified Code(s): N39.0 - Urinary tract infection, site not specified Code(s): N39.0 - Urinary tract infection, site not specified Status: Acute Assessment and Plan: as suggested by admission UA follow culture data empiric antibiotics (3) Hypertension: Code(s): I10 - Essential (primary) hypertension Status: Chronic Assessment and Plan: holding midodrine since BP elevated follow trend of hemodynamics (4) CHI (closed head injury): Qualifiers: Encounter type: initial encounter Qualified Code(s): S09.90XA - Unspecified injury of head, initial encounter Code(s): S09.90XA - Unspecified injury of head, initial encounter Status: Acute Assessment and Plan: secondary to fall previous imaging noted supportive therapy Will continue to follow. Subjective Date/time seen: 03/24/23 12:37 Interval history: Follow-up for end stage renal disease on hemodialysis. Tolerated hemodialysis treatment yesterday without any issues or problems noted; mentation seems stable at the time of my visit; no issues/events overnight or earlier this morning. Exam Narrative: General: elderly female in NAD Heart: normal S1 and S2; no rub Lungs: clear to auscultation Abdomen: soft, nontender, nondistended, positive bowel sounds Extremities: no cyanosis or clubbing; no edema Skin: warm and intact Objective Data Vital Signs Vital Signs: Vital Signs Temp Pulse Resp BP Pulse Ox O2 Del Method 03/24/23 08:00 Room Air 03/24/23 08:00 97.6 F 52 L 22 H 152/77 H 100 03/24/23 04:00 96.2 F L 89 26 H 172/77 H 98 03/23/23 23:21 97.1 F L 106 H 24 H 166/79 H 92 03/23/23 20:00 97.1 F L 104 H 24 H 181/76 H 96 Intake/Output Intake/Output: Intake & Output 0903/22/23 03/23/23 03/24/23 23:59 23:59 23:59 23:59 Intake Total 50 743 263 8272 Output Total 610 681 Balance 07 -839 -593 1270 Meds/Results Medications: Active Medications Generic Name Dose Route Start Last Admin Trade Name Freq PRN Reason Stop Dose Admin Acetaminophen 650 mg 03/22/23 04:49 03/23/23 08:25 Acetaminophen 325 Mg Tablet PO 650 mg Q4H PRN Administration Mild Pain (1-3) or Fever Allopurinol 100 mg 03/22/23 09:00 03/24/23 09:24 Allopurinol 100 Mg Tablet PO 100 mg DAILY MADISYN Administration Atorvastatin Calcium 20 mg 03/22/23 21:00 03/23/23 21:28 Atorvastatin 20 Mg Tablet PO 20 mg HS MADISYN Administration Bisacodyl 10 mg 03/22/23 04:49 Bisacodyl 10 Mg Suppository RECTAL DAILY PRN Constipation Folic Acid 0.8 mg 03/22/23 09:00 03/24/23 09:23 Folic Acid 0.4 Mg Tablet PO 0.8 mg DAILY MADISYN Administration Haloperidol 5 mg 03/22/23 09:00 03/24/23 09:24 Haloperidol 5 Mg Tablet PO 5 mg BID MADISYN Administration Heparin Sodium (Porcine) 5,000 units 03/22/23 09:00 03/24/23 09:23 Heparin Sodium 5,000 Units/Ml Vial SUB-Q 5,000 units Q12HR MADISYN Administration Ceftriaxone Sodium 1 gm in 50 mls @ 100 mls/hr 03/22/23 21:00 03/23/23 21:27 Rocephin 1 Gm/Ns 50 Ml IVPB 100 mls/hr Q24H MADISYN Administration Albumin Human 50 mls @ 999 mls/hr 03/22/23 07:05 03/22/23 12:08 Albutein IVPB 04/21/23 07:04 999 mls/hr Q10M PRN Administration HYPOTENSION Miconazole Nitrate 1 applic 03/22/23 09:00 03/24/23 09:24 Miconazole 2% Antifungal Ointment 56 Gm TOPICAL 1 applic Q12HR MADISYN Administration Ondansetron HCl 4 mg 03/21
[2023-03-24 16:00] VITALS: BP 146/67; PULSE 52; RESP 22; TEMP 36.4; O2SAT 100
[2023-03-24 20:00] VITALS: BP 156/82; PULSE 93; RESP 20; TEMP 36.4; O2SAT 98
[2023-03-24] MEDS: ATORVASTATIN 20 MG TABLET PO (20:34)
[2023-03-25] VITALS (20 sets, daily range): BP systolic 130–176; BP diastolic 73–96; PULSE 80–101; RESP 14–24; TEMP 36–36.9; O2SAT 91–100
[2023-03-25] MEDS: BISACODYL 10 MG SUPPOSITORY RECTAL (04:52)
--- NOTE | 2023-03-25 10:27 | PCNFU ---
Nutrition Follow-Up Complete: Increased nutrient needs related to altered skin integrity as evidenced by stage III to sacrum Diet advanced, Ensure compact BID - Supplement changed PO intake greater than 50% of meals and supplements - Progressing with meal intake Goal: Pt current nutrition is Minced & moist diet, mildly thickened liquids. 100% breakfast today. Nutrition recommendation: Add oral nutrition supplements: Nepro BID for additional 420 kcal and 19 g protein each. Add Ahmet BID for additional 90 kcal and 2.5 g protein with arginine and glutamine to support wound healing. Last recorded weight is 62 kg. Bowel Motility: +1 BM 03/25/23 Labs Reviewed:Hgb 8.8, Hct 29.2, Alb 3.2, Na 135. GFR 15, Cre 3.7 Meds Noted: Folic acid, zofran, protonix Skin: Stage III sacrum Additional Notes: Pt had MBSS yesterday and placed on MM level 5 diet with thickened liquids. Appetite good this morning. Continue with same goals Monitor diet order, intake, wt, labs, skin. Follow up in 3 days.
--- NOTE | 2023-03-25 10:35 | PM.PNNEP ---
Progress Note: A&P Assessment and Plan (1) End stage renal disease: Code(s): N18.6 - End stage renal disease Status: Chronic Assessment and Plan: HD today and continue M/W/F dialysis schedule tomorrow follow electrolytes, volume status, and clearance (2) UTI (urinary tract infection): Qualifiers: Hematuria presence: without hematuria Urinary tract infection type: site unspecified Qualified Code(s): N39.0 - Urinary tract infection, site not specified Code(s): N39.0 - Urinary tract infection, site not specified Status: Acute Assessment and Plan: as suggested by admission UA however, culture data on antibiotics (3) Hypertension: Code(s): I10 - Essential (primary) hypertension Status: Chronic Assessment and Plan: holding midodrine since BP elevated follow trend of hemodynamics (4) CHI (closed head injury): Qualifiers: Encounter type: initial encounter Qualified Code(s): S09.90XA - Unspecified injury of head, initial encounter Code(s): S09.90XA - Unspecified injury of head, initial encounter Status: Acute Assessment and Plan: secondary to fall previous imaging noted supportive therapy Not opposed to discharge from renal perspective if otherwise medically stable. Will continue to follow. Subjective Date/time seen: 03/25/23 10:35 Interval history: Follow-up for end stage renal disease on hemodialysis. Tolerating hemodialysis treatment at the time of my visit (seen on HD at 10:30AM); no new issues or concerns to report; mentation seems at baseline; no apparent distress noted; no events overnight or earlier this morning. Exam Narrative: General: elderly female in NAD Heart: normal S1 and S2; no rub Lungs: clear to auscultation Abdomen: soft, nontender, nondistended, positive bowel sounds Extremities: no cyanosis or clubbing; no edema Skin: no rash Objective Data Vital Signs Vital Signs: Vital Signs Temp Pulse Resp BP Pulse Ox O2 Del Method 03/25/23 10:20 91 176/88 H 03/25/23 10:00 92 166/88 H 03/25/23 09:40 94 175/85 H 03/25/23 09:33 95 161/96 H 03/25/23 08:00 Room Air 03/25/23 09:03 97.0 F L 94 18 163/94 H 03/25/23 08:00 97.1 F L 93 24 H 166/78 H 97 03/25/23 04:00 97.4 F L 101 H 20 175/91 H 100 03/25/23 00:00 97.7 F 91 14 159/78 H 91 03/24/23 20:00 97.6 F 93 20 156/82 H 98 03/24/23 19:55 Room Air 03/24/23 16:00 97.6 F 52 L 22 H 146/67 H 100 Intake/Output Intake/Output: Intake & Output 03/22/23 03/23/23 03/24/23 03/25/23 23:59 23:59 23:59 23:59 Intake Total 572 438 2170 600 Output Total 991 952 6482 Balance -636 -411 1270 -900 Meds/Results Medications: Active Medications Generic Name Dose Route Start Last Admin Trade Name Freq PRN Reason Stop Dose Admin Acetaminophen 650 mg 03/22/23 04:49 03/25/23 10:46 Acetaminophen 325 Mg Tablet PO 650 mg Q4H PRN Administration Mild Pain (1-3) or Fever Allopurinol 100 mg 03/22/23 09:00 03/25/23 13:22 Allopurinol 100 Mg Tablet PO Not Given DAILY [facility] Atorvastatin Calcium 20 mg 03/22/23 21:00 03/24/23 20:34 Atorvastatin 20 Mg Tablet PO 20 mg HS MADISYN Administration Bisacodyl 10 mg 03/22/23 04:49 03/25/23 04:52 Bisacodyl 10 Mg Suppository RECTAL 10 mg DAILY PRN Administration Constipation Folic Acid 0.8 mg 03/22/23 09:00 03/25/23 13:22 Folic Acid 0.4 Mg Tablet PO Not Given DAILY MADISYN Haloperidol 5 mg 03/22/23 09:00 03/25/23 13:21 Haloperidol 5 Mg Tablet PO Not Given BID MADISYN Heparin Sodium (Porcine) 5,000 units 03/22/23 09:00 03/25/23 13:22 Heparin Sodium 5,000 Units/Ml Vial SUB-Q Not Given Q12HR MADISYN Ceftriaxone Sodium 1 gm in 50 mls @ 100 mls/hr 03/22/23 21:00 03/24/23 20:32 Rocephin 1 Gm/Ns 50 Ml IVPB 100 mls/hr Q24H MADISYN
[2023-03-25] MEDS: EPOETIN ALFA-EPBX 10,000 UNITS/ML VIAL 10000 UNITS IV PUSH (10:42)
[2023-03-25] MEDS: ACETAMINOPHEN 325 MG TABLET 650 MG PO (10:46)
[2023-03-25 14:49] LABS: SARS-CoV-2 RNA PCR Negative (Negative)
[2023-03-25] MEDS: HALOPERIDOL 5 MG TABLET PO (17:01)
[2023-03-25] MEDS: SEVELAMER CARBONATE 800 MG TABLET PO (17:01)
== END 2023-03-25 20:00 ==
LOC: ANHED 22:28 → ANH3MEDSUR 23:24
PROVIDERS: Chiropractor; Internal Medicine Nephrology; Admitting Provider Internal Medicine; Emergency Provider Emergency Medicine; PCP Hospitalist; Visit Provider Hospitalist
DX: R11.10 Vomiting, unspecified (principal); S09.90XA Unspecified injury of head, initial encounter; W05.0XXA Fall from non-moving wheelchair, initial encounter; S22.31XK Fracture of one rib, right side, subsequent encounter for fracture with nonunion; R29.6 Repeated falls; K20.90 Esophagitis, unspecified without bleeding; E87.1 Hypo-osmolality and hyponatremia; N39.0 Urinary tract infection, site not specified; G30.9 Alzheimer's disease, unspecified; Z20.822 Contact with and (suspected) exposure to COVID-19; F02.80 Dementia in other diseases classified elsewhere, unspecified severity, without behavioral disturbance, psychotic disturbance, mood disturbance, and anxiety; N18.6 End stage renal disease; Z99.2 Dependence on renal dialysis; D64.9 Anemia, unspecified; E83.52 Hypercalcemia; E78.5 Hyperlipidemia, unspecified; F20.9 Schizophrenia, unspecified; K59.00 Constipation, unspecified; I95.89 Other hypotension; E86.1 Hypovolemia; E87.8 Other disorders of electrolyte and fluid balance, not elsewhere classified; N25.0 Renal osteodystrophy; R94.31 Abnormal electrocardiogram [ECG] [EKG]; Z87.891 Personal history of nicotine dependence; Z79.899 Other long term (current) drug therapy
CPT/HCPCS: 36415; 70450; 71045; 72125; 74176; 80048; 80053; 81001; 85025; 86706; 87086; 87340; 87635; 92507; 92610; 92611; 93005; 96365; 96374; 96375; 99285; A9270; G0257; G0378; G0379; J0696; J1644; J2405; J7030; P9047; Q4081; Q5106

== ENCOUNTER 2023-04-02 14:34 | Emergency (ER) | payer OTHER, SELFPAY ==
--- NOTE | ~2023-04-02 | CT_ITS ---
EXAMINATION: CT abdomen pelvis wo con DATE: 04/02/2023 15:21 INDICATION: fall TECHNIQUE: Computed tomography (CT) of the abdomen and pelvis was performed without intravenous contr ast. Automated exposure control and iterative reconstruction technique were employed. The dose-length product was 435.80 mGy-cm. Contrast allergy precluded the use of intravenous contrast. COMPARISON: 03/21/2023. FINDINGS: Lower thorax: Small left and trace right pleural effusions. Heavy atherosclerotic calcifications and coronary artery calcification. Minimal dependent atelectasis. Hiatal hernia. Liver: Mild periportal edema. Biliary/Gallbladder: Gallbladder is absent. No bile duct dilation. Pancreas: No mass or duct dilation. Spleen: Normal. Adrenals:No mass. Kidneys: Bilateral atrophy. Multiple nonobstructing bilateral calculi. Redemonstration of two soft ti ssue density left renal masses. Multiple bilateral cysts and lesions that are too small to characteri ze but statistically also likely represent cysts. GI tract: Distal esophageal wall thickening. The rectum is mildly dilated by formed stool, with mild surrounding wall thickening/inflammatory change, particularly in the distal rectum. The appendix was not confidently visualized. Diverticulosis without diverticulitis. Mesentery/Peritoneum: No ascites, mass, or free air. Retroperitoneum: No mass. Atherosclerotic abdominal aortic and/or arterial calcifications. Pelvis: Pelvic organs are within normal limits. Soft Tissues: Severe diffuse body wall edema. 4.3 x 5.3 cm collection of more focal fluid overlying t he left iliac wing. Bones: No acute osseous finding. The previously described acute appearing right lateral 10th rib fra cture is not seen and may have been artifactual. IMPRESSION: Severe diffuse body wall edema. A 5.3 cm subcutaneous fluid collection overlying the left iliac wing may represent focal edematous fluid or contusion/hematoma. Otherwise, no acute traumatic abdominopelvic finding in this noncontrast examination. Small bilateral pleural effusions. Mild fecal impaction with adjacent bowel wall thickening/inflammatory change. A component of proctiti s or early stercoral colitis is not excluded. No change to the prior recommendations for nonemergent endoscopy and CT or MRI without and with contr ast to evaluate distal esophageal wall thickening and solid appearing renal masses. Reviewed, dictated and finalized at location K. IMPRESSION: Severe diffuse body wall edema. A 5.3 cm subcutaneous fluid collection overlyin g the left iliac wing may represent focal edematous fluid or contusion/hematoma . Otherwise, no acute traumatic abdominopelvic finding in this noncontrast examin ation. Small bilateral pleural effusions. Mild fecal impaction with adjacent bowel wall thickening/inflammatory change. A component of proctitis or early stercoral colitis is not excluded. No change to the prior recommendations for nonemergent endoscopy and CT or MRI without and with contrast to evaluate distal esophageal wall thickening and marily id appearing renal masses.
[2023-04-02 14:32] VITALS: BP 149/90; PULSE 93; RESP 14; TEMP 36.6; O2SAT 100
--- NOTE | 2023-04-02 14:56 | ECG_ITS ---
Measurements Intervals [place] Rate: 97 P: 69 CA: 173 QRS: 57 QRSD: 100 T: 23 QT: 319 QTc: 406 Interpretive Statements SINUS RHYTHM WITH SINUS ARRHYTHMIA ATRIAL PREMATURE COMPLEX POSSIBLE LEFT ATRIAL ENLARGEMENT DELAYED PRECORDIAL R/S TRANSITION NONSPECIFIC ST & T-WAVE ABNORMALITY- INF/LAT LEADS BASELINE ARTIFACT- I, II, III, AVR, AVL, AVF, V1-V2 BORDERLINE ECG COMPARED TO ECG 03/21/2023 22:31:03 NO SIGNIFICANT CHANGES Electronically Signed On 04-02-2023 18:16:13 CDT by Vineet Kumar D.O.
[2023-04-02 16:04] LABS: Basophils Percent Auto 0.8 % (0.2-1.2); Eosinophils Absolute Auto 0.3 K/mm3 (0-0.3); Eosinophils Percent Auto 6.6 % (0-4.4); Hematocrit 30.1 % (37.0-47.0); Hemoglobin 9.2 g/dL (12.0-15.0); Lymphocytes Absolute Auto 0.78 K/mm3 (0.9-3.2); Lymphocytes Percent Auto 15.5 % (18.3-44.2); Mean Corpuscular HGB Conc 30.6 g/dl (32-36); Mean Corpuscular Hemoglobin 26.7 pg (26-34); Mean Corpuscular Volume 87.2 fl (80-100); Mean Platelet Volume 9.1 fl (7.4-10.4); Monocytes Absolute Auto 0.5 K/mm3 (0.1-0.6); Monocytes Percent Auto 9.1 % (2.6-8.5); Neutrophils Absolute Auto 3.3 K/mm3 (1.3-6.7); Platelet Count Result 179 k/mm3 (150-375); Red Blood Count 3.45 M/mm3 (4.2-5.4)
[2023-04-02 16:14] LABS: Anion Gap 3 mmol/L (8-16); Blood Urea Nitrogen 18 mg/dL (7-17); Calcium 11.9 mg/dL (8.4-10.2); Carbon Dioxide 35 mmol/L (22-30); Chloride 89 mmol/L (98-107); Estimated CRCL calculation 14 ml/min; Estimated Glomerular Filt Rate 21; Glucose 115 mg/dL (65-110); Potassium 3.5 mmol/L (3.4-5.0); Sodium 127 mmol/L (137-145)
--- NOTE | 2023-04-02 16:44 | ED.GENADULT ---
HPI - General Adult General Chief complaint: Fall <Carina Costa, CITY MAGISTRATE - Last Filed: 04/02/23 18:56> Stated complaint: fall <Carina Martinez November CITY MAGISTRATE - Last Filed: 04/02/23 18:56> Time Seen by Provider: 04/02/23 14:41 <Carina Martinez November CITY MAGISTRATE - Last Filed: 04/02/23 18:56> History of Present Illness HPI narrative: Dania Demarco is a 72 y/o female with significant PMHx of alzheimers, dementia, end stage renal disease on HD, HTN, baseline orientation of x1. EMS brought pt in with reports that pt slipped out of her wheelchair and fell on to her buttocks today, NH said she did not hit her head, not having any mental status changes, she is complaining of pain to her bottom. <Carina Martinez November, [employer] MAGISTRATE - Last Filed: 04/02/23 18:56> Related Data Home medications: Home Medications Medication Instructions Recorded Confirmed allopurinol 100 mg tablet 100 mg PO DAILY 09/28/22 03/22/23 atorvastatin 20 mg tablet 20 mg PO HS 09/28/22 03/22/23 folic acid 1 mg tablet 800 mcg PO DAILY 09/28/22 03/22/23 haloperidol 5 mg tablet 5 mg PO BID 09/28/22 03/22/23 magnesium hydroxide 400 mg/5 mL 30 ml PO HS PRN Constipation 09/28/22 03/22/23 oral suspension midodrine 5 mg tablet 5 mg PO PRN PRN Blood Pressure 09/28/22 03/22/23 acetaminophen 325 mg tablet 650 mg PO Q4H PRN Pain, Mild 02/26/23 03/22/23 bisacodyl 10 mg rectal suppository 10 mg RECTAL DAILY PRN Constipation 02/26/23 03/22/23 magnesium citrate 296 ml PO DAILY PRN Constipation 02/26/23 03/22/23 sevelamer carbonate 800 mg tablet 800 mg PO TID 02/26/23 03/22/23 sodium phosphates 19 gram-7 118 ml RECTAL PRN PRN Constipation 02/26/23 03/22/23 gram/118 mL enema (Fleet Enema) [id number] 1 tablet PO DAILY 02/26/23 03/22/23 18 mg-10 mg-45 mg-5 mg-250 mg tablet (B Complex w-Vit C) <Carina Costa APRN - Last Filed: 04/02/23 18:56> Allergies/adverse reactions: Allergies Allergy/AdvReac Type Severity Reaction Status Date / Time aspirin Allergy Unknown Verified 03/21/23 18:25 cabbage Allergy Unknown Verified 03/21/23 18:25 chocolate flavor Allergy Unknown Verified 03/21/23 18:25 erythromycin base Allergy Unknown Verified 03/21/23 18:25 iodine Allergy Unknown Verified 03/21/23 18:25 metrizamide Allergy Unknown Verified 03/21/23 18:25 nitrofurantoin Allergy Unknown Verified 03/21/23 18:25 Penicillins Allergy Unknown Verified 03/21/23 18:25 tositumomab Allergy Unknown Verified 03/21/23 18:25 <Carina Costa CITY MAGISTRATE - Last Filed: 04/02/23 18:56> Review of Systems Review of Systems: although she does agree when asked if her bottom hurts and she denies pain to her hips with palpation or lower extremities or head <Carina Costa CITY MAGISTRATE - Last Filed: 04/02/23 18:56> ROS unobtainable: Yes unobtainable due to mental status <Carina Costa APRN - Last Filed: 04/02/23 18:56> PMFSH Past Medical History Medical History: Medical History Alzheimer disease End-stage renal disease on hemodialysis Hyperlipidemia Orthostatic hypotension Renal osteodystrophy Schizophrenia <Carina Costa [employer] MAGISTRATE - Last Filed: 04/02/23 18:56> Surgical History Surgical History: Surgical History Arteriovenous fistula Surgically formed right upper extremity Patient has a her left upper extremity dialysis graft that has failed <Carina Costa APRN - Last Filed: 04/02/23 18:56> Family History Family History: Family History Other Unknown family medical history <Carina Costa APRN - Last Filed: 04/02/23 18:56> Social History Social History: Social History Social History: The patient is reported as being and retired. She only has a granddaughter who is listed as a contact. She is a former smoker. She is from [place]
--- NOTE | 2023-04-02 19:00 | PC.NURSE ---
report called to [place], EMS called to transport
[2023-04-02 21:53] VITALS: BP 143/86; PULSE 94; RESP 14; O2SAT 100
== END 2023-04-02 21:54 ==
PROVIDERS: Emergency Provider Nurse Practitioner Family; PCP Hospitalist
DX: K59.00 Constipation, unspecified (principal); G30.9 Alzheimer's disease, unspecified; F02.80 Dementia in other diseases classified elsewhere, unspecified severity, without behavioral disturbance, psychotic disturbance, mood disturbance, and anxiety; I12.0 Hypertensive chronic kidney disease with stage 5 chronic kidney disease or end stage renal disease; N18.6 End stage renal disease; N25.0 Renal osteodystrophy; E78.5 Hyperlipidemia, unspecified; F20.9 Schizophrenia, unspecified; Z99.2 Dependence on renal dialysis; Z87.891 Personal history of nicotine dependence; W05.0XXA Fall from non-moving wheelchair, initial encounter; R60.9 Edema, unspecified; R93.5 Abnormal findings on diagnostic imaging of other abdominal regions, including retroperitoneum
CPT/HCPCS: 36415; 74176; 80048; 85025; 93005; 99284

== ENCOUNTER 2023-05-23 13:42 | Emergency (ER) | payer OTHER, SELFPAY ==
[2023-05-23 13:45] VITALS: BP 146/72; PULSE 86; RESP 20; TEMP 36.4; O2SAT 100
[2023-05-23 14:21] VITALS: O2SAT 99
[2023-05-23 14:31] VITALS: BP 111/87; PULSE 68; RESP 18; O2SAT 100
[2023-05-23 14:32] VITALS: O2SAT 100
--- NOTE | 2023-05-23 15:57 | ED.GENADULT ---
HPI - General Adult General Chief complaint: Nausea/Vomiting/Diarrhea Stated complaint: n/v/d x hour Time Seen by Provider: 05/23/23 14:49 History of Present Illness HPI narrative: 72-year-old female with history of dialysis presented to the emergency department from local shelter for evaluation of nausea vomiting and diarrhea. Upon arrival to the ED patient has had no persistent nausea vomiting or diarrhea. Patient states she does still have some nausea. Patient denied any other complaints. Patient is a dialysis patient has not missed any dialysis. Related Data Home Medications Medication Instructions Recorded Confirmed allopurinol 100 mg tablet 100 mg PO DAILY 09/28/22 03/22/23 atorvastatin 20 mg tablet 20 mg PO HS 09/28/22 03/22/23 folic acid 1 mg tablet 800 mcg PO DAILY 09/28/22 03/22/23 haloperidol 5 mg tablet 5 mg PO BID 09/28/22 03/22/23 magnesium hydroxide 400 mg/5 mL 30 ml PO HS PRN Constipation 09/28/22 03/22/23 oral suspension midodrine 5 mg tablet 5 mg PO PRN PRN Blood Pressure 09/28/22 03/22/23 acetaminophen 325 mg tablet 650 mg PO Q4H PRN Pain, Mild 02/26/23 03/22/23 bisacodyl 10 mg rectal suppository 10 mg RECTAL DAILY PRN Constipation 02/26/23 03/22/23 magnesium citrate 296 ml PO DAILY PRN Constipation 02/26/23 03/22/23 sevelamer carbonate 800 mg tablet 800 mg PO TID 02/26/23 03/22/23 sodium phosphates 19 gram-7 118 ml RECTAL PRN PRN Constipation 02/26/23 03/22/23 gram/118 mL enema (Fleet Enema) [id number] 1 tablet PO DAILY 02/26/23 03/22/23 18 mg-10 mg-45 mg-5 mg-250 mg tablet (B Complex w-Vit C) Allergies Allergy/AdvReac Type Severity Reaction Status Date / Time aspirin Allergy Unknown Verified 03/21/23 18:25 cabbage Allergy Unknown Verified 03/21/23 18:25 chocolate flavor Allergy Unknown Verified 03/21/23 18:25 erythromycin base Allergy Unknown Verified 03/21/23 18:25 iodine Allergy Unknown Verified 03/21/23 18:25 metrizamide Allergy Unknown Verified 03/21/23 18:25 nitrofurantoin Allergy Unknown Verified 03/21/23 18:25 Penicillins Allergy Unknown Verified 03/21/23 18:25 tositumomab Allergy Unknown Verified 03/21/23 18:25 Review of Systems Review of Systems: All systems reviewed & are unremarkable except as noted in HPI and below PMFSH Past Medical History Medical History Alzheimer disease End-stage renal disease on hemodialysis Hyperlipidemia Orthostatic hypotension Renal osteodystrophy Schizophrenia Surgical History Surgical History Arteriovenous fistula Surgically formed right upper extremity Patient has a her left upper extremity dialysis graft that has failed Family History Family History Other Unknown family medical history Social History Social History Social History: The patient is reported as being and retired. She only has a granddaughter who is listed as a contact. She is a former smoker. She is from and [facility] shelter Code status: Full code Smoking status: Former smoker Alcohol intake: unknown Substance use: unknown Spiritual care concerns: No Exam Narrative: APPEARANCE: Well appearing, no pain, no distress, well-nourished. HEAD: normocephalic, atraumatic. EYES: PERRLA/EOMI, conjunctivae clear. NOSE: Normal no drainage EARS:TMS clear with good light reflex. THROAT: Pharynx clear, no exudate. NECK: Supple. No adenopathy, no masses. RESPIRATORY: Airway patent, respirations nonlabored. Clear to auscultation bilaterally, no rales, rhonchi, wheezing. CARDIOVASCULAR: Regular rate and rhythm without murmurs rubs or gallops. ABDOMINAL: Soft, nontender, nondistended, normal bowel sounds MUSCULOSKELETAL: Moves all extremities. Strength/ROM intact, No edema, No calf tenderness.
[2023-05-23] MEDS: ONDANSETRON HCL ODT 4 MG TABLET PO (16:13)
--- NOTE | 2023-05-23 16:51 | PC.NURSE ---
Pt is very wilhelm to insert IV line and blood draw, phlebotomy was called to help with blood draw.
[2023-05-23 16:52] VITALS: BP 116/73; PULSE 63; RESP 18; O2SAT 100
[2023-05-23 16:53] LABS: Basophils Percent Auto 0.3 % (0.2-1.2); Eosinophils Absolute Auto 0.1 K/mm3 (0-0.3); Eosinophils Percent Auto 1.7 % (0-4.4); Hematocrit 34.5 % (37.0-47.0); Hemoglobin 10.7 g/dL (12.0-15.0); Immature Granulocyte Absolute 0.02 K/mm3 (0.00-0.031); Immature Granulocyte Percent A 0.3 % (0-0.5); Lymphocytes Absolute Auto 0.73 K/mm3 (0.9-3.2); Lymphocytes Percent Auto 12.7 % (18.3-44.2); Mean Corpuscular Volume 93.5 fl (80-100); Mean Platelet Volume 8.6 fl (7.4-10.4); Monocytes Absolute Auto 0.5 K/mm3 (0.1-0.6); Monocytes Percent Auto 8.5 % (2.6-8.5); Neutrophils Absolute Auto 4.4 K/mm3 (1.3-6.7); Neutrophils Percent Auto 76.5 % (45.5-73.1); Platelet Count Result 140 k/mm3 (150-375); Red Blood Count 3.69 M/mm3 (4.2-5.4); Red Cell Distribution Width 20.4 % (11.5-14.5); White Blood Count 5.7 K/mm3 (4.5-10.0)
[2023-05-23 17:03] LABS: Alanine Aminotransferase 30 U/L (6-35); Albumin Level 3.5 g/dL (3.5-5.1); Alkaline Phosphatase 83 U/L (38-126); Anion Gap 11 mmol/L (8-16); Aspartate Amino Transferase 32 U/L (14-36); Bilirubin,Total 0.5 mg/dL (0.2-1.3); Blood Urea Nitrogen 30 mg/dL (7-17); Calcium 8.7 mg/dL (8.4-10.2); Carbon Dioxide 28 mmol/L (22-30); Chloride 93 mmol/L (98-107); Estimated CRCL calculation 7 ml/min; Estimated Glomerular Filt Rate 9; Glucose 115 mg/dL (65-110); Lipase 187 U/L (23-300); Potassium 3.4 mmol/L (3.4-5.0); Sodium 132 mmol/L (137-145)
[2023-05-23 17:32] LABS: Influenza A QL RT-PCR Negative (Negative); Influenza B QL RT-PCR Negative (Negative); RSV RNA, RT-PCR Negative (Negative); SARS-CoV-2 RNA PCR Negative (Negative)
[2023-05-23 17:40] VITALS: BP 121/101; PULSE 84; RESP 16; O2SAT 100
== END 2023-05-23 18:21 ==
PROVIDERS: Emergency Provider Emergency Medicine; PCP Hospitalist
DX: R11.2 Nausea with vomiting, unspecified (principal); Z20.822 Contact with and (suspected) exposure to COVID-19; G30.9 Alzheimer's disease, unspecified; F02.80 Dementia in other diseases classified elsewhere, unspecified severity, without behavioral disturbance, psychotic disturbance, mood disturbance, and anxiety; N18.6 End stage renal disease; Z99.2 Dependence on renal dialysis; N25.0 Renal osteodystrophy; E78.5 Hyperlipidemia, unspecified; F20.9 Schizophrenia, unspecified; Z87.891 Personal history of nicotine dependence
CPT/HCPCS: 36415; 80053; 83690; 85025; 87637; 99283; A9270

== ENCOUNTER 2023-06-01 12:17 | Emergency (ER) | payer OTHER, SELFPAY ==
[2023-06-01] VITALS (17 sets, daily range): BP systolic 98–144; BP diastolic 60–82; PULSE 68–100; RESP 17–23; TEMP 36.4; O2SAT 98–99
--- NOTE | ~2023-06-01 | XR_ITS ---
EXAMINATION: XR abdomen/kub 1V INDICATION: Dialysis patient TECHNIQUE: Supine view of the abdomen is obtained. COMPARISON: None FINDINGS: The bowel gas pattern is nonspecific. There are no dilated loops of bowel. There is mild el evation of the right hemidiaphragm. Surgical clips in the right upper quadrant are likely from prior cholecystectomy. Calcified atherosclerosis is noted. IMPRESSION: 1. Nonspecific bowel gas pattern. Reviewed, dictated and finalized at location F. RAISER LOCKSTITCH
--- NOTE | ~2023-06-01 | XR_ITS ---
EXAMINATION: XR chest 1V portable Exam Date/Time: 06/01/2023 16:15 TELEPHONE ASSEMBLER HISTORY: Dialysis patient, UNABLE TO GET FULL TREATMENT Comparison: 03/23/2023. RESULT: Lines, tubes, and devices: Serpiginous artifact over the right shoulder. Left upper extremity vascul ar stent. Lungs and pleura: Senescent change. Slightly low lung volumes. Minimal bibasilar atelectasis. Cardiomediastinal silhouette: Stable. Other: No acute osseous or upper abdominal finding. IMPRESSION: No acute cardiopulmonary process. Reviewed, dictated and finalized at location K. PHONE ASSEMBLER
--- NOTE | 2023-06-01 12:30 | ED.GENADULT ---
HPI - General Adult General Chief complaint: Unspecified Stated complaint: keeps pulling out dialysis catheter Time Seen by Provider: 06/01/23 12:29 Source: patient and EMS Mode of arrival: EMS Limitations: dementia History of Present Illness HPI narrative: 72 years old female came from dialysis with itching skin rash on her back for almost 1 week. She denies any rash anywhere else. According to the triage note that the patient have itching branch/scratches at the dialysis catheter. Patient denied that. Patient denies any fever, chills, nausea, vomiting, headache chest pain, shortness of breath or back pain. I WAS ABLE TO SPEAK TO THE DIALYSIS NURSE WHO SENT THE PATIENT TO OUR EMERGENCY ROOM AND HER NAME IS ANJUM AT [facility] WHO TOLD ME THAT PATIENT KEPT SCRATCHING AROUND THE CATHETER AND KEEP MOVING HER ARM AND WOULD NOT HAVE ENOUGH STAFF TO MONITOR HER ALL THE TIME, PATIENT HAS HISTORY OF DEMENTIA AND UNABLE TO UNDERSTAND, PATIENT DOES NOT FOLLOW ORDERS AND PROBABLY SCRATCHING AT THAT SITE. THE NURSE DID NOT CALL THE DIALYSIS DOCTOR AND DECIDED TO SEND PATIENT TO THE EMERGENCY ROOM FOR FURTHER EVALUATION. SHE IS TELLING ME THAT PATIENT WAS SHORTENED ON DIALYSIS LAST WEEK FOR THE SAME REASON AND TODAY. bASICALLY SHE HAD 100 ML FLUID OUT TODAY Related Data Home Medications Medication Instructions Recorded Confirmed allopurinol 100 mg tablet 100 mg PO DAILY 09/28/22 03/22/23 atorvastatin 20 mg tablet 20 mg PO HS 09/28/22 03/22/23 folic acid 1 mg tablet 800 mcg PO DAILY 09/28/22 03/22/23 haloperidol 5 mg tablet 5 mg PO BID 09/28/22 03/22/23 magnesium hydroxide 400 mg/5 mL 30 ml PO HS PRN Constipation 09/28/22 03/22/23 oral suspension midodrine 5 mg tablet 5 mg PO PRN PRN Blood Pressure 09/28/22 03/22/23 acetaminophen 325 mg tablet 650 mg PO Q4H PRN Pain, Mild 02/26/23 03/22/23 bisacodyl 10 mg rectal suppository 10 mg RECTAL DAILY PRN Constipation 02/26/23 03/22/23 magnesium citrate 296 ml PO DAILY PRN Constipation 02/26/23 03/22/23 sevelamer carbonate 800 mg tablet 800 mg PO TID 02/26/23 03/22/23 sodium phosphates 19 gram-7 118 ml RECTAL PRN PRN Constipation 02/26/23 03/22/23 gram/118 mL enema (Fleet Enema) [id number] 1 tablet PO DAILY 02/26/23 03/22/23 18 mg-10 mg-45 mg-5 mg-250 mg tablet (B Complex w-Vit C) Allergies Allergy/AdvReac Type Severity Reaction Status Date / Time aspirin Allergy Unknown Verified 03/21/23 18:25 cabbage Allergy Unknown Verified 03/21/23 18:25 chocolate flavor Allergy Unknown Verified 03/21/23 18:25 erythromycin base Allergy Unknown Verified 03/21/23 18:25 iodine Allergy Unknown Verified 03/21/23 18:25 metrizamide Allergy Unknown Verified 03/21/23 18:25 nitrofurantoin Allergy Unknown Verified 03/21/23 18:25 Penicillins Allergy Unknown Verified 03/21/23 18:25 tositumomab Allergy Unknown Verified 03/21/23 18:25 Review of Systems Review of Systems: ROS unobtainable: Yes unobtainable due to mental status PMFSH Past Medical History Medical History Alzheimer disease End-stage renal disease on hemodialysis Hyperlipidemia Orthostatic hypotension Renal osteodystrophy Schizophrenia Surgical History Surgical History Arteriovenous fistula Surgically formed right upper extremity Patient has a her left upper extremity dialysis graft that has failed Family History Family History Other Unknown family medical history Social History Social History Social History: The patient is reported as being and retired. She only has a granddaughter who is listed as a contact. She is a former smoker. She is from [facility] Code status: Full code Smoking status: Former smoker Alcohol inta
--- NOTE | 2023-06-01 15:45 | PC.NURSE ---
Multiple ER staff attempted to draw blood from patient. Patient has limb alert to RUE and is a difficult stick. Laura from lab contacted regarding drawing blood. States she will come down to department when she is able.
--- NOTE | 2023-06-01 15:55 | PC.NURSE ---
After multiple attempts by multiple techs and RN, phlebotomy has been called to attempt blood draw on patient. KESHA Eason is also at bedside at this time with ultrasound to attempt IV access.
[2023-06-01 16:29] LABS: Basophils Percent Auto 0.5 % (0.2-1.2); Eosinophils Absolute Auto 0.1 K/mm3 (0-0.3); Eosinophils Percent Auto 2.2 % (0-4.4); Hematocrit 28.8 % (37.0-47.0); Hemoglobin 8.9 g/dL (12.0-15.0); Immature Granulocyte Absolute 0.03 K/mm3 (0.00-0.031); Immature Granulocyte Percent A 0.7 % (0-0.5); Lymphocytes Absolute Auto 0.85 K/mm3 (0.9-3.2); Lymphocytes Percent Auto 20.6 % (18.3-44.2); Mean Corpuscular HGB Conc 30.9 g/dl (32-36); Mean Corpuscular Hemoglobin 28.5 pg (26-34); Mean Corpuscular Volume 92.3 fl (80-100); Mean Platelet Volume 9.5 fl (7.4-10.4); Monocytes Absolute Auto 0.4 K/mm3 (0.1-0.6); Monocytes Percent Auto 10.7 % (2.6-8.5); Neutrophils Absolute Auto 2.7 K/mm3 (1.3-6.7); Neutrophils Percent Auto 65.3 % (45.5-73.1); Nucleated Red Blood Cells Perc 0.5 % (0.0-0.2); Platelet Count Result 136 k/mm3 (150-375); Red Blood Count 3.12 M/mm3 (4.2-5.4); Red Cell Distribution Width 19.6 % (11.5-14.5); White Blood Count 4.1 K/mm3 (4.5-10.0)
[2023-06-01 16:49] LABS: Alanine Aminotransferase 22 U/L (6-35); Albumin Level 3.3 g/dL (3.5-5.1); Alkaline Phosphatase 86 U/L (38-126); Anion Gap 7 mmol/L (8-16); Aspartate Amino Transferase 23 U/L (14-36); Bilirubin,Total 0.4 mg/dL (0.2-1.3); Blood Urea Nitrogen 36 mg/dL (7-17); Calcium 8.6 mg/dL (8.4-10.2); Carbon Dioxide 23 mmol/L (22-30); Chloride 97 mmol/L (98-107); Estimated CRCL calculation 9 ml/min; Estimated Glomerular Filt Rate 11; Glucose 79 mg/dL (65-110); Potassium 5.7 mmol/L (3.4-5.0); Sodium 127 mmol/L (137-145)
--- NOTE | 2023-06-01 17:58 | PC.NURSE ---
Spoke with Sharon at the facility for patient to let them know patient was being discharged back to facility. EMS called to take patient back to facility.
--- NOTE | 2023-06-01 18:17 | PC.NURSE ---
Please refer to incident report.
--- NOTE | 2023-06-01 18:23 | PC.NURSE ---
Patient resting in wheelchair at this time for comfort. Patient has call light in reach and educated on importance of pressing call light before attempting to get up.
--- NOTE | 2023-06-01 19:01 | PC.NURSE ---
Patient back in bed and her depend was changed.
[2023-06-01] MEDS: SODIUM POLYSTYRENE SULFONONATE 15 GM/60 ML BTL 30 GM PO (19:42)
--- NOTE | 2023-06-01 20:07 | PC.NURSE ---
Patient resting in stretcher. Call light in reach. Patient updated that we are waiting on ambulance to get here to return patient to facility.
== END 2023-06-01 20:25 ==
PROVIDERS: Emergency Provider Emergency Medicine; PCP Hospitalist
DX: L30.9 Dermatitis, unspecified (principal); N18.6 End stage renal disease; Z99.2 Dependence on renal dialysis; G30.9 Alzheimer's disease, unspecified; F02.80 Dementia in other diseases classified elsewhere, unspecified severity, without behavioral disturbance, psychotic disturbance, mood disturbance, and anxiety; E78.5 Hyperlipidemia, unspecified; N25.0 Renal osteodystrophy; F20.9 Schizophrenia, unspecified; Z87.891 Personal history of nicotine dependence
CPT/HCPCS: 36415; 71045; 74018; 80053; 85025; 99283; A9270

== ENCOUNTER 2023-07-12 11:11 | Inpatient (IN) | payer OTHER, SELFPAY ==
[2023-07-12] VITALS (30 sets, daily range): BP systolic 85–208; BP diastolic 43–93; PULSE 78–102; RESP 12–24; TEMP 36.1–37.1; O2SAT 96–100; BMI 29.7
--- NOTE | ~2023-07-12 | XR_ITS ---
XR chest 1V portable DATE: 07/12/2023 13:09 INDICATION: Chest pain TECHNIQUE: Portable AP chest on 07/12/2023 at 1305 hours COMPARISON: 06/01/2023 portable AP chest at 1616 hours FINDINGS: There is cardiomegaly. There is pulmonary vascular congestion and redistribution. There are bilateral pulmonary infiltrates which predominate centrally and in the lower lung zones; the distrib ution favors pulmonary edema and likely some atelectasis. Pneumonia is not excluded. There is chronic moderate elevation of the right diaphragm, also present dating back to October 24 3. The congestive changes and infiltrates are largely new however since October 24, 2022 and 06/01/2023 . Aortic arch calcification. No pleural effusion or pneumothorax is detected. Diffuse osteopenia. Hill Sachs deformities of the humeral heads are suggested, especially on the left. There is degenerat alejandro spurring of the thoracic spine. Old right rib fracture is suggested. Vascular stent of left upper extremity. IMPRESSION: Congestive heart failure, pulmonary edema, probable bibasilar atelectasis Reviewed, dictated and finalized at location [facility]. [facility]ERRICK OPERATOR IMPRESSION: Congestive heart failure, pulmonary edema, probable bibasilar atele ctasis
--- NOTE | 2023-07-12 11:39 | PC.NURSE ---
Fistula's noted to both pt arms. Called [facility] and Selena RN stated the Left arm can be used for bp and IV's and that the access is no longer in use.
--- NOTE | 2023-07-12 12:08 | ED.GENADULT ---
HPI - General Adult General Chief complaint: Unspecified Stated complaint: congestion on xray Time Seen by Provider: 07/12/23 12:00 History of Present Illness HPI narrative: Patient is a 72 year old female with history of ESRD on HD here with abnormal CXR outpatient. Patient is a dialysis patient, they reportedly did a CXR at her facility where they were concerned for mild CHF and transferred her into the ER for evaluation of possible new onset CHF. 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 Has 2 HD fistulas, per [facility], runs on her right UE fistula. Patient has zero complaints, provides no history, is AOx1 at baseline. Related Data Home Medications Medication Instructions Recorded Confirmed allopurinol 100 mg tablet 100 mg PO DAILY 09/28/22 03/22/23 atorvastatin 20 mg tablet 20 mg PO HS 09/28/22 03/22/23 folic acid 1 mg tablet 800 mcg PO DAILY 09/28/22 03/22/23 haloperidol 5 mg tablet 5 mg PO BID 09/28/22 03/22/23 magnesium hydroxide 400 mg/5 mL 30 ml PO HS PRN Constipation 09/28/22 03/22/23 oral suspension midodrine 5 mg tablet 5 mg PO PRN PRN Blood Pressure 09/28/22 03/22/23 acetaminophen 325 mg tablet 650 mg PO Q4H PRN Pain, Mild 02/26/23 03/22/23 bisacodyl 10 mg rectal suppository 10 mg RECTAL DAILY PRN Constipation 02/26/23 03/22/23 magnesium citrate 296 ml PO DAILY PRN Constipation 02/26/23 03/22/23 sevelamer carbonate 800 mg tablet 800 mg PO TID 02/26/23 03/22/23 sodium phosphates 19 gram-7 118 ml RECTAL PRN PRN Constipation 02/26/23 03/22/23 gram/118 mL enema (Fleet Enema) [id number] 1 tablet PO DAILY 02/26/23 03/22/23 18 mg-10 mg-45 mg-5 mg-250 mg tablet (B Complex w-Vit C) Allergies Allergy/AdvReac Type Severity Reaction Status Date / Time aspirin Allergy Unknown Verified 07/12/23 11:52 cabbage Allergy Unknown Verified 07/12/23 11:52 chocolate flavor Allergy Unknown Verified 07/12/23 11:52 erythromycin base Allergy Unknown Verified 07/12/23 11:52 gadobenic acid Allergy Unknown Verified 07/12/23 11:52 [From contrast - MRI] iodine Allergy Unknown Verified 07/12/23 11:52 iohexol Allergy Unknown Verified 07/12/23 11:52 [From contrast - CT, X-RAY] lorazepam Allergy Unknown Verified 07/12/23 11:52 metrizamide Allergy Unknown Verified 07/12/23 11:52 nitrofurantoin Allergy Unknown Verified 07/12/23 11:52 Penicillins Allergy Unknown Verified 07/12/23 11:52 risperidone Allergy Unknown Verified 07/12/23 11:52 tositumomab Allergy Unknown Verified 07/12/23 11:52 megestrol AdvReac Hallucinati Verified 07/12/23 11:52 ng Review of Systems Review of Systems: ROS unobtainable: Yes unobtainable due to mental status PMFSH Past Medical History Medical History Alzheimer disease End-stage renal disease on hemodialysis Hyperlipidemia Orthostatic hypotension Renal osteodystrophy Schizophrenia Surgical History Surgical History Arteriovenous fistula Surgically formed right upper extremity Patient has a her left upper extremity dialysis graft that has failed Family History Family History Other Unknown family medical history Social History Social History Social History: The patient is reported as being and retired. She only has a granddaughter who is listed as a contact. She is a former smoker. She is from [facility] half-way Code status: Full code Smoking status: Former smoker Alcohol intake: unknown Substance use: unknown Spiritual care concerns: No Exam Narrative: GENERAL: Chronically ill appearing, well-nourished, and in no acute distress. HEAD: Normocephalic, atraumatic. EYES: PERRLA and EOMI. ENT: Nares clear. Mucous membranes moist. NECK: Supple. CHEST: Clear to auscultation. No respiratory distre
--- NOTE | 2023-07-12 12:09 | ECG_ITS ---
Measurements Intervals [place] Rate: 75 P: 70 SD: 174 QRS: 39 QRSD: 86 T: 88 QT: 367 QTc: 411 Interpretive Statements SINUS RHYTHM WITH SINUS ARRHYTHMIA BORDERLINE R WAVE PROGRESSION, ANTERIOR LEADS BORDERLINE T WAVE ABNORMALITY- HIGH LATERAL LEADS BORDERLINE ECG COMPARED TO ECG 04/02/2023 18:11:37 NO SIGNIFICANT CHANGES Electronically Signed On 07-12-2023 12:58:44 RESIDENT DOCTOR by iVneet Kumar D.O.
[2023-07-12 13:07] LABS: Basophils Percent Auto 0.2 % (0.2-1.2); Eosinophils Absolute Auto 0.1 K/mm3 (0-0.3); Hematocrit 28.9 % (37.0-47.0); Hemoglobin 9.1 g/dL (12.0-15.0); Immature Granulocyte Absolute 0.04 K/mm3 (0.00-0.031); Immature Granulocyte Percent A 0.5 % (0-0.5); Lymphocytes Absolute Auto 0.48 K/mm3 (0.9-3.2); Lymphocytes Percent Auto 5.5 % (18.3-44.2); Mean Corpuscular HGB Conc 31.5 g/dl (32-36); Mean Corpuscular Hemoglobin 27.8 pg (26-34); Mean Corpuscular Volume 88.4 fl (80-100); Mean Platelet Volume 9.4 fl (7.4-10.4); Monocytes Absolute Auto 0.4 K/mm3 (0.1-0.6); Monocytes Percent Auto 4.8 % (2.6-8.5); Neutrophils Absolute Auto 7.6 K/mm3 (1.3-6.7); Nucleated Red Blood Cells Perc 0.2 % (0.0-0.2); Platelet Count Result 102 k/mm3 (150-375); Red Blood Count 3.27 M/mm3 (4.2-5.4); Red Cell Distribution Width 19.4 % (11.5-14.5); White Blood Count 8.7 K/mm3 (4.5-10.0)
[2023-07-12 13:14] LABS: Influenza A QL RT-PCR Negative (Negative); Influenza B QL RT-PCR Negative (Negative); RSV RNA, RT-PCR Negative (Negative); SARS-CoV-2 RNA PCR Negative (Negative)
[2023-07-12 13:23] LABS: INR 1.2; Prothrombin Time 15.9 Seconds (11.1-14.7)
[2023-07-12 13:24] LABS: Partial Thromboplastin Time 48.9 SECONDS (22.3-36.8)
[2023-07-12 13:29] LABS: Troponin I < 0.012 ng/mL (0.000-0.034)
[2023-07-12 13:30] LABS: Alanine Aminotransferase 48 U/L (6-35); Albumin Level 3.4 g/dL (3.5-5.1); Alkaline Phosphatase 146 U/L (38-126); Anion Gap 8 mmol/L (8-16); Aspartate Amino Transferase 51 U/L (14-36); Bilirubin,Total 0.5 mg/dL (0.2-1.3); Blood Urea Nitrogen 42 mg/dL (7-17); Calcium 8.5 mg/dL (8.4-10.2); Carbon Dioxide 21 mmol/L (22-30); Chloride 98 mmol/L (98-107); Estimated CRCL calculation 10 ml/min; Estimated Glomerular Filt Rate 11; Glucose 100 mg/dL (65-110); Lipase 127 U/L (23-300); Potassium 6.5 mmol/L (3.4-5.0); Sodium 127 mmol/L (137-145)
[2023-07-12] MEDS: SODIUM ZIRCONIUM CYCLOSILICATE 10 GM POWD.PACK PO (14:08)
[2023-07-12] MEDS: diphenhydrAMINE HCl CAP 25 MG CAPSULE PO (14:47)
[2023-07-12] MEDS: INSULIN HUMAN REGULAR (*BKC) 100 UNITS/ML 10 UNITS IV PUSH (14:48)
[2023-07-12] MEDS: DEXTROSE 50% 25 GM/50 ML SYRINGE IV PUSH (14:49)
[2023-07-12 15:01] LABS: Hepatitis B Surface Antigen Negative (Negative)
[2023-07-12 15:23] LABS: Hepatitis B Surface Anti Res Positive
--- NOTE | 2023-07-12 16:12 | ADMGEN ---
This patient, Dania Demarco, was admitted to IMU Room 207-01. Patient/family oriented to hospital policies and general routines including ID bracelet, bed and alarms, visiting hours, pain management, procedures, bathroom and other care routines, personal items, smoking policy, room service/diet, and visiting hours. Information on how to activate the Rapid Response Team has been discussed. Patient/Family are encouraged to report perceived risks to care and to ask questions if they do not understand what they are told or what they should do.
[2023-07-12] MEDS: SODIUM CHLORIDE 0.9% IV 1,000 ML 999 ML IV CONT ×2 (16:59→17:24)
--- NOTE | 2023-07-12 17:10 | PC.NURSE ---
Pt to dialysis via bed. No issues noted
[2023-07-12] MEDS: ALBUMIN HUMAN 25% 12.5 GM/50ML 50 ML IVPB ×2 (17:35→18:26)
[2023-07-12] MEDS: HEPARIN SODIUM 1,000 UNITS/ML VIAL 5000 UNITS (17:37)
--- NOTE | 2023-07-12 18:05 | PM.CNNEP ---
Assessment and Plan Assessment and plan (1) End stage renal disease: Code(s): N18.6 - End stage renal disease Status: Chronic Assessment and Plan: HD today and continue T/T/S dialysis schedule tomorrow follow electrolytes, volume status, and clearance (2) Hyperkalemia: Code(s): E87.5 - Hyperkalemia Status: Acute Assessment and Plan: as noted by labs on admission s/p medical management dialysis today to ensure correction (3) Pulmonary edema: Qualifiers: Chronicity: chronic Qualified Code(s): J81.1 - Chronic pulmonary edema Code(s): J81.1 - Chronic pulmonary edema Status: Chronic Assessment and Plan: rather than acute CHF, these are likely chronic findings in a dialysis patient that is due for treatment today furthermore, no evidence of respiratory distress or hypoxia fluid removal today with dialysis as tolerated (4) Hypertension: Code(s): I10 - Essential (primary) hypertension Status: Chronic Assessment and Plan: reasonably BP control at this time follow trend of hemodynamics (5) Anemia: Code(s): D64.9 - Anemia, unspecified Status: Chronic Assessment and Plan: due to ESRD Epogen with HD follow H/H Assuming she tolerates her hemodialysis treatment currently and her hyperkalemia is corrected with ongoing stability in her respiratory status, I would not be opposed to discharge tomorrow from a renal perspective. I will continue to follow the patient with you while she remains hospitalized make further recommendations as needed. Thank you for allowing me to participate in the care of this patient. History of Present Illness Reason for Consult Consult date: 07/12/23 Reason for consult: end stage renal disease Chief Complaint Chief complaint: Hyperkalemia/Missed HD History of Present Illness Narrative: All the information I have obtained is from review of the electronic medical record as well as discussion with the ER physician as is unable to get any history/information from the patient as she is normally not on verbal and noncommunicative at baseline. Apparently, her nursing facility attained a chest x-ray for reasons that are not clear which demonstrated evidence of mild congestive heart failure. Due to these imaging findings, she was transferred to the emergency room for further assessment of possible new onset congestive heart failure. As far as I can tell, the patient did not have any issues or problems with respiratory distress hypoxia, shortness of breath, chest pain, or any other symptoms that would relate to the concern for congestive heart failure. Workup and evaluation emergency room demonstrated the patient at her baseline mental status and otherwise hemodynamically stable. She did not appear to be in any respiratory distress and did not voice any complaints. Routine blood test demonstrated labs consistent with her known history of end-stage renal disease although her potassium was elevated at 6.5. Chest x-ray done in the emergency room demonstrated evidence of fluid overload that is likely consistent with her known history of end-stage renal disease. As the patient did not appear to be any distress or require supplemental oxygen, the initial plan was medical management for her potassium with subsequent discharge and outpatient dialysis tomorrow since she missed her scheduled hemodialysis treatment today. Unfortunately, her outpatient dialysis unit could not accommodate her for a dialysis treatment tomorrow so decision was made to admit the patient for dialysis for stabilization of her hyperkalemia and fluid removal given her chest x-ray findings. She did receive medical management in the emergency room prior to her subsequent admission to the hospital for further evaluation therapy. Renal consultation was requested due to her end-stage renal disease. The patient normally receives d
[2023-07-12] MEDS: EPOETIN ALFA-EPBX 10,000 UNITS/ML VIAL 10000 UNITS IV PUSH (19:17)
--- NOTE | 2023-07-12 19:24 | PM.IMHP ---
H&P: HPI History of Present Illness Date/Time: 07/12/23 21:30 Chief Complaint: Congestion on chest x-ray at dialysis. Narrative: This is a 72-year-old female with end-stage renal disease on hemodialysis who presented to the emergency department via EMS from her dialysis center for evaluation of congestion noted on chest x-ray. The patient is a poor historian, is alert and oriented x1 at baseline, and thus a majority the following history is obtained via a review of her electronic medical records. She was scheduled for dialysis today and they obtained a chest x-ray for unclear reasons. They were concerned that she had CHF and they sent her to the emergency department instead of doing dialysis. She was afebrile on arrival with stable blood pressures. Labs were significant for a sodium of 127, potassium 6.5, BUN 42, creatinine 4.70, hemoglobin 9.1, platelet 102, undetectable troponin. She tested negative for influenza, RSV, and COVID. Chest x-ray showed findings of congestive heart failure and pulmonary edema. ED physician spoke with the on-call nail puller who attempted to get her has spot in dialysis this afternoon at [facility] however was unable to do so and she is being admitted in this setting for dialysis this evening. She has received appropriate treatment for her hyperkalemia. Review of Systems Review of Systems: Unable to be obtained accurately as she is confused. [facility] Past Medical History Medical History Alzheimer disease End-stage renal disease on hemodialysis Hyperlipidemia Orthostatic hypotension Renal osteodystrophy Schizophrenia Surgical History Surgical History Arteriovenous fistula Surgically formed right upper extremity Patient has a her left upper extremity dialysis graft that has failed Family History Family History Other Unknown family medical history Social History Social History (Updated 07/12/23 @ 23:13 by Charlotte Worthy PA-C) Social History: The patient is reported as being and retired. She only has a granddaughter who is listed as a contact. She is a former smoker. Resides at [facility]. Code status: Full code Smoking status: Former smoker Alcohol intake: former Substance use: never Spiritual care concerns: No Meds Home Medications and Allergies Home Medications Medication Instructions Recorded Confirmed Type allopurinol 100 mg tablet 100 mg PO DAILY 09/28/22 07/12/23 History atorvastatin 20 mg tablet 20 mg PO HS 09/28/22 07/12/23 History haloperidol 5 mg tablet 5 mg PO BID 09/28/22 07/12/23 History magnesium hydroxide 400 mg/5 mL 30 ml PO HS PRN Constipation 09/28/22 07/12/23 History oral suspension midodrine 5 mg tablet 5 mg PO PRN PRN Blood Pressure 09/28/22 07/12/23 History acetaminophen 325 mg tablet 650 mg PO Q4H PRN Pain, Mild 02/26/23 07/12/23 History bisacodyl 10 mg rectal suppository 10 mg RECTAL DAILY PRN Constipation 02/26/23 07/12/23 History magnesium citrate 296 ml PO DAILY PRN Constipation 02/26/23 07/12/23 History sodium phosphates 19 gram-7 118 ml RECTAL PRN PRN Constipation 02/26/23 07/12/23 History gram/118 mL enema (Fleet Enema) ondansetron 4 mg disintegrating 4 mg PO Q8H PRN nausea and 05/23/23 07/12/23 Rx tablet vomiting #20 tabs cetirizine 10 mg tablet (24Hour 10 mg PO DAILY PRN allergy 06/01/23 07/12/23 Rx Allergy) symptoms #14 tabs dextromethorphan-guaifenesin 5 10 ml PO Q6H PRN Cough 07/12/23 07/12/23 History mg-100 mg/5 mL oral liquid (Robitussin Cough-Chest Congestion DM) diphenhydramine HCl 25 mg capsule 25 mg PO TID PRN Itching 07/12/23 07/12/23 History (Benadryl) lanthanum 500 mg chewable tablet 500 mg PO TIDWM 07/12/23 07/12/23 History vitamin D3 94 mcg-folic acid 1 mg 1 tablet PO DAILY 07/12/23 07/12/23 History tablet
--- NOTE | 2023-07-12 21:31 | PC.NURSE ---
pt. returned back to room following completion of hemodialysis. recieved report from [employer] professor.
[2023-07-13] VITALS (11 sets, daily range): BP systolic 128–139; BP diastolic 59–73; PULSE 44–105; RESP 18–24; TEMP 35.6–36.8; O2SAT 97–100
[2023-07-13] MEDS: ATORVASTATIN 20 MG TABLET PO (00:47)
[2023-07-13] MEDS: HALOPERIDOL 5 MG TABLET PO ×2 (00:48→09:12)
[2023-07-13 05:30] LABS: Hematocrit 28.5 % (37.0-47.0); Mean Corpuscular HGB Conc 31.6 g/dl (32-36); Mean Corpuscular Hemoglobin 27.9 pg (26-34); Mean Corpuscular Volume 88.2 fl (80-100); Mean Platelet Volume 9.5 fl (7.4-10.4); Platelet Count Result 99 k/mm3 (150-375); Red Blood Count 3.23 M/mm3 (4.2-5.4); Red Cell Distribution Width 19.6 % (11.5-14.5); White Blood Count 3.1 K/mm3 (4.5-10.0)
[2023-07-13 05:51] LABS: Anion Gap 10 mmol/L (8-16); Blood Urea Nitrogen 22 mg/dL (7-17); Calcium 8.8 mg/dL (8.4-10.2); Carbon Dioxide 25 mmol/L (22-30); Chloride 98 mmol/L (98-107); Estimated CRCL calculation 15 ml/min; Estimated Glomerular Filt Rate 17; Glucose 58 mg/dL (65-110); Magnesium 1.7 mg/dL (1.6-2.3); Phosphorus 3.9 mg/dL (2.5-4.5); Potassium 5.1 mmol/L (3.4-5.0); Sodium 133 mmol/L (137-145)
[2023-07-13 06:37] LABS: Glucose Point of Care 79 mg/dl (65-105)
[2023-07-13] MEDS: CHOLECALCIFEROL 1,000 UNITS TABLET 4000 UNITS PO (09:11)
[2023-07-13] MEDS: FOLIC ACID 1 MG TABLET PO (09:12)
[2023-07-13] MEDS: allopurinoL 100 MG TABLET PO (09:12)
--- NOTE | 2023-07-13 12:45 | PM.PNNEP ---
Progress Note: A&P Assessment and Plan (1) End stage renal disease: Code(s): N18.6 - End stage renal disease Status: Chronic Assessment and Plan: HD tomorrow and continue T/T/S dialysis schedule follow electrolytes, volume status, and clearance (2) Hyperkalemia: Code(s): E87.5 - Hyperkalemia Status: Acute Assessment and Plan: as noted by labs on admission s/p medical management dialysis yesterday to ensure correction (3) Pulmonary edema: Qualifiers: Chronicity: chronic Qualified Code(s): J81.1 - Chronic pulmonary edema Code(s): J81.1 - Chronic pulmonary edema Status: Chronic Assessment and Plan: rather than acute CHF, these are likely chronic findings in a dialysis patient no evidence of respiratory distress or hypoxia on admission fluid removal with dialysis as tolerated (4) Hypertension: Code(s): I10 - Essential (primary) hypertension Status: Chronic Assessment and Plan: reasonably BP control at this time follow trend of hemodynamics (5) Anemia: Code(s): D64.9 - Anemia, unspecified Status: Chronic Assessment and Plan: due to ESRD Epogen with HD follow H/H I am not opposed to discharge today from a renal perspective if otherwise medically stable. Will continue to follow. Subjective Date/time seen: 07/13/23 12:45 Interval history: Follow-up for end stage renal disease on hemodialysis. Tolerated dialysis treatment yesterday afternoon without any issues or problems; mentation seems at baseline; no apparent distress noted or voiced at the time of my visit. Exam Narrative: General: elderly female in NAD Heart: normal S1 and S2; no rub Lungs: clear anteriorly; decreased at bases Abdomen: soft, nontender, nondistended, positive bowel sounds Extremities: no cyanosis or clubbing; no edema Skin: warm and dry Objective Data Vital Signs Vital Signs: Vital Signs Temp Pulse Resp BP Pulse Ox O2 Del Method 07/13/23 11:55 96.7 F L 89 24 H 139/65 100 07/13/23 08:00 44 L 22 H 97 Room Air 07/13/23 08:00 44 L 07/13/23 07:48 96.7 F L 87 22 H 128/73 97 07/13/23 06:00 92 07/13/23 03:20 98.3 F 105 H 18 131/59 L 97 07/13/23 04:00 96 18 100 Room Air 07/13/23 04:00 98 07/13/23 02:00 104 H 07/13/23 00:00 104 H 18 100 Room Air 07/13/23 00:00 103 H 07/12/23 22:49 97.1 F L 102 H 18 133/63 100 07/12/23 21:38 98 07/12/23 21:15 96 20 100 Room Air 07/12/23 21:15 93 07/12/23 21:19 97.0 F L 102 H 20 107/43 L 100 07/12/23 20:24 95 110/56 L 07/12/23 20:55 97.8 F 98 18 118/58 L 07/12/23 20:15 94 102/51 L 07/12/23 20:00 91 99/43 L 07/12/23 19:45 91 96/52 L 07/12/23 19:30 94 112/60 07/12/23 19:15 87 97/52 L 07/12/23 19:00 90 98/49 L 07/12/23 18:45 83 92/44 L 07/12/23 18:30 83 101/50 L 07/12/23 18:15 89 85/49 L 07/12/23 18:00 89 144/69 H 07/12/23 18:00 89 07/12/23 17:45 85 208/66 H 07/12/23 17:30 83 104/52 L 07/12/23 17:24 80 114/62 07/12/23 17:12 98.1 F 80 20 115/66 07/12/23 16:00 87 07/12/23 15:58 Room Air 07/12/23 15:39 98 F 87 18 149/73 H 100 07/12/23 15:00 83 21 H 131/73 100 07/12/23 14:56 80 20 100 07/12/23 13:25 86 16 153/93 H 100 Intake/Output Intake/Output: Intake & Output 07/10/23 07/11/23 07/12/23 07/13/23 23:59 23:59 23:59 23:59 Intake Total 50 1465 Output Total 1150 Balance -1100 1465 Meds/Results Medications: Active Medications Generic Name Dose Route Start Last Admin Trade Name Freq PRN Reason Stop Dose Admin Acetaminophen 650 mg 07/12/23 23:16 Acetaminophen 325 Mg Tablet PO Q4H PRN Pain, Mild Allopurinol 100 mg 07/13/23 09:00 07/13/23 09
--- NOTE | 2023-07-13 13:33 | PM.DS ---
DS: Admitting Diagnosis Discharge Date 07/13/23 Admitting Diagnosis End-stage renal disease DS: Discharge Diagnosis Discharge Diagnosis (1) Hyperkalemia: Code(s): E87.5 - Hyperkalemia Status: Acute (2) Pulmonary edema: Qualifiers: Chronicity: chronic Qualified Code(s): J81.1 - Chronic pulmonary edema Code(s): J81.1 - Chronic pulmonary edema Status: Chronic (3) End-stage renal disease on hemodialysis: Code(s): N18.6 - End stage renal disease; Z99.2 - Dependence on renal dialysis Status: Acute (4) Hypertension: Code(s): I10 - Essential (primary) hypertension Status: Chronic (5) Anemia: Code(s): D64.9 - Anemia, unspecified Status: Chronic (6) Dementia: Code(s): F03.90 - Unspecified dementia, unspecified severity, without behavioral disturbance, psychotic disturbance, mood disturbance, and anxiety Status: Acute (7) Schizophrenia: Code(s): F20.9 - Schizophrenia, unspecified Status: Acute DS: Summary Hospital Course Hospital Course: This is a 72-year-old female with a past medical history of end-stage renal disease, hyperlipidemia, dementia, hypertension, schizophrenia and anemia the presents to the ED on 07/12/2023 for evaluation of chest congestion that was noted on x-ray at her dialysis center. The patient is a poor historian, is alert and oriented x1 at baseline, and thus a majority the following history is obtained via a review of her electronic medical records. She was scheduled for dialysis today and they obtained a chest x-ray for unclear reasons. They were concerned that she had CHF and they sent her to the emergency department instead of doing dialysis. She was afebrile on arrival with stable blood pressures. Labs were significant for a sodium of 127, potassium 6.5, BUN 42, creatinine 4.70, hemoglobin 9.1, platelet 102, undetectable troponin. She tested negative for influenza, RSV, and COVID. Electrolytes corrected with dialysis. Chest x-ray showed findings of congestive heart failure and pulmonary edema.? Nephrology was consulted is believed that patient's chest congestion is most likely related to renal disease. Patient did not have any respiratory distress, shortness of breath, hypoxia or chest pain. Due to not being able to get her dialysis she was admitted for dialysis treatment. She receives dialysis on Tuesday, and Tuesday. Chest x-ray consistent with known history of end-stage renal disease and due to not having dialysis 2 days prior to presentation congestion likely due to this. Patient received dialysis and is back to baseline. Discussed with Nephrology and they have okayed patient to discharge back home. Labs and vital signs stable and she is medically clear for discharge at this time. Time Spent with Patient Time attestation: Total time spent providing and/or coordinating discharge services: DS: Data Data Completed and Pending Labs on day of discharge: Labs from last 24 hours 07/13/23 07/13/23 07/12/23 06:34 05:04 12:57 WBC 3.1 L RBC 3.23 L Hgb 9.0 L Hct 28.5 L MCV 88.2 MCH 27.9 MCHC 31.6 L RDW 19.6 H Plt Count 99 L MPV 9.5 Sodium 133 L Potassium 5.1 H Chloride 98 Carbon Dioxide 25 Anion Gap 10 BUN 22 H D Creatinine 3.20 H Estim Creat Clear Calc 15 Estimated GFR 17 L Glucose 58 L* POC Capillary Glucose 79 Calcium 8.8 Phosphorus 3.9 Magnesium 1.7 Hep Bs Antigen Negative Hep Bs Antibody Positive Discharge Plan Discharge Attending physician on discharge: Cherry Mayfield Consulting providers: Kiran Troncoso Discharging Clinician: Doreen Borrego Patient Disposition: [facility] Activity: as tolerated Diet: renal Discharge Instructions: Continue regularly scheduled dialysis appointments. Renal diet. Discharge disposition: Take medications as prescribed
== END 2023-07-13 17:13 | DRG 470 ==
LOC: ANHED 14:03 → ANHIMU 15:03
PROVIDERS: Internal Medicine Nephrology; Physician Assistant; Admitting Provider Internal Medicine; Emergency Provider Student in an Organized Health Care Education/Training Program; PCP Hospitalist; Visit Provider Internal Medicine Critical Care Medicine
DX: I12.0 Hypertensive chronic kidney disease with stage 5 chronic kidney disease or end stage renal disease (principal); N18.6 End stage renal disease; E87.5 Hyperkalemia; J81.1 Chronic pulmonary edema; D63.1 Anemia in chronic kidney disease; E78.5 Hyperlipidemia, unspecified; F02.80 Dementia in other diseases classified elsewhere, unspecified severity, without behavioral disturbance, psychotic disturbance, mood disturbance, and anxiety; F20.9 Schizophrenia, unspecified; G30.9 Alzheimer's disease, unspecified; Z99.2 Dependence on renal dialysis; Z11.52 Encounter for screening for COVID-19; Z87.891 Personal history of nicotine dependence
CPT/HCPCS: 36415; 71045; 80048; 80053; 82948; 83690; 83735; 84100; 84484; 85025; 85027; 85610; 85730; 86706; 87340; 87637; 93005; 99285; A9270; G0257; J1644; J1815; J7030; P9047; Q5105

== ENCOUNTER 2023-07-28 13:46 | Emergency (ER) | payer OTHER, SELFPAY ==
[2023-07-28] VITALS (12 sets, daily range): BP systolic 90–98; BP diastolic 59–77; PULSE 84; RESP 18; TEMP 36.1; O2SAT 92–99
--- NOTE | 2023-07-28 15:57 | ED.GENADULT ---
HPI - General Adult General Chief complaint: Altered Mental Status Stated complaint: combative at dialysis Time Seen by Provider: 07/28/23 14:54 History of Present Illness HPI narrative: Patient is a 72-year-old female who presents to the emergency department at this afternoon from hemodialysis center due to agitation. Hemodialysis center states that the patient was undergoing her hemodialysis in towards the end of it became agitated and secondary to this they stopped her dialysis and sent her here. Patient's granddaughter is present at bedside and states that patient normally gets restless and does not like to sit through her hemodialysis so to work around this she has been given Benadryl prior to dialysis which has been putting her to sleep and therefore facilitating her finishing her dialysis. Granddaughter states that today they did not give her her Benadryl in time and when she became restless and agitated they decided to send her here instead when they should have given her the Benadryl the way that it was supposed to be prescribed and finished her hemodialysis. Granddaughter states that the patient is currently residing in a rehab facility due to recurrent urinary tract infections which gave her severe delirium/dementia and ever since she was admitted to the rehab facility she has been improving significantly. Granddaughter is frustrated at the hemodialysis center for sending her here. Patient currently has no complaints and is denying any symptoms and any pain. The remainder of history of present illness review of systems negative unless stated otherwise in the HPI. Related Data Home Medications Medication Instructions Recorded Confirmed allopurinol 100 mg tablet 100 mg PO DAILY 09/28/22 07/12/23 atorvastatin 20 mg tablet 20 mg PO HS 09/28/22 07/12/23 haloperidol 5 mg tablet 5 mg PO BID 09/28/22 07/12/23 magnesium hydroxide 400 mg/5 mL 30 ml PO HS PRN Constipation 09/28/22 07/12/23 oral suspension midodrine 5 mg tablet 5 mg PO PRN PRN Blood Pressure 09/28/22 07/12/23 acetaminophen 325 mg tablet 650 mg PO Q4H PRN Pain, Mild 02/26/23 07/12/23 bisacodyl 10 mg rectal suppository 10 mg RECTAL DAILY PRN Constipation 02/26/23 07/12/23 magnesium citrate 296 ml PO DAILY PRN Constipation 02/26/23 07/12/23 sodium phosphates 19 gram-7 118 ml RECTAL PRN PRN Constipation 02/26/23 07/12/23 gram/118 mL enema (Fleet Enema) dextromethorphan-guaifenesin 5 10 ml PO Q6H PRN Cough 07/12/23 07/12/23 mg-100 mg/5 mL oral liquid (Robitussin Cough-Chest Congestion DM) diphenhydramine HCl 25 mg capsule 25 mg PO TID PRN Itching 07/12/23 07/12/23 (Benadryl) lanthanum 500 mg chewable tablet 500 mg PO TIDWM 07/12/23 07/12/23 vitamin D3 94 mcg-folic acid 1 mg 1 tablet PO DAILY 07/12/23 07/12/23 tablet (Folvite-D) Allergies Allergy/AdvReac Type Severity Reaction Status Date / Time aspirin Allergy Unknown Verified 07/12/23 11:52 cabbage Allergy Unknown Verified 07/12/23 11:52 chocolate flavor Allergy Unknown Verified 07/12/23 11:52 erythromycin base Allergy Unknown Verified 07/12/23 11:52 gadobenic acid Allergy Unknown Verified 07/12/23 11:52 [From contrast - MRI] iodine Allergy Unknown Verified 07/12/23 11:52 iohexol Allergy Unknown Verified 07/12/23 11:52 [From contrast - CT, X-RAY] lorazepam Allergy Unknown Verified 07/12/23 11:52 metrizamide Allergy Unknown Verified 07/12/23 11:52 nitrofurantoin Allergy Unknown Verified 07/12/23 11:52 Penicillins Allergy Unknown Verified 07/12/23 11:52 risperidone Allergy Unknown Verified 07/12/23 11:52 tositumomab Allergy Unknown Verified 07/12/23 11:52 megestrol AdvReac Hallucinati Verified 07/12/23 11:52 ng Review of Systems Review of Systems: Full review of system was obtained and noted to be negative unless stated otherwise in HPI. [facility] Past Medical History Medical History Alzheimer disease End-stage qasim
--- NOTE | 2023-07-28 16:20 | PC.NURSE ---
Talked to Sheila from [facility] about patient coming back to the facility.
== END 2023-07-28 17:13 ==
PROVIDERS: Emergency Provider Emergency Medicine; PCP Hospitalist
DX: N18.6 End stage renal disease (principal); G30.9 Alzheimer's disease, unspecified; F02.80 Dementia in other diseases classified elsewhere, unspecified severity, without behavioral disturbance, psychotic disturbance, mood disturbance, and anxiety; N25.0 Renal osteodystrophy; E78.5 Hyperlipidemia, unspecified; F20.9 Schizophrenia, unspecified; Z99.2 Dependence on renal dialysis; Z87.891 Personal history of nicotine dependence
CPT/HCPCS: 99281

== ENCOUNTER 2023-07-30 21:56 | Emergency (ER) | payer OTHER, SELFPAY ==
[2023-07-30 22:01] VITALS: BP 109/95; PULSE 97; RESP 20; TEMP 37.1; O2SAT 94
--- NOTE | 2023-07-30 22:56 | ECG_ITS ---
Measurements Intervals [place] Rate: 84 P: 53 DE: 168 QRS: 24 QRSD: 86 T: 140 QT: 349 QTc: 414 Interpretive Statements SINUS RHYTHM BORDERLINE R WAVE PROGRESSION, ANTERIOR LEADS BORDERLINE ST-T WAVE ABNORMALITY- DIFFUSE LEADS BASELINE ARTIFACT- I, II, III, AVL, AVF, V4-V6 BORDERLINE ECG COMPARED TO ECG 07/12/2023 12:26:06 NO SIGNIFICANT CHANGES Electronically Signed On 07-31-2023 8:01:44 PIT SLAGMAN by Vineet Kumar D.O.
[2023-07-30 23:00] VITALS: RESP 16; O2SAT 98
[2023-07-30 23:32] LABS: Basophils Percent Auto 0.9 % (0.2-1.2); Eosinophils Absolute Auto 0.1 K/mm3 (0-0.3); Eosinophils Percent Auto 3.7 % (0-4.4); Hematocrit 30.9 % (37.0-47.0); Hemoglobin 9.6 g/dL (12.0-15.0); Immature Granulocyte Absolute 0.01 K/mm3 (0.00-0.031); Immature Granulocyte Percent A 0.3 % (0-0.5); Immature Platelet Fraction Pct 4.7 % (0.9-11.2); Lymphocytes Absolute Auto 0.42 K/mm3 (0.9-3.2); Mean Corpuscular HGB Conc 31.1 g/dl (32-36); Mean Corpuscular Hemoglobin 27.6 pg (26-34); Mean Corpuscular Volume 88.8 fl (80-100); Mean Platelet Volume 9.2 fl (7.4-10.4); Monocytes Absolute Auto 0.3 K/mm3 (0.1-0.6); Monocytes Percent Auto 9.5 % (2.6-8.5); Neutrophils Absolute Auto 2.6 K/mm3 (1.3-6.7); Neutrophils Percent Auto 73.6 % (45.5-73.1); Nucleated Red Blood Cells Perc 1.1 % (0.0-0.2); Platelet Count Result 79 k/mm3 (150-375); Red Blood Count 3.48 M/mm3 (4.2-5.4); Red Cell Distribution Width 20.5 % (11.5-14.5)
[2023-07-30 23:42] LABS: Alanine Aminotransferase 50 U/L (6-35); Albumin Level 3.7 g/dL (3.5-5.1); Alkaline Phosphatase 190 U/L (38-126); Anion Gap 11 mmol/L (8-16); Aspartate Amino Transferase 44 U/L (14-36); Bilirubin,Total 0.4 mg/dL (0.2-1.3); Blood Urea Nitrogen 35 mg/dL (7-17); Calcium 9.4 mg/dL (8.4-10.2); Carbon Dioxide 23 mmol/L (22-30); Chloride 98 mmol/L (98-107); Estimated CRCL calculation 11 ml/min; Estimated Glomerular Filt Rate 12; Glucose 113 mg/dL (65-110); Magnesium 1.7 mg/dL (1.6-2.3); Potassium 5.2 mmol/L (3.4-5.0); Sodium 132 mmol/L (137-145)
--- NOTE | 2023-07-30 23:42 | ED.GENADULT ---
HPI - General Adult General Chief complaint: Unspecified Stated complaint: combative Time Seen by Provider: 07/30/23 22:24 History of Present Illness HPI narrative: patient is a 72-year-old female presents emergency department with chief complaint of non cooperative with staff. Patient has end-stage renal disease on dialysis and has problems with getting agitated the patient is on Benadryl and also on Haldol at the facility per the facility the patient has refused to take her medications this evening and was uncooperative and fighting with staff. Related Data Home Medications Medication Instructions Recorded Confirmed allopurinol 100 mg tablet 100 mg PO DAILY 09/28/22 07/12/23 atorvastatin 20 mg tablet 20 mg PO HS 09/28/22 07/12/23 haloperidol 5 mg tablet 5 mg PO BID 09/28/22 07/12/23 magnesium hydroxide 400 mg/5 mL 30 ml PO HS PRN Constipation 09/28/22 07/12/23 oral suspension midodrine 5 mg tablet 5 mg PO PRN PRN Blood Pressure 09/28/22 07/12/23 acetaminophen 325 mg tablet 650 mg PO Q4H PRN Pain, Mild 02/26/23 07/12/23 bisacodyl 10 mg rectal suppository 10 mg RECTAL DAILY PRN Constipation 02/26/23 07/12/23 magnesium citrate 296 ml PO DAILY PRN Constipation 02/26/23 07/12/23 sodium phosphates 19 gram-7 118 ml RECTAL PRN PRN Constipation 02/26/23 07/12/23 gram/118 mL enema (Fleet Enema) dextromethorphan-guaifenesin 5 10 ml PO Q6H PRN Cough 07/12/23 07/12/23 mg-100 mg/5 mL oral liquid (Robitussin Cough-Chest Congestion DM) diphenhydramine HCl 25 mg capsule 25 mg PO TID PRN Itching 07/12/23 07/12/23 (Benadryl) lanthanum 500 mg chewable tablet 500 mg PO TIDWM 07/12/23 07/12/23 vitamin D3 94 mcg-folic acid 1 mg 1 tablet PO DAILY 07/12/23 07/12/23 tablet (Folvite-D) Allergies Allergy/AdvReac Type Severity Reaction Status Date / Time aspirin Allergy Unknown Verified 07/30/23 22:18 cabbage Allergy Unknown Verified 07/30/23 22:18 chocolate flavor Allergy Unknown Verified 07/30/23 22:18 erythromycin base Allergy Unknown Verified 07/30/23 22:18 gadobenic acid Allergy Unknown Verified 07/30/23 22:18 [From contrast - MRI] iodine Allergy Unknown Verified 07/30/23 22:18 iohexol Allergy Unknown Verified 07/30/23 22:18 [From contrast - CT, X-RAY] lorazepam Allergy Unknown Verified 07/30/23 22:18 metrizamide Allergy Unknown Verified 07/30/23 22:18 nitrofurantoin Allergy Unknown Verified 07/30/23 22:18 Penicillins Allergy Unknown Verified 07/30/23 22:18 risperidone Allergy Unknown Verified 07/30/23 22:18 tositumomab Allergy Unknown Verified 07/30/23 22:18 megestrol AdvReac Hallucinati Verified 07/30/23 22:18 ng Review of Systems Review of Systems: A 10 system review of systems was completed on the patient and is negative except for what is stated in the HPI. Nursing and ancillary documentation was reviewed. PMFSH Past Medical History Medical History Alzheimer disease End-stage renal disease on hemodialysis Hyperlipidemia Orthostatic hypotension Renal osteodystrophy Schizophrenia Surgical History Surgical History Arteriovenous fistula Surgically formed right upper extremity Patient has a her left upper extremity dialysis graft that has failed Family History Family History Other Unknown family medical history Social History Social History Social History: The patient is reported as being and retired. She only has a granddaughter who is listed as a contact. She is a former smoker. Resides at [facility]. Code status: Full code Smoking status: Former smoker Alcohol intake: former Substance use: never Spiritual care concerns: No Exam Narrative: GENERAL: Well-appearing, well-nourished, an
[2023-07-30 23:43] LABS: Lactic Acid Reflex 1.1 mmol/L (0.7-2.0)
[2023-07-30 23:50] LABS: Anisocytosis 1+ (NORMAL); Hypochromasia 1+ (NORMAL); Microcytosis 1+ (NORMAL); Platelet Estimate Decreased (Adequate); Poikilocytosis 1+ (NORMAL); Target Cells 1+ (NORMAL)
[2023-07-30 23:51] LABS: Ovalocytes 1+ (NORMAL)
[2023-07-30 23:52] LABS: Schistocytes Rare (NORMAL)
[2023-07-30 23:54] LABS: Troponin I 0.027 ng/mL (0.000-0.034); White Blood Count 3.5 K/mm3 (4.5-10.0)
[2023-07-31 00:06] LABS: Influenza A QL RT-PCR Negative (Negative); Influenza B QL RT-PCR Negative (Negative); RSV RNA, RT-PCR Negative (Negative); SARS-CoV-2 RNA PCR Negative (Negative)
--- NOTE | 2023-07-31 00:15 | PC.NURSE ---
Patient attempting to get out of bed several times. Bed alarm was applied and attempted to redirect patient. Patient began to swing, hit, and dig nails into staff. Sitter is now present at bedside.
[2023-07-31] MEDS: HALOPERIDOL LACTATE 5 MG/ML VIAL IM ×2 (01:11→06:38)
[2023-07-31 02:46] VITALS: BP 95/66; PULSE 77; RESP 15; O2SAT 96
[2023-07-31 03:15] LABS: Troponin I 0.018 ng/mL (0.000-0.034)
[2023-07-31 03:38] VITALS: BP 98/85; PULSE 80; RESP 16; O2SAT 97
[2023-07-31 06:28] VITALS: BP 119/89; PULSE 80; RESP 20; O2SAT 100
--- NOTE | 2023-07-31 06:43 | PC.NURSE ---
report called to carienHarmeetr, all questions answered
== END 2023-07-31 07:25 ==
PROVIDERS: Emergency Provider Emergency Medicine; PCP Hospitalist
DX: N18.6 End stage renal disease (principal); Z99.2 Dependence on renal dialysis; Z20.822 Contact with and (suspected) exposure to COVID-19; G30.9 Alzheimer's disease, unspecified; F02.811 Dementia in other diseases classified elsewhere, unspecified severity, with agitation; N25.0 Renal osteodystrophy; E78.5 Hyperlipidemia, unspecified; F20.9 Schizophrenia, unspecified; Z87.891 Personal history of nicotine dependence
CPT/HCPCS: 36415; 80053; 83605; 83735; 84484; 85025; 85055; 87637; 93005; 96372; 99284; J1630

== ENCOUNTER 2023-08-01 03:28 | Emergency (ER) | payer OTHER, SELFPAY ==
[2023-08-01] VITALS (27 sets, daily range): BP systolic 89–130; BP diastolic 56–94; PULSE 71–80; RESP 16–20; TEMP 37; O2SAT 94–100
--- NOTE | ~2023-08-01 | XR_ITS ---
Right Shoulder Technique: AP and scapular Y views were obtained. Clinical History: Pain Findings: No fracture or dislocation is seen. Osseous alignment is anatomic. The glenohumeral and acr omioclavicular joint spaces are preserved. Soft tissues are unremarkable. Impression: Unremarkable right shoulder radiographs. Reviewed, dictated and finalized at [facility]. ATTACHER Impression: Unremarkable right shoulder radiographs.
--- NOTE | 2023-08-01 03:46 | PC.NURSE ---
This RN called [facility] to find out when patient last had dialysis. States the last two times the patient has gone (07/28 and 07/30) she did not receive the full treatment. RN also states that the patient had no injury/trauma to right shoulder, and has not complained to SNF about pain.
--- NOTE | 2023-08-01 03:57 | ED.GENADULT ---
HPI - General Adult General Chief complaint: Recheck/Abnormal Lab/Rx Stated complaint: abnormal chest x-ray History of Present Illness HPI narrative: Patient is a 72-year-old female who presents emergency department with chief complaint of abnormal chest x-ray per the [facility] they got a chest x-ray on her today and thought that the patient had possible pneumonia. The chest x-ray was reported as atelectasis versus infiltrate per the official report. The patient currently is complaining of pain in her right shoulder reports no trauma Related Data Home Medications Medication Instructions Recorded Confirmed allopurinol 100 mg tablet 100 mg PO DAILY 09/28/22 07/12/23 atorvastatin 20 mg tablet 20 mg PO HS 09/28/22 07/12/23 haloperidol 5 mg tablet 5 mg PO BID 09/28/22 07/12/23 magnesium hydroxide 400 mg/5 mL 30 ml PO HS PRN Constipation 09/28/22 07/12/23 oral suspension midodrine 5 mg tablet 5 mg PO PRN PRN Blood Pressure 09/28/22 07/12/23 acetaminophen 325 mg tablet 650 mg PO Q4H PRN Pain, Mild 02/26/23 07/12/23 bisacodyl 10 mg rectal suppository 10 mg RECTAL DAILY PRN Constipation 02/26/23 07/12/23 magnesium citrate 296 ml PO DAILY PRN Constipation 02/26/23 07/12/23 sodium phosphates 19 gram-7 118 ml RECTAL PRN PRN Constipation 02/26/23 07/12/23 gram/118 mL enema (Fleet Enema) dextromethorphan-guaifenesin 5 10 ml PO Q6H PRN Cough 07/12/23 07/12/23 mg-100 mg/5 mL oral liquid (Robitussin Cough-Chest Congestion DM) diphenhydramine HCl 25 mg capsule 25 mg PO TID PRN Itching 07/12/23 07/12/23 (Benadryl) lanthanum 500 mg chewable tablet 500 mg PO TIDWM 07/12/23 07/12/23 vitamin D3 94 mcg-folic acid 1 mg 1 tablet PO DAILY 07/12/23 07/12/23 tablet (Folvite-D) Allergies Allergy/AdvReac Type Severity Reaction Status Date / Time aspirin Allergy Unknown Verified 07/30/23 22:18 cabbage Allergy Unknown Verified 07/30/23 22:18 chocolate flavor Allergy Unknown Verified 07/30/23 22:18 erythromycin base Allergy Unknown Verified 07/30/23 22:18 gadobenic acid Allergy Unknown Verified 07/30/23 22:18 [From contrast - MRI] iodine Allergy Unknown Verified 07/30/23 22:18 iohexol Allergy Unknown Verified 07/30/23 22:18 [From contrast - CT, X-RAY] lorazepam Allergy Unknown Verified 07/30/23 22:18 metrizamide Allergy Unknown Verified 07/30/23 22:18 nitrofurantoin Allergy Unknown Verified 07/30/23 22:18 Penicillins Allergy Unknown Verified 07/30/23 22:18 risperidone Allergy Unknown Verified 07/30/23 22:18 tositumomab Allergy Unknown Verified 07/30/23 22:18 megestrol AdvReac Hallucinati Verified 07/30/23 22:18 ng Review of Systems Review of Systems: A 10 system review of systems was completed on the patient and is negative except for what is stated in the HPI. Nursing and ancillary documentation was reviewed. PMFSH Past Medical History Medical History Alzheimer disease End-stage renal disease on hemodialysis Hyperlipidemia Orthostatic hypotension Renal osteodystrophy Schizophrenia Surgical History Surgical History Arteriovenous fistula Surgically formed right upper extremity Patient has a her left upper extremity dialysis graft that has failed Family History Family History Other Unknown family medical history Social History Social History Social History: The patient is reported as being and retired. She only has a granddaughter who is listed as a contact. She is a former smoker. Resides at [facility]. Code status: Full code Smoking status: Former smoker Alcohol intake: former Substance use: never Spiritual care concerns: No Exam Narrative: GENERAL: Well-appearing, well-nourished, and in no acute
[2023-08-01 05:56] LABS: Basophils Percent Auto 0.5 % (0.2-1.2); Eosinophils Absolute Auto 0.1 K/mm3 (0-0.3); Eosinophils Percent Auto 1.4 % (0-4.4); Hematocrit 34.8 % (37.0-47.0); Hemoglobin 10.5 g/dL (12.0-15.0); Immature Granulocyte Absolute 0.04 K/mm3 (0.00-0.031); Immature Granulocyte Percent A 1.1 % (0-0.5); Immature Platelet Fraction Pct 5.7 % (0.9-11.2); Lymphocytes Absolute Auto 0.45 K/mm3 (0.9-3.2); Lymphocytes Percent Auto 12.4 % (18.3-44.2); Mean Corpuscular HGB Conc 30.2 g/dl (32-36); Mean Corpuscular Hemoglobin 27.1 pg (26-34); Mean Corpuscular Volume 89.7 fl (80-100); Mean Platelet Volume 10.7 fl (7.4-10.4); Monocytes Absolute Auto 0.4 K/mm3 (0.1-0.6); Monocytes Percent Auto 9.9 % (2.6-8.5); Neutrophils Absolute Auto 2.7 K/mm3 (1.3-6.7); Neutrophils Percent Auto 74.7 % (45.5-73.1); Nucleated Red Blood Cells Absolute Auto 0.1 K/mm3 (0.0-0.012); Nucleated Red Blood Cells Perc 1.4 % (0.0-0.2); Platelet Count Result 69 k/mm3 (150-375); Red Blood Count 3.88 M/mm3 (4.2-5.4); Red Cell Distribution Width 20.6 % (11.5-14.5); White Blood Count 3.6 K/mm3 (4.5-10.0)
[2023-08-01] MEDS: SODIUM CHLORIDE 0.9% IV 500 ML 999 ML IV CONT (05:58)
[2023-08-01 06:08] LABS: Alanine Aminotransferase 46 U/L (6-35); Alkaline Phosphatase 185 U/L (38-126); Anion Gap 12 mmol/L (8-16); Aspartate Amino Transferase 41 U/L (14-36); Bilirubin,Total 0.5 mg/dL (0.2-1.3); Blood Urea Nitrogen 47 mg/dL (7-17); Calcium 9.3 mg/dL (8.4-10.2); Carbon Dioxide 22 mmol/L (22-30); Chloride 100 mmol/L (98-107); Estimated CRCL calculation 9 ml/min; Estimated Glomerular Filt Rate 10; Glucose 124 mg/dL (65-110); Lactic Acid Reflex 1.4 mmol/L (0.7-2.0); Potassium 5.8 mmol/L (3.4-5.0); Sodium 134 mmol/L (137-145)
[2023-08-01] MEDS: SODIUM POLYSTYRENE SULFONONATE 15 GM/60 ML BTL 30 GM PO (06:45)
[2023-08-01 07:02] LABS: Hypochromasia 1+ (NORMAL); Platelet Estimate Decreased (Adequate)
[2023-08-01] MEDS: ONDANSETRON INJ 4 MG/2 ML VIAL IV PUSH (07:02)
[2023-08-01 07:03] LABS: Anisocytosis 1+ (NORMAL); Schistocytes None Seen (NORMAL); Target Cells 1+ (NORMAL)
--- NOTE | 2023-08-01 07:08 | PC.NURSE ---
Override pull for zofran due to patient dry heaving.
== END 2023-08-01 08:13 ==
PROVIDERS: Emergency Provider Emergency Medicine; PCP Hospitalist
DX: J98.11 Atelectasis (principal); M25.511 Pain in right shoulder; N18.6 End stage renal disease; G30.9 Alzheimer's disease, unspecified; F02.80 Dementia in other diseases classified elsewhere, unspecified severity, without behavioral disturbance, psychotic disturbance, mood disturbance, and anxiety; N25.0 Renal osteodystrophy; F20.9 Schizophrenia, unspecified; Z99.2 Dependence on renal dialysis; Z87.891 Personal history of nicotine dependence
CPT/HCPCS: 36415; 73030; 80053; 83605; 85025; 85055; 96361; 96374; 99284; A9270; J2405; J7040

== ENCOUNTER 2023-08-02 03:31 | Inpatient (IN) | payer OTHER, SELFPAY ==
[2023-08-02] VITALS (69 sets, daily range): BP systolic 84–167; BP diastolic 32–127; PULSE 64–102; RESP 12–30; TEMP 34.4–37; O2SAT 90–100; BMI 24.7
--- NOTE | ~2023-08-02 | XR_ITS ---
EXAMINATION: XR chest 1V portable INDICATION: Respiratory failure TECHNIQUE: Portable AP chest at 0534 hours COMPARISON: 08/13/2023 FINDINGS: Interstitial and airspace opacities of the mid and upper lung zones persist with slight imp rovement. There are retrocardiac airspace opacities of the lung bases without significant change. The cardiomediastinal silhouette is stable. No pleural effusion or pneumothorax. IMPRESSION: 1. Diffuse lung disease with slight improvement in the mid and upper lung zones, consistent with pulm onary edema and/or atelectasis and/or pneumonia. Reviewed, dictated and finalized at location F. TURBINE ERECTOR IMPRESSION: 1. Diffuse lung disease with slight improvement in the mid and upper lung zones , consistent with pulmonary edema and/or atelectasis and/or pneumonia.
--- NOTE | ~2023-08-02 | XR_ITS ---
EXAMINATION: XR chest 1V portable INDICATION: Respiratory failure TECHNIQUE: Portable AP chest at 0543 hours COMPARISON: 08/12/2023 FINDINGS: There are diffuse interstitial and airspace opacities throughout all lung zones with slight worsening in the upper lung zones. No pleural effusion or pneumothorax identified. The cardiomediast inal silhouette is stable. IMPRESSION: 1. Diffuse lung disease with slight interval worsening in the upper lung zones, consistent with pulmo nary edema versus atelectasis versus pneumonia. Reviewed, dictated and finalized at location F. IAC MONITOR IMPRESSION: 1. Diffuse lung disease with slight interval worsening in the upper lung zones, consistent with pulmonary edema versus atelectasis versus pneumonia.
--- NOTE | ~2023-08-02 | XR_ITS ---
Portable chest x-ray Comparison: 08/04/2023 Clinical History: Respiratory failure Findings: Endotracheal tube and NG tube are in satisfactory positions. Moderate bilateral pleural ef fusions are present, with moderate pulmonary edema and bibasilar atelectasis. Cardiomediastinal silh ouette is stable. Bones and soft tissues are unremarkable. Impression: Moderate pleural effusions with moderate pulmonary edema pattern and bibasilar atelectasis. Support tubes, as above. Reviewed, dictated and finalized at location . DYEING VAT TENDER Impression: Moderate pleural effusions with moderate pulmonary edema pattern and bibasilar atelectasis. Support tubes, as above.
--- NOTE | ~2023-08-02 | XR_ITS ---
Portable chest x-ray Comparison: 08/09/2023 Clinical History: Respiratory failure Findings: Endotracheal tube and NG tube are in satisfactory positions. Probable minimal left pleural effusion with mild bibasilar pulmonary edema/atelectasis. Cardiomediastinal silhouette is stable. B ones and soft tissues are unremarkable. Impression: Probable mild bibasilar pulmonary edema/atelectasis, left worse than right, with minimal left pleural effusion. Support tubes, as above. Reviewed, dictated and finalized at location M. OF MATHEMATICS Impression: Probable mild bibasilar pulmonary edema/atelectasis, left worse than right, wit h minimal left pleural effusion. Support tubes, as above.
--- NOTE | ~2023-08-02 | XR_ITS ---
EXAMINATION: XR chest 1V portable DATE: 08/15/2023 06:10 INDICATION: Respiratory failure. TECHNIQUE: A single frontal view of the chest was obtained. COMPARISON: Chest single view 08/14/2023, chest CT 08/05/2023 FINDINGS: There are small pleural effusions. There are airspace opacities at the lung bases. No pneum othorax. Cardiomegaly is noted. There is a catheter tip in the inferior vena cava. There are vascular stents in left upper limb. IMPRESSION: 1. Stable small pleural effusions. 2. Stable airspace opacities at the lung bases, consistent with atelectasis versus pneumonia. 3. Cardiomegaly. Reviewed, dictated and finalized at location E. ANTING MACHINE CREW IMPRESSION: 1. Stable small pleural effusions. 2. Stable airspace opacities at the lung bases, consistent with atelectasis jean-claude shi pneumonia. 3. Cardiomegaly.
--- NOTE | ~2023-08-02 | XR_ITS ---
Portable chest x-ray Comparison: 08/02/2023 Clinical History: Respiratory failure Findings: Endotracheal tube and NG tube are in satisfactory positions. There is central and bibasila r pulmonary disease. Probable small pleural effusions. Cardiomediastinal silhouette is stable. Bones and soft tissues are unremarkable. Impression: Moderate bibasilar/perihilar pulmonary edema/atelectasis. Correlate clinically for pneumonia. Small pleural effusions. Support tubes, as above. Reviewed, dictated and finalized at [facility]. STOCK CLERK Impression: Moderate bibasilar/perihilar pulmonary edema/atelectasis. Correlate clinically for pneumonia. Small pleural effusions. Support tubes, as above.
--- NOTE | ~2023-08-02 | XR_ITS ---
EXAMINATION: XR chest ET placement, XR abdomen gastric tube insert DATE: 08/02/2023 17:16 INDICATION: Endotracheal tube placement TECHNIQUE: 1. Single frontal view of the chest was obtained. 2. AP view of the abdomen and pelvis were obtained on 2 radiographs. COMPARISON: Chest radiograph dated 08/02/2023 FINDINGS: Chest: Endotracheal tube tip 2 cm above the ward. The lungs remain small with opacities in bilateral mid and lower lung zones. This likely includes small bilateral pleural effusions. No pneumothorax. Cardio megaly. Cholecystectomy clips in right upper quadrant. Vascular stent along the proximal left upper a rm. Abdomen and pelvis: Nasogastric tube tip in proximal side port distal body the stomach. There is a right femoral peripher ally inserted central venous catheter (PICC) with distal tip projecting over the inferior vena cava a t the level of L1. Sutures object over the central abdomen pelvis. No dilated loops of gas-filled bow el to suggest obstruction. IMPRESSION: 1. Endotracheal tube, nasogastric tube and right femoral peripherally inserted central venous cathete r, all in expected positions. 2. Persistent small lung volumes with unchanged opacities in bilateral mid and lower lung zones consi stent with small bilateral pleural effusions and associated atelectasis/scarring. 3. Cardiomegaly. Reviewed, dictated and finalized at location A. TER HAND IMPRESSION: 1. Endotracheal tube, nasogastric tube and right femoral peripherally inserted central venous catheter, all in expected positions. 2. Persistent small lung volumes with unchanged opacities in bilateral mid and lower lung zones consistent with small bilateral pleural effusions and associat ed atelectasis/scarring. 3. Cardiomegaly.
--- NOTE | ~2023-08-02 | XR_ITS ---
Portable chest x-ray Comparison: 08/10/2023 Clinical History: Respiratory failure Findings: Endotracheal tube and NG tube are in satisfactory positions. Small left pleural effusion p resent. There is mild pulmonary edema pattern and probable left basilar atelectasis. Cardiomediastin al silhouette is stable. Bones and soft tissues are unremarkable. Impression: Worsening mild pulmonary edema pattern with small left pleural effusion and probable left basilar ate lectasis. Support tubes, as above. Reviewed, dictated and finalized at location . CTOR CAR OPERATOR Impression: Worsening mild pulmonary edema pattern with small left pleural effusion and pro bable left basilar atelectasis. Support tubes, as above.
--- NOTE | ~2023-08-02 | XR_ITS ---
XR chest 1V portable 08/07/2023 06:01 Indication: Respiratory failure Procedure: AP portable chest Comparison: Comparison to multiple prior studies sequentially, with oldest reviewed study dated 08/03. Findings: Endotracheal tube tip 2.6 cm above the ward. Cardiomegaly. Improving bilateral airspace d isease. No pneumothorax. Possible small effusion. NG tube in the stomach. Impression: 1: Improving bilateral airspace disease which may represent edema or pneumonia. 2: Cardiomegaly. Reviewed, dictated and finalized at location A. E AND CENTER MARKER Impression: 1: Improving bilateral airspace disease which may represent edema or pneumonia. 2: Cardiomegaly.
--- NOTE | ~2023-08-02 | XR_ITS ---
Portable chest x-ray Comparison: 08/03/2023 Clinical History: Respiratory failure Findings: Endotracheal tube and NG tube are in satisfactory positions. Small bilateral pleural effus ions are present with bibasilar and perihilar airspace disease. Cardiomediastinal silhouette is stab le. Bones and soft tissues are unremarkable. Impression: Moderate pulmonary edema pattern with small bilateral pleural effusions and bibasilar atelectasis. Co rrelate clinically for pneumonia. Support tubes, as above. Reviewed, dictated and finalized at location . T OPERATOR CONTROL ROOM OPERATOR Impression: Moderate pulmonary edema pattern with small bilateral pleural effusions and bib asilar atelectasis. Correlate clinically for pneumonia. Support tubes, as above.
--- NOTE | ~2023-08-02 | CT_ITS ---
EXAMINATION: CT chest abdomen pelvis wo con DATE: 08/05/2023 08:23 ENDBAND CUTTER HAND INDICATION: Pleural effusion. C. Difficile infection. Infiltrates. TECHNIQUE: Computed tomography (CT) of the chest, abdomen, and pelvis was performed without intraveno us contrast. The dose-length product was 1186.79 mGy-cm. Automated exposure control and iterative rec onstruction technique were employed. COMPARISON: CT dated 04/02/2023 FINDINGS: CHEST CT: There is diffuse subcutaneous edema with bilateral pleural effusions and ascites, consistent with maría sarca. There is an NG tube in the stomach. There are Zaman and rectal catheters. There is extensive a therosclerosis. Endotracheal tube present. Bilateral pleural effusions, right greater than left. Ther e is underlying compressive atelectasis. Cannot exclude superimposed pneumonia. No pneumothorax. Card iomegaly. ABDOMEN/PELVIS CT: Bilateral renal atrophy suggesting chronic renal disease. Multiple bilateral renal cysts there are bi lateral renal arterial calcifications with a palpable nonobstructing renal stones on the left. There are surgical changes of the anterior abdominal wall. No definite free air is identified. Nonobstructi ve bowel gas pattern. There are degenerative changes of the sacroiliac joints and hips. Mild thoracic and lumbar spondylosis. IMPRESSION: 1. Anasarca characterized by pleural effusions, ascites and diffuse subcutaneous edema. 2: Bibasilar compressive atelectasis. Cannot exclude superimposed pneumonia. Reviewed, dictated and finalized at location B. AND CUTTER HAND IMPRESSION: 1. Anasarca characterized by pleural effusions, ascites and diffuse subcutaneou s edema. 2: Bibasilar compressive atelectasis. Cannot exclude superimposed pneumonia.
--- NOTE | ~2023-08-02 | US_ITS ---
US arterial ankle brachial ind 08/04/2023 14:46 Indication: Decreased pedal pulses. Procedure: Limited ultrasound of the lower extremity arteries Comparison: No prior studies for comparison. Findings: Study is nondiagnostic. Pressures were obtained in the great toes bilaterally. No ankle pre ssures are obtained for evaluation of ankle brachial indices. Impression: 1: Nondiagnostic study. Reviewed, dictated and finalized at location L. 8TH GRADE MATHEMATICS TEACHER Impression: 1: Nondiagnostic study.
--- NOTE | ~2023-08-02 | XR_ITS ---
Portable chest x-ray Comparison: 08/11/2023 Clinical History: Respiratory failure Findings: There is mild to moderate central pulmonary edema pattern with probable minimal pleural ef fusions and element of left lower lobe atelectasis. Cardiomediastinal silhouette is stable. Bones an d soft tissues are unremarkable. Impression: Mild to moderate pulmonary edema pattern with minimal pleural effusions and probable partial left low er lobe atelectasis. Reviewed, dictated and finalized at location M. WRAPPER Impression: Mild to moderate pulmonary edema pattern with minimal pleural effusions and pro bable partial left lower lobe atelectasis.
--- NOTE | ~2023-08-02 | XR_ITS ---
XR chest 1V portable 08/06/2023 05:59 Indication: Respiratory failure Procedure: AP portable chest Comparison: Comparison to multiple prior studies sequentially, with oldest reviewed study dated 08/02. Findings: Persistent unchanged bilateral airspace disease. Small right pleural effusion. NG tube in t he stomach. Endotracheal tube tip 2.3 cm above the ward. No pneumothorax. There is a vascular stent in the left upper extremity. Impression: 1: Stable bilateral airspace disease, consistent with edema. 2: Small right pleural effusion. Reviewed, dictated and finalized at location A. NCT COMMUNICATIONS FACULTY MEMBER Impression: 1: Stable bilateral airspace disease, consistent with edema. 2: Small right pleural effusion.
--- NOTE | ~2023-08-02 | XR_ITS ---
Portable chest x-ray Comparison: 07/12/2023 Clinical History: Dyspnea Findings: Moderate bilateral pleural effusions are present. There is presumed moderate bibasilar pul monary edema and/or atelectasis. Cardiomediastinal silhouette is stable. Bones and soft tissues are unremarkable. Impression: Moderate bilateral pleural effusions with moderate bibasilar pulmonary edema/atelectasis. Reviewed, dictated and finalized at location . W MACHINE OPERATOR SWISS TYPE Impression: Moderate bilateral pleural effusions with moderate bibasilar pulmonary edema/at electasis.
--- NOTE | ~2023-08-02 | XR_ITS ---
Portable chest x-ray Comparison: 08/07/2023 Clinical History: Respiratory failure Findings: Endotracheal tube and NG tube are in satisfactory positions. There is central congestive c hange with central airspace disease as well as left lower lobe airspace disease. Cardiomediastinal s ilhouette is stable. Bones and soft tissues are unremarkable. Impression: Probable central and bibasilar pulmonary edema with left basilar atelectasis. Correlate clinically fo r pneumonia. Support tubes, as above. Reviewed, dictated and finalized at location . 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 C orrelate clinically for pneumonia. Support tubes, as above.
--- NOTE | ~2023-08-02 | XR_ITS ---
XR chest 1V portable 08/02/2023 14:12 Indication: Hypoxia Procedure: AP portable chest Comparison: Comparison to multiple prior studies sequentially, with oldest reviewed study dated 03/23. Findings: Cardiomegaly. Diffuse bilateral airspace disease, suspicious for edema. Shallow inspiration with crowding of the pulmonary vessels. Cannot exclude small effusion. No pneumothorax. Impression: 1: Cardiomegaly with bilateral airspace disease, most likely edema. Pneumonia not excluded. Reviewed, dictated and finalized at location L. MODEL Impression: 1: Cardiomegaly with bilateral airspace disease, most likely edema. Pneumonia n ot excluded.
--- NOTE | 2023-08-02 03:43 | ECG_ITS ---
Measurements Intervals [place] Rate: 80 P: 46 MD: 215 QRS: 25 QRSD: 102 T: 151 QT: 390 QTc: 450 Interpretive Statements SINUS RHYTHM WITH FIRST DEGREE AV BLOCK LOW QRS VOLTAGE IN PRECORDIAL LEADS ANTERIOR INFARCT, AGE INDETERMINATE BORDERLINE ST-T WAVE ABNORMALITY- INF/HIGH LAT LEADS BASELINE WANDER- V1-V3 ABNORMAL ECG COMPARED TO ECG 07/30/2023 23:17:54 FIRST DEGREE AV BLOCK NOW PRESENT Electronically Signed On 08-02-2023 6:50:50 DESIGN MANAGER by Vineet Kumar D.O.
[2023-08-02] MEDS: NITROGLYCERIN OINTMENT 1 INCH DOSE TRANSDERM (04:00)
[2023-08-02] MEDS: FUROSEMIDE INJ 40 MG/4 ML VIAL IV PUSH (04:00)
[2023-08-02 04:01] LABS: Basophils Percent Auto 0.3 % (0.2-1.2); Eosinophils Percent Auto 0.2 % (0-4.4); Hematocrit 31.7 % (37.0-47.0); Hemoglobin 9.7 g/dL (12.0-15.0); Immature Granulocyte Absolute 0.05 K/mm3 (0.00-0.031); Immature Granulocyte Percent A 0.5 % (0-0.5); Immature Platelet Fraction Pct 7.2 % (0.9-11.2); Lymphocytes Absolute Auto 0.33 K/mm3 (0.9-3.2); Mean Corpuscular HGB Conc 30.6 g/dl (32-36); Mean Corpuscular Hemoglobin 27.8 pg (26-34); Mean Corpuscular Volume 90.8 fl (80-100); Monocytes Absolute Auto 0.9 K/mm3 (0.1-0.6); Monocytes Percent Auto 7.8 % (2.6-8.5); Neutrophils Absolute Auto 9.6 K/mm3 (1.3-6.7); Neutrophils Percent Auto 88.2 % (45.5-73.1); Nucleated Red Blood Cells Absolute Auto 0.2 K/mm3 (0.0-0.012); Nucleated Red Blood Cells Perc 1.4 % (0.0-0.2); Platelet Count Result 63 k/mm3 (150-375); Red Blood Count 3.49 M/mm3 (4.2-5.4); Red Cell Distribution Width 20.6 % (11.5-14.5); White Blood Count 10.8 K/mm3 (4.5-10.0)
[2023-08-02 04:08] LABS: Lactic Acid Reflex 1.1 mmol/L (0.7-2.0)
[2023-08-02 04:09] LABS: Alanine Aminotransferase 49 U/L (6-35); Albumin Level 3.7 g/dL (3.5-5.1); Alkaline Phosphatase 193 U/L (38-126); Anion Gap 11 mmol/L (8-16); Aspartate Amino Transferase 45 U/L (14-36); Bilirubin,Total 0.5 mg/dL (0.2-1.3); Blood Urea Nitrogen 55 mg/dL (7-17); Calcium 8.8 mg/dL (8.4-10.2); Carbon Dioxide 23 mmol/L (22-30); Chloride 101 mmol/L (98-107); Estimated CRCL calculation 6 ml/min; Estimated Glomerular Filt Rate 8; Glucose 107 mg/dL (65-110); Magnesium 2.6 mg/dL (1.6-2.3); Potassium 5.1 mmol/L (3.4-5.0); Sodium 135 mmol/L (137-145)
[2023-08-02 04:11] LABS: INR 1.3
[2023-08-02 04:12] LABS: Partial Thromboplastin Time 54.9 SECONDS (22.3-36.8)
[2023-08-02 04:20] LABS: Troponin I 0.019 ng/mL (0.000-0.034)
--- NOTE | 2023-08-02 05:18 | ED.GENADULT ---
HPI - General Adult General Chief complaint: Shortness of Breath/Dyspnea Stated complaint: DIFFICULTY BREATHING Time Seen by Provider: 08/02/23 03:34 History of Present Illness HPI narrative: Patient is a 72-year-old female who presents emergency department with chief complaint of shortness of breath and edema. The patient is resident of a local half-way also history of end-stage renal disease on dialysis Tuesday the patient has missed several runs of dialysis and has been seen for atelectasis on her chest x-ray and agitation over the weekend the patient needs morning became more swollen and has had increasing shortness of breath at the facility. Related Data Home Medications Medication Instructions Recorded Confirmed allopurinol 100 mg tablet 100 mg PO DAILY 09/28/22 07/12/23 atorvastatin 20 mg tablet 20 mg PO HS 09/28/22 07/12/23 haloperidol 5 mg tablet 5 mg PO BID 09/28/22 07/12/23 magnesium hydroxide 400 mg/5 mL 30 ml PO HS PRN Constipation 09/28/22 07/12/23 oral suspension midodrine 5 mg tablet 5 mg PO PRN PRN Blood Pressure 09/28/22 07/12/23 acetaminophen 325 mg tablet 650 mg PO Q4H PRN Pain, Mild 02/26/23 07/12/23 bisacodyl 10 mg rectal suppository 10 mg RECTAL DAILY PRN Constipation 02/26/23 07/12/23 magnesium citrate 296 ml PO DAILY PRN Constipation 02/26/23 07/12/23 sodium phosphates 19 gram-7 118 ml RECTAL PRN PRN Constipation 02/26/23 07/12/23 gram/118 mL enema (Fleet Enema) dextromethorphan-guaifenesin 5 10 ml PO Q6H PRN Cough 07/12/23 07/12/23 mg-100 mg/5 mL oral liquid (Robitussin Cough-Chest Congestion DM) diphenhydramine HCl 25 mg capsule 25 mg PO TID PRN Itching 07/12/23 07/12/23 (Benadryl) lanthanum 500 mg chewable tablet 500 mg PO TIDWM 07/12/23 07/12/23 vitamin D3 94 mcg-folic acid 1 mg 1 tablet PO DAILY 07/12/23 07/12/23 tablet (Folvite-D) Allergies Allergy/AdvReac Type Severity Reaction Status Date / Time aspirin Allergy Unknown Verified 07/30/23 22:18 cabbage Allergy Unknown Verified 07/30/23 22:18 chocolate flavor Allergy Unknown Verified 07/30/23 22:18 erythromycin base Allergy Unknown Verified 07/30/23 22:18 gadobenic acid Allergy Unknown Verified 07/30/23 22:18 [From contrast - MRI] iodine Allergy Unknown Verified 07/30/23 22:18 iohexol Allergy Unknown Verified 07/30/23 22:18 [From contrast - CT, X-RAY] lorazepam Allergy Unknown Verified 07/30/23 22:18 metrizamide Allergy Unknown Verified 07/30/23 22:18 nitrofurantoin Allergy Unknown Verified 07/30/23 22:18 Penicillins Allergy Unknown Verified 07/30/23 22:18 risperidone Allergy Unknown Verified 07/30/23 22:18 tositumomab Allergy Unknown Verified 07/30/23 22:18 megestrol AdvReac Hallucinati Verified 07/30/23 22:18 ng Review of Systems Review of Systems: A 10 system review of systems was completed on the patient and is negative except for what is stated in the HPI. Nursing and ancillary documentation was reviewed. [facility] Past Medical History Medical History Alzheimer disease End-stage renal disease on hemodialysis Hyperlipidemia Orthostatic hypotension Renal osteodystrophy Schizophrenia Surgical History Surgical History Arteriovenous fistula Surgically formed right upper extremity Patient has a her left upper extremity dialysis graft that has failed Family History Family History Other Unknown family medical history Social History Social History Social History: The patient is reported as being and retired. She only has a granddaughter who is listed as a contact. She is a former smoker. Resides at [facility]. Code status: Full code Smoking status: Former smoker Alcohol intake: former Subs
[2023-08-02 05:31] LABS: Device NON-INVASIVE VENT; Fractional Inspired Oxygen 60 %; PCO2 VBG 62.5 mmHg (42.0-48.0); pH VBG 7.165 (7.300-7.400)
[2023-08-02 05:32] LABS: Non-Invasive Expiratory Pressure 6 CMH2O; Non-Invasive Inspiratory Pressure 14 CMH2O; Non-Invasive Vent Rate 14 /MIN
[2023-08-02 07:34] LABS: Procalcitonin 0.6 ng/mL
--- NOTE | 2023-08-02 08:14 | PC.NURSE ---
Nitroglycerin patch removed due to hypotension.
[2023-08-02] MEDS: MIDODRINE HCL 10 MG TABLET PO ×2 (08:17→18:24)
[2023-08-02] MEDS: ALBUMIN HUMAN 25% 12.5 GM/50ML 50 ML IVPB ×3 (09:07→09:43)
--- NOTE | 2023-08-02 10:25 | PM.CNNEP ---
Assessment and Plan Assessment and plan (1) End stage renal disease: Code(s): N18.6 - End stage renal disease Status: Chronic Assessment and Plan: HD today continue T/T/S dialysis schedule follow electrolytes, volume status, and clearance (2) Acute respiratory failure with hypoxia and hypercapnia: Code(s): J96.01 - Acute respiratory failure with hypoxia; J96.02 - Acute respiratory failure with hypercapnia Status: Acute Assessment and Plan: secondary to pulmonary edema from missed dialysis and pneumonia on BiPAP therapy on ntibiotics fluid removal with dialysis as tolerated by hemodynamics follow respiraory status closely (3) Pneumonia: Code(s): J18.9 - Pneumonia, unspecified organism Status: Acute Assessment and Plan: suggestive by admission imaging follow culture data on antibiotic therapy (4) Hypotension: Code(s): I95.9 - Hypotension, unspecified Status: Acute Assessment and Plan: BP can fluctuate to extremes has been on midodrine therapy in the past follow trend of hemodynamics (5) Hyperkalemia: Code(s): E87.5 - Hyperkalemia Status: Acute Assessment and Plan: as noted by labs on admission dialysis today to ensure correction (6) Anemia: Code(s): D64.9 - Anemia, unspecified Status: Chronic Assessment and Plan: due to ESRD Epogen with HD follow H/H I will continue to follow the patient with you while she remains hospitalized make further recommendations as needed. Thank you for allowing me to participate in the care of this patient. History of Present Illness Reason for Consult Consult date: 08/02/23 Reason for consult: end stage renal disease Chief Complaint Chief complaint: fluid overload,esrd on hd pulmonary edema History of Present Illness Narrative: All the information I have obtained is from review of the electronic medical record as well as discussion with the ER physician and my personal experience taking care of this patient as I am unable to get any history/information from the patient as she is normally non-verbal and noncommunicative at baseline and is on BIPAP therapy. The patient is a 72-year-old female with a past medical history as outlined below who apparently presented to [facility] Emergency room from her nursing facility for shortness of breath/respiratory distress. The patient has been unable to get her full dialysis treatments for the last week due to increased agitation and combative behavior. Attempts to alleviate these symptoms with the use of Benadryl as well as a one-to-one sitter at the outpatient dialysis unit have been unsuccessful in treating this problem. Since she has been unable to get her full dialysis treatments, her respiratory status has been slowly deteriorating in the last several days on the assumption of fluid retention. Earlier this morning, her respiratory distress became more significant which resulted in transport to the ER for assessment. In the emergency room, she was noted to be hypoxic and in clear respiratory distress and she was initiated on BiPAP therapy and effort to compensate for this issue. Imaging studies were consistent with volume overload and pulmonary edema and her respiratory status seemed to stabilize with the use of BiPAP therapy. Routine blood test demonstrated labs consistent with his known history of end-stage renal disease in association with a elevated potassium level. She was subsequently admitted to the hospital for urgent dialysis and further management of her acute hypoxic respiratory failure. Renal consultation was requested due to her end-stage renal disease. The patient normally receives dialysis on a Tuesday, , and Tuesday dialysis schedule at [facility] under the care of Dr. Cameron Mccollum. She previously used to be treated at [facility] but was trans
[2023-08-02] MEDS: EPOETIN ALFA-EPBX 10,000 UNITS/ML VIAL 10000 UNITS IV PUSH (10:50)
--- NOTE | 2023-08-02 11:47 | PM.IMHP ---
H&P: HPI History of Present Illness Date/Time: 08/02/23 13:40 Chief Complaint: Respiratory failure, respiratory acidosis, hypotension, ESRD Narrative: This is a 72-year-old female patient history of ESRD on dialysis who has not been getting full treatment dialysis due to agitation. She has been on Benadryl for the dialysis sessions but still gets agitated so they have been shorter and shorter recently. Patient has been having trouble breathing all week and the [facility] has center to the emergency department a couple of times in which she is discharged. Overnight she returned back to the emergency department was noted be in respiratory distress started on BiPAP found to have some signs of pulmonary edema on chest x-ray. She was taken this morning for dialysis session blood pressure has been soft. Patient normally takes midodrine with dialysis sessions. Despite BiPAP and dialysis patient is still having significant respiratory acidosis with a venous pH of 7.19. BiPAP changed to AVAPS and once arrived to her room IMU overflow into ICU room 6 I asked retail department reset to evaluate patient is well. She has been changed to ICU status. Confirmed by telephone call with patient's emergency contact that she is indeed a full code. Review of Systems Review of Systems: ROS unobtainable: Yes unobtainable due to medical condition PMFSH Past Medical History Medical History Alzheimer disease End-stage renal disease on hemodialysis Hyperlipidemia Orthostatic hypotension Renal osteodystrophy Schizophrenia Surgical History Surgical History Arteriovenous fistula Surgically formed right upper extremity Patient has a her left upper extremity dialysis graft that has failed Family History Family History Other Unknown family medical history Social History Social History Social History: The patient is reported as being and retired. She only has a granddaughter who is listed as a contact. She is a former smoker. Resides at [facility]. Code status: Full code Smoking status: Unknown if ever smoked Alcohol intake: unknown Substance use: unknown Substance use type: does not use Spiritual care concerns: No Meds Home Medications and Allergies Home Medications Medication Instructions Recorded Confirmed Type allopurinol 100 mg tablet 100 mg PO DAILY 09/28/22 08/02/23 History atorvastatin 20 mg tablet 20 mg PO HS 09/28/22 08/02/23 History haloperidol 5 mg tablet 5 mg PO BID 09/28/22 08/02/23 History midodrine 5 mg tablet 5 mg PO PRN PRN Blood Pressure 09/28/22 08/02/23 History acetaminophen 325 mg tablet 650 mg PO Q4H PRN Pain, Mild 02/26/23 08/02/23 History bisacodyl 10 mg rectal suppository 10 mg RECTAL DAILY PRN Constipation 02/26/23 08/02/23 History sodium phosphates 19 gram-7 118 ml RECTAL PRN PRN Constipation 02/26/23 08/02/23 History gram/118 mL enema (Fleet Enema) ondansetron 4 mg disintegrating 4 mg PO Q8H PRN nausea and 05/23/23 08/02/23 Rx tablet vomiting #20 tabs dextromethorphan-guaifenesin 5 10 ml PO Q6H PRN Cough 07/12/23 08/02/23 History mg-100 mg/5 mL oral liquid (Robitussin Cough-Chest Congestion DM) diphenhydramine HCl 25 mg capsule 25 mg PO TID PRN Itching 07/12/23 08/02/23 History (Benadryl) lanthanum 500 mg chewable tablet 500 mg PO TIDWM 07/12/23 08/02/23 History vitamin D3 94 mcg-folic acid 1 mg 1 tablet PO DAILY 07/12/23 08/02/23 History tablet (Folvite-D) Allergies Allergy/AdvReac Type Severity Reaction Status Date / Time aspirin Allergy Unknown Verified 07/30/23 22:18 cabbage Allergy Unknown Verified 07/30/23 22:18 chocolate flavor Allergy Unknown Verified 07/30/23 22:18 erythromycin base Allergy Unknown Verified 07/30/23 22
[2023-08-02 12:12] LABS: Alveolar/Arterial O2 Gradient 307.3 mmHg; Base Excess ABG -3.4 mEq/l (+/-2.0); Fractional Inspired Oxygen 60 %; HCO3 ABG 25.6 mEq/l (22.0-26.0); Oxygen Content ABG 10.8 %vol (16.0-22.0); PO2 FiO2 Ratio Arterial Blood 0.75 %; Total Hemoglobin 10.5 g/dL (12.0-18.0)
[2023-08-02 12:18] LABS: PCO2 ABG 68.5 mmHg (35.0-45.0)
[2023-08-02 12:19] LABS: Oxygen Saturation ABG 69.3 % (95.0-100.0); PO2 ABG 45.2 mmHg (80.0-100.0)
[2023-08-02 12:20] LABS: Device NON-INVASIVE VENT; Modified Allen's Test Pass; Oxyhemoglobin 72.7 % THb (90.0-100.0); Site Drawn RIGHT RADIAL
[2023-08-02 12:21] LABS: Non-Invasive Expiratory Pressure 6 CMH2O; Non-Invasive Inspiratory Pressure 18 CMH2O; Non-Invasive Vent Rate 14 /MIN
--- NOTE | 2023-08-02 13:18 | ADMGEN ---
This patient, Dania Demarco, was admitted to Intensive Care Unit-6. Patient/family oriented to hospital policies and general routines including ID bracelet, bed and alarms, visiting hours, pain management, procedures, bathroom and other care routines, personal items, smoking policy, room service/diet, and visiting hours. Information on how to activate the Rapid Response Team has been discussed. Patient/Family are encouraged to report perceived risks to care and to ask questions if they do not understand what they are told or what they should do.
[2023-08-02] MEDS: methylPREDNISolone SOD SUCC 500 MG in DEXTROSE 5% 100 ML 200 MG IVPB (14:09)
[2023-08-02] MEDS: ALBUTEROL SULFATE NEB 2.5 MG/3 ML INH 15 MG INHALATION (14:12)
[2023-08-02] MEDS: IPRATROPIUM BR 0.02% INH SOLN 0.5 MG/2.5 ML VIAL 1.5 MG INHALATION (14:12)
--- NOTE | 2023-08-02 15:15 | PC.NURSE ---
After not getting a good oxygen pleth since being back from dialysis and unable to get an accurate blood pressure, Dr. Cardozo here and pt intubated with a 7.5 and og tube placed, at this time doctor is placing a right groin center line, prior to intubation, unable to flush left ej and 22 was placed with ultra sound in left fore arm
[2023-08-02] MEDS: ALBUMIN HUMAN 25% 25 GM/100 ML 100 ML 100 GM (15:25)
[2023-08-02] MEDS: methylPREDNISolone SOD SUCC 125 MG VIAL (15:25)
[2023-08-02 15:47] LABS: MRSA (PCR) DETECTED (NOT DETECTE)
[2023-08-02 16:24] LABS: Alveolar/Arterial O2 Gradient 380.4 mmHg; Base Excess ABG -3.8 mEq/l (+/-2.0); Carboxyhemoglobin 0.2 % THb (0-2.0); Fractional Inspired Oxygen 70 %; HCO3 ABG 21.7 mEq/l (22.0-26.0); Methemoglobin ABG 0.3 %THb (0-1.5); Oxygen Content ABG 13.4 %vol (16.0-22.0); Oxygen Saturation ABG 94.2 % (95.0-100.0); Oxyhemoglobin 93.7 % THb (90.0-100.0); PO2 ABG 74.6 mmHg (80.0-100.0); PO2 FiO2 Ratio Arterial Blood 1.07 %; Reduced Hemoglobin 5.8 %THb (0-5.0); Total Hemoglobin 10.1 g/dL (12.0-18.0); pH ABG 7.341 (7.350-7.450)
[2023-08-02 16:25] LABS: Site Drawn RIGHT FEMORAL
[2023-08-02 16:26] LABS: Device VENTILATOR
[2023-08-02] MEDS: RAPID SEQUENCE INTUBATION KIT 1 EACH (16:26)
[2023-08-02 16:27] LABS: Arterial Blood Gas PEEP 8 cmH2O; Arterial Blood Gas Tidal Volume 370 ml; Arterial Blood Gas Vent Mode CMV; Arterial Blood Gas Ventilator rate 20 /MIN
[2023-08-02] MEDS: LIDOCAINE HCL 1% PF INJ 5 ML VIAL INFILTRATE (16:35)
--- NOTE | 2023-08-02 16:38 | WPDPROCEDUR ---
Procedures Intubation Intubation Date: 08/02/23 Intubation Time: 14:50 Consent: Phone verification of full code status with granddaughter/emergent Sedative: etomidate Paralytic: rocuronium Laryngoscope: fiber optic video scope Assist device used: fiber optic device ET tube size: 7.5 Tube secured depth (cm): 23 Tube secured location: lips Tube placement confirmation: visualized tube passing through cords, equal breath sounds bilaterally, no breath sounds over epigastrium and confirmation by capnometry Patient tolerated procedure: no complications Intubation complications: none Additional comments: Dr. Cardozo at bedside for proctored intubation
--- NOTE | 2023-08-02 16:39 | WPDCNINT ---
Assessment and Plan Assessment and plan (1) Acute respiratory failure with hypoxia and hypercapnia: Code(s): J96.01 - Acute respiratory failure with hypoxia; J96.02 - Acute respiratory failure with hypercapnia Status: Acute Assessment and Plan: Acute hypoxic/hypercapnic respiratory failure likely related to pulmonary edema from missed dialysis and pneumonia -patient intubated on 08/02 -currently on CMV mode of ventilation, peep of 8 and 70% FiO2, low tidal volume strategy -continue bronchodilators -patient was dialyzed 08/02 with 2000 mL in fluid removal -will require dialysis again in a.m. for fluid removal as her dialysis sessions have been shortened due to some agitation at the dialysis center. -sedated with fentanyl and Versed infusion, maintain RASS of 0 to -2 Repeat blood gases much improved (2) Hypotension: Code(s): I95.9 - Hypotension, unspecified Status: Acute Assessment and Plan: Hypotension likely chronic, patient is on midodrine at home -will restart midodrine here in the hospital -lactic acid has been ordered -obtain blood culture -08/02 patient started on cefepime and vancomycin -will deescalate once cultures are resulted (3) Pneumonia: Code(s): J18.9 - Pneumonia, unspecified organism Status: Acute Assessment and Plan: WBC count is elevated, patient is hypotensive -check lactic acid -currently intubated and sedated (4) Pulmonary edema: Qualifiers: Chronicity: chronic Qualified Code(s): J81.1 - Chronic pulmonary edema Code(s): J81.1 - Chronic pulmonary edema Status: Chronic Assessment and Plan: Pulmonary edema likely related to shorten dialysis sessions as mentioned above -continue dialysis per Nephrology (5) End-stage renal disease on hemodialysis: Code(s): N18.6 - End stage renal disease; Z99.2 - Dependence on renal dialysis Status: Acute Assessment and Plan: Nephrology following the patient, dialysis per Nephrology Plan DVT prophylaxis: Heparin subQ Stress ulcer prophylaxis: Protonix Nutrition: Will start tube feeds in a.m. Code Status: Full code Critical Care Time Spent: 79 minutes Discussed with GWENDOLYN Lal, was also the granddaughter, updated her with patient's condition and plan of care. I did tell her that patient needed to be intubated as she was breathing 35-40 times a minute and using accessory muscles. She is also aware that patient is going to get a pre femoral PICC line. The POA does stated that they have always had issues getting a central line on the patient. I answered all her questions Due to a high probability of clinically significant, life threatening deterioration, the patient required my highest level of preparedness to intervene emergently and I personally spent this critical care time directly and personally managing the patient. This critical care time included obtaining a history; examining the patient; pulse oximetry; ordering and review of studies; arranging urgent treatment with development of a management plan; evaluation of patient's response to treatment; frequent reassessment; and discussions with other providers. It was exclusive of separately billable procedures and treating other patients and teaching time. Please see Assessment and Plan section and the rest of the note for further information on patient assessment and treatment This dictation may have been done utilizing a voice recognition system. Attempts have been made to correct errors. However, there may be uncorrected grammatical, spelling, and recognitions errors present. Electricity Trader Consult Note Consult date: 08/02/23 Reason for consult: Acute hypoxic/hypercarbic respiratory failure likely related to pulmonary edema/volume overload, pneumonia. Patient also hypotension, leukocytosis, hyperkalemia HPI: Dania Demarco is a 72 year old female past medical history of end-stage renal disease on hemodialysis,
[2023-08-02] MEDS: FENTANYL 2,500MCG/NS250ML(*CRX 2,500 MCG/250 ML BAG IV CONT (16:42)
[2023-08-02] MEDS: MIDAZOLAM 100MG/NS 100ML(*CRX) 100 MG/100 ML BAG IV CONT (16:43)
[2023-08-02] MEDS: PANTOPRAZOLE SODIUM IV 40 MG VIAL IV PUSH (18:24)
[2023-08-02] MEDS: HALOPERIDOL 5 MG TABLET FEED TUBE (18:24)
[2023-08-02] MEDS: VANCOMYCIN 1,250 MG/NS 250 ML 1,250 MG/250 ML BAG 166.67 MG IVPB (18:25)
[2023-08-02] MEDS: ALBUMIN HUMAN 25% 25 GM/100 ML 100 ML IVPB ×2 (18:25→23:41)
[2023-08-02 19:12] LABS: Lactic Acid Reflex 2.7 mmol/L (0.7-2.0)
[2023-08-02 19:16] LABS: INR 1.5; Prothrombin Time 19.1 Seconds (11.1-14.7)
[2023-08-02 19:17] LABS: Partial Thromboplastin Time 58.9 SECONDS (22.3-36.8)
[2023-08-02 19:23] LABS: Troponin I 0.028 ng/mL (0.000-0.034)
[2023-08-02 19:29] LABS: Basophils Percent Auto 0.1 % (0.2-1.2); Hematocrit 25.9 % (37.0-47.0); Hemoglobin 8.1 g/dL (12.0-15.0); Immature Granulocyte Absolute 0.03 K/mm3 (0.00-0.031); Immature Granulocyte Percent A 0.4 % (0-0.5); Immature Platelet Fraction Pct 6.7 % (0.9-11.2); Lymphocytes Absolute Auto 0.07 K/mm3 (0.9-3.2); Lymphocytes Percent Auto 0.8 % (18.3-44.2); Mean Corpuscular HGB Conc 31.3 g/dl (32-36); Mean Corpuscular Hemoglobin 27.5 pg (26-34); Mean Corpuscular Volume 87.8 fl (80-100); Monocytes Absolute Auto 0.1 K/mm3 (0.1-0.6); Monocytes Percent Auto 1.4 % (2.6-8.5); Neutrophils Absolute Auto 8.3 K/mm3 (1.3-6.7); Neutrophils Percent Auto 97.3 % (45.5-73.1); Nucleated Red Blood Cells Absolute Auto 0.1 K/mm3 (0.0-0.012); Nucleated Red Blood Cells Perc 0.7 % (0.0-0.2); Platelet Count Result 51 k/mm3 (150-375); Red Blood Count 2.95 M/mm3 (4.2-5.4); Red Cell Distribution Width 20.1 % (11.5-14.5); White Blood Count 8.5 K/mm3 (4.5-10.0)
[2023-08-02 19:45] LABS: Procalcitonin 5.6 ng/mL
[2023-08-02] MEDS: CEFEPIME 0.5 GM in SODIUM CHLORIDE 0.9% IV 50 ML IVPB (20:12)
[2023-08-02] MEDS: MINERAL OIL/WHITE PETROLATUM OINTMENT 1 APPLIC EACH EYE (20:13)
[2023-08-02] MEDS: ATORVASTATIN 20 MG TABLET PO (20:13)
[2023-08-02] MEDS: HEPARIN SODIUM 5,000 UNITS/ML VIAL 5000 UNITS SUB-Q (20:13)
[2023-08-02] MEDS: CENTRAL LINE FLUSH 10 ML IV PUSH (20:13)
[2023-08-02] MEDS: IPRATROPIUM BR 0.02% INH SOLN 0.5 MG/2.5 ML VIAL INHALATION (21:33)
[2023-08-02] MEDS: ALBUTEROL SULFATE NEB 2.5 MG/3 ML INH INHALATION (21:33)
[2023-08-02 21:53] LABS: Reflex Lactic Acid Yes or No Add Lactic
[2023-08-02 22:19] LABS: Platelet Estimate Decreased (Adequate)
[2023-08-02 22:20] LABS: Hypochromasia 1+ (NORMAL); Schistocytes None Seen (NORMAL); Target Cells 1+ (NORMAL)
[2023-08-02 22:45] LABS: Lactic Acid 2.7 mmol/L (0.7-2.0)
--- NOTE | 2023-08-02 23:07 | PC.NURSE ---
Patient's granddaughter questioning when the doctor will be back and demanding that patient be taken off of Fentanyl drip. Dr. Cardozo notified and there is no other option for sedation at this time due to patient's renal function and hypotension. Patient's family member educated but family member remains persistent that patient be taken off of fentanyl drip. She states, I googled that Fentanyl can be deadly, that it can kill her. I'm her power of civil laboratory technician and I'm above the doctor. I explained to granddaughter that I'm doing my job, and that I have orders to follow. I explained code status and patient's poor health condition all being factors in the situation. I explained that the patient is getting a controlled rate of Fentanyl and that the RN watches vitals and mentation to make sure the patient is not being oversedated. All vitals stable at this time. Will continue to monitor.
[2023-08-02] MEDS: hetaSTARCH 6%/NACL 500 ML 250 ML IV CONT (23:41)
[2023-08-03] VITALS (63 sets, daily range): BP systolic 94–126; BP diastolic 53–76; PULSE 80–95; RESP 18–25; TEMP 35.2–37; O2SAT 93–100; BMI 30.5
--- NOTE | 2023-08-03 | ECHO_ITS ---
Patient Info Name: Dania Demarco Age: 72 years : 1950 Gender: Female Ht: 63 in Wt: 171 lbs BSA: 1.88 m2 HR: 87 bpm BP: 101 / 59 mmHg Heart Rhythm: Sinus Rhythm Technical Quality: Fair Exam Date: 08/03/2023 2:38 PM Exam Location: Echo Lab Exam Room: ICU6 Patient Status: Inpatient Admit Date: 08/03/2023 Staff Ordering Physician: Deric Cardozo MD Paster Supervisor: Sharon Cerna RDCS Attending Provider: Radha Alfonso DO Referring Physician: Cas LOPEZ; Exam Type: CA echo doppler color flow Study Info Indications - HYPOTENSION SHOCK Complete two-dimensional, color flow and Doppler transthoracic echocardiogram is performed. Summary 1. Complete two-dimensional, color flow and Doppler transthoracic echocardiogram is performed. 2. Left ventricular chamber dimension is normal. 3. Left ventricular systolic function is normal, estimated at 55-60%. 4. There is mildly increased left ventricular wall thickness. 5. The left ventricular diastolic function is grade I diastolic dysfunction. 6. 'D-Shaped' septum in systole and diastole consistent with RV pressure and volume overload. 7. Right ventricular chamber dimension is moderately enlarged. 8. Right ventricular systolic function is reduced. 9. Left atrial chamber dimension is moderately enlarged. 10. Right atrial chamber dimension is moderately enlarged. 11. There is mild to moderate aortic valve stenosis with a peak velocity of 258 cm/s, mean gradient of 17 mmHg, and aortic valve area of 1.9 cm2. 12. There is mild aortic valve regurgitation. 13. There is moderate aortic valve calcification. 14. The mitral valve has thickened leaflets. 15. There is mild mitral valve stenosis. 16. There is mild to moderate mitral valve regurgitation. 17. The mitral valve annulus is severely calcified. 18. There is severe tricuspid valve regurgitation. 19. Moderate pulmonary hypertension, estimated pulmonary arterial systolic pressure is 46 mmHg. 20. The tricuspid valve does not completely close. 21. There is mild to moderate pulmonic regurgitation. Left Ventricle Left ventricular chamber dimension is normal. Left ventricular systolic function is normal, estimated at 55-60%. There is mildly increased left ventricular wall thickness. The left ventricular diastolic function is grade I diastolic dysfunction. 'D-Shaped' septum in systole and diastole consistent with RV pressure and volume overload. Right Ventricle Right ventricular chamber dimension is moderately enlarged. Right ventricular systolic function is reduced. Left Atria Left atrial chamber dimension is moderately enlarged. Right Atria Right atrial chamber dimension is moderately enlarged. Atrial Septum Intact interatrial septum visualized by color flow imaging. Aortic Valve The aortic valve is trileaflet. There is mild to moderate aortic valve stenosis with a peak velocity of 258 cm/s, mean gradient of 17 mmHg, and aortic valve area of 1.9 cm2. There is mild aortic valve regurgitation. There is moderate aortic valve calcification. Pulmonic Valve The pulmonic valve is normal. There is no pulmonic valve stenosis. There is mild to moderate pulmonic regurgitation. Mitral Valve The mitral valve has thickened leaflets. There is mild mitral valve stenosis. There is mild to moderate mitral valve regurgitation. The mitral valve annulus is severely calcified. Tricuspid Valve There is no significant tricuspid valve stenosis. There is severe tricuspid valve regurgitation. Moderate pulmonary hypertension, estimated pulmonary arterial systolic
[2023-08-03] MEDS: ALBUTEROL SULFATE NEB 2.5 MG/3 ML INH INHALATION ×7 (00:05→23:26)
[2023-08-03] MEDS: IPRATROPIUM BR 0.02% INH SOLN 0.5 MG/2.5 ML VIAL INHALATION ×7 (00:06→23:26)
[2023-08-03 05:16] LABS: Hemoglobin 7.7 g/dL (12.0-15.0); Immature Granulocyte Absolute 0.02 K/mm3 (0.00-0.031); Immature Granulocyte Percent A 0.3 % (0-0.5); Immature Platelet Fraction Pct 8.3 % (0.9-11.2); Lymphocytes Absolute Auto 0.13 K/mm3 (0.9-3.2); Lymphocytes Percent Auto 2.1 % (18.3-44.2); Mean Corpuscular HGB Conc 33.5 g/dl (32-36); Mean Corpuscular Hemoglobin 27.9 pg (26-34); Mean Corpuscular Volume 83.3 fl (80-100); Mean Platelet Volume 10.1 fl (7.4-10.4); Monocytes Absolute Auto 0.3 K/mm3 (0.1-0.6); Monocytes Percent Auto 4.6 % (2.6-8.5); Neutrophils Absolute Auto 5.7 K/mm3 (1.3-6.7); Nucleated Red Blood Cells Absolute Auto 0.2 K/mm3 (0.0-0.012); Nucleated Red Blood Cells Perc 3.4 % (0.0-0.2); Platelet Count Result 49 k/mm3 (150-375); Red Blood Count 2.76 M/mm3 (4.2-5.4); Red Cell Distribution Width 19.9 % (11.5-14.5); White Blood Count 6.1 K/mm3 (4.5-10.0)
[2023-08-03 05:39] LABS: Lactic Acid Reflex 2.3 mmol/L (0.7-2.0)
[2023-08-03 05:39] LABS: Alanine Aminotransferase 27 U/L (6-35); Albumin Level 3.6 g/dL (3.5-5.1); Alkaline Phosphatase 112 U/L (38-126); Anion Gap 14 mmol/L (8-16); Aspartate Amino Transferase 24 U/L (14-36); Bilirubin,Total 0.5 mg/dL (0.2-1.3); Blood Urea Nitrogen 45 mg/dL (7-17); CRP 4.7 mg/dL (<1.0); Calcium 9.6 mg/dL (8.4-10.2); Carbon Dioxide 21 mmol/L (22-30); Chloride 103 mmol/L (98-107); Estimated CRCL calculation 8 ml/min; Estimated Glomerular Filt Rate 11; Glucose 78 mg/dL (65-110); Phosphorus 6.7 mg/dL (2.5-4.5); Potassium 5.1 mmol/L (3.4-5.0); Sodium 138 mmol/L (137-145)
[2023-08-03] MEDS: ALBUMIN HUMAN 25% 25 GM/100 ML 100 ML IVPB ×4 (05:47→23:51)
[2023-08-03] MEDS: CENTRAL LINE FLUSH 10 ML IV PUSH ×3 (05:48→20:41)
[2023-08-03] MEDS: MIDODRINE HCL 10 MG TABLET PO ×5 (05:48→20:44)
[2023-08-03 05:52] LABS: Anisocytosis 1+ (NORMAL); Hypochromasia 2+ (NORMAL); Platelet Estimate Decreased (Adequate); Schistocytes None Seen (NORMAL); Target Cells 1+ (NORMAL)
--- NOTE | 2023-08-03 06:33 | PCRCNOTE ---
Abg attempted multiple times, unable to obtain.
--- NOTE | 2023-08-03 07:01 | PC.NURSE ---
Patient's ring with purple stone and gold band removed from left ring finger and given to patient's granddaughter GWENDOLYN iBrd due to increased swelling of both hands.
[2023-08-03 07:36] LABS: Hematocrit 22.7 % (37.0-47.0); Hemoglobin 7.7 g/dL (12.0-15.0); Immature Platelet Fraction Pct 7.5 % (0.9-11.2); Mean Corpuscular HGB Conc 33.9 g/dl (32-36); Mean Corpuscular Hemoglobin 27.9 pg (26-34); Mean Corpuscular Volume 82.2 fl (80-100); Mean Platelet Volume 10.2 fl (7.4-10.4); Platelet Count Result 50 k/mm3 (150-375); Red Blood Count 2.76 M/mm3 (4.2-5.4); Red Cell Distribution Width 19.8 % (11.5-14.5); White Blood Count 5.7 K/mm3 (4.5-10.0)
--- NOTE | 2023-08-03 09:37 | WPDINTPN ---
Progress Note: A&P Assessment and Plan (1) Acute respiratory failure with hypoxia and hypercapnia: Code(s): J96.01 - Acute respiratory failure with hypoxia; J96.02 - Acute respiratory failure with hypercapnia Status: Acute Assessment and Plan: Acute hypoxic/hypercapnic respiratory failure likely related to pulmonary edema from missed dialysis and pneumonia -patient intubated on 08/02 -currently on CMV mode of ventilation, peep of 5 and 40% FiO2, low tidal volume strategy -continue bronchodilators -patient was dialyzed 08/02 with 2000 mL in fluid removal -dialysis again this morning with removal of fluid -discussed with granddaughter who states that the dialysis center that she goes to has not been doing optimal dialysis sessions on her due to her itching, agitation when she goes for dialysis and they after shorten her dialysis sessions due to that. -sedated with fentanyl and Versed infusion, maintain RASS of 0 to -2 Will obtain ABGs (2) Hypotension: Code(s): I95.9 - Hypotension, unspecified Status: Acute Assessment and Plan: Hypotension likely chronic, patient is on midodrine at home -will restart midodrine here in the hospital -lactic acid is 2 point -procalcitonin is 5.6 -08/02: Blood cultures have been obtained and pending -08/03: Obtain sputum culture -08/02 patient started on cefepime and vancomycin -will deescalate once cultures are resulted -continue midodrine -albumin for volume expansion -not requiring pressors at this time (3) Pneumonia: Code(s): J18.9 - Pneumonia, unspecified organism Status: Acute Assessment and Plan: WBC count is elevated, patient is hypotensive -continue antibiotics as above -currently intubated and sedated (4) Pulmonary edema: Qualifiers: Chronicity: chronic Qualified Code(s): J81.1 - Chronic pulmonary edema Code(s): J81.1 - Chronic pulmonary edema Status: Chronic Assessment and Plan: Pulmonary edema likely related to shortened dialysis sessions as mentioned above -continue dialysis per Nephrology (5) End-stage renal disease on hemodialysis: Code(s): N18.6 - End stage renal disease; Z99.2 - Dependence on renal dialysis Status: Acute Assessment and Plan: Nephrology following the patient, dialysis per Nephrology (6) Pancytopenia: Code(s): D61.818 - Other pancytopenia Status: Acute Assessment and Plan: Hematology/oncology has been consulted -no schistocytes seen Thrombocytopenia, will transfuse 1 unit of platelets Plan DVT prophylaxis: Hold heparin SQ due to thrombocytopenia Stress ulcer prophylaxis: Protonix Nutrition: Start tube feeds Code Status: Full code Critical Care Time Spent: 36 minutes 08/03: Discuss with ANTHONYKojo Lal, updated with patient's condition and plan of care. She had multiple questions regarding Versed, fentanyl, which I addressed, she did understand why via a giving her sedation and analgesia since she is intubated. Will have care coordination discuss with her regarding patient placement to a facility where they have a in house dialysis. Charge nurse Trice Andrade was present with me when I was discussing with the POA, granddaughter 08/02: Discussed with ANTHONYKojo Lal, was also the granddaughter, updated her with patient's condition and plan of care. I did tell her that patient needed to be intubated as she was breathing 35-40 times a minute and using accessory muscles. She is also aware that patient is going to get a femoral PICC line. The POA does stated that they have always had issues getting a central line on the patient. I answered all her questions Due to a high probability of clinically significant, life threatening deterioration, the patient required my highest level of preparedness to intervene emergently and I personally spent this critical care time directly and personally managing the patient. This critical care time included obta
[2023-08-03] MEDS: SODIUM CHLORIDE 0.9% IV 250 ML 30 ML IV CONT (09:55)
[2023-08-03] MEDS: PANTOPRAZOLE SODIUM IV 40 MG VIAL IV PUSH (09:56)
[2023-08-03] MEDS: MINERAL OIL/WHITE PETROLATUM OINTMENT 1 APPLIC EACH EYE ×2 (09:56→20:41)
[2023-08-03] MEDS: HALOPERIDOL 5 MG TABLET FEED TUBE (09:56)
[2023-08-03] MEDS: EPOETIN ALFA-EPBX 10,000 UNITS/ML VIAL 10000 UNITS IV PUSH (10:16)
--- NOTE | 2023-08-03 11:20 | P.PNNP_ITS ---
Progress Note: A&P Assessment and Plan (1) End stage renal disease: Code(s): N18.6 - End stage renal disease Status: Chronic Assessment and Plan: * HD again today * continue T/T/S dialysis schedule * follow electrolytes, volume status, and clearance (2) Acute respiratory failure with hypoxia and hypercapnia: Code(s): J96.01 - Acute respiratory failure with hypoxia; J96.02 - Acute respiratory failure with hypercapnia Status: Acute Assessment and Plan: * secondary to pulmonary edema from missed dialysis and pneumonia * intubated and on mechanical ventilation * on antibiotics * bronchodilator therapy * fluid removal with dialysis/DUF as tolerated by hemodynamics * venilator weaning as tolerated (3) Pneumonia: Code(s): J18.9 - Pneumonia, unspecified organism Status: Acute Assessment and Plan: * suggestive by admission imaging * follow culture data * on antibiotic therapy (4) Hypotension: Code(s): I95.9 - Hypotension, unspecified Status: Acute Assessment and Plan: * BP can fluctuate to extremes * has been on midodrine therapy in the past * resumed on midodrine * no need for vasopressor therapy at this time * follow trend of hemodynamics (5) Hyperkalemia: Code(s): E87.5 - Hyperkalemia Status: Acute Assessment and Plan: * improving * ongoing dialysis should maintain K+ levels * follow trend (6) Anemia: Code(s): D64.9 - Anemia, unspecified Status: Chronic Assessment and Plan: * due to ESRD * Epogen with HD * follow H/H Will continue to follow. Subjective Date/time seen: 08/03/23 11:20 Interval history: Follow-up for end stage renal disease on hemodialysis. Events noted yesterday afternoon -- moved to ICU with impending respiratory failure and subsequently intubated and placed on mechanical ventilation; did received dialysis yesterday with 2L fluid removal prior to transfer to ICU/intubation; tolerating dialysis treatment at the time of my visit (seen on HD at 11:10AM); intubated/sedated and on mechanical ventilation and in no apparent distress. Exam Narrative: General: elderly female intubated/sedated and on mechanical ventilation Heart: normal S1 and S2; no rub Lungs: coarse breath sounds Abdomen: soft, nontender, nondistended, positive bowel sounds Extremities: no cyanosis or clubbing; 1+ edema Skin: warm and dry; woody texture noted Objective Data Vital Signs Vital Signs: Vital Signs Temp Pulse Resp BP Pulse Ox O2 Del Method FiO2 08/03/23 11:20 83 20 99 Mechanical Ventilation 30 08/03/23 10:59 96.5 F L 81 20 107/68 99 08/03/23 11:00 83 107/62 08/03/23 10:51 89 107/68 08/03/23 10:30 90 104/67 08/03/23 10:00 96.8 F L 86 18 94/62 L 99 08/03/23 10:00 87 08/03/23 10:00 82 94/62 L 08/03/23 10:02 96.8 F L 88 20 94/62 L 99 08/03/23 09:45 96.7 F L 91 22 H 96/62 L 100 08/03/23 09:30 91 96/62 L 08/03/23 08:00 90 22 H 100 Mechanical Ventilation 40 08/03/23 08:00 95 08/03/23 11:45 84 112/68 08/03/23 11:30 83 102/57 L 08/03/23 11:15 82 106/63 08/03/23 10:45 84 106/64
--- NOTE | 2023-08-03 11:20 | PM.PNNEP ---
Progress Note: A&P Assessment and Plan (1) End stage renal disease: Code(s): N18.6 - End stage renal disease Status: Chronic Assessment and Plan: HD again today continue T/T/S dialysis schedule follow electrolytes, volume status, and clearance (2) Acute respiratory failure with hypoxia and hypercapnia: Code(s): J96.01 - Acute respiratory failure with hypoxia; J96.02 - Acute respiratory failure with hypercapnia Status: Acute Assessment and Plan: secondary to pulmonary edema from missed dialysis and pneumonia intubated and on mechanical ventilation on antibiotics bronchodilator therapy fluid removal with dialysis/DUF as tolerated by hemodynamics venilator weaning as tolerated (3) Pneumonia: Code(s): J18.9 - Pneumonia, unspecified organism Status: Acute Assessment and Plan: suggestive by admission imaging follow culture data on antibiotic therapy (4) Hypotension: Code(s): I95.9 - Hypotension, unspecified Status: Acute Assessment and Plan: BP can fluctuate to extremes has been on midodrine therapy in the past resumed on midodrine no need for vasopressor therapy at this time follow trend of hemodynamics (5) Hyperkalemia: Code(s): E87.5 - Hyperkalemia Status: Acute Assessment and Plan: improving ongoing dialysis should maintain K+ levels follow trend (6) Anemia: Code(s): D64.9 - Anemia, unspecified Status: Chronic Assessment and Plan: due to ESRD Epogen with HD follow H/H Will continue to follow. Subjective Date/time seen: 08/03/23 11:20 Interval history: Follow-up for end stage renal disease on hemodialysis. Events noted yesterday afternoon -- moved to ICU with impending respiratory failure and subsequently intubated and placed on mechanical ventilation; did received dialysis yesterday with 2L fluid removal prior to transfer to ICU/intubation; tolerating dialysis treatment at the time of my visit (seen on HD at 11:10AM); intubated/sedated and on mechanical ventilation and in no apparent distress. Exam Narrative: General: elderly female intubated/sedated and on mechanical ventilation Heart: normal S1 and S2; no rub Lungs: coarse breath sounds Abdomen: soft, nontender, nondistended, positive bowel sounds Extremities: no cyanosis or clubbing; 1+ edema Skin: warm and dry; woody texture noted Objective Data Vital Signs Vital Signs: Vital Signs Temp Pulse Resp BP Pulse Ox O2 Del Method FiO2 08/03/23 11:20 83 20 99 Mechanical Ventilation 30 08/03/23 10:59 96.5 F L 81 20 107/68 99 08/03/23 11:00 83 107/62 08/03/23 10:51 89 107/68 08/03/23 10:30 90 104/67 08/03/23 10:00 96.8 F L 86 18 94/62 L 99 08/03/23 10:00 87 08/03/23 10:00 82 94/62 L 08/03/23 10:02 96.8 F L 88 20 94/62 L 99 08/03/23 09:45 96.7 F L 91 22 H 96/62 L 100 08/03/23 09:30 91 96/62 L 08/03/23 08:00 90 22 H 100 Mechanical Ventilation 40 08/03/23 08:00 95 08/03/23 11:45 84 112/68 08/03/23 11:30 83 102/57 L 08/03/23 11:15 82 106/63 08/03/23 10:45 84 106/64 08/03/23 10:15 87 94/66 L 08/03/23 09:45 91 95/60 L 08/03/23 09:15 90 97/63 L 08/03/23 09:00 90 98/61 L 08/03/23 08:18 40 08/03/23 08:45 92 106/63 08/03/23 08:30 93 109/72 08/03/23 08:18 93 119/70 08/03/23 07:44 96.7 F L 85 24 H 113/67 95 08/03/23 07:49 96.7 F L 86 20 113/67 100 08/03/23 08:10 87 22 H 08/03/23 07:49 87 23 H 08/03/23 07:49 87 100 Mechanical Ventilation 30 08/03/23 06:15 87 20 08/03/23 06:15 87 20 08/03/23 06:00 97.1 F L 88 20 101/59 L 100 08/03/23 06:00 89 08/03/23 06:00 97.1 F L 08/03/23 05:22 90 20 08/03/23 04:15
[2023-08-03] MEDS: CEFEPIME 1 GM/NS 50 ML 1 GM/50 ML BAG IVPB (16:57)
[2023-08-03] MEDS: VANCOMYCIN 1,000 MG/NS 250 ML 1,000 MG/250 ML BAG 250 MG IVPB (17:34)
[2023-08-03] MEDS: MIDAZOLAM 100MG/NS 100ML(*CRX) 100 MG/100 ML BAG IV CONT (18:11)
[2023-08-03] MEDS: ATORVASTATIN 20 MG TABLET PO (20:41)
[2023-08-04] VITALS (51 sets, daily range): BP systolic 107–152; BP diastolic 55–88; PULSE 69–93; RESP 16–20; TEMP 35.8–37; O2SAT 95–100
[2023-08-04] MEDS: ALBUTEROL SULFATE NEB 2.5 MG/3 ML INH INHALATION ×6 (04:27→23:37)
[2023-08-04] MEDS: IPRATROPIUM BR 0.02% INH SOLN 0.5 MG/2.5 ML VIAL INHALATION ×6 (04:27→23:37)
[2023-08-04 05:04] LABS: Basophils Percent Auto 0.3 % (0.2-1.2); Eosinophils Percent Auto 0.5 % (0-4.4); Hemoglobin 8.2 g/dL (12.0-15.0); Immature Granulocyte Absolute 0.03 K/mm3 (0.00-0.031); Immature Granulocyte Percent A 0.5 % (0-0.5); Immature Platelet Fraction Pct 4.3 % (0.9-11.2); Lymphocytes Absolute Auto 0.42 K/mm3 (0.9-3.2); Lymphocytes Percent Auto 7.2 % (18.3-44.2); Mean Corpuscular HGB Conc 32.8 g/dl (32-36); Mean Corpuscular Hemoglobin 27.6 pg (26-34); Mean Corpuscular Volume 84.2 fl (80-100); Monocytes Absolute Auto 0.5 K/mm3 (0.1-0.6); Monocytes Percent Auto 9.3 % (2.6-8.5); Neutrophils Absolute Auto 4.8 K/mm3 (1.3-6.7); Neutrophils Percent Auto 82.2 % (45.5-73.1); Nucleated Red Blood Cells Absolute Auto 0.2 K/mm3 (0.0-0.012); Nucleated Red Blood Cells Perc 3.6 % (0.0-0.2); Platelet Count Result 97 k/mm3 (150-375); Red Blood Count 2.97 M/mm3 (4.2-5.4); Red Cell Distribution Width 20.1 % (11.5-14.5); White Blood Count 5.8 K/mm3 (4.5-10.0)
[2023-08-04 05:13] LABS: Alanine Aminotransferase 27 U/L (6-35); Albumin Level 4.2 g/dL (3.5-5.1); Alkaline Phosphatase 107 U/L (38-126); Anion Gap 14 mmol/L (8-16); Aspartate Amino Transferase 32 U/L (14-36); Bilirubin,Total 0.9 mg/dL (0.2-1.3); Blood Urea Nitrogen 40 mg/dL (7-17); Calcium 9.9 mg/dL (8.4-10.2); Carbon Dioxide 24 mmol/L (22-30); Chloride 101 mmol/L (98-107); Estimated CRCL calculation 11 ml/min; Estimated Glomerular Filt Rate 13; Glucose 81 mg/dL (65-110); Phosphorus 4.1 mg/dL (2.5-4.5); Potassium 3.7 mmol/L (3.4-5.0); Sodium 139 mmol/L (137-145)
[2023-08-04 05:23] LABS: Anisocytosis 1+ (NORMAL); Hypochromasia 2+ (NORMAL); Platelet Estimate Decreased (Adequate)
[2023-08-04 05:24] LABS: Schistocytes None Seen (NORMAL); Target Cells 1+ (NORMAL)
[2023-08-04 07:37] LABS: Alveolar/Arterial O2 Gradient 102.9 mmHg; Base Excess ABG 1.1 mEq/l (+/-2.0); Fractional Inspired Oxygen 30 %; HCO3 ABG 22.8 mEq/l (22.0-26.0); Oxygen Content ABG 12.7 %vol (16.0-22.0); Oxygen Saturation ABG 97.2 % (95.0-100.0); Oxyhemoglobin 94.9 % THb (90.0-100.0); PCO2 ABG 26.3 mmHg (35.0-45.0); PO2 ABG 80.1 mmHg (80.0-100.0); PO2 FiO2 Ratio Arterial Blood 2.67 %; Total Hemoglobin 9.4 g/dL (12.0-18.0)
[2023-08-04 07:39] LABS: Device VENTILATOR; Modified Allen's Test Pass; Site Drawn RIGHT RADIAL; pH ABG 7.556 (7.350-7.450)
[2023-08-04 07:40] LABS: Arterial Blood Gas PEEP 8 cmH2O; Arterial Blood Gas Tidal Volume 370 ml; Arterial Blood Gas Vent Mode CMV; Arterial Blood Gas Ventilator rate 20 /MIN
[2023-08-04] MEDS: MIDODRINE HCL 10 MG TABLET PO ×4 (07:59→21:22)
[2023-08-04] MEDS: MINERAL OIL/WHITE PETROLATUM OINTMENT 1 APPLIC EACH EYE ×2 (07:59→21:22)
[2023-08-04] MEDS: CENTRAL LINE FLUSH 10 ML IV PUSH ×3 (08:01→21:22)
[2023-08-04] MEDS: ALBUMIN HUMAN 25% 25 GM/100 ML 100 ML IVPB (08:15)
[2023-08-04] MEDS: PANTOPRAZOLE SODIUM IV 40 MG VIAL IV PUSH (08:40)
--- NOTE | 2023-08-04 08:40 | P.PNNP_ITS ---
Progress Note: A&P Assessment and Plan (1) End stage renal disease: Code(s): N18.6 - End stage renal disease Status: Chronic Assessment and Plan: * HD yesterday * continue T/T/S dialysis schedule * follow electrolytes, volume status, and clearance (2) Acute respiratory failure with hypoxia and hypercapnia: Code(s): J96.01 - Acute respiratory failure with hypoxia; J96.02 - Acute respiratory failure with hypercapnia Status: Acute Assessment and Plan: * secondary to pulmonary edema from missed dialysis and pneumonia * intubated and on mechanical ventilation * on antibiotics * bronchodilator therapy * fluid removal with dialysis/DUF as tolerated by hemodynamics - DUF today * venilator weaning as tolerated (3) Pneumonia: Code(s): J18.9 - Pneumonia, unspecified organism Status: Acute Assessment and Plan: * suggestive by admission imaging * follow culture data * on antibiotic therapy (4) Hypotension: Code(s): I95.9 - Hypotension, unspecified Status: Acute Assessment and Plan: * BP can fluctuate to extremes * has been on midodrine therapy in the past * resumed on midodrine * no need for vasopressor therapy at this time * follow trend of hemodynamics (5) Hyperkalemia: Code(s): E87.5 - Hyperkalemia Status: Acute Assessment and Plan: * improving * ongoing dialysis should maintain K+ levels * follow trend (6) Anemia: Code(s): D64.9 - Anemia, unspecified Status: Chronic Assessment and Plan: * due to ESRD * Epogen with HD * follow H/H Will continue to follow. Subjective Date/time seen: 08/04/23 08:40 Interval history: Follow-up for end stage renal disease on hemodialysis. Tolerating dry ultrafiltration treatment at the time of my visit (seen on DUF at 8:30AM); tolerated dialysis treatment yesterday without any problems; remains intubated/sedated and on mechanical ventilation; stable hemodynamics noted Exam Narrative: General: elderly female intubated/sedated and on mechanical ventilation Heart: normal S1 and S2; no rub Lungs: coarse breath sounds Abdomen: soft, nontender, nondistended, positive bowel sounds Extremities: no cyanosis or clubbing; 1+ edema Skin: woody texture apparent Objective Data Vital Signs Vital Signs: Vital Signs Temp Pulse Resp BP Pulse Ox O2 Del Method O2 Flow Rate 08/04/23 08:00 08/04/23 08:05 97.9 F 85 20 128/78 98 08/04/23 08:05 85 08/04/23 08:30 83 121/59 L 08/04/23 08:15 82 114/68 08/04/23 08:12 82 20 08/04/23 08:02 83 20 08/04/23 08:02 83 97 Mechanical Ventilation 08/04/23 08:00 97.9 F 85 20 128/78 98 08/04/23 09:07 76 121/66 08/04/23 09:00 84 117/67 08/04/23 08:06 85 123/55 L 08/04/23 08:06 08/04/23 07:35 97.8 F 87 20 129/70 98 08/04/23 04:00 08/04/23 06:00 84 20 08/04/23 06:00 85 20 08/04/23 06:00 97.4 F L 84 20 121/68 95 08/04/23 06:00 78 08/04/23 04:00 93 20 08/04/23 04:00 83 20 08/04/23 04:00 83 08/04/23 04:36 84 99 Mechanical Ventila
--- NOTE | 2023-08-04 08:40 | PM.PNNEP ---
Progress Note: A&P Assessment and Plan (1) End stage renal disease: Code(s): N18.6 - End stage renal disease Status: Chronic Assessment and Plan: HD yesterday continue T/T/S dialysis schedule follow electrolytes, volume status, and clearance (2) Acute respiratory failure with hypoxia and hypercapnia: Code(s): J96.01 - Acute respiratory failure with hypoxia; J96.02 - Acute respiratory failure with hypercapnia Status: Acute Assessment and Plan: secondary to pulmonary edema from missed dialysis and pneumonia intubated and on mechanical ventilation on antibiotics bronchodilator therapy fluid removal with dialysis/DUF as tolerated by hemodynamics - DUF today venilator weaning as tolerated (3) Pneumonia: Code(s): J18.9 - Pneumonia, unspecified organism Status: Acute Assessment and Plan: suggestive by admission imaging follow culture data on antibiotic therapy (4) Hypotension: Code(s): I95.9 - Hypotension, unspecified Status: Acute Assessment and Plan: BP can fluctuate to extremes has been on midodrine therapy in the past resumed on midodrine no need for vasopressor therapy at this time follow trend of hemodynamics (5) Hyperkalemia: Code(s): E87.5 - Hyperkalemia Status: Acute Assessment and Plan: improving ongoing dialysis should maintain K+ levels follow trend (6) Anemia: Code(s): D64.9 - Anemia, unspecified Status: Chronic Assessment and Plan: due to ESRD Epogen with HD follow H/H Will continue to follow. Subjective Date/time seen: 08/04/23 08:40 Interval history: Follow-up for end stage renal disease on hemodialysis. Tolerating dry ultrafiltration treatment at the time of my visit (seen on DUF at 8:30AM); tolerated dialysis treatment yesterday without any problems; remains intubated/sedated and on mechanical ventilation; stable hemodynamics noted Exam Narrative: General: elderly female intubated/sedated and on mechanical ventilation Heart: normal S1 and S2; no rub Lungs: coarse breath sounds Abdomen: soft, nontender, nondistended, positive bowel sounds Extremities: no cyanosis or clubbing; 1+ edema Skin: woody texture apparent Objective Data Vital Signs Vital Signs: Vital Signs Temp Pulse Resp BP Pulse Ox O2 Del Method O2 Flow Rate 08/04/23 08:00 08/04/23 08:05 97.9 F 85 20 128/78 98 08/04/23 08:05 85 08/04/23 08:30 83 121/59 L 08/04/23 08:15 82 114/68 08/04/23 08:12 82 20 08/04/23 08:02 83 20 08/04/23 08:02 83 97 Mechanical Ventilation 08/04/23 08:00 97.9 F 85 20 128/78 98 08/04/23 09:07 76 121/66 08/04/23 09:00 84 117/67 08/04/23 08:06 85 123/55 L 08/04/23 08:06 08/04/23 07:35 97.8 F 87 20 129/70 98 08/04/23 04:00 08/04/23 06:00 84 20 08/04/23 06:00 85 20 08/04/23 06:00 97.4 F L 84 20 121/68 95 08/04/23 06:00 78 08/04/23 04:00 93 20 08/04/23 04:00 83 20 08/04/23 04:00 83 08/04/23 04:36 84 99 Mechanical Ventilation 08/04/23 04:27 87 20 08/04/23 04:00 81 20 98 Mechanical Ventilation 08/04/23 04:00 96.7 F L 81 20 133/69 98 08/04/23 03:00 96.7 F L 74 20 115/72 96 08/04/23 02:07 86 96 Mechanical Ventilation 08/04/23 02:00 84 20 08/04/23 02:00 85 20 08/04/23 02:00 97.4 F L 85 20 115/72 96 08/04/23 02:00 83 08/04/23 00:00 91 08/04/23 00:00 90 20 08/04/23 00:00 90 20 08/04/23 00:00 91 20 96 Nasal Cannula 5 08/04/23 00:00 98 F 91 20 108/63 96 08/03/23 23:28 89 98 Mechanical Ventilation 08/03/23 23:26 92 20 08/03/23 23:00 97.8 F 81 21 H 106/68 96 08/03/23 22:00 90 21 H 08/03/23 22:00 90 21 H
--- NOTE | 2023-08-04 10:44 | PCFNICU ---
ICU Rounding Note: Pt current nutrition is Nepro tube feeding. Nutrition recommendation: Add Reglan and resume tube feedings Last recorded weight is 76.4 kg. Bowel Motility: +BM 08/04 Labs Reviewed: Hgb:8.2, HCT:25, GFR:13, BUN:40, Cr:4.1 Meds Noted: lipitor, versed, protonix Skin: no pressure injuries Additional Notes: Pt remains on mechanical vent. Tube feeding of Nepro was initiated but noted pt had 650ml residuals with vomiting in the evening and tube feeding was held. Also noted diarrhea, checking for c.diff. Reglan ordered for gut motility. Tube feedings to resume per orders. *Tube feeding orders: Nepro at 20 ml/hr advance by 10 ml q 4 hours to goal rate of 30 ml/hr at this time. To Meet ~70% kcal needs and 78% protein needs. Protein Modular of [employer]source once daily for additional 80 kcals and 20 gms protein. Following daily in ICU rounds. Will monitor weight, labs, skin, meds, tube feeding tolerance every Tuesday and Tuesday. .
--- NOTE | 2023-08-04 10:56 | WPDINTPN ---
Progress Note: A&P Assessment and Plan (1) Acute respiratory failure with hypoxia and hypercapnia: Code(s): J96.01 - Acute respiratory failure with hypoxia; J96.02 - Acute respiratory failure with hypercapnia Status: Acute Assessment and Plan: Acute hypoxic/hypercapnic respiratory failure likely related to pulmonary edema from missed dialysis and pneumonia -patient intubated on 08/02 -currently on CMV mode of ventilation, peep of 5 and 40% FiO2, low tidal volume strategy -continue bronchodilators -patient was dialyzed 08/02 with 2000 mL in fluid removal -dialysis 08/03 with 3000 mL in fluid removal -dialysis again this morning with removal of fluid, discussed with Nephrology -discussed with granddaughter who states that the dialysis center that she goes to has not been doing optimal dialysis sessions on her due to her itching, agitation when she goes for dialysis and they after shorten her dialysis sessions due to that. -sedated with fentanyl and Versed infusion, maintain RASS of 0 to -2 ABGs reviewed, ventilator adjusted (2) Hypotension: Code(s): I95.9 - Hypotension, unspecified Status: Acute Assessment and Plan: Hypotension likely chronic, patient is on midodrine at home -will restart midodrine here in the hospital -lactic acid is 2 point -procalcitonin is 5.6 -08/02: Preliminary blood cultures negative so far -08/03: Sputum culture pending -08/02 patient started on cefepime and vancomycin -will deescalate once cultures are resulted -continue midodrine -status post albumin for volume expansion -not requiring pressors at this time (3) Pneumonia: Code(s): J18.9 - Pneumonia, unspecified organism Status: Acute Assessment and Plan: On admission WBC count was elevated, patient is hypotensive, chest x-ray showed bilateral infiltrate -procalcitonin was elevated to 5.6 -continue antibiotics as above -currently intubated and sedated (4) Pulmonary edema: Qualifiers: Chronicity: chronic Qualified Code(s): J81.1 - Chronic pulmonary edema Code(s): J81.1 - Chronic pulmonary edema Status: Chronic Assessment and Plan: Pulmonary edema likely related to shortened dialysis sessions as mentioned above -continue dialysis per Nephrology (5) End-stage renal disease on hemodialysis: Code(s): N18.6 - End stage renal disease; Z99.2 - Dependence on renal dialysis Status: Acute Assessment and Plan: Nephrology following the patient, dialysis per Nephrology (6) Pancytopenia: Code(s): D61.818 - Other pancytopenia Status: Acute Assessment and Plan: Hematology/oncology has been consulted -no schistocytes seen Thrombocytopenia, status post 1 unit platelets infusion on 08/03 -platelets much improved, will continue to monitor Plan DVT prophylaxis: Hold heparin SQ due to thrombocytopenia Stress ulcer prophylaxis: Protonix Nutrition: Patient not tolerating tube feeds, will start Reglan Code Status: Full code Critical Care Time Spent: 33 minutes 08/03: Discuss with GWENDOLYN Lal, updated with patient's condition and plan of care. She had multiple questions regarding Versed, fentanyl, which I addressed, she did understand why via a giving her sedation and analgesia since she is intubated. Will have care coordination discuss with her regarding patient placement to a facility where they have a in house dialysis. Charge nurse Trice Andrade was present with me when I was discussing with the POA, granddaughter 08/02: Discussed with GWENDOLYN Lal, was also the granddaughter, updated her with patient's condition and plan of care. I did tell her that patient needed to be intubated as she was breathing 35-40 times a minute and using accessory muscles. She is also aware that patient is going to get a femoral PICC line. The POA does stated that they have always had issues getting a central line on the patient. I answered all her questions Du
[2023-08-04] MEDS: METOCLOPRAMIDE HCL INJ 10 MG/2 ML VIAL IV PUSH ×3 (11:01→23:48)
[2023-08-04] MEDS: SEVELAMER CARBONATE 800 MG TABLET PO ×2 (11:01→16:52)
[2023-08-04 12:20] LABS: Glucose Point of Care 70 mg/dl (65-105)
[2023-08-04 12:51] LABS: Toxigenic C. Diff POSITIVE (NEGATIVE)
[2023-08-04] MEDS: metroNIDAZOLE 500 MG TABLET PO ×2 (14:11→21:22)
[2023-08-04] MEDS: VANCOMYCIN ORAL 125 MG/2.5 ML SYRUP PO ×3 (14:11→23:48)
[2023-08-04] MEDS: FENTANYL 2,500MCG/NS250ML(*CRX 2,500 MCG/250 ML BAG IV CONT (14:12)
--- NOTE | 2023-08-04 15:03 | PC.NURSE ---
Consult to hematology unable to be completed due to no guide escort space systems operations superintendent at this time. Dr. Cardozo notified. No new orders received.
[2023-08-04] MEDS: CEFEPIME 1 GM/NS 50 ML 1 GM/50 ML BAG IVPB (16:52)
[2023-08-04 17:51] LABS: Glucose Point of Care 80 mg/dl (65-105)
[2023-08-04] MEDS: ATORVASTATIN 20 MG TABLET PO (21:22)
[2023-08-05] VITALS (57 sets, daily range): BP systolic 106–155; BP diastolic 52–80; PULSE 61–86; RESP 16; TEMP 0–37.1; O2SAT 96–100
[2023-08-05 00:15] LABS: Glucose Point of Care 105 mg/dl (65-105)
[2023-08-05] MEDS: MIDAZOLAM 100MG/NS 100ML(*CRX) 100 MG/100 ML BAG IV CONT (04:29)
[2023-08-05] MEDS: ALBUTEROL SULFATE NEB 2.5 MG/3 ML INH INHALATION ×5 (04:59→21:01)
[2023-08-05] MEDS: IPRATROPIUM BR 0.02% INH SOLN 0.5 MG/2.5 ML VIAL INHALATION ×5 (04:59→21:01)
[2023-08-05] MEDS: MIDODRINE HCL 10 MG TABLET PO (05:37)
[2023-08-05] MEDS: METOCLOPRAMIDE HCL INJ 10 MG/2 ML VIAL IV PUSH ×3 (05:37→17:27)
[2023-08-05] MEDS: VANCOMYCIN ORAL 125 MG/2.5 ML SYRUP PO ×3 (05:37→17:50)
[2023-08-05] MEDS: metroNIDAZOLE 500 MG TABLET PO (05:37)
[2023-08-05] MEDS: CENTRAL LINE FLUSH 10 ML IV PUSH ×3 (05:37→21:30)
[2023-08-05 05:53] LABS: Alveolar/Arterial O2 Gradient 84.9 mmHg; Base Excess ABG -1.3 mEq/l (+/-2.0); Carboxyhemoglobin 0.3 % THb (0-2.0); Fractional Inspired Oxygen 30 %; Methemoglobin ABG 0.2 %THb (0-1.5); Oxyhemoglobin 96.1 % THb (90.0-100.0); PO2 ABG 97.3 mmHg (80.0-100.0); PO2 FiO2 Ratio Arterial Blood 3.24 %; Reduced Hemoglobin 3.4 %THb (0-5.0); Total Hemoglobin 9.5 g/dL (12.0-18.0)
[2023-08-05 06:00] LABS: Device VENTILATOR; Modified Allen's Test Pass; Site Drawn LEFT RADIAL; pH ABG 7.509 (7.350-7.450)
[2023-08-05 06:01] LABS: Arterial Blood Gas PEEP 8 cmH2O; Arterial Blood Gas Tidal Volume 370 ml; Arterial Blood Gas Vent Mode CMV; Arterial Blood Gas Ventilator rate 16 /MIN
[2023-08-05 06:02] LABS: Basophils Percent Auto 0.4 % (0.2-1.2); Eosinophils Absolute Auto 0.1 K/mm3 (0-0.3); Eosinophils Percent Auto 1.9 % (0-4.4); Hematocrit 25.4 % (37.0-47.0); Hemoglobin 8.4 g/dL (12.0-15.0); Immature Granulocyte Absolute 0.04 K/mm3 (0.00-0.031); Immature Granulocyte Percent A 0.8 % (0-0.5); Immature Platelet Fraction Pct 3.6 % (0.9-11.2); Lymphocytes Absolute Auto 0.61 K/mm3 (0.9-3.2); Lymphocytes Percent Auto 11.9 % (18.3-44.2); Mean Corpuscular HGB Conc 33.1 g/dl (32-36); Mean Corpuscular Hemoglobin 27.1 pg (26-34); Mean Corpuscular Volume 81.9 fl (80-100); Mean Platelet Volume 9.2 fl (7.4-10.4); Monocytes Absolute Auto 0.7 K/mm3 (0.1-0.6); Monocytes Percent Auto 13.4 % (2.6-8.5); Neutrophils Absolute Auto 3.7 K/mm3 (1.3-6.7); Neutrophils Percent Auto 71.6 % (45.5-73.1); Nucleated Red Blood Cells Absolute Auto 0.2 K/mm3 (0.0-0.012); Nucleated Red Blood Cells Perc 2.9 % (0.0-0.2); Platelet Count Result 103 k/mm3 (150-375); Red Cell Distribution Width 19.9 % (11.5-14.5); White Blood Count 5.1 K/mm3 (4.5-10.0)
[2023-08-05 06:34] LABS: Alanine Aminotransferase 26 U/L (6-35); Albumin Level 3.8 g/dL (3.5-5.1); Alkaline Phosphatase 103 U/L (38-126); Anion Gap 14 mmol/L (8-16); Aspartate Amino Transferase 29 U/L (14-36); Bilirubin,Total 0.9 mg/dL (0.2-1.3); Blood Urea Nitrogen 54 mg/dL (7-17); Calcium 9.8 mg/dL (8.4-10.2); Carbon Dioxide 23 mmol/L (22-30); Chloride 101 mmol/L (98-107); Estimated CRCL calculation 9 ml/min; Estimated Glomerular Filt Rate 11; Glucose 96 mg/dL (65-110); Phosphorus 4.7 mg/dL (2.5-4.5); Potassium 3.6 mmol/L (3.4-5.0); Sodium 138 mmol/L (137-145)
[2023-08-05 07:08] LABS: Vancomycin Random 16.4 ug/mL (10-20)
[2023-08-05] MEDS: PANTOPRAZOLE SODIUM IV 40 MG VIAL IV PUSH (09:24)
[2023-08-05] MEDS: SEVELAMER CARBONATE 800 MG TABLET PO ×3 (09:24→17:27)
[2023-08-05] MEDS: MINERAL OIL/WHITE PETROLATUM OINTMENT 1 APPLIC EACH EYE ×2 (09:25→21:29)
--- NOTE | 2023-08-05 09:54 | WPDINTPN ---
Progress Note: A&P Assessment and Plan (1) Acute respiratory failure with hypoxia and hypercapnia: Code(s): J96.01 - Acute respiratory failure with hypoxia; J96.02 - Acute respiratory failure with hypercapnia Status: Acute Assessment and Plan: Acute hypoxic/hypercapnic respiratory failure likely related to pulmonary edema from missed dialysis and pneumonia -patient intubated on 08/02 -currently on CMV mode of ventilation, peep of 5 and 40% FiO2, low tidal volume strategy -continue bronchodilators -patient was dialyzed 08/02 with 2000 mL in fluid removal -dialysis 08/03 with 3000 mL in fluid removal -dialysis on 08/04 and 3005 mL in fluid removal -will be dialyzed again today discussed with Nephrology -discussed with granddaughter who states that the dialysis center that she goes to has not been doing optimal dialysis sessions on her due to her itching, agitation when she goes for dialysis and they after shorten her dialysis sessions due to that. -sedated with fentanyl and Versed infusion, maintain RASS of 0 to -2 ABGs reviewed, ventilator adjusted 08/05: CT chest abdomen pelvis without contrast: 1. Anasarca characterized by pleural effusions, ascites and diffuse subcutaneous edema. 2:? Bibasilar compressive atelectasis. Cannot exclude superimposed pneumonia. (2) Hypotension: Code(s): I95.9 - Hypotension, unspecified Status: Acute Assessment and Plan: Hypotension likely chronic, patient is on midodrine at home -will restart midodrine here in the hospital -lactic acid is 2 point -procalcitonin is 5.6 -08/02: Preliminary blood cultures negative so far -08/03: Sputum culture pending -08/02 patient started on cefepime and vancomycin -will deescalate once cultures are resulted -status post albumin for volume expansion -not requiring pressors at this time -08/05: Blood pressure is much improved, decrease midodrine dose (3) Pneumonia: Code(s): J18.9 - Pneumonia, unspecified organism Status: Acute Assessment and Plan: On admission WBC count was elevated, patient is hypotensive, chest x-ray showed bilateral infiltrate -procalcitonin was elevated to 5.6 -continue antibiotics as above -currently intubated and sedated (4) Pulmonary edema: Qualifiers: Chronicity: chronic Qualified Code(s): J81.1 - Chronic pulmonary edema Code(s): J81.1 - Chronic pulmonary edema Status: Chronic Assessment and Plan: Pulmonary edema likely related to shortened dialysis sessions as mentioned above -continue dialysis per Nephrology (5) End-stage renal disease on hemodialysis: Code(s): N18.6 - End stage renal disease; Z99.2 - Dependence on renal dialysis Status: Acute Assessment and Plan: Nephrology following the patient, dialysis per Nephrology (6) Pancytopenia: Code(s): D61.818 - Other pancytopenia Status: Acute Assessment and Plan: Hematology/oncology has been consulted -no schistocytes seen Thrombocytopenia, status post 1 unit platelets infusion on 08/03 -platelets much improved, will continue to monitor (7) C. difficile colitis: Code(s): A04.72 - Enterocolitis due to Clostridium difficile, not specified as recurrent Status: Acute Assessment and Plan: Patient with liquid stools, C diff was positive 08/04 -started on per tube Flagyl and per tube vancomycin Plan DVT prophylaxis: Hold heparin SQ due to thrombocytopenia Stress ulcer prophylaxis: Protonix Nutrition: Patient tolerating tube feeds, no residuals after Reglan was started on 08/04 Code Status: Full code Critical Care Time Spent: 32 minutes 08/03: Discuss with GWENDOLYN Lal, updated with patient's condition and plan of care. She had multiple questions regarding Versed, fentanyl, which I addressed, she did understand why via a giving her sedation and analgesia since she is intubated. Will have care coordination discuss with her regarding patient angeles
--- NOTE | 2023-08-05 10:29 | PM.PNNEP ---
Progress Note: A&P Assessment and Plan (1) End stage renal disease: Code(s): N18.6 - End stage renal disease Status: Chronic Assessment and Plan: HD tomorrow continue T/T/S dialysis schedule follow electrolytes, volume status, and clearance (2) Acute respiratory failure with hypoxia and hypercapnia: Code(s): J96.01 - Acute respiratory failure with hypoxia; J96.02 - Acute respiratory failure with hypercapnia Status: Acute Assessment and Plan: secondary to pulmonary edema from missed dialysis and pneumonia intubated and on mechanical ventilation on antibiotics bronchodilator therapy fluid removal with dialysis/DUF as tolerated by hemodynamics - DUF today venilator weaning as tolerated (3) Pneumonia: Code(s): J18.9 - Pneumonia, unspecified organism Status: Acute Assessment and Plan: suggestive by admission imaging follow culture data on antibiotic therapy (4) Hypotension: Code(s): I95.9 - Hypotension, unspecified Status: Acute Assessment and Plan: BP can fluctuate to extremes has been on midodrine therapy in the past resumed on midodrine no need for vasopressor therapy at this time follow trend of hemodynamics (5) Hyperkalemia: Code(s): E87.5 - Hyperkalemia Status: Acute Assessment and Plan: improving ongoing dialysis should maintain K+ levels follow trend (6) Anemia: Code(s): D64.9 - Anemia, unspecified Status: Chronic Assessment and Plan: due to ESRD Epogen with HD follow H/H Will continue to follow. Subjective Date/time seen: 08/05/23 10:29 Interval history: Follow-up for end stage renal disease on hemodialysis. Tolerated DUF session yesterday and tentatively plan another DUF session today to promote further fluid removal; remains intubated/sedated and on mechanical ventilation; stable hemodynamics noted. Exam Narrative: General: elderly female intubated/sedated and on mechanical ventilation Heart: normal S1 and S2; no rub Lungs: coarse breath sounds Abdomen: soft, nontender, nondistended, positive bowel sounds Extremities: no cyanosis or clubbing; 1+ edema Skin: woody skin appearance Objective Data Vital Signs Vital Signs: Vital Signs Temp Pulse Resp BP Pulse Ox O2 Del Method FiO2 08/05/23 10:25 65 99 Mechanical Ventilation 30 08/05/23 09:45 96.3 F L 66 16 139/69 100 08/05/23 09:30 96.4 F L 69 16 99 08/05/23 09:15 96.5 F L 67 16 99 08/05/23 09:00 96.5 F L 67 16 149/80 H 99 08/05/23 08:45 96.6 F L 66 16 100 08/05/23 08:30 96.7 F L 67 16 149/80 H 99 08/05/23 08:15 96.6 F L 69 16 96 08/05/23 10:00 96.2 F L 66 16 142/72 H 100 08/05/23 10:00 66 08/05/23 10:00 96.2 F L 08/05/23 08:00 76 16 100 Mechanical Ventilation 08/05/23 08:00 30 08/05/23 08:00 76 08/05/23 08:00 96.6 F L 76 16 155/74 H 100 08/05/23 08:00 96.6 F L 08/05/23 08:37 65 16 08/05/23 08:31 66 100 Mechanical Ventilation 30 08/05/23 08:28 67 16 08/05/23 06:16 68 16 08/05/23 06:16 68 16 08/05/23 06:00 96.9 F L 68 16 136/74 98 08/05/23 06:00 69 08/04/23 23:45 73 17 08/04/23 21:03 93 16 08/04/23 23:35 69 17 08/05/23 05:02 71 16 08/05/23 05:01 71 98 Mechanical Ventilation 08/05/23 04:00 69 08/05/23 04:30 73 16 08/05/23 04:29 67 16 08/05/23 04:00 96.9 F L 63 16 145/67 H 96 08/05/23 04:00 73 16 97 Mechanical Ventilation 08/05/23 03:58 30 08/05/23 02:00 74 16 08/05/23 02:00 75 16 08/05/23 02:39 73 97 Mechanical Ventilation 08/05/23 02:00 97.1 F L 74 16 134/70 97 08/05/23 02:00 69 08/05/23 01:00 97.2 F L 78 16 139/64 97 08/05/23 00:00 8
--- NOTE | 2023-08-05 10:29 | P.PNNP_ITS ---
Progress Note: A&P Assessment and Plan (1) End stage renal disease: Code(s): N18.6 - End stage renal disease Status: Chronic Assessment and Plan: * HD tomorrow * continue T/T/S dialysis schedule * follow electrolytes, volume status, and clearance (2) Acute respiratory failure with hypoxia and hypercapnia: Code(s): J96.01 - Acute respiratory failure with hypoxia; J96.02 - Acute respiratory failure with hypercapnia Status: Acute Assessment and Plan: * secondary to pulmonary edema from missed dialysis and pneumonia * intubated and on mechanical ventilation * on antibiotics * bronchodilator therapy * fluid removal with dialysis/DUF as tolerated by hemodynamics - DUF today * venilator weaning as tolerated (3) Pneumonia: Code(s): J18.9 - Pneumonia, unspecified organism Status: Acute Assessment and Plan: * suggestive by admission imaging * follow culture data * on antibiotic therapy (4) Hypotension: Code(s): I95.9 - Hypotension, unspecified Status: Acute Assessment and Plan: * BP can fluctuate to extremes * has been on midodrine therapy in the past * resumed on midodrine * no need for vasopressor therapy at this time * follow trend of hemodynamics (5) Hyperkalemia: Code(s): E87.5 - Hyperkalemia Status: Acute Assessment and Plan: * improving * ongoing dialysis should maintain K+ levels * follow trend (6) Anemia: Code(s): D64.9 - Anemia, unspecified Status: Chronic Assessment and Plan: * due to ESRD * Epogen with HD * follow H/H Will continue to follow. Subjective Date/time seen: 08/05/23 10:29 Interval history: Follow-up for end stage renal disease on hemodialysis. Tolerated DUF session yesterday and tentatively plan another DUF session today to promote further fluid removal; remains intubated/sedated and on mechanical ventilation; stable hemodynamics noted. Exam Narrative: General: elderly female intubated/sedated and on mechanical ventilation Heart: normal S1 and S2; no rub Lungs: coarse breath sounds Abdomen: soft, nontender, nondistended, positive bowel sounds Extremities: no cyanosis or clubbing; 1+ edema Skin: woody skin appearance Objective Data Vital Signs Vital Signs: Vital Signs Temp Pulse Resp BP Pulse Ox O2 Del Method FiO2 08/05/23 10:25 65 99 Mechanical Ventilation 30 08/05/23 09:45 96.3 F L 66 16 139/69 100 08/05/23 09:30 96.4 F L 69 16 99 08/05/23 09:15 96.5 F L 67 16 99 08/05/23 09:00 96.5 F L 67 16 149/80 H 99 08/05/23 08:45 96.6 F L 66 16 100 08/05/23 08:30 96.7 F L 67 16 149/80 H 99 08/05/23 08:15 96.6 F L 69 16 96 08/05/23 10:00 96.2 F L 66 16 142/72 H 100 08/05/23 10:00 66 08/05/23 10:00 96.2 F L 08/05/23 08:00 76 16 100 Mechanical Ventilation 30 08/05/23 08:00 30 08/05/23 08:00 76 08/05/23 08:00 96.6 F L 76 16 155/74 H 100 08/05/23 08:00 96.6 F L 08/05/23 08:37 65 16 08/05/23 08:31 66 100 Mechanical Ventilation 30 08/05/23 08:28 67 16 08/05/23 06:16 68 16 08/05/23 06:16 68 16
--- NOTE | 2023-08-05 11:35 | PCNFU ---
Nutrition Follow-Up Complete: Inadequate Oral Intake as related to mechanical ventilation as evidenced by NPO. Goal: Meet estimated nutritional needs. Patient is progressing towards goal. We will continue current goal. Pt current nutrition is Nepro at 30ml/hr with Prosource BID . Last recorded weight is 73.1 kg, down from 78.2 kg. Dialysis patient. Bowel Motility: FMS Labs Reviewed:Cr 4.8,BUN 54, GFR 11 Meds Noted:Fentanyl, Versed, Vancomycin, Reglan,Atrovent, Protonix. Skin: saccum-dry Additional Notes: Patient remains on Nepro at 30 ml/hr with Protein Modular of Prosource once daily. Total Nutrition: 1268 kcals/73 gms protein/480 ml water. Flush 30 ml q 4hours. Patient is tolerating tube feedings at this time. FMS in place, CDiff +. Discussed with Lace And Textiles Restorer adding Banatrol. Will hold for now. Dialysis today. Agree with diet orders. Will monitor weight, labs, skin, meds, tube feeding tolerance every Tuesday and Tuesday.
[2023-08-05 11:39] LABS: Glucose Point of Care 118 mg/dl (65-105)
[2023-08-05] MEDS: MIDODRINE HCL 2.5 MG TABLET 5 MG PO ×2 (13:25→21:28)
--- NOTE | 2023-08-05 14:27 | PM.IMPN ---
Progress Note: A&P Assessment and Plan (1) Acute respiratory failure with hypoxia and hypercapnia: Code(s): J96.01 - Acute respiratory failure with hypoxia; J96.02 - Acute respiratory failure with hypercapnia Status: Acute Assessment and Plan: Acute hypoxic/hypercapnic respiratory failure likely related to pulmonary edema from missed dialysis and pneumonia -patient intubated on 08/02 -currently on CMV mode of ventilation, peep of 5 and 40% FiO2, low tidal volume strategy -continue bronchodilators -patient was dialyzed 08/02 with 2000 mL in fluid removal -dialysis 08/03 with 3000 mL in fluid removal -dialysis on 08/04 and 3005 mL in fluid removal -will be dialyzed again today discussed with Nephrology -discussed with granddaughter who states that the dialysis center that she goes to has not been doing optimal dialysis sessions on her due to her itching, agitation when she goes for dialysis and they after shorten her dialysis sessions due to that. -sedated with fentanyl and Versed infusion, maintain RASS of 0 to -2 ABGs reviewed, ventilator adjusted 08/05: CT chest abdomen pelvis without contrast: 1. Anasarca characterized by pleural effusions, ascites and diffuse subcutaneous edema. 2:? Bibasilar compressive atelectasis. Cannot exclude superimposed pneumonia. (2) Hypotension: Code(s): I95.9 - Hypotension, unspecified Status: Acute Assessment and Plan: Hypotension likely chronic, patient is on midodrine at home -will restart midodrine here in the hospital -lactic acid is 2 point -procalcitonin is 5.6 -08/02: Preliminary blood cultures negative so far -08/03: Sputum culture pending -08/02 patient started on cefepime and vancomycin -will deescalate once cultures are resulted -status post albumin for volume expansion -not requiring pressors at this time -08/05: Blood pressure is much improved, decrease midodrine dose (3) Pneumonia: Code(s): J18.9 - Pneumonia, unspecified organism Status: Acute Assessment and Plan: On admission WBC count was elevated, patient is hypotensive, chest x-ray showed bilateral infiltrate -procalcitonin was elevated to 5.6 -continue antibiotics as above -currently intubated and sedated (4) Pulmonary edema: Qualifiers: Chronicity: chronic Qualified Code(s): J81.1 - Chronic pulmonary edema Code(s): J81.1 - Chronic pulmonary edema Status: Chronic Assessment and Plan: Pulmonary edema likely related to shortened dialysis sessions as mentioned above -continue dialysis per Nephrology (5) End-stage renal disease on hemodialysis: Code(s): N18.6 - End stage renal disease; Z99.2 - Dependence on renal dialysis Status: Acute Assessment and Plan: Nephrology following the patient, dialysis per Nephrology (6) Pancytopenia: Code(s): D61.818 - Other pancytopenia Status: Acute Assessment and Plan: Hematology/oncology has been consulted -no schistocytes seen Thrombocytopenia, status post 1 unit platelets infusion on 08/03 -platelets much improved, will continue to monitor (7) C. difficile colitis: Code(s): A04.72 - Enterocolitis due to Clostridium difficile, not specified as recurrent Status: Acute Assessment and Plan: Patient with liquid stools, C diff was positive 08/04 -started on per tube Flagyl and per tube vancomycin Plan Assessment and plan (1) Acute respiratory failure with hypoxia and hypercapnia: Staph aureus in sputum; no sensitivities ?Code(s): J96.01 - Acute respiratory failure with hypoxia; J96.02 - Acute respiratory failure with hypercapnia ?Status:?Acute ?Assessment and Plan: 08/05/23: Intubated and sedated (2) End stage renal disease on dialysis: ?Code(s): N18.6 - End stage renal disease; Z99.2 - Dependence on renal dialysis ?Status:?Acute ?Assessment and Plan: 08/05/23: ESRD on HD (3) Pulmonary edema: ?Code(s): J81
[2023-08-05] MEDS: ALBUMIN HUMAN 25% 12.5 GM/50ML 50 ML IVPB ×2 (15:02→15:30)
[2023-08-05] MEDS: VANCOMYCIN 500 MG/NS 100 ML 500 MG/100 ML BAG 100 MG IVPB (17:26)
[2023-08-05] MEDS: CEFEPIME 1 GM/NS 50 ML 1 GM/50 ML BAG IVPB (17:27)
[2023-08-05] MEDS: ATORVASTATIN 20 MG TABLET PO (21:29)
[2023-08-06] VITALS (45 sets, daily range): BP systolic 118–177; BP diastolic 65–99; PULSE 65–92; RESP 14–24; TEMP 36.1–37.5; O2SAT 96–100
[2023-08-06] MEDS: IPRATROPIUM BR 0.02% INH SOLN 0.5 MG/2.5 ML VIAL INHALATION ×6 (00:14→23:23)
[2023-08-06] MEDS: ALBUTEROL SULFATE NEB 2.5 MG/3 ML INH INHALATION ×6 (00:14→23:23)
[2023-08-06] MEDS: METOCLOPRAMIDE HCL INJ 10 MG/2 ML VIAL IV PUSH ×5 (01:29→23:50)
[2023-08-06] MEDS: VANCOMYCIN ORAL 125 MG/2.5 ML SYRUP PO ×5 (01:38→23:51)
[2023-08-06 04:47] LABS: Alveolar/Arterial O2 Gradient 86.1 mmHg; Base Excess ABG -0.2 mEq/l (+/-2.0); Carboxyhemoglobin 0.3 % THb (0-2.0); Fractional Inspired Oxygen 30 %; HCO3 ABG 22.2 mEq/l (22.0-26.0); Methemoglobin ABG 0.3 %THb (0-1.5); Oxygen Content ABG 13.9 %vol (16.0-22.0); Oxygen Saturation ABG 97.9 % (95.0-100.0); Oxyhemoglobin 95.7 % THb (90.0-100.0); PCO2 ABG 28.5 mmHg (35.0-45.0); PO2 ABG 94.3 mmHg (80.0-100.0); PO2 FiO2 Ratio Arterial Blood 3.14 %; Reduced Hemoglobin 3.7 %THb (0-5.0); Total Hemoglobin 10.2 g/dL (12.0-18.0)
[2023-08-06 05:38] LABS: Modified Allen's Test Pass; Site Drawn LEFT RADIAL; pH ABG 7.509 (7.350-7.450)
[2023-08-06 05:39] LABS: Arterial Blood Gas PEEP 8 cmH2O; Arterial Blood Gas Tidal Volume 370 ml; Arterial Blood Gas Vent Mode CMV; Arterial Blood Gas Ventilator rate 16 /MIN; Device VENTILATOR
[2023-08-06] MEDS: MIDODRINE HCL 2.5 MG TABLET 5 MG PO ×2 (06:50→13:59)
[2023-08-06] MEDS: CENTRAL LINE FLUSH 10 ML IV PUSH ×3 (06:51→23:50)
[2023-08-06 06:56] LABS: Basophils Percent Auto 0.4 % (0.2-1.2); Eosinophils Absolute Auto 0.2 K/mm3 (0-0.3); Eosinophils Percent Auto 3.4 % (0-4.4); Hematocrit 25.8 % (37.0-47.0); Hemoglobin 8.3 g/dL (12.0-15.0); Immature Granulocyte Absolute 0.05 K/mm3 (0.00-0.031); Immature Granulocyte Percent A 0.9 % (0-0.5); Immature Platelet Fraction Pct 3.2 % (0.9-11.2); Lymphocytes Absolute Auto 0.56 K/mm3 (0.9-3.2); Lymphocytes Percent Auto 10.6 % (18.3-44.2); Mean Corpuscular HGB Conc 32.2 g/dl (32-36); Mean Corpuscular Hemoglobin 26.9 pg (26-34); Mean Corpuscular Volume 83.8 fl (80-100); Mean Platelet Volume 9.7 fl (7.4-10.4); Monocytes Absolute Auto 0.6 K/mm3 (0.1-0.6); Monocytes Percent Auto 11.7 % (2.6-8.5); Neutrophils Absolute Auto 3.9 K/mm3 (1.3-6.7); Nucleated Red Blood Cells Absolute Auto 0.1 K/mm3 (0.0-0.012); Nucleated Red Blood Cells Perc 0.9 % (0.0-0.2); Platelet Count Result 96 k/mm3 (150-375); Red Blood Count 3.08 M/mm3 (4.2-5.4); Red Cell Distribution Width 19.9 % (11.5-14.5); White Blood Count 5.3 K/mm3 (4.5-10.0)
[2023-08-06 07:12] LABS: Alanine Aminotransferase 21 U/L (6-35); Alkaline Phosphatase 100 U/L (38-126); Anion Gap 12 mmol/L (8-16); Aspartate Amino Transferase 25 U/L (14-36); Blood Urea Nitrogen 67 mg/dL (7-17); Carbon Dioxide 24 mmol/L (22-30); Chloride 102 mmol/L (98-107); Estimated CRCL calculation 8 ml/min; Estimated Glomerular Filt Rate 9; Glucose 115 mg/dL (65-110); Phosphorus 5.4 mg/dL (2.5-4.5); Potassium 3.7 mmol/L (3.4-5.0); Sodium 138 mmol/L (137-145)
[2023-08-06 07:41] LABS: Anisocytosis 1+ (NORMAL); Hypochromasia 2+ (NORMAL); Platelet Estimate Decreased (Adequate); Schistocytes None Seen (NORMAL); Target Cells 1+ (NORMAL)
--- NOTE | 2023-08-06 09:00 | WPDINTPN ---
Progress Note: A&P Assessment and Plan (1) Acute respiratory failure with hypoxia and hypercapnia: Code(s): J96.01 - Acute respiratory failure with hypoxia; J96.02 - Acute respiratory failure with hypercapnia Status: Acute Assessment and Plan: Acute hypoxic/hypercapnic respiratory failure likely related to pulmonary edema from missed dialysis and pneumonia -patient intubated on 08/02 -currently on CMV mode of ventilation, peep of 5 and 40% FiO2, low tidal volume strategy -continue bronchodilators -patient was dialyzed 08/02 with 2000 mL in fluid removal -dialysis 08/03 with 3000 mL in fluid removal -dialysis on 08/04 with 3500 mL in fluid removal -dialysis on 08/05 with 2500 mL in fluid removal -will be dialyzed again today discussed with Nephrology -chest x-ray this mornin: Stable bilateral airspace disease, consistent with edema.2:? Small right pleural effusion -ABGs reviewed, ventilator adjusted -sedated with fentanyl and Versed infusion, maintain RASS of 0 to -1 -discussed with granddaughter who states that the dialysis center that she goes to has not been doing optimal dialysis sessions on her due to her itching, agitation when she goes for dialysis and they after shorten her dialysis sessions due to that. 08/05: CT chest abdomen pelvis without contrast: 1. Anasarca characterized by pleural effusions, ascites and diffuse subcutaneous edema. 2:? Bibasilar compressive atelectasis. Cannot exclude superimposed pneumonia. (2) Hypotension: Code(s): I95.9 - Hypotension, unspecified Status: Acute Assessment and Plan: Hypotension likely chronic, patient is on midodrine at home -will restart midodrine here in the hospital -lactic acid is 2 point -procalcitonin is 5.6 -08/02: Preliminary blood cultures negative so far -08/03: Sputum culture pending -08/02 patient started on cefepime and vancomycin -will deescalate once cultures are resulted -status post albumin for volume expansion -not requiring pressors at this time -08/05: Blood pressure is much improved, decrease midodrine dose (3) Pneumonia: Code(s): J18.9 - Pneumonia, unspecified organism Status: Acute Assessment and Plan: On admission WBC count was elevated, patient is hypotensive, chest x-ray showed bilateral infiltrate -procalcitonin was elevated to 5.6 -continue antibiotics as above -currently intubated and sedated (4) Pulmonary edema: Qualifiers: Chronicity: chronic Qualified Code(s): J81.1 - Chronic pulmonary edema Code(s): J81.1 - Chronic pulmonary edema Status: Chronic Assessment and Plan: Pulmonary edema likely related to shortened dialysis sessions as mentioned above -continue dialysis per Nephrology (5) End-stage renal disease on hemodialysis: Code(s): N18.6 - End stage renal disease; Z99.2 - Dependence on renal dialysis Status: Acute Assessment and Plan: Nephrology following the patient, dialysis per Nephrology (6) Pancytopenia: Code(s): D61.818 - Other pancytopenia Status: Acute Assessment and Plan: Hematology/oncology has been consulted -no schistocytes seen Thrombocytopenia, status post 1 unit platelets infusion on 08/03 -platelets much improved, will continue to monitor (7) C. difficile colitis: Code(s): A04.72 - Enterocolitis due to Clostridium difficile, not specified as recurrent Status: Acute Assessment and Plan: Patient with liquid stools, C diff was positive 08/04 -continue oral vancomycin per tube Plan DVT prophylaxis: Hold heparin SQ due to thrombocytopenia, SCDs Stress ulcer prophylaxis: Protonix Nutrition: Patient tolerating tube feeds, no residuals after Reglan was started on 08/04 Code Status: Full code Critical Care Time Spent: 32 minutes 08/03: Discuss with GWENDOLYN Lal, updated with patient's condition and plan of care. She had multiple questions regarding Versed, fentanyl, which I
[2023-08-06] MEDS: MINERAL OIL/WHITE PETROLATUM OINTMENT 1 APPLIC EACH EYE ×2 (10:50→20:39)
[2023-08-06] MEDS: LORATADINE 10 MG TABLET PO (10:50)
[2023-08-06] MEDS: SEVELAMER CARBONATE 800 MG TABLET PO ×3 (10:51→17:44)
[2023-08-06] MEDS: methylPREDNISolone SOD SUCC 125 MG VIAL IV PUSH (11:01)
[2023-08-06] MEDS: ALBUMIN HUMAN 25% 12.5 GM/50ML 150 ML 50 GM (12:56)
[2023-08-06 13:14] LABS: Glucose Point of Care 119 mg/dl (65-105)
[2023-08-06] MEDS: methylPREDNISolone SOD SUCC 40 MG VIAL IV PUSH ×3 (13:58→23:50)
[2023-08-06] MEDS: EPOETIN ALFA-EPBX 10,000 UNITS/ML VIAL 10000 UNITS IV PUSH (14:34)
--- NOTE | 2023-08-06 16:07 | P.PNNP_ITS ---
Progress Note: A&P Assessment and Plan (1) End stage renal disease: Code(s): N18.6 - End stage renal disease Status: Chronic Assessment and Plan: * HD today * continue T/T/S dialysis schedule * removing fluid as tolerated (2) Acute respiratory failure with hypoxia and hypercapnia: Code(s): J96.01 - Acute respiratory failure with hypoxia; J96.02 - Acute respiratory failure with hypercapnia Status: Acute Assessment and Plan: * secondary to pulmonary edema from missed dialysis and pneumonia * still on the ventilator * intubated and on mechanical ventilation * on antibiotics. * Removing fluid as tolerated * bronchodilator therapy * ventilator weaning as tolerated (3) Pneumonia: Code(s): J18.9 - Pneumonia, unspecified organism Status: Acute Assessment and Plan: * suggestive by admission imaging * follow culture data * on cefepime and vancomycin (4) Hypotension: Code(s): I95.9 - Hypotension, unspecified Status: Acute Assessment and Plan: * BP can fluctuate to extremes * on midodrine * blood pressure during pretty well on dialysis (5) Hyperkalemia: Code(s): E87.5 - Hyperkalemia Status: Acute Assessment and Plan: * potassium okay today (6) Anemia: Code(s): D64.9 - Anemia, unspecified Status: Chronic Assessment and Plan: * due to ESRD * Epogen with HD * hemoglobin 8.3 Will continue to follow. Subjective Date/time seen: 08/06/23 16:07 Interval history: Dania is on the ventilator and sedated. She is on dialysis and tolerating it well. She was seen at 2:30 p.m. Exam Narrative: General: elderly female intubated/sedated and on mechanical ventilation Heart: normal S1 and S2; no rub or gallop Lungs: coarse breath sounds Abdomen: soft, nontender, nondistended, positive bowel sounds Extremities: 1+ edema Skin: woody skin appearance. No acute rash Objective Data Vital Signs Vital Signs: Vital Signs - 24 hr 08/05/23 16:15 08/05/23 16:30 08/05/23 17:14 Temperature Pulse Rate 65 66 70 Respiratory Rate Blood Pressure 110/52 L 110/61 Pulse Oximetry 98 Oxygen Delivery Mechanical Ventilation Fraction of Inspired Oxygen 30 08/05/23 18:00 08/05/23 18:00 08/05/23 18:00 Temperature 97.5 F L 97.5 F L Pulse Rate 70 70 Respiratory Rate 16 Blood Pressure 129/77 Pulse Oximetry 99 Oxygen Delivery Fraction of Inspired Oxygen 08/05/23 18:15 08/05/23 21:02 08/05/23 20:05 Temperature Pulse Rate 69 68 68 Respiratory Rate 16 16 Blood Pressure Pulse Oximetry 98 Oxygen Delivery Mechanical Ventilation Fraction of Inspired Oxygen 30 08/05/23 21:12 08/05/23 16:45 08/05/23 16:55 Temperature Pulse Rate 69 65 61 Respiratory Rate 16 Blood Pressure 106/67 106/61 Pulse Oximetry Oxygen Delivery Fraction of Inspired Oxygen 08/05/23 17:12 08/06/23 00:15 08/05/23 23:10 Temperature 97.4 F L Pulse Rate 66
--- NOTE | 2023-08-06 16:07 | PM.PNNEP ---
Progress Note: A&P Assessment and Plan (1) End stage renal disease: Code(s): N18.6 - End stage renal disease Status: Chronic Assessment and Plan: HD today continue T/T/S dialysis schedule removing fluid as tolerated (2) Acute respiratory failure with hypoxia and hypercapnia: Code(s): J96.01 - Acute respiratory failure with hypoxia; J96.02 - Acute respiratory failure with hypercapnia Status: Acute Assessment and Plan: secondary to pulmonary edema from missed dialysis and pneumonia still on the ventilator intubated and on mechanical ventilation on antibiotics. Removing fluid as tolerated bronchodilator therapy ventilator weaning as tolerated (3) Pneumonia: Code(s): J18.9 - Pneumonia, unspecified organism Status: Acute Assessment and Plan: suggestive by admission imaging follow culture data on cefepime and vancomycin (4) Hypotension: Code(s): I95.9 - Hypotension, unspecified Status: Acute Assessment and Plan: BP can fluctuate to extremes on midodrine blood pressure during pretty well on dialysis (5) Hyperkalemia: Code(s): E87.5 - Hyperkalemia Status: Acute Assessment and Plan: potassium okay today (6) Anemia: Code(s): D64.9 - Anemia, unspecified Status: Chronic Assessment and Plan: due to ESRD Epogen with HD hemoglobin 8.3 Will continue to follow. Subjective Date/time seen: 08/06/23 16:07 Interval history: Dania is on the ventilator and sedated. She is on dialysis and tolerating it well. She was seen at 2:30 p.m. Exam Narrative: General: elderly female intubated/sedated and on mechanical ventilation Heart: normal S1 and S2; no rub or gallop Lungs: coarse breath sounds Abdomen: soft, nontender, nondistended, positive bowel sounds Extremities: 1+ edema Skin: woody skin appearance. No acute rash Objective Data Vital Signs Vital Signs: Vital Signs - 24 hr 08/05/23 16:15 08/05/23 16:30 08/05/23 17:14 Temperature Pulse Rate 65 66 70 Respiratory Rate Blood Pressure 110/52 L 110/61 Pulse Oximetry 98 Oxygen Delivery Mechanical Ventilation Fraction of Inspired Oxygen 30 08/05/23 18:00 08/05/23 18:00 08/05/23 18:00 Temperature 97.5 F L 97.5 F L Pulse Rate 70 70 Respiratory Rate 16 Blood Pressure 129/77 Pulse Oximetry 99 Oxygen Delivery Fraction of Inspired Oxygen 08/05/23 18:15 08/05/23 21:02 08/05/23 20:05 Temperature Pulse Rate 69 68 68 Respiratory Rate 16 16 Blood Pressure Pulse Oximetry 98 Oxygen Delivery Mechanical Ventilation Fraction of Inspired Oxygen 30 08/05/23 21:12 08/05/23 16:45 08/05/23 16:55 Temperature Pulse Rate 69 65 61 Respiratory Rate 16 Blood Pressure 106/67 106/61 Pulse Oximetry Oxygen Delivery Fraction of Inspired Oxygen 08/05/23 17:12 08/06/23 00:15 08/05/23 23:10 Temperature 97.4 F L Pulse Rate 66 70 68 Respiratory Rate 16 16 Blood Pressure 127/67 Pulse Oximetry 98 97 Oxygen Delivery Mechanical Ventilation Fraction of Inspired Oxygen 30 08/06/23 02:12 08/06/23 04:15 08/06/23 04:25 Temperature Pulse Rate 73 66 71 Respiratory Rate 16 16 Blood Pressure Pulse Oximetry 97 Oxygen Delivery Mechanical Ventilation Fraction of Inspired Oxygen 30 08/06/23 05:00 08/06/23 08:39 08/05/23 20:00 Temperature Pulse Rate 70 73 69 Respiratory Rate 15 16 Blood Pressure Pulse Oximetry 98 Oxygen Delivery Mechanical Ventilation Fraction of Inspired Oxygen 30 08/05/23 20:00 08/05/23 22:00 08/05/23 22:00 Temperature Pulse Rate 69 68 68 Respiratory Rate 16 16 16 Blood Pressure Pulse Oximetry Oxygen Delivery Fraction of Inspired Oxygen 08/06/23 00:00 08/06/23 00:00 08/06/23 02:00 Temperature Pulse Rate 68 68 72 Respiratory Rate 17 17
[2023-08-06] MEDS: CEFEPIME 1 GM/NS 50 ML 1 GM/50 ML BAG IVPB (17:44)
[2023-08-06 19:04] LABS: Glucose Point of Care 166 mg/dl (65-105)
[2023-08-06] MEDS: FAMOTIDINE 20 MG/2 ML VIAL IV PUSH (20:39)
[2023-08-06] MEDS: ATORVASTATIN 20 MG TABLET PO (20:39)
[2023-08-06] MEDS: hydrALAZINE HCL 20 MG/ML VIAL 10 MG IV PUSH (21:57)
[2023-08-07] VITALS (36 sets, daily range): BP systolic 136–158; BP diastolic 71–87; PULSE 67–87; RESP 7–22; TEMP 35.8–36.4; O2SAT 92–100
[2023-08-07] MEDS: ALBUTEROL SULFATE NEB 2.5 MG/3 ML INH INHALATION ×6 (04:32→23:07)
[2023-08-07] MEDS: IPRATROPIUM BR 0.02% INH SOLN 0.5 MG/2.5 ML VIAL INHALATION ×6 (04:32→23:07)
[2023-08-07 05:03] LABS: Alveolar/Arterial O2 Gradient 71.1 mmHg; Base Excess ABG -0.2 mEq/l (+/-2.0); Carboxyhemoglobin 0.5 % THb (0-2.0); Fractional Inspired Oxygen 30 %; HCO3 ABG 23.1 mEq/l (22.0-26.0); Methemoglobin ABG 0.3 %THb (0-1.5); Oxygen Content ABG 14.8 %vol (16.0-22.0); Oxygen Saturation ABG 98.1 % (95.0-100.0); Oxyhemoglobin 96.5 % THb (90.0-100.0); PCO2 ABG 33.2 mmHg (35.0-45.0); PO2 ABG 103.8 mmHg (80.0-100.0); PO2 FiO2 Ratio Arterial Blood 3.46 %; Reduced Hemoglobin 2.7 %THb (0-5.0); Total Hemoglobin 10.8 g/dL (12.0-18.0); pH ABG 7.461 (7.350-7.450)
[2023-08-07 05:07] LABS: Modified Allen's Test Pass; Site Drawn LEFT RADIAL
[2023-08-07 05:08] LABS: Arterial Blood Gas Vent Mode CMV; Arterial Blood Gas Ventilator rate 14 /MIN; Device VENTILATOR
[2023-08-07 05:09] LABS: Arterial Blood Gas PEEP 8 cmH2O; Arterial Blood Gas Tidal Volume 370 ml
[2023-08-07 05:28] LABS: Glucose Point of Care 136 mg/dl (65-105)
[2023-08-07] MEDS: methylPREDNISolone SOD SUCC 40 MG VIAL IV PUSH ×4 (05:37→23:31)
[2023-08-07] MEDS: CENTRAL LINE FLUSH 10 ML IV PUSH ×3 (05:37→20:04)
[2023-08-07] MEDS: METOCLOPRAMIDE HCL INJ 10 MG/2 ML VIAL IV PUSH (05:37)
[2023-08-07 06:03] LABS: Hematocrit 28.4 % (37.0-47.0); Hemoglobin 9.2 g/dL (12.0-15.0); Immature Granulocyte Absolute 0.05 K/mm3 (0.00-0.031); Immature Granulocyte Percent A 1.1 % (0-0.5); Immature Platelet Fraction Pct 5.7 % (0.9-11.2); Lymphocytes Absolute Auto 0.25 K/mm3 (0.9-3.2); Lymphocytes Percent Auto 5.6 % (18.3-44.2); Mean Corpuscular HGB Conc 32.4 g/dl (32-36); Mean Corpuscular Hemoglobin 27.5 pg (26-34); Mean Corpuscular Volume 84.8 fl (80-100); Mean Platelet Volume 10.2 fl (7.4-10.4); Monocytes Absolute Auto 0.1 K/mm3 (0.1-0.6); Monocytes Percent Auto 2.2 % (2.6-8.5); Neutrophils Absolute Auto 4.1 K/mm3 (1.3-6.7); Neutrophils Percent Auto 91.1 % (45.5-73.1); Nucleated Red Blood Cells Absolute Auto 0.1 K/mm3 (0.0-0.012); Nucleated Red Blood Cells Perc 2.5 % (0.0-0.2); Platelet Count Result 92 k/mm3 (150-375); Red Blood Count 3.35 M/mm3 (4.2-5.4); Red Cell Distribution Width 19.8 % (11.5-14.5); White Blood Count 4.5 K/mm3 (4.5-10.0)
[2023-08-07 06:11] LABS: Alanine Aminotransferase 22 U/L (6-35); Albumin Level 4.2 g/dL (3.5-5.1); Alkaline Phosphatase 102 U/L (38-126); Anion Gap 14 mmol/L (8-16); Aspartate Amino Transferase 21 U/L (14-36); Bilirubin,Total 0.8 mg/dL (0.2-1.3); Blood Urea Nitrogen 59 mg/dL (7-17); Calcium 10.4 mg/dL (8.4-10.2); Carbon Dioxide 26 mmol/L (22-30); Chloride 99 mmol/L (98-107); Estimated CRCL calculation 11 ml/min; Estimated Glomerular Filt Rate 13; Glucose 138 mg/dL (65-110); Magnesium 2.1 mg/dL (1.6-2.3); Phosphorus 5.5 mg/dL (2.5-4.5); Potassium 4.3 mmol/L (3.4-5.0); Sodium 139 mmol/L (137-145)
[2023-08-07] MEDS: VANCOMYCIN ORAL 125 MG/2.5 ML SYRUP PO ×4 (06:27→23:31)
[2023-08-07 07:14] LABS: Hypochromasia 2+ (NORMAL); Large Platelets Present; Platelet Estimate Decreased (Adequate); Schistocytes None Seen (NORMAL); Target Cells 1+ (NORMAL)
--- NOTE | 2023-08-07 08:21 | WPDINTPN ---
Progress Note: A&P Assessment and Plan (1) Acute respiratory failure with hypoxia and hypercapnia: Code(s): J96.01 - Acute respiratory failure with hypoxia; J96.02 - Acute respiratory failure with hypercapnia Status: Acute Assessment and Plan: Acute hypoxic/hypercapnic respiratory failure likely related to pulmonary edema from missed dialysis and pneumonia -patient intubated on 08/02 -currently on CMV mode of ventilation, peep of 5 and 40% FiO2, low tidal volume strategy -continue bronchodilators -patient was dialyzed 08/02 with 2000 mL in fluid removal -dialysis 08/03 with 3000 mL in fluid removal -dialysis on 08/04 with 3500 mL in fluid removal -dialysis on 08/05 with 2500 mL in fluid removal -dialysis on 08/06 with 3000 mL in fluid removal -chest x-ray this mornin: Improving bilateral airspace disease which may represent edema or pneumonia. 2: Cardiomegaly. -ABGs reviewed -sedated with fentanyl 25 mcg/hr and Versed 1 mg/hr infusion, maintain RASS of 0 to -1 -discussed with granddaughter who states that the dialysis center that she goes to has not been doing optimal dialysis sessions on her due to her itching, agitation when she goes for dialysis and they after shorten her dialysis sessions due to that. 08/05: CT chest abdomen pelvis without contrast: 1. Anasarca characterized by pleural effusions, ascites and diffuse subcutaneous edema. 2:? Bibasilar compressive atelectasis. Cannot exclude superimposed pneumonia. (2) Hypotension: Code(s): I95.9 - Hypotension, unspecified Status: Acute Assessment and Plan: RESOLVED Hypotension likely chronic, patient is on midodrine at home -will restart midodrine here in the hospital -lactic acid is 2 point -procalcitonin is 5.6 -08/02: Blood cultures negative x2 -08/03: Sputum culture growing staph aureus -08/02: MRSA screen is positive -08/02 status post cefepime and vancomycin -status post albumin for volume expansion -not requiring pressors at this time -08/07: Blood pressure is much improved, MIDODRINE DISCONTINUED 08/07: Sputum cultures growing Staph aureus, from 08/03, will restart vancomycin (3) Pneumonia: Code(s): J18.9 - Pneumonia, unspecified organism Status: Acute Assessment and Plan: On admission WBC count was elevated, patient is hypotensive, chest x-ray showed bilateral infiltrate -procalcitonin was elevated to 5.6 -continue antibiotics as above -currently intubated and sedated (4) Pulmonary edema: Qualifiers: Chronicity: chronic Qualified Code(s): J81.1 - Chronic pulmonary edema Code(s): J81.1 - Chronic pulmonary edema Status: Chronic Assessment and Plan: Pulmonary edema likely related to shortened dialysis sessions as mentioned above -continue dialysis per Nephrology (5) End-stage renal disease on hemodialysis: Code(s): N18.6 - End stage renal disease; Z99.2 - Dependence on renal dialysis Status: Acute Assessment and Plan: Nephrology following the patient, dialysis per Nephrology (6) Pancytopenia: Code(s): D61.818 - Other pancytopenia Status: Acute Assessment and Plan: Hematology/oncology has been consulted -no schistocytes seen Thrombocytopenia, status post 1 unit platelets infusion on 08/03 -pancytopenia has improved, continue to monitor (7) C. difficile colitis: Code(s): A04.72 - Enterocolitis due to Clostridium difficile, not specified as recurrent Status: Acute Assessment and Plan: Patient with liquid stools, C diff was positive 08/04 -continue oral vancomycin per tube (8) Angioedema: Code(s): T78.3XXA - Angioneurotic edema, initial encounter Status: Acute Assessment and Plan: Sources of the time devoted after starting Reglan, diet has been discontinued -started on Solu-Medrol, Benadryl, loratadine, famotidine -continue to monitor Plan DVT prophylaxis: Hold heparin SQ due to thro
[2023-08-07] MEDS: SEVELAMER CARBONATE 800 MG TABLET PO ×3 (09:30→17:10)
[2023-08-07] MEDS: LORATADINE 10 MG TABLET PO (09:30)
[2023-08-07] MEDS: diphenhydrAMINE HCl INJ 50 MG/ML VIAL 25 MG IV PUSH ×3 (09:31→20:00)
[2023-08-07] MEDS: FAMOTIDINE 20 MG/2 ML VIAL IV PUSH ×2 (09:32→20:01)
--- NOTE | 2023-08-07 12:07 | P.PNNP_ITS ---
Progress Note: A&P Assessment and Plan (1) End stage renal disease: Code(s): N18.6 - End stage renal disease Status: Chronic Assessment and Plan: * HD due on Tuesday * Volume status looks okay today. * Potassium and bicarbonate okay. (2) Acute respiratory failure with hypoxia and hypercapnia: Code(s): J96.01 - Acute respiratory failure with hypoxia; J96.02 - Acute respiratory failure with hypercapnia Status: Acute Assessment and Plan: * secondary to pulmonary edema from missed dialysis and pneumonia * still on the ventilator * intubated and on mechanical ventilation * on antibiotics. * Removing fluid as tolerated * bronchodilator therapy * ventilator weaning as tolerated * On 30% oxygen and PEEP of 8. (3) Pneumonia: Code(s): J18.9 - Pneumonia, unspecified organism Status: Acute Assessment and Plan: * suggestive by admission imaging * follow culture data * on cefepime and vancomycin (4) Hypotension: Code(s): I95.9 - Hypotension, unspecified Status: Acute Assessment and Plan: * BP has been running 130s to 170s * I agree with stopping the midodrine * blood pressure has done well with dialysis so far. Will see how she does on Tuesday (5) Hyperkalemia: Code(s): E87.5 - Hyperkalemia Status: Acute Assessment and Plan: * potassium okay today (6) Anemia: Code(s): D64.9 - Anemia, unspecified Status: Chronic Assessment and Plan: * due to ESRD * Epogen with HD * hemoglobin 9.2 Will continue to follow. Subjective Date/time seen: 08/07/23 12:07 Interval history: Patient is on the ventilator. Sedated. Exam Narrative: General: elderly female intubated/sedated and on mechanical ventilation Mouth: Orally intubated. Tongue is protruding from the mouth. Heart: normal S1 and S2; no rub or gallop Lungs: coarse breath sounds Abdomen: soft, nontender, nondistended, positive bowel sounds Extremities: 1+ edema Skin: woody skin appearance. No acute rash Objective Data Vital Signs Vital Signs: Vital Signs - 24 hr 08/06/23 14:00 08/06/23 14:10 08/06/23 14:15 Temperature Pulse Rate 73 73 71 Respiratory Rate 14 14 Blood Pressure Pulse Oximetry 100 Oxygen Delivery Mechanical Ventilation Fraction of Inspired Oxygen 08/06/23 12:14 08/06/23 12:14 08/06/23 12:24 Temperature 96.9 F L Pulse Rate 67 67 Respiratory Rate 14 Blood Pressure 136/76 140/77 Pulse Oximetry 100 Oxygen Delivery Fraction of Inspired Oxygen 08/06/23 12:45 08/06/23 13:00 08/06/23 13:15 Temperature Pulse Rate 66 71 71 Respiratory Rate Blood Pressure 124/69 119/74 134/76 Pulse Oximetry Oxygen Delivery Fraction of Inspired Oxygen 08/06/23 13:30 08/06/23 14:00 08/06/23 14:00 Temperature 97.9 F Pulse Rate 75 73 74 Respiratory Rate 24 H Blood Pressure 133/74 118/80 Pulse Oximetry 100 Oxygen Delivery Fraction of Inspired Oxygen 08/06/23 16:00
--- NOTE | 2023-08-07 12:07 | PM.PNNEP ---
Progress Note: A&P Assessment and Plan (1) End stage renal disease: Code(s): N18.6 - End stage renal disease Status: Chronic Assessment and Plan: HD due on Tuesday Volume status looks okay today. Potassium and bicarbonate okay. (2) Acute respiratory failure with hypoxia and hypercapnia: Code(s): J96.01 - Acute respiratory failure with hypoxia; J96.02 - Acute respiratory failure with hypercapnia Status: Acute Assessment and Plan: secondary to pulmonary edema from missed dialysis and pneumonia still on the ventilator intubated and on mechanical ventilation on antibiotics. Removing fluid as tolerated bronchodilator therapy ventilator weaning as tolerated On 30% oxygen and PEEP of 8. (3) Pneumonia: Code(s): J18.9 - Pneumonia, unspecified organism Status: Acute Assessment and Plan: suggestive by admission imaging follow culture data on cefepime and vancomycin (4) Hypotension: Code(s): I95.9 - Hypotension, unspecified Status: Acute Assessment and Plan: BP has been running 130s to 170s I agree with stopping the midodrine blood pressure has done well with dialysis so far. Will see how she does on Tuesday (5) Hyperkalemia: Code(s): E87.5 - Hyperkalemia Status: Acute Assessment and Plan: potassium okay today (6) Anemia: Code(s): D64.9 - Anemia, unspecified Status: Chronic Assessment and Plan: due to ESRD Epogen with HD hemoglobin 9.2 Will continue to follow. Subjective Date/time seen: 08/07/23 12:07 Interval history: Patient is on the ventilator. Sedated. Exam Narrative: General: elderly female intubated/sedated and on mechanical ventilation Mouth: Orally intubated. Tongue is protruding from the mouth. Heart: normal S1 and S2; no rub or gallop Lungs: coarse breath sounds Abdomen: soft, nontender, nondistended, positive bowel sounds Extremities: 1+ edema Skin: woody skin appearance. No acute rash Objective Data Vital Signs Vital Signs: Vital Signs - 24 hr 08/06/23 14:00 08/06/23 14:10 08/06/23 14:15 Temperature Pulse Rate 73 73 71 Respiratory Rate 14 14 Blood Pressure Pulse Oximetry 100 Oxygen Delivery Mechanical Ventilation Fraction of Inspired Oxygen 30 08/06/23 12:14 08/06/23 12:14 08/06/23 12:24 Temperature 96.9 F L Pulse Rate 67 67 Respiratory Rate 14 Blood Pressure 136/76 140/77 Pulse Oximetry 100 Oxygen Delivery Fraction of Inspired Oxygen 30 08/06/23 12:45 08/06/23 13:00 08/06/23 13:15 Temperature Pulse Rate 66 71 71 Respiratory Rate Blood Pressure 124/69 119/74 134/76 Pulse Oximetry Oxygen Delivery Fraction of Inspired Oxygen 08/06/23 13:30 08/06/23 14:00 08/06/23 14:00 Temperature 97.9 F Pulse Rate 75 73 74 Respiratory Rate 24 H Blood Pressure 133/74 118/80 Pulse Oximetry 100 Oxygen Delivery Fraction of Inspired Oxygen 08/06/23 16:00 08/06/23 13:00 08/06/23 14:00 Temperature 97.8 F Pulse Rate 78 69 74 Respiratory Rate 14 14 14 Blood Pressure 156/76 H Pulse Oximetry 100 Oxygen Delivery Fraction of Inspired Oxygen 08/06/23 15:00 08/06/23 16:00 08/06/23 17:00 Temperature Pulse Rate 86 86 80 Respiratory Rate 14 14 14 Blood Pressure Pulse Oximetry Oxygen Delivery Fraction of Inspired Oxygen 08/06/23 13:00 08/06/23 14:00 08/06/23 15:00 Temperature Pulse Rate 69 74 86 Respiratory Rate 14 14 14 Blood Pressure Pulse Oximetry Oxygen Delivery Fraction of Inspired Oxygen 08/06/23 16:00 08/06/23 17:00 08/06/23 13:45 Temperature Pulse Rate 86 80 73 Respiratory Rate 14 14 Blood Pressure 131/79 Pulse Oximetry Oxygen Delivery Fraction of Inspired Oxygen 08/06/23 14:00 08/06/23 14:15 08/06/23 14:30 Temperature Pulse Rate 72 73 73 Respirato
[2023-08-07] MEDS: MINERAL OIL/WHITE PETROLATUM OINTMENT 1 APPLIC EACH EYE ×2 (12:15→20:04)
[2023-08-07 12:34] LABS: Glucose Point of Care 143 mg/dl (65-105)
[2023-08-07] MEDS: hydrALAZINE HCL 20 MG/ML VIAL 10 MG IV PUSH ×2 (14:06→21:03)
[2023-08-07 14:56] LABS: Vancomycin Random 16.4 ug/mL (10-20)
[2023-08-07 17:24] LABS: Glucose Point of Care 149 mg/dl (65-105)
[2023-08-07] MEDS: ATORVASTATIN 20 MG TABLET PO (20:07)
[2023-08-07 23:46] LABS: Glucose Point of Care 129 mg/dl (65-105)
[2023-08-08] VITALS (47 sets, daily range): BP systolic 107–161; BP diastolic 54–99; PULSE 73–113; RESP 12–20; TEMP 35.8–37.5; O2SAT 98–100
[2023-08-08] MEDS: diphenhydrAMINE HCl INJ 50 MG/ML VIAL 25 MG IV PUSH (03:36)
[2023-08-08] MEDS: MIDAZOLAM 100MG/NS 100ML(*CRX) 100 MG/100 ML BAG IV CONT (04:04)
[2023-08-08] MEDS: IPRATROPIUM BR 0.02% INH SOLN 0.5 MG/2.5 ML VIAL INHALATION ×6 (05:05→23:32)
[2023-08-08] MEDS: ALBUTEROL SULFATE NEB 2.5 MG/3 ML INH INHALATION ×6 (05:05→23:32)
[2023-08-08 05:25] LABS: Estimated CRCL calculation 9 ml/min; Estimated Glomerular Filt Rate 10
[2023-08-08] MEDS: methylPREDNISolone SOD SUCC 40 MG VIAL IV PUSH ×3 (06:13→17:13)
[2023-08-08] MEDS: CENTRAL LINE FLUSH 10 ML IV PUSH ×3 (06:13→20:37)
[2023-08-08] MEDS: VANCOMYCIN ORAL 125 MG/2.5 ML SYRUP PO ×3 (06:13→17:13)
[2023-08-08 07:05] LABS: Alanine Aminotransferase 20 U/L (6-35); Albumin Level 4.1 g/dL (3.5-5.1); Alkaline Phosphatase 104 U/L (38-126); Anion Gap 17 mmol/L (8-16); Aspartate Amino Transferase 18 U/L (14-36); Bilirubin,Total 0.6 mg/dL (0.2-1.3); Blood Urea Nitrogen 88 mg/dL (7-17); Calcium 10.5 mg/dL (8.4-10.2); Carbon Dioxide 25 mmol/L (22-30); Chloride 98 mmol/L (98-107); Estimated CRCL calculation 8 ml/min; Estimated Glomerular Filt Rate 10; Glucose 164 mg/dL (65-110); Potassium 4.5 mmol/L (3.4-5.0); Sodium 140 mmol/L (137-145)
--- NOTE | 2023-08-08 08:00 | WPDINTPN ---
Progress Note: A&P Assessment and Plan (1) Acute respiratory failure with hypoxia and hypercapnia: Code(s): J96.01 - Acute respiratory failure with hypoxia; J96.02 - Acute respiratory failure with hypercapnia Status: Acute Assessment and Plan: Acute hypoxic/hypercapnic respiratory failure likely related to pulmonary edema from missed dialysis and pneumonia -patient intubated on 08/02 -currently on CMV mode of ventilation, peep of 5 and 40% FiO2, low tidal volume strategy -continue bronchodilators -patient was dialyzed 08/02 with 2000 mL in fluid removal -dialysis 08/03 with 3000 mL in fluid removal -dialysis on 08/04 with 3500 mL in fluid removal -dialysis on 08/05 with 2500 mL in fluid removal -dialysis on 08/06 with 3000 mL in fluid removal -chest x-ray this mornin: Improving bilateral airspace disease which may represent edema or pneumonia. 2: Cardiomegaly. -ABGs reviewed -sedated with Versed 1 mg/hr infusion, off fentanyl infusion, patient following commands. Maintain RASS of 0 to -[address] patient on pressure support ventilation and evaluate for extubation -discussed with granddaughter who states that the dialysis center that she goes to has not been doing optimal dialysis sessions on her due to her itching, agitation when she goes for dialysis and they after shorten her dialysis sessions due to that. 08/05: CT chest abdomen pelvis without contrast: 1. Anasarca characterized by pleural effusions, ascites and diffuse subcutaneous edema. 2:? Bibasilar compressive atelectasis. Cannot exclude superimposed pneumonia. (2) Hypotension: Code(s): I95.9 - Hypotension, unspecified Status: Acute Assessment and Plan: RESOLVED Hypotension likely chronic, patient is on midodrine at home -will restart midodrine here in the hospital -lactic acid is 2 point -procalcitonin is 5.6 -08/02: Blood cultures negative x2 -08/03: Sputum culture growing staph aureus -08/02: MRSA screen is positive -08/02 status post cefepime and vancomycin -status post albumin for volume expansion -not requiring pressors at this time -08/07: Blood pressure is much improved, MIDODRINE DISCONTINUED -08/07: Sputum cultures growing Staph aureus, from 08/03, -08/07: restarted vancomycin (3) Pneumonia: Code(s): J18.9 - Pneumonia, unspecified organism Status: Acute Assessment and Plan: On admission WBC count was elevated, patient is hypotensive, chest x-ray showed bilateral infiltrate -procalcitonin was elevated to 5.6 -continue antibiotics as above -currently intubated on mechanical ventilation (4) Pulmonary edema: Qualifiers: Chronicity: chronic Qualified Code(s): J81.1 - Chronic pulmonary edema Code(s): J81.1 - Chronic pulmonary edema Status: Chronic Assessment and Plan: Pulmonary edema likely related to shortened dialysis sessions as mentioned above -continue dialysis per Nephrology (5) End-stage renal disease on hemodialysis: Code(s): N18.6 - End stage renal disease; Z99.2 - Dependence on renal dialysis Status: Acute Assessment and Plan: Nephrology following the patient, dialysis per Nephrology (6) Pancytopenia: Code(s): D61.818 - Other pancytopenia Status: Acute Assessment and Plan: Hematology/oncology has been consulted -no schistocytes seen Thrombocytopenia, status post 1 unit platelets infusion on 08/03 -pancytopenia improving, continue to monitor (7) C. difficile colitis: Code(s): A04.72 - Enterocolitis due to Clostridium difficile, not specified as recurrent Status: Acute Assessment and Plan: Patient with liquid stools, C diff was positive 08/04 -continue oral vancomycin per tube (8) Angioedema: Code(s): T78.3XXA - Angioneurotic edema, initial encounter Status: Acute Assessment and Plan: Swelling of the time it occurred after starting Reglan, this has been discontinue -c
[2023-08-08] MEDS: SEVELAMER CARBONATE 800 MG TABLET PO ×3 (08:51→17:13)
[2023-08-08] MEDS: FAMOTIDINE 20 MG/2 ML VIAL IV PUSH ×2 (08:51→20:36)
[2023-08-08] MEDS: LORATADINE 10 MG TABLET PO (08:51)
[2023-08-08] MEDS: MINERAL OIL/WHITE PETROLATUM OINTMENT 1 APPLIC EACH EYE ×2 (08:58→20:36)
--- NOTE | 2023-08-08 09:57 | PDONCCN ---
HPI - Date of Consult Date/Time: 08/08/23 19:02 <Luis George - 08/08/23 19:04> 08/08/23 09:57 <Krystal Mcdermott - 08/08/23 09:59> Requesting Physician: Radha Alfonso DO <Luis George - 08/08/23 19:04> Radha Alfonso DO <SharronKrystal - 08/08/23 09:59> Primary Care Provider: Navin Castañeda MD <Luis George - 08/08/23 19:04> Navin Castañeda MD <Krystal Mcdermott - 08/08/23 09:59> - Consult Narrative Reason for consult: Pancytopenia <SharronKrystal - 08/08/23 09:59> Narrative: Dania Demarco is a 72 year old female <Luis George - 08/08/23 19:04> Dania Demarco is a 72 year old female with a past medical history of ESRD, HLD, hypotension. She was admitted for respiratory distress and has been intubated since 08/03. Blood cultures were draw and negative x2. Sputum culture growing staph aureus. MRSA screen is positive. She is s/p cefe and vancomycin. There is concern for pneumonia as well. She is back on vancomycin. She is currently intubated. Able to open eyes. In no distress. She is currently receiving dialysis at the time of my visit. Labs are notable for WBC 4.5, Hgb 9.2, Plt 92. No schistocytes seen. Pt is receiving EPO injections with dialysis. <Krystal Mcdermott - 08/08/23 10:22> Review of Systems - Review of Systems unobtainable due to endotracheal tube, unobtainable due to medical condition <Krystal Mcdermott - 08/08/23 09:59> [facility] Medical History: Medical History (Last Reviewed 08/02/23 @ 14:26 by Darren Mo APRN) Alzheimer disease End-stage renal disease on hemodialysis Hyperlipidemia Orthostatic hypotension Renal osteodystrophy Schizophrenia <Luis George - 08/08/23 19:04> Medical History (Last Reviewed 08/02/23 @ 14:26 by Darren Mo APRN) Alzheimer disease End-stage renal disease on hemodialysis Hyperlipidemia Orthostatic hypotension Renal osteodystrophy Schizophrenia <SharronKrystal 08/08/23 09:59> Surgical History: Surgical History (Last Reviewed 08/02/23 @ 14:26 by aDrren Mo APRN) Arteriovenous fistula Surgically formed right upper extremity Patient has a her left upper extremity dialysis graft that has failed <Luis George - 08/08/23 19:04> Surgical History (Last Reviewed 08/02/23 @ 14:26 by Darren Mo APRN) Arteriovenous fistula Surgically formed right upper extremity Patient has a her left upper extremity dialysis graft that has failed <SharronKrystal 08/08/23 09:59> Family History: Family History (Last Reviewed 08/02/23 @ 14:26 by Darren Mo APRN) Other Unknown family medical history <Luis George - 08/08/23 19:04> Family History (Last Reviewed 08/02/23 @ 14:26 by Darren Mo APRN) Other Unknown family medical history <Krystal Mcdermott 08/08/23 09:59> - Social History Social History: Social History (Last Reviewed 08/02/23 @ 14:26 by Darren Mo APRN) Alcohol Use: Alcohol intake: unknown Substance Use: Substance use: unknown Substance use type: does not use Others: Spiritual care concerns: No Smoking Status: Smoking status: Unknown if ever smoked <Luis George - 08/08/23 19:04> Social History (Last Reviewed 08/02/23 @ 14:26 by Darren Mo APRN) Alcohol Use: Alcohol intake: unknown Substance Use: Substance use: unknown Substance use type: does not use Others: Spiritual care concerns: No Smoking Status: Smoking status: Unknown if ever smoked <Krystal Mcdermott 08/08/23 09:59> Exam - General pt is intubated, able to open eyes, no distress <Krystal Mcdermott 08/08/23 13:00> - Vital Signs Vital Signs - 24 hr 08/07/23 19:57 08/07/23 19:59 08/07/23 20:04 Temperature Pulse Rate 77 Respiratory Rate 14 Bl
--- NOTE | 2023-08-08 10:10 | P.PNNP_ITS ---
Progress Note: A&P Assessment and Plan (1) End stage renal disease: Code(s): N18.6 - End stage renal disease Status: Chronic Assessment and Plan: * HD today and likely again tomorrow * follow electrolytes, volume status, and clearance (2) Acute respiratory failure with hypoxia and hypercapnia: Code(s): J96.01 - Acute respiratory failure with hypoxia; J96.02 - Acute respiratory failure with hypercapnia Status: Acute Assessment and Plan: * secondary to pulmonary edema from missed dialysis and pneumonia * intubated and on mechanical ventilation * on antibiotics. * fluid as tolerated * bronchodilator therapy * ventilator weaning as tolerated (3) Pneumonia: Code(s): J18.9 - Pneumonia, unspecified organism Status: Acute Assessment and Plan: * suggestive by admission imaging * follow culture data * on antibiotics (4) Hypotension: Code(s): I95.9 - Hypotension, unspecified Status: Acute Assessment and Plan: * BP is doing better * off midodrine therapy * follow trend of hemodynamics (5) Anemia: Code(s): D64.9 - Anemia, unspecified Status: Chronic Assessment and Plan: * due to ESRD * Epogen with HD * follow trend of H/H Will continue to follow. Subjective Date/time seen: 08/08/23 10:10 Interval history: Follow-up for end stage renal disease on hemodialysis. Chart reviewed since last seen; tolerating dialysis treatmentat the time of my visit (seen on HD at 10:00am); remains intubated/sedated and on mechanical ventilation; stable hemodynamics noted. Exam Narrative: General: elderly female intubated/sedated and on mechanical ventilation Heart: normal S1 and S2; no rub Lungs: coarse breath sounds throughout Abdomen: soft, nontender, nondistended, positive bowel sounds Extremities: no cyanosis or clubbing; 1+ edema Skin: chronic woody skin appearance Objective Data Vital Signs Vital Signs: Vital Signs Temp Pulse Resp BP Pulse Ox O2 Del Method FiO2 08/08/23 10:05 92 98 Mechanical Ventilation 30 08/08/23 10:00 98.9 F 85 12 137/70 98 08/08/23 09:28 85 138/83 08/08/23 09:18 98.9 F 89 19 140/77 98 08/08/23 09:18 30 08/08/23 07:35 81 16 08/08/23 07:25 80 17 08/08/23 07:25 80 100 Mechanical Ventilation 30 08/08/23 08:06 98.8 F 81 15 136/67 100 08/08/23 06:00 98.2 F 80 14 135/74 100 08/08/23 06:00 80 08/08/23 04:00 78 08/08/23 05:25 81 14 08/08/23 05:05 81 14 08/08/23 05:54 80 100 Mechanical Ventilation 08/07/23 23:30 79 14 08/08/23 04:00 100 Mechanical Ventilation 30 08/08/23 04:00 30 08/08/23 04:00 97.5 F L 82 15 153/85 H 100 08/08/23 04:04 75 12 08/08/23 02:00 74 08/08/23 02:00 97.0 F L 74 17 138/68 100 08/08/23 02:10 73 100 Mechanical Ventilation 08/08/23 00:00 30 08/08/23 00:00 100 Mechanical Ventilation 30 08/08/23 00:00 96.5 F L 77 14 161/80 H 100 08/08/23 00:00 77 08/08/23 00:00 77 12 08/08/23 00:00 77 07/12
--- NOTE | 2023-08-08 10:10 | PM.PNNEP ---
Progress Note: A&P Assessment and Plan (1) End stage renal disease: Code(s): N18.6 - End stage renal disease Status: Chronic Assessment and Plan: HD today and likely again tomorrow follow electrolytes, volume status, and clearance (2) Acute respiratory failure with hypoxia and hypercapnia: Code(s): J96.01 - Acute respiratory failure with hypoxia; J96.02 - Acute respiratory failure with hypercapnia Status: Acute Assessment and Plan: secondary to pulmonary edema from missed dialysis and pneumonia intubated and on mechanical ventilation on antibiotics. fluid as tolerated bronchodilator therapy ventilator weaning as tolerated (3) Pneumonia: Code(s): J18.9 - Pneumonia, unspecified organism Status: Acute Assessment and Plan: suggestive by admission imaging follow culture data on antibiotics (4) Hypotension: Code(s): I95.9 - Hypotension, unspecified Status: Acute Assessment and Plan: BP is doing better off midodrine therapy follow trend of hemodynamics (5) Anemia: Code(s): D64.9 - Anemia, unspecified Status: Chronic Assessment and Plan: due to ESRD Epogen with HD follow trend of H/H Will continue to follow. Subjective Date/time seen: 08/08/23 10:10 Interval history: Follow-up for end stage renal disease on hemodialysis. Chart reviewed since last seen; tolerating dialysis treatmentat the time of my visit (seen on HD at 10:00am); remains intubated/sedated and on mechanical ventilation; stable hemodynamics noted. Exam Narrative: General: elderly female intubated/sedated and on mechanical ventilation Heart: normal S1 and S2; no rub Lungs: coarse breath sounds throughout Abdomen: soft, nontender, nondistended, positive bowel sounds Extremities: no cyanosis or clubbing; 1+ edema Skin: chronic woody skin appearance Objective Data Vital Signs Vital Signs: Vital Signs Temp Pulse Resp BP Pulse Ox O2 Del Method FiO2 08/08/23 10:05 92 98 Mechanical Ventilation 30 08/08/23 10:00 98.9 F 85 12 137/70 98 08/08/23 09:28 85 138/83 08/08/23 09:18 98.9 F 89 19 140/77 98 08/08/23 09:18 30 08/08/23 07:35 81 16 08/08/23 07:25 80 17 01/29/24 07:25 80 100 Mechanical Ventilation 30 08/08/23 08:06 98.8 F 81 15 136/67 100 08/08/23 06:00 98.2 F 80 14 135/74 100 08/08/23 06:00 80 08/08/23 04:00 78 08/08/23 05:25 81 14 08/08/23 05:05 81 14 08/08/23 05:54 80 100 Mechanical Ventilation 30 08/07/23 23:30 79 14 08/08/23 04:00 100 Mechanical Ventilation 30 08/08/23 04:00 30 08/08/23 04:00 97.5 F L 82 15 153/85 H 100 08/08/23 04:04 75 12 08/08/23 02:00 74 08/08/23 02:00 97.0 F L 74 17 138/68 100 08/08/23 02:10 73 100 Mechanical Ventilation 08/08/23 00:00 30 08/08/23 00:00 100 Mechanical Ventilation 30 08/08/23 00:00 96.5 F L 77 14 161/80 H 100 08/08/23 00:00 77 08/08/23 00:00 77 12 08/08/23 00:00 77 12 08/07/23 23:13 82 100 Mechanical Ventilation 08/07/23 23:12 80 14 08/07/23 20:00 72 14 08/07/23 22:00 82 7 L 08/07/23 22:00 82 7 L 08/07/23 20:00 72 14 08/07/23 22:00 96.4 F L 82 14 139/71 100 08/07/23 22:00 77 08/07/23 20:00 73 08/07/23 19:59 96.7 F L 71 14 143/83 H 100 08/07/23 20:04 77 100 Mechanical Ventilation 30 08/07/23 20:04 77 14 08/07/23 19:59 30 08/07/23 19:57 Mechanical Ventilation 30 08/07/23 18:00 71 08/07/23 18:00 96.4 F L 70 14 153/81 H 100 08/07/23 17:46 71 100 Mechanical Ventilation 08/07/23 16:00 75 08/07/23 16:00 30 08/07/23 16:00 Mechanical Ventilation 30 08/07/23 16:00 9
--- NOTE | 2023-08-08 11:01 | PCFNICU ---
ICU Rounding Note: Pt current nutrition is Nepro at 30 ml/hr with Prosource once daily. Last recorded weight is 71.6 kg, down from 78.2 kg on admit. Bowel Motility: +Bm reported 08/08 Labs Reviewed:Glu 164, GFR 10, BUN 88, Cr 5.3 Meds Noted:Lipitor, Reglan, Versed, Solu Medrol. Skin: WNL Additional Notes: Patient remains on mechanical vent. Tube feedings at 30 ml/hr. Residual of 200 ml today. Tube feeding continue at 30 ml/hr with Prosource once daily. Flush 30 ml q 4 hours. orders to add Banatrol BID for Cdiff+. Dialysis planned for today. Following daily in ICU rounds. Will monitor weight, labs, skin, meds, tube feeding tolerance every Tuesday and Tuesday.
[2023-08-08] MEDS: EPOETIN ALFA-EPBX 10,000 UNITS/ML VIAL 10000 UNITS IV PUSH (11:02)
[2023-08-08] MEDS: SODIUM CHLORIDE 0.9% IV 1,000 ML 999 ML IV CONT (11:03)
[2023-08-08 11:34] LABS: Folic Acid 17.6 ng/mL (2.76->20)
[2023-08-08 11:51] LABS: Glucose Point of Care 138 mg/dl (65-105)
[2023-08-08 14:57] LABS: INR 1.4; Prothrombin Time 17.7 Seconds (11.1-14.7)
[2023-08-08 15:00] LABS: Fibrinogen 394 mg/dl (215-510)
[2023-08-08 15:32] LABS: Iron 83 ug/dL (37-170)
[2023-08-08 15:45] LABS: Percent Iron Saturation 41 % (20-50)
[2023-08-08 18:15] LABS: Glucose Point of Care 168 mg/dl (65-105)
[2023-08-08] MEDS: ATORVASTATIN 20 MG TABLET PO (20:36)
[2023-08-08] MEDS: hydrALAZINE HCL 20 MG/ML VIAL 10 MG IV PUSH (21:57)
[2023-08-09] VITALS (47 sets, daily range): BP systolic 107–181; BP diastolic 59–88; PULSE 7–106; RESP 12–22; TEMP 36.1–38; O2SAT 95–100
[2023-08-09] MEDS: VANCOMYCIN ORAL 125 MG/2.5 ML SYRUP PO ×4 (00:06→17:10)
[2023-08-09] MEDS: methylPREDNISolone SOD SUCC 40 MG VIAL IV PUSH ×2 (00:06→05:20)
[2023-08-09 00:14] LABS: Glucose Point of Care 174 mg/dl (65-105)
[2023-08-09] MEDS: IPRATROPIUM BR 0.02% INH SOLN 0.5 MG/2.5 ML VIAL INHALATION ×4 (03:55→16:00)
[2023-08-09] MEDS: ALBUTEROL SULFATE NEB 2.5 MG/3 ML INH INHALATION ×5 (03:55→20:35)
[2023-08-09] MEDS: CENTRAL LINE FLUSH 10 ML IV PUSH ×3 (05:20→20:49)
[2023-08-09 05:51] LABS: Basophils Percent Auto 0.1 % (0.2-1.2); Hematocrit 29.7 % (37.0-47.0); Hemoglobin 9.3 g/dL (12.0-15.0); Immature Granulocyte Absolute 0.17 K/mm3 (0.00-0.031); Immature Granulocyte Percent A 2.3 % (0-0.5); Lymphocytes Absolute Auto 0.27 K/mm3 (0.9-3.2); Lymphocytes Percent Auto 3.7 % (18.3-44.2); Mean Corpuscular HGB Conc 31.3 g/dl (32-36); Mean Corpuscular Hemoglobin 26.9 pg (26-34); Mean Corpuscular Volume 85.8 fl (80-100); Monocytes Absolute Auto 0.2 K/mm3 (0.1-0.6); Monocytes Percent Auto 2.4 % (2.6-8.5); Neutrophils Absolute Auto 6.8 K/mm3 (1.3-6.7); Neutrophils Percent Auto 91.5 % (45.5-73.1); Nucleated Red Blood Cells Absolute Auto 0.1 K/mm3 (0.0-0.012); Nucleated Red Blood Cells Perc 0.9 % (0.0-0.2); Platelet Count Result 140 k/mm3 (150-375); Red Blood Count 3.46 M/mm3 (4.2-5.4); Red Cell Distribution Width 19.9 % (11.5-14.5); White Blood Count 7.4 K/mm3 (4.5-10.0)
[2023-08-09 05:57] LABS: Alveolar/Arterial O2 Gradient 75.8 mmHg; Base Excess ABG 3.3 mEq/l (+/-2.0); Carboxyhemoglobin 0.3 % THb (0-2.0); Fractional Inspired Oxygen 30 %; HCO3 ABG 26.1 mEq/l (22.0-26.0); Methemoglobin ABG 0.3 %THb (0-1.5); Oxygen Content ABG 14.5 %vol (16.0-22.0); Oxyhemoglobin 96.3 % THb (90.0-100.0); PCO2 ABG 33.4 mmHg (35.0-45.0); PO2 ABG 98.9 mmHg (80.0-100.0); Reduced Hemoglobin 3.1 %THb (0-5.0); Total Hemoglobin 10.6 g/dL (12.0-18.0)
[2023-08-09 05:59] LABS: Arterial Blood Gas Vent Mode CMV; Arterial Blood Gas Ventilator rate 14 /MIN; Device VENTILATOR; Modified Allen's Test Pass; Site Drawn LEFT RADIAL; pH ABG 7.511 (7.350-7.450)
[2023-08-09 06:00] LABS: Arterial Blood Gas PEEP 8 cmH2O; Arterial Blood Gas Tidal Volume 370 ml
[2023-08-09 06:11] LABS: Alanine Aminotransferase 22 U/L (6-35); Albumin Level 4.3 g/dL (3.5-5.1); Alkaline Phosphatase 108 U/L (38-126); Anion Gap 14 mmol/L (8-16); Aspartate Amino Transferase 21 U/L (14-36); Bilirubin,Total 0.6 mg/dL (0.2-1.3); Blood Urea Nitrogen 72 mg/dL (7-17); Calcium 10.6 mg/dL (8.4-10.2); Carbon Dioxide 29 mmol/L (22-30); Chloride 97 mmol/L (98-107); Estimated CRCL calculation 10 ml/min; Estimated Glomerular Filt Rate 13; Glucose 175 mg/dL (65-110); Magnesium 2.4 mg/dL (1.6-2.3); Phosphorus 4.8 mg/dL (2.5-4.5); Sodium 140 mmol/L (137-145)
[2023-08-09 07:04] LABS: Hypochromasia 3+ (NORMAL); Platelet Estimate Decreased (Adequate); Polychromasia 1+ (NORMAL); Schistocytes None Seen (NORMAL)
[2023-08-09 07:08] LABS: Vancomycin Random 13.3 ug/mL (10-20)
[2023-08-09] MEDS: FAMOTIDINE 20 MG/2 ML VIAL IV PUSH ×2 (08:34→20:49)
[2023-08-09] MEDS: LORATADINE 10 MG TABLET PO (08:34)
[2023-08-09] MEDS: SEVELAMER CARBONATE 800 MG TABLET PO ×3 (08:35→16:53)
[2023-08-09] MEDS: dexmedeTOMIDine 400 MCG/100 ML 400 MCG/100 ML BAG IV CONT (08:35)
[2023-08-09] MEDS: MINERAL OIL/WHITE PETROLATUM OINTMENT 1 APPLIC EACH EYE ×2 (08:59→20:49)
--- NOTE | 2023-08-09 09:22 | WPDINTPN ---
Progress Note: A&P Assessment and Plan (1) Acute respiratory failure with hypoxia and hypercapnia: Code(s): J96.01 - Acute respiratory failure with hypoxia; J96.02 - Acute respiratory failure with hypercapnia Status: Acute Assessment and Plan: Acute hypoxic/hypercapnic respiratory failure likely related to pulmonary edema from missed dialysis and pneumonia -patient intubated on 08/02 -currently on CMV mode of ventilation, peep of 8 and 30% FiO2, low tidal volume strategy -continue bronchodilators -patient was dialyzed 08/02 with 2000 mL in fluid removal -dialysis 08/03 with 3000 mL in fluid removal -dialysis on 08/04 with 3500 mL in fluid removal -dialysis on 08/05 with 2500 mL in fluid removal -dialysis on 08/06 with 3000 mL in fluid removal -chest x-ray this morning:Probable central and bibasilar pulmonary edema with left basilar atelectasis. Correlate clinically for pneumonia. -ABGs reviewed. Decrease tidal 2330 mL -sedated with Versed 1 mg/hr infusion, off fentanyl infusion, patient following commands. Maintain RASS of 0 to -1 -I will start Precedex and try to get her off of Versed infusion -will evaluate for weaning trial after hemodialysis session -discussed with granddaughter who states that the dialysis center that she goes to has not been doing optimal dialysis sessions on her due to her itching, agitation when she goes for dialysis and they after shorten her dialysis sessions due to that. 08/05: CT chest abdomen pelvis without contrast: 1. Anasarca characterized by pleural effusions, ascites and diffuse subcutaneous edema. 2:? Bibasilar compressive atelectasis. Cannot exclude superimposed pneumonia. (2) Hypotension: Code(s): I95.9 - Hypotension, unspecified Status: Acute Assessment and Plan: RESOLVED Hypotension likely chronic, patient is on midodrine at home -will restart midodrine here in the hospital -lactic acid is 2 point -procalcitonin is 5.6 -08/02: Blood cultures negative x2 -08/03: Sputum culture growing staph aureus -08/02: MRSA screen is positive -08/02 status post cefepime and vancomycin -status post albumin for volume expansion -not requiring pressors at this time -08/07: Blood pressure is much improved, MIDODRINE DISCONTINUED -08/07: Sputum cultures growing Staph aureus, from 08/03, -08/07: restarted vancomycin (3) Pneumonia: Code(s): J18.9 - Pneumonia, unspecified organism Status: Acute Assessment and Plan: On admission WBC count was elevated, patient is hypotensive, chest x-ray showed bilateral infiltrate -procalcitonin was elevated to 5.6 -continue antibiotics as above -currently intubated on mechanical ventilation (4) Pulmonary edema: Qualifiers: Chronicity: chronic Qualified Code(s): J81.1 - Chronic pulmonary edema Code(s): J81.1 - Chronic pulmonary edema Status: Chronic Assessment and Plan: Pulmonary edema likely related to shortened dialysis sessions as mentioned above -continue dialysis per Nephrology (5) End-stage renal disease on hemodialysis: Code(s): N18.6 - End stage renal disease; Z99.2 - Dependence on renal dialysis Status: Acute Assessment and Plan: Nephrology following the patient, dialysis per Nephrology (6) Pancytopenia: Code(s): D61.818 - Other pancytopenia Status: Acute Assessment and Plan: Hematology/oncology has been consulted -no schistocytes seen Thrombocytopenia, status post 1 unit platelets infusion on 08/03 -pancytopenia improving, continue to monitor (7) C. difficile colitis: Code(s): A04.72 - Enterocolitis due to Clostridium difficile, not specified as recurrent Status: Acute Assessment and Plan: Patient with liquid stools, C diff was positive 08/04 -continue oral vancomycin per tube (8) Angioedema: Code(s): T78.3XXA - Angioneurotic edema, initial encounter Status: Acute Assessment and Plan: S
--- NOTE | 2023-08-09 09:44 | PM.PNNEP ---
Progress Note: A&P Assessment and Plan (1) End stage renal disease: Code(s): N18.6 - End stage renal disease Status: Chronic Assessment and Plan: HD today continue T/T/S schedule follow electrolytes, volume status, and clearance (2) Acute respiratory failure with hypoxia and hypercapnia: Code(s): J96.01 - Acute respiratory failure with hypoxia; J96.02 - Acute respiratory failure with hypercapnia Status: Acute Assessment and Plan: secondary to pulmonary edema from missed dialysis and pneumonia intubated and on mechanical ventilation on antibiotics. fluid as tolerated bronchodilator therapy ventilator weaning as tolerated (3) Pneumonia: Code(s): J18.9 - Pneumonia, unspecified organism Status: Acute Assessment and Plan: suggestive by admission imaging follow culture data on antibiotics (4) Hypotension: Code(s): I95.9 - Hypotension, unspecified Status: Acute Assessment and Plan: BP is doing better off midodrine therapy follow trend of hemodynamics (5) Anemia: Code(s): D64.9 - Anemia, unspecified Status: Chronic Assessment and Plan: due to ESRD Epogen with HD follow trend of H/H Will continue to follow. Subjective Date/time seen: 08/09/23 09:44 Interval history: Follow-up for end stage renal disease on hemodialysis. Tolerated dialysis treatment yesterday and tolerating dialysis treatment at the time of my visit (seen on HD at 09:34am); remains intubated/sedated and on mechanical ventilation; stable hemodynamics noted; otherwise, no significant change. Exam Narrative: General: elderly female intubated/sedated and on mechanical ventilation Heart: normal S1 and S2; no rub Lungs: coarse breath sounds throughout Abdomen: soft, nontender, nondistended, positive bowel sounds Extremities: no cyanosis or clubbing; 1+ edema Skin: chronic woody skin appearance Objective Data Vital Signs Vital Signs: Vital Signs Temp Pulse Resp BP Pulse Ox O2 Del Method FiO2 08/09/23 09:30 95 139/77 08/09/23 09:15 88 149/77 H 08/09/23 08:58 97 143/81 H 08/09/23 08:58 30 08/09/23 08:45 98.2 F 95 16 181/88 H 96 08/09/23 08:35 92 14 08/09/23 07:35 87 14 08/09/23 07:25 92 14 08/09/23 07:25 92 95 Mechanical Ventilation 30 08/09/23 06:00 7 L 14 08/09/23 04:00 80 16 08/09/23 04:22 95 99 Mechanical Ventilation 30 08/09/23 04:16 94 17 08/09/23 03:55 92 16 08/09/23 06:00 98.2 F 88 14 136/74 100 08/09/23 06:00 93 08/09/23 04:00 98.3 F 102 H 14 140/85 100 08/09/23 04:00 102 H 08/09/23 04:00 30 08/09/23 04:00 100 Mechanical Ventilation 08/09/23 02:00 98.9 F 96 12 145/79 H 99 08/09/23 02:00 106 H 08/09/23 02:00 75 14 08/09/23 00:00 84 12 08/09/23 01:40 91 99 Mechanical Ventilation 08/09/23 00:00 99.2 F 101 H 22 H 142/62 H 100 08/09/23 00:00 101 H 08/09/23 00:00 30 08/09/23 00:00 98 Mechanical Ventilation 08/08/23 23:53 95 17 08/08/23 23:33 99 99 Mechanical Ventilation 08/08/23 23:32 97 17 08/08/23 22:00 99.3 F 113 H 17 158/72 H 100 08/08/23 22:27 99 20 08/08/23 20:00 94 16 08/08/23 22:00 96 08/08/23 20:00 94 08/08/23 20:00 99.5 F 94 15 158/72 H 100 08/08/23 20:00 30 08/08/23 20:00 100 Mechanical Ventilation 08/08/23 20:37 93 14 08/08/23 20:20 91 99 Mechanical Ventilation 08/08/23 20:15 91 14 08/08/23 18:00 98.9 F 90 14 154/72 H 100 08/08/23 18:00 90 08/08/23 17:56 88 16 08/08/23 16:00 84 14 08/08/23 14:00 90 16 08/08/23 16:00 30 08/08/23 16:00 98 Mechanical Ventilation 09 08
[2023-08-09] MEDS: ENOXAPARIN 30 MG/0.3 ML SYRINGE SUB-Q (09:47)
--- NOTE | 2023-08-09 10:43 | PCNFU ---
Nutrition Follow-Up Complete: Inadequate Oral Intake as related to mechanical ventilation as evidenced by NPO. Goal: Meet estimated nutritional needs. Patient is progressing towards goal. We will continue current goal. Pt current nutrition is Nepro at 30 ml/hr with Banatrol Plus BID and Prosource once daily. Last recorded weight is 66.2 kg, down from 78.2 kg on admit. Dialysis patient. Bowel Motility: +BM reported 08/09 Labs Reviewed:Mg 2.4, BUN 72, Cr 4.0, GFR 13, Glu 175 Meds Noted:Precedex, Versed, Lipitor, Lovenox. Skin: saccum-dry Additional Notes: Patient remains on mechanical vent. Tube feeding residuals noted 300 ml this morning and continued per [employer] at 30 ml/hr of Nepro. Total Nutrition: 1298/73 gms protein/480 ml water. Flush 30 ml q 4 hours. Dialysis today. Agree with diet orders. Will monitor weight, labs, skin, meds, tube feeding tolerance every Tuesday and Tuesday.
[2023-08-09 13:47] LABS: Glucose Point of Care 152 mg/dl (65-105)
[2023-08-09] MEDS: VANCOMYCIN 750 MG/NS 250 ML 750 MG/250 ML BAG 250 MG IVPB (17:10)
[2023-08-09] MEDS: ATORVASTATIN 20 MG TABLET PO (20:49)
[2023-08-10] VITALS (30 sets, daily range): BP systolic 114–150; BP diastolic 63–80; PULSE 60–74; RESP 12–20; TEMP 35.9–36.5; O2SAT 98–100
[2023-08-10] MEDS: VANCOMYCIN ORAL 125 MG/2.5 ML SYRUP PO ×5 (00:08→23:55)
[2023-08-10] MEDS: dexmedeTOMIDine 400 MCG/100 ML 400 MCG/100 ML BAG 6.62 MCG IV CONT ×2 (00:10→14:57)
[2023-08-10 00:49] LABS: Glucose Point of Care 179 mg/dl (65-105)
[2023-08-10] MEDS: IPRATROPIUM BR 0.02% INH SOLN 0.5 MG/2.5 ML VIAL INHALATION ×6 (02:59→20:50)
[2023-08-10] MEDS: ALBUTEROL SULFATE NEB 2.5 MG/3 ML INH INHALATION ×5 (03:01→20:50)
[2023-08-10] MEDS: CENTRAL LINE FLUSH 10 ML IV PUSH ×3 (04:59→20:48)
[2023-08-10 05:20] LABS: Hematocrit 30.7 % (37.0-47.0); Hemoglobin 9.4 g/dL (12.0-15.0); Mean Corpuscular HGB Conc 30.6 g/dl (32-36); Mean Corpuscular Hemoglobin 27.2 pg (26-34); Mean Platelet Volume 9.9 fl (7.4-10.4); Platelet Count Result 141 k/mm3 (150-375); Red Blood Count 3.45 M/mm3 (4.2-5.4); Red Cell Distribution Width 20.5 % (11.5-14.5); White Blood Count 7.3 K/mm3 (4.5-10.0)
[2023-08-10 05:26] LABS: Alveolar/Arterial O2 Gradient 46.5 mmHg; Carboxyhemoglobin 0.4 % THb (0-2.0); Fractional Inspired Oxygen 30 %; HCO3 ABG 24.3 mEq/l (22.0-26.0); Methemoglobin ABG 0.1 %THb (0-1.5); Oxygen Content ABG 14.5 %vol (16.0-22.0); Oxygen Saturation ABG 98.7 % (95.0-100.0); Oxyhemoglobin 97.5 % THb (90.0-100.0); PCO2 ABG 33.9 mmHg (35.0-45.0); PO2 ABG 127.6 mmHg (80.0-100.0); PO2 FiO2 Ratio Arterial Blood 4.25 %; Total Hemoglobin 10.4 g/dL (12.0-18.0); pH ABG 7.473 (7.350-7.450)
[2023-08-10 05:44] LABS: Alanine Aminotransferase 22 U/L (6-35); Albumin Level 3.9 g/dL (3.5-5.1); Alkaline Phosphatase 106 U/L (38-126); Anion Gap 13 mmol/L (8-16); Aspartate Amino Transferase 18 U/L (14-36); Bilirubin,Total 0.6 mg/dL (0.2-1.3); Blood Urea Nitrogen 64 mg/dL (7-17); Calcium 10.3 mg/dL (8.4-10.2); Carbon Dioxide 25 mmol/L (22-30); Chloride 102 mmol/L (98-107); Estimated CRCL calculation 11 ml/min; Estimated Glomerular Filt Rate 16; Glucose 163 mg/dL (65-110); Magnesium 2.4 mg/dL (1.6-2.3); Potassium 3.4 mmol/L (3.4-5.0); Sodium 140 mmol/L (137-145)
[2023-08-10] MEDS: SEVELAMER CARBONATE 800 MG TABLET PO ×3 (08:06→17:10)
[2023-08-10] MEDS: LORATADINE 10 MG TABLET PO (08:06)
[2023-08-10] MEDS: FAMOTIDINE 20 MG/2 ML VIAL IV PUSH ×2 (08:06→20:48)
[2023-08-10] MEDS: MINERAL OIL/WHITE PETROLATUM OINTMENT 1 APPLIC EACH EYE ×2 (08:06→20:48)
[2023-08-10] MEDS: ENOXAPARIN 30 MG/0.3 ML SYRINGE SUB-Q (08:06)
[2023-08-10] MEDS: methylPREDNISolone SOD SUCC 125 MG VIAL 60 MG IV PUSH (08:06)
--- NOTE | 2023-08-10 10:52 | PCFNICU ---
ICU Rounding Note: Pt current nutrition is Nepro at 30 ml/hr with Prosource once daily and Banatrol Plus BID. Last recorded weight is 64.9 kg. Bowel Motility: +Bm reported 08/09 Labs Reviewed: Glu 163, GFR 16, BUN 64, Cr 3.4,Hct 30.7,Hgb 9.4 Meds Noted:Precedex, Lipitor,Lovenox, Atrovent. Skin:sacrum-dry Additional Notes: Patient remains on mechanical vent and tube feedings of Nepro. Tube feedings at 30 ml/hr with Flush 30 ml q 4 hours. Banatrol Plus BID 2/2 to Cdiff+, less stools being reported. Protein Modular of prosource once daily for additional protein needs. Agree with diet orders. Following daily in ICU rounds. Will monitor weight, labs, skin, meds, tube feeding tolerance every Tuesday and Tuesday. .
[2023-08-10 11:55] LABS: Glucose Point of Care 192 mg/dl (65-105)
--- NOTE | 2023-08-10 12:30 | PM.PNNEP ---
Progress Note: A&P Assessment and Plan (1) End stage renal disease: Code(s): N18.6 - End stage renal disease Status: Chronic Assessment and Plan: HD tomorrow continue T/T/S schedule follow electrolytes, volume status, and clearance (2) Acute respiratory failure with hypoxia and hypercapnia: Code(s): J96.01 - Acute respiratory failure with hypoxia; J96.02 - Acute respiratory failure with hypercapnia Status: Acute Assessment and Plan: secondary to pulmonary edema from missed dialysis and pneumonia intubated and on mechanical ventilation on antibiotics. fluid removal as tolerated bronchodilator therapy ventilator weaning as tolerated (3) Pneumonia: Code(s): J18.9 - Pneumonia, unspecified organism Status: Acute Assessment and Plan: suggestive by admission imaging follow culture data on antibiotics (4) Hypotension: Code(s): I95.9 - Hypotension, unspecified Status: Acute Assessment and Plan: BP is doing better off midodrine therapy follow trend of hemodynamics (5) Anemia: Code(s): D64.9 - Anemia, unspecified Status: Chronic Assessment and Plan: due to ESRD Epogen with HD follow trend of H/H Will continue to follow. Subjective Date/time seen: 08/10/23 12:30 Interval history: Follow-up for end stage renal disease on hemodialysis. Tolerated dialysis treatment yesterday with approximately 2200cc fluid removal; remains intubated/sedated and on mechanical ventilation; stable hemodynamics noted as well; no other significan changes noted. Exam Narrative: General: elderly female intubated/sedated and on mechanical ventilation Heart: normal S1 and S2; no rub Lungs: coarse breath sounds throughout Abdomen: soft, nontender, nondistended, positive bowel sounds Extremities: no cyanosis or clubbing; 1+ edema Skin: chronic woody skin appearance noted Objective Data Vital Signs Vital Signs: Vital Signs Temp Pulse Resp BP Pulse Ox O2 Del Method FiO2 08/10/23 12:00 97.2 F L 66 16 147/78 H 100 Mechanical Ventilation 08/10/23 11:15 65 14 08/10/23 11:00 68 14 08/10/23 10:58 68 100 Mechanical Ventilation 08/10/23 10:00 66 16 150/74 H 100 08/10/23 08:00 100 Mechanical Ventilation 08/10/23 08:00 30 08/10/23 08:08 61 14 01/31/24 07:59 67 14 08/10/23 07:59 67 100 Mechanical Ventilation 30 08/10/23 07:59 100 Mechanical Ventilation 08/10/23 07:36 97.4 F L 65 14 114/66 100 08/10/23 06:00 97.1 F L 60 14 138/70 100 08/10/23 06:00 60 08/10/23 05:27 67 100 Mechanical Ventilation 08/10/23 02:00 66 14 08/10/23 04:24 70 14 08/10/23 04:00 Mechanical Ventilation 08/10/23 04:00 69 08/10/23 04:00 96.7 F L 70 14 135/69 100 08/10/23 04:00 30 08/10/23 02:00 96.9 F L 66 14 137/71 100 08/10/23 02:00 66 08/10/23 03:03 67 14 08/09/23 20:50 70 15 08/09/23 20:37 67 15 08/10/23 03:03 67 100 Mechanical Ventilation 08/09/23 20:35 66 100 Mechanical Ventilation 08/10/23 00:00 68 08/10/23 00:00 Mechanical Ventilation 08/10/23 00:00 30 08/10/23 00:10 74 14 08/10/23 00:00 97.7 F 73 14 132/63 100 08/09/23 23:01 67 100 Mechanical Ventilation 08/09/23 22:09 69 14 08/09/23 22:09 69 14 08/09/23 22:00 97.0 F L 69 14 128/62 100 08/09/23 22:00 69 08/09/23 20:00 62 08/09/23 20:00 Mechanical Ventilation 08/09/23 20:00 30 08/09/23 20:49 62 14 08/09/23 19:00 62 14 08/09/23 20:00 97.2 F L 62 14 134/74 100 08/09/23 18:00 97.3 F L 64 14 137/74 97 08/09/23 18:00 71 08/09/23 16:00 97 F L 69 16 129/77 100 08/09/23 16:00
--- NOTE | 2023-08-10 12:30 | P.PNNP_ITS ---
Progress Note: A&P Assessment and Plan (1) End stage renal disease: Code(s): N18.6 - End stage renal disease Status: Chronic Assessment and Plan: * HD tomorrow * continue T/T/S schedule * follow electrolytes, volume status, and clearance (2) Acute respiratory failure with hypoxia and hypercapnia: Code(s): J96.01 - Acute respiratory failure with hypoxia; J96.02 - Acute respiratory failure with hypercapnia Status: Acute Assessment and Plan: * secondary to pulmonary edema from missed dialysis and pneumonia * intubated and on mechanical ventilation * on antibiotics. * fluid removal as tolerated * bronchodilator therapy * ventilator weaning as tolerated (3) Pneumonia: Code(s): J18.9 - Pneumonia, unspecified organism Status: Acute Assessment and Plan: * suggestive by admission imaging * follow culture data * on antibiotics (4) Hypotension: Code(s): I95.9 - Hypotension, unspecified Status: Acute Assessment and Plan: * BP is doing better * off midodrine therapy * follow trend of hemodynamics (5) Anemia: Code(s): D64.9 - Anemia, unspecified Status: Chronic Assessment and Plan: * due to ESRD * Epogen with HD * follow trend of H/H Will continue to follow. Subjective Date/time seen: 08/10/23 12:30 Interval history: Follow-up for end stage renal disease on hemodialysis. Tolerated dialysis treatment yesterday with approximately 2200cc fluid removal; remains intubated/sedated and on mechanical ventilation; stable hemodynamics noted as well; no other significan changes noted. Exam Narrative: General: elderly female intubated/sedated and on mechanical ventilation Heart: normal S1 and S2; no rub Lungs: coarse breath sounds throughout Abdomen: soft, nontender, nondistended, positive bowel sounds Extremities: no cyanosis or clubbing; 1+ edema Skin: chronic woody skin appearance noted Objective Data Vital Signs Vital Signs: Vital Signs Temp Pulse Resp BP Pulse Ox O2 Del Method FiO2 08/10/23 12:00 97.2 F L 66 16 147/78 H 100 Mechanical Ventilation 08/10/23 11:15 65 14 08/10/23 11:00 68 14 08/10/23 10:58 68 100 Mechanical Ventilation 08/10/23 10:00 66 16 150/74 H 100 08/10/23 08:00 100 Mechanical Ventilation 08/10/23 08:00 30 08/10/23 08:08 61 14 08/10/23 07:59 67 14 08/10/23 07:59 67 100 Mechanical Ventilation 08/10/23 07:59 100 Mechanical Ventilation 08/10/23 07:36 97.4 F L 65 14 114/66 100 08/10/23 06:00 97.1 F L 60 14 138/70 100 08/10/23 06:00 60 08/10/23 05:27 67 100 Mechanical Ventilation 08/10/23 02:00 66 14 08/10/23 04:24 70 14 08/10/23 04:00 Mechanical Ventilation 08/10/23 04:00 69 08/10/23 04:00 96.7 F L 70 14 135/69 100 08/10/23 04:00 30 08/10/23 02:00 96.9 F L 66 14 137/71 100 08/10/23 02:00 66 08/10/23 03:03 67 14 08/09/23 20:50 70 15 08/09/23 20:37 67 15 08/10/23 03:03 67 100 Mechanical Ventilation 08/09/23 20:35 66
[2023-08-10] MEDS: ATORVASTATIN 20 MG TABLET PO (20:48)
[2023-08-10 23:55] LABS: Glucose Point of Care 142 mg/dl (65-105)
[2023-08-11] VITALS (43 sets, daily range): BP systolic 125–168; BP diastolic 61–95; PULSE 59–95; RESP 12–33; TEMP 35.6–37; O2SAT 94–100
[2023-08-11] MEDS: ALBUTEROL SULFATE NEB 2.5 MG/3 ML INH INHALATION ×5 (01:01→20:25)
[2023-08-11] MEDS: IPRATROPIUM BR 0.02% INH SOLN 0.5 MG/2.5 ML VIAL INHALATION ×5 (01:01→20:25)
[2023-08-11] MEDS: dexmedeTOMIDine 400 MCG/100 ML 400 MCG/100 ML BAG 6.62 MCG IV CONT (04:00)
[2023-08-11] MEDS: CENTRAL LINE FLUSH 10 ML IV PUSH ×3 (04:02→21:30)
[2023-08-11 06:03] LABS: Hematocrit 29.9 % (37.0-47.0); Hemoglobin 9.3 g/dL (12.0-15.0); Mean Corpuscular HGB Conc 31.1 g/dl (32-36); Mean Corpuscular Hemoglobin 27.1 pg (26-34); Mean Corpuscular Volume 87.2 fl (80-100); Mean Platelet Volume 9.8 fl (7.4-10.4); Platelet Count Result 149 k/mm3 (150-375); Red Blood Count 3.43 M/mm3 (4.2-5.4); White Blood Count 7.9 K/mm3 (4.5-10.0)
[2023-08-11 06:05] LABS: Alveolar/Arterial O2 Gradient 57.8 mmHg; Base Excess ABG 0.5 mEq/l (+/-2.0); Carboxyhemoglobin 0.3 % THb (0-2.0); Fractional Inspired Oxygen 30 %; HCO3 ABG 23.4 mEq/l (22.0-26.0); Methemoglobin ABG 0.1 %THb (0-1.5); Oxygen Content ABG 14.7 %vol (16.0-22.0); Oxygen Saturation ABG 98.6 % (95.0-100.0); Oxyhemoglobin 97.2 % THb (90.0-100.0); PCO2 ABG 31.6 mmHg (35.0-45.0); PO2 FiO2 Ratio Arterial Blood 3.97 %; Reduced Hemoglobin 2.4 %THb (0-5.0); Total Hemoglobin 10.6 g/dL (12.0-18.0); pH ABG 7.487 (7.350-7.450)
[2023-08-11] MEDS: VANCOMYCIN ORAL 125 MG/2.5 ML SYRUP PO ×3 (06:05→17:04)
[2023-08-11 06:07] LABS: Arterial Blood Gas Vent Mode CMV; Arterial Blood Gas Ventilator rate 14 /MIN; Device VENTILATOR; Modified Allen's Test Pass; Site Drawn LEFT RADIAL
[2023-08-11 06:08] LABS: Arterial Blood Gas PEEP 8 cmH2O; Arterial Blood Gas Tidal Volume 330 ml
[2023-08-11 06:15] LABS: Alanine Aminotransferase 21 U/L (6-35); Albumin Level 3.5 g/dL (3.5-5.1); Alkaline Phosphatase 93 U/L (38-126); Anion Gap 13 mmol/L (8-16); Aspartate Amino Transferase 15 U/L (14-36); Bilirubin,Total 0.7 mg/dL (0.2-1.3); Blood Urea Nitrogen 91 mg/dL (7-17); Calcium 9.9 mg/dL (8.4-10.2); Carbon Dioxide 25 mmol/L (22-30); Chloride 99 mmol/L (98-107); Estimated CRCL calculation 9 ml/min; Estimated Glomerular Filt Rate 12; Glucose 165 mg/dL (65-110); Magnesium 2.5 mg/dL (1.6-2.3); Sodium 137 mmol/L (137-145)
[2023-08-11 06:20] LABS: Potassium 3.9 mmol/L (3.4-5.0)
--- NOTE | 2023-08-11 06:48 | PC.NURSE ---
Patient self-extubated while getting soiled linens changed at around 0620. Difficult intubation code called. Patient was bagged with ambu-bag and then placed on high flow nasal therapy at 40L/30%. Patient maintaining airway and oxygen saturation without re-intubation at this time.
[2023-08-11] MEDS: racEPINEPHrine 2.25% NEBU SOLN 0.5 ML VIAL.NEB INHALATION (07:02)
[2023-08-11] MEDS: FAMOTIDINE 20 MG/2 ML VIAL IV PUSH ×2 (08:08→21:30)
[2023-08-11] MEDS: ENOXAPARIN 30 MG/0.3 ML SYRINGE SUB-Q (08:09)
[2023-08-11] MEDS: methylPREDNISolone SOD SUCC 125 MG VIAL 60 MG IV PUSH (08:09)
[2023-08-11] MEDS: MINERAL OIL/WHITE PETROLATUM OINTMENT 1 APPLIC EACH EYE ×2 (08:14→21:30)
--- NOTE | 2023-08-11 08:42 | WPDINTPN ---
Progress Note: A&P Assessment and Plan (1) Acute respiratory failure with hypoxia and hypercapnia: Code(s): J96.01 - Acute respiratory failure with hypoxia; J96.02 - Acute respiratory failure with hypercapnia Status: Acute Assessment and Plan: Acute hypoxic/hypercapnic respiratory failure likely related to pulmonary edema from missed dialysis and pneumonia -patient intubated on 08/02 -currently on CMV mode of ventilation, peep of 8 and 30% FiO2, low tidal volume strategy -continue bronchodilators -patient was dialyzed 08/02 with 2000 mL in fluid removal -dialysis 08/03 with 3000 mL in fluid removal -dialysis on 08/04 with 3500 mL in fluid removal -dialysis on 08/05 with 2500 mL in fluid removal -dialysis on 08/06 with 3000 mL in fluid removal -chest x-ray this morning:Probable central and bibasilar pulmonary edema with left basilar atelectasis. Correlate clinically for pneumonia. -ABGs reviewed. Decrease tidal 330 mL -sedated with Precedex -patient's tongue remains swollen. No leak around the cuff after ETT cuff deflation . Resume Solu-Medrol. Patient not ready for weaning trial 08/05: CT chest abdomen pelvis without contrast: 1. Anasarca characterized by pleural effusions, ascites and diffuse subcutaneous edema. 2:? Bibasilar compressive atelectasis. Cannot exclude superimposed pneumonia. (2) Hypotension: Code(s): I95.9 - Hypotension, unspecified Status: Acute Assessment and Plan: RESOLVED Hypotension likely chronic, patient is on midodrine at home -will restart midodrine here in the hospital -lactic acid is 2 point -procalcitonin is 5.6 -08/02: Blood cultures negative x2 -08/03: Sputum culture growing staph aureus -08/02: MRSA screen is positive -08/02 status post cefepime and vancomycin -status post albumin for volume expansion -not requiring pressors at this time -08/07: Blood pressure is much improved, MIDODRINE DISCONTINUED -08/07: Sputum cultures growing Staph aureus, from 08/03, completed course of vancomycin (3) Pneumonia: Code(s): J18.9 - Pneumonia, unspecified organism Status: Acute Assessment and Plan: On admission WBC count was elevated, patient is hypotensive, chest x-ray showed bilateral infiltrate -procalcitonin was elevated to 5.6 -continue antibiotics as above -currently intubated on mechanical ventilation (4) Pulmonary edema: Qualifiers: Chronicity: chronic Qualified Code(s): J81.1 - Chronic pulmonary edema Code(s): J81.1 - Chronic pulmonary edema Status: Chronic Assessment and Plan: Pulmonary edema likely related to shortened dialysis sessions as mentioned above -continue dialysis per Nephrology (5) End-stage renal disease on hemodialysis: Code(s): N18.6 - End stage renal disease; Z99.2 - Dependence on renal dialysis Status: Acute Assessment and Plan: Nephrology following the patient, dialysis per Nephrology (6) Pancytopenia: Code(s): D61.818 - Other pancytopenia Status: Acute Assessment and Plan: Hematology/oncology has been consulted -no schistocytes seen Thrombocytopenia, status post 1 unit platelets infusion on 08/03 -pancytopenia improving, continue to monitor (7) C. difficile colitis: Code(s): A04.72 - Enterocolitis due to Clostridium difficile, not specified as recurrent Status: Acute Assessment and Plan: Patient with liquid stools which are improving, C diff was positive 08/04 -continue oral vancomycin per tube (8) Angioedema: Code(s): T78.3XXA - Angioneurotic edema, initial encounter Status: Acute Assessment and Plan: Swelling of the time it occurred after starting Reglan which has been discontinued -continue Solu-Medrol, Benadryl, loratadine, famotidine -continue to monitor. Tongue appears to improved but although still swollen Plan DVT prophylaxis: Resume Lovenox, SCDs Stress ulcer prophylaxis: Protonix Nu
--- NOTE | 2023-08-11 08:45 | WPDINTPN ---
Progress Note: A&P Assessment and Plan (1) Acute respiratory failure with hypoxia and hypercapnia: Code(s): J96.01 - Acute respiratory failure with hypoxia; J96.02 - Acute respiratory failure with hypercapnia Status: Acute Assessment and Plan: Acute hypoxic/hypercapnic respiratory failure likely related to pulmonary edema from missed dialysis and pneumonia -patient intubated on 08/02 -currently on CMV mode of ventilation, peep of 8 and 30% FiO2, low tidal volume strategy -continue bronchodilators -patient was dialyzed 08/02 with 2000 mL in fluid removal -dialysis 08/03 with 3000 mL in fluid removal -dialysis on 08/04 with 3500 mL in fluid removal -dialysis on 08/05 with 2500 mL in fluid removal -dialysis on 08/06 with 3000 mL in fluid removal -chest x-ray this morning reviewed and shows pulmonary edema -08/11 self-extubated herself. Maintaining saturation on Airvo. No tachypnea or respiratory distress at this time. No stridor or significant wheezing. Continue close monitoring as patient is at risk of requiring intubation -plan for hemodialysis to remove additional fluid today --patient's tongue swelling has improved. Continue solu-Medrol for now 08/05: CT chest abdomen pelvis without contrast: 1. Anasarca characterized by pleural effusions, ascites and diffuse subcutaneous edema. 2:? Bibasilar compressive atelectasis. Cannot exclude superimposed pneumonia. (2) Hypotension: Code(s): I95.9 - Hypotension, unspecified Status: Acute Assessment and Plan: RESOLVED Hypotension likely chronic, patient is on midodrine at home -will restart midodrine here in the hospital -lactic acid is 2 point -procalcitonin is 5.6 -08/02: Blood cultures negative x2 -08/03: Sputum culture growing staph aureus -08/02: MRSA screen is positive -08/02 status post cefepime and vancomycin -status post albumin for volume expansion -not requiring pressors at this time -08/07: Blood pressure is much improved, MIDODRINE DISCONTINUED -08/07: Sputum cultures growing Staph aureus, from 08/03, completed course of vancomycin (3) Pneumonia: Code(s): J18.9 - Pneumonia, unspecified organism Status: Acute Assessment and Plan: On admission WBC count was elevated, patient is hypotensive, chest x-ray showed bilateral infiltrate -procalcitonin was elevated to 5.6 -continue antibiotics as above -currently intubated on mechanical ventilation (4) Pulmonary edema: Qualifiers: Chronicity: chronic Qualified Code(s): J81.1 - Chronic pulmonary edema Code(s): J81.1 - Chronic pulmonary edema Status: Chronic Assessment and Plan: Pulmonary edema likely related to shortened dialysis sessions as mentioned above -continue dialysis per Nephrology (5) End-stage renal disease on hemodialysis: Code(s): N18.6 - End stage renal disease; Z99.2 - Dependence on renal dialysis Status: Acute Assessment and Plan: Nephrology following the patient, dialysis per Nephrology (6) Pancytopenia: Code(s): D61.818 - Other pancytopenia Status: Acute Assessment and Plan: Hematology/oncology has been consulted -no schistocytes seen Thrombocytopenia, status post 1 unit platelets infusion on 08/03 -pancytopenia improving, continue to monitor (7) C. difficile colitis: Code(s): A04.72 - Enterocolitis due to Clostridium difficile, not specified as recurrent Status: Acute Assessment and Plan: Patient had semi-solid stool yesterday and none overnight. C diff was positive 08/04 -continue oral vancomycin per tube for course of 10 days (8) Angioedema: Code(s): T78.3XXA - Angioneurotic edema, initial encounter Status: Acute Assessment and Plan: Swelling of the time it occurred after starting Reglan which has been discontinued Swelling is improved. No stridor or respiratory distress -continue Solu-Medrol, Benadryl, loratadine, famotidine -constantino
[2023-08-11 11:46] LABS: Glucose Point of Care 157 mg/dl (65-105)
--- NOTE | 2023-08-11 11:49 | PCFNICU ---
ICU Rounding Note: Pt current nutrition is NPO. Nutrition recommendation: Renal Dialysis diet with Banatrol Plus BID. Last recorded weight is 68 kg, down from 78.2 kg. Dialysis patient. Bowel Motility:+Bm reported 08/10 Labs Reviewed:Mg 2.5,BUN 91, GFR 12, Cr 4.5 Meds Noted: Vancomycin, Lipitor, Lovenox, Solu Medrol. Skin: Sacrum-dry Additional Notes: patient self-extubated this morning. Currently on Airvo and tolerating. Dialysis today 08/11. When diet order advanced recommend Renal Dialysis diet with Banatrol Plus BID daily mixed with applesauce 2/ Cdiff+. Following daily in ICU rounds. Will monitor weight, labs, skin, meds, tube feeding tolerance every 3 days.
[2023-08-11 13:49] LABS: Arterial Blood Gas PEEP 8 cmH2O; Arterial Blood Gas Tidal Volume 330 ml; Arterial Blood Gas Vent Mode CMV; Arterial Blood Gas Ventilator rate 14 /MIN; Device VENTILATOR
[2023-08-11] MEDS: hydrALAZINE HCL 20 MG/ML VIAL 10 MG IV PUSH (14:27)
--- NOTE | 2023-08-11 18:48 | PM.PNNEP ---
Progress Note: A&P Assessment and Plan (1) End stage renal disease: Code(s): N18.6 - End stage renal disease Status: Chronic Assessment and Plan: HD today continue T/T/S schedule follow electrolytes, volume status, and clearance (2) Acute respiratory failure with hypoxia and hypercapnia: Code(s): J96.01 - Acute respiratory failure with hypoxia; J96.02 - Acute respiratory failure with hypercapnia Status: Acute Assessment and Plan: self extubated - follow respiratory status closely secondary to pulmonary edema from missed dialysis and pneumonia on antibiotics. fluid removal as tolerated bronchodilator therapy (3) Pneumonia: Code(s): J18.9 - Pneumonia, unspecified organism Status: Acute Assessment and Plan: suggestive by admission imaging follow culture data on antibiotics (4) Hypotension: Code(s): I95.9 - Hypotension, unspecified Status: Acute Assessment and Plan: BP is doing better off midodrine therapy follow trend of hemodynamics (5) Anemia: Code(s): D64.9 - Anemia, unspecified Status: Chronic Assessment and Plan: due to ESRD Epogen with HD follow trend of H/H Will continue to follow. Subjective Date/time seen: 08/11/23 18:48 Interval history: Follow-up for end stage renal disease on hemodialysis. Tolerating dialysis at the time of my visit (seen on HD at 6:38PM); self extubated earlier today but stable oxygenation with supplemental oxygen and no respiratory distress so did not require intubation; stable hemodynamics noted as well; no apparent distress noted. Exam Narrative: General: elderly female in NAD Heart: normal S1 and S2; no rub Lungs: coarse breath sounds throughout Abdomen: soft, nontender, nondistended, positive bowel sounds Extremities: no cyanosis or clubbing; 1+ edema Skin: chronic woody skin appearance noted Objective Data Vital Signs Vital Signs: Vital Signs Temp Pulse Resp BP Pulse Ox O2 Del Method O2 Flow Rate 08/11/23 17:04 92 30 H 08/11/23 16:41 98 High Flow Therapy with Na 40 08/11/23 16:31 87 28 H 08/11/23 16:00 97 High Flow Therapy with Na 40 08/11/23 16:00 98.4 F 91 26 H 153/71 H 97 08/11/23 14:00 82 08/11/23 14:00 81 28 H 166/85 H 100 08/11/23 12:00 100 High Flow Therapy with Na 40 08/11/23 12:00 77 08/11/23 12:00 98.5 F 78 25 H 144/63 H 100 08/11/23 11:54 78 28 H 08/11/23 11:39 98 High Flow Therapy with Na 40 08/11/23 11:39 76 26 H 08/11/23 10:00 76 08/11/23 10:00 79 32 H 128/63 99 08/11/23 09:07 72 24 H 08/11/23 08:53 95 High Flow Therapy with Na 40 08/11/23 08:53 74 24 H 08/11/23 08:00 100 High Flow Therapy with Na 40 08/11/23 08:00 76 08/11/23 08:00 98.5 F 73 32 H 125/63 100 08/11/23 07:03 59 L 14 08/11/23 07:01 100 High Flow Therapy with Na 40 08/11/23 06:58 100 High Flow Therapy with Na 40 08/11/23 05:45 62 97 Mechanical Ventilation 08/11/23 06:05 59 L 14 08/11/23 05:25 60 15 141/69 H 100 08/11/23 04:00 98 F 59 L 12 142/72 H 100 08/11/23 04:00 59 L 08/11/23 04:00 08/11/23 01:15 69 14 08/11/23 02:00 63 100 Mechanical Ventilation 08/11/23 04:00 60 13 08/11/23 04:00 60 13 08/11/23 02:00 69 15 143/67 H 100 08/11/23 00:00 61 08/11/23 01:03 68 14 08/11/23 00:00 63 14 150/76 H 100 08/11/23 00:00 08/10/23 23:04 63 100 Mechanical Ventilation 08/10/23 21:02 65 17 08/10/23 21:44 67 12 150/76 H 100 08/10/23 20:00 97.5 F L 68 12 150/76 H 100 08/10/23 20:00 68 08/10/23 20:00 08/10/23 20:48 67 14 08/10/23 20:49 67 17 08/10/23 20:47 67 100 Mechanical
[2023-08-11] MEDS: EPOETIN ALFA-EPBX 10,000 UNITS/ML VIAL 10000 UNITS IV PUSH (19:14)
[2023-08-11 23:56] LABS: Glucose Point of Care 102 mg/dl (65-105)
[2023-08-12] VITALS (26 sets, daily range): BP systolic 135–176; BP diastolic 53–152; PULSE 85–107; RESP 20–34; TEMP 36.6–36.9; O2SAT 97–100
[2023-08-12] MEDS: VANCOMYCIN ORAL 125 MG/2.5 ML SYRUP PO ×4 (00:01→17:54)
[2023-08-12] MEDS: IPRATROPIUM BR 0.02% INH SOLN 0.5 MG/2.5 ML VIAL INHALATION ×6 (00:01→23:35)
[2023-08-12] MEDS: hydrALAZINE HCL 20 MG/ML VIAL 10 MG IV PUSH ×4 (01:07→21:32)
[2023-08-12] MEDS: ALBUTEROL SULFATE NEB 2.5 MG/3 ML INH INHALATION ×7 (04:37→23:35)
[2023-08-12] MEDS: CENTRAL LINE FLUSH 10 ML IV PUSH ×3 (04:46→21:33)
[2023-08-12 04:58] LABS: Alveolar/Arterial O2 Gradient 98.9 mmHg; Base Excess ABG 1.2 mEq/l (+/-2.0); Carboxyhemoglobin 0.8 % THb (0-2.0); Fractional Inspired Oxygen 27 %; HCO3 ABG 25.5 mEq/l (22.0-26.0); Methemoglobin ABG 0.2 %THb (0-1.5); Oxygen Content ABG 13.1 %vol (16.0-22.0); PCO2 ABG 39.6 mmHg (35.0-45.0); PO2 FiO2 Ratio Arterial Blood 1.73 %; Reduced Hemoglobin 18.4 %THb (0-5.0); Total Hemoglobin 11.6 g/dL (12.0-18.0); pH ABG 7.427 (7.350-7.450)
[2023-08-12 06:38] LABS: Hematocrit 31.7 % (37.0-47.0); Hemoglobin 9.9 g/dL (12.0-15.0); Mean Corpuscular HGB Conc 31.2 g/dl (32-36); Mean Corpuscular Hemoglobin 27.4 pg (26-34); Mean Corpuscular Volume 87.8 fl (80-100); Mean Platelet Volume 9.8 fl (7.4-10.4); Platelet Count Result 204 k/mm3 (150-375); Red Blood Count 3.61 M/mm3 (4.2-5.4); Red Cell Distribution Width 20.8 % (11.5-14.5); White Blood Count 11.1 K/mm3 (4.5-10.0)
[2023-08-12 06:49] LABS: Alanine Aminotransferase 22 U/L (6-35); Alkaline Phosphatase 109 U/L (38-126); Anion Gap 12 mmol/L (8-16); Aspartate Amino Transferase 23 U/L (14-36); Bilirubin,Total 0.8 mg/dL (0.2-1.3); Blood Urea Nitrogen 55 mg/dL (7-17); Carbon Dioxide 27 mmol/L (22-30); Chloride 101 mmol/L (98-107); Estimated CRCL calculation 11 ml/min; Estimated Glomerular Filt Rate 16; Glucose 95 mg/dL (65-110); Magnesium 2.3 mg/dL (1.6-2.3); Potassium 3.5 mmol/L (3.4-5.0); Sodium 140 mmol/L (137-145)
[2023-08-12] MEDS: ENOXAPARIN 30 MG/0.3 ML SYRINGE SUB-Q (08:11)
[2023-08-12] MEDS: FAMOTIDINE 20 MG/2 ML VIAL IV PUSH (08:11)
--- NOTE | 2023-08-12 09:25 | WPDINTPN ---
Progress Note: A&P Assessment and Plan (1) Acute respiratory failure with hypoxia and hypercapnia: Code(s): J96.01 - Acute respiratory failure with hypoxia; J96.02 - Acute respiratory failure with hypercapnia Status: Acute Assessment and Plan: Acute hypoxic/hypercapnic respiratory failure likely related to pulmonary edema from missed dialysis and pneumonia -patient intubated on 08/02 -continue bronchodilators -patient was dialyzed on multiple days -chest x-ray this morning reviewed and shows improving pulmonary edema -08/11 self-extubated herself. Maintaining saturation on Airvo. No tachypnea or respiratory distress at this time. No stridor or significant wheezing. Continue close monitoring as patient is at risk of requiring intubation -patient received hemodialysis and 3 L fluid was removed --patient's tongue swelling has significantly improved. Will discontinue solu-Medrol for now -I have transition patient to nasal cannula and she is maintaining saturation with no respiratory distress with tachypnea. Incentive spirometry -continue dialysis per Nephrology to remove additional fluid 08/05: CT chest abdomen pelvis without contrast: 1. Anasarca characterized by pleural effusions, ascites and diffuse subcutaneous edema. 2:? Bibasilar compressive atelectasis. Cannot exclude superimposed pneumonia. (2) Hypotension: Code(s): I95.9 - Hypotension, unspecified Status: Acute Assessment and Plan: RESOLVED Hypotension likely chronic, patient is on midodrine at home -will restart midodrine here in the hospital -lactic acid is 2 point -procalcitonin is 5.6 -08/02: Blood cultures negative x2 -08/03: Sputum culture growing staph aureus -08/02: MRSA screen is positive -08/02 status post cefepime and vancomycin -status post albumin for volume expansion -not requiring pressors at this time -08/07: Blood pressure is much improved, MIDODRINE DISCONTINUED -08/07: Sputum cultures growing Staph aureus, from 08/03, completed course of vancomycin -08/08 sputum culture growing MRSA but patient has completed course of vancomycin. Currently afebrile with normal WBC. Will not start any additional antibiotics at this time and monitor. This could be colonization (3) Pneumonia: Code(s): J18.9 - Pneumonia, unspecified organism Status: Acute Assessment and Plan: On admission WBC count was elevated, patient is hypotensive, chest x-ray showed bilateral infiltrate -procalcitonin was elevated to 5.6 -continue antibiotics as above -currently intubated on mechanical ventilation (4) Pulmonary edema: Qualifiers: Chronicity: chronic Qualified Code(s): J81.1 - Chronic pulmonary edema Code(s): J81.1 - Chronic pulmonary edema Status: Chronic Assessment and Plan: Pulmonary edema likely related to shortened dialysis sessions as mentioned above -continue dialysis per Nephrology (5) End-stage renal disease on hemodialysis: Code(s): N18.6 - End stage renal disease; Z99.2 - Dependence on renal dialysis Status: Acute Assessment and Plan: Nephrology following the patient, dialysis per Nephrology (6) Pancytopenia: Code(s): D61.818 - Other pancytopenia Status: Acute Assessment and Plan: Hematology/oncology has been consulted -no schistocytes seen Thrombocytopenia, status post 1 unit platelets infusion on 08/03 -pancytopenia improving, continue to monitor (7) C. difficile colitis: Code(s): A04.72 - Enterocolitis due to Clostridium difficile, not specified as recurrent Status: Acute Assessment and Plan: Patient diarrhea has significantly improved c diff was positive 08/04 -continue oral vancomycin per tube for course of 10 days (8) Angioedema: Code(s): T78.3XXA - Angioneurotic edema, initial encounter Status: Acute Assessment and Plan: Swelling of the time it occurred after starting Reglan which has been disc
--- NOTE | 2023-08-12 10:08 | PCSTNOTE ---
Please refer to the Bedside Swallow Evaluation in the EMR. Please note, silent aspiration cannot be ruled out at bedside.
--- NOTE | 2023-08-12 10:33 | PCFNICU ---
ICU Rounding Note: Pt current nutrition is NPO. Nutrition recommendation: Advance diet to puree diet with moderately thick level 3 liquids per speech recommendations. Supplement Ensure Compact TID when diet is advanced for additional 220 kcal and 9 g protein each. Last recorded weight is 61.4 kg. Bowel Motility: Last BM recorded 08/11/23. Diarrhea improved Labs Reviewed: Hgb 9.9, Hct 31.7, GFR 16, BUN 55, Cre 3.4 Meds Noted: No sedation. Albumin, vancomycin Skin: No pressure related skin breakdown Additional Notes: Pt self-extubated yesterday. Bedside swallow performed today with recommendations of puree diet with moderately thick level 3 liquids. Advance diet per speech. Following daily in ICU rounds. Will monitor weight, labs, skin, meds, tube feeding tolerance every Tuesday and Tuesday. .
--- NOTE | 2023-08-12 13:48 | PM.PNNEP ---
Progress Note: A&P Assessment and Plan (1) End stage renal disease: Code(s): N18.6 - End stage renal disease Status: Chronic Assessment and Plan: HD tomorrow continue T/T/S schedule follow electrolytes, volume status, and clearance (2) Acute respiratory failure with hypoxia and hypercapnia: Code(s): J96.01 - Acute respiratory failure with hypoxia; J96.02 - Acute respiratory failure with hypercapnia Status: Acute Assessment and Plan: self extubated (on 08/11/23) - follow respiratory status closely secondary to pulmonary edema from missed dialysis and pneumonia completed course of antibiotics. fluid removal as tolerated bronchodilator therapy (3) Pneumonia: Code(s): J18.9 - Pneumonia, unspecified organism Status: Acute Assessment and Plan: suggestive by admission imaging follow culture data completed antibiotic course (4) Hypotension: Code(s): I95.9 - Hypotension, unspecified Status: Acute Assessment and Plan: BP is doing better off midodrine therapy follow trend of hemodynamics (5) Anemia: Code(s): D64.9 - Anemia, unspecified Status: Chronic Assessment and Plan: due to ESRD Epogen with HD follow trend of H/H Will continue to follow. Subjective Date/time seen: 08/12/23 13:48 Interval history: Follow-up for end stage renal disease on hemodialysis. Tolerated dialysis treatment yesterday evening with 3L fluid removal; respiratory status/breathing relatively stable since self extubation yesterday, weaned down to supplemental oxygen by nasal cannula; mentation seems close to baseline at the time of my visit. Exam Narrative: General: elderly female in NAD Heart: normal S1 and S2; no rub Lungs: coarse breath sounds throughout Abdomen: soft, nontender, nondistended, positive bowel sounds Extremities: no cyanosis or clubbing; 1+ edema Skin: chronic woody skin appearance apparent Objective Data Vital Signs Vital Signs: Vital Signs Temp Pulse Resp BP Pulse Ox O2 Del Method O2 Flow Rate 08/12/23 13:30 88 08/12/23 12:00 97.9 F 89 28 H 145/75 H 100 08/12/23 12:00 95 08/12/23 12:00 98 Nasal Cannula 3 08/12/23 12:03 90 23 H 08/12/23 11:32 98 24 H 08/12/23 10:00 99 30 H 135/57 L 98 08/12/23 10:00 95 08/12/23 08:00 95 08/12/23 08:00 99 Nasal Cannula 3 08/12/23 09:08 98.4 F 93 32 H 166/74 H 99 08/12/23 08:34 86 28 H 98 Nasal Cannula 2 08/12/23 08:34 91 28 H 08/12/23 08:15 85 24 H 99 Nasal Cannula 3 08/12/23 08:09 86 26 H 08/12/23 06:00 90 23 H 146/76 H 97 08/12/23 06:00 90 08/12/23 04:38 93 26 H 08/12/23 04:00 98 F 92 25 H 159/53 H 97 08/12/23 04:00 97 High Flow Therapy with Na 40 08/12/23 04:00 95 08/12/23 02:00 96 34 H 149/55 H 97 08/12/23 00:00 91 08/12/23 00:00 97.9 F 89 29 H 175/152 H 98 08/12/23 00:00 99 High Flow Therapy with Na 40 08/12/23 00:02 88 25 H 08/11/23 21:11 73 144/73 H 08/11/23 21:15 97.7 F 83 30 H 153/82 H 95 08/11/23 21:00 84 144/61 H 08/11/23 21:20 84 30 H 153/82 H 98 08/11/23 20:00 95 08/11/23 20:41 88 26 H 08/11/23 20:30 85 165/82 H 08/11/23 20:15 80 155/74 H 08/11/23 20:27 94 High Flow Therapy with Na 40 08/11/23 20:26 87 27 H 08/11/23 20:00 97.7 F 83 26 H 155/74 H 95 08/11/23 20:00 98 High Flow Therapy with Na 40 08/11/23 19:45 84 164/95 H 08/11/23 19:30 72 163/83 H 08/11/23 20:45 70 168/84 H 08/11/23 20:00 83 148/71 H 08/11/23 19:15 80 155/83 H 08/11/23 19:00 86 167/70 H 08/11/23 18:45 89 164/77 H 08/11/23 18:30 82 153/72 H 08/11/23 18:15 87 153/79 H 08/11/23 18:11 8
[2023-08-12] MEDS: SEVELAMER CARBONATE 800 MG TABLET PO (17:54)
--- NOTE | 2023-08-12 21:16 | PM.IMPN ---
Progress Note: A&P Assessment and Plan (1) Angioedema: Code(s): T78.3XXA - Angioneurotic edema, initial encounter Status: Acute (2) C. difficile colitis: Code(s): A04.72 - Enterocolitis due to Clostridium difficile, not specified as recurrent Status: Acute (3) Pancytopenia: Code(s): D61.818 - Other pancytopenia Status: Acute (4) Pneumonia: Code(s): J18.9 - Pneumonia, unspecified organism Status: Acute (5) Acute respiratory failure with hypoxia and hypercapnia: Code(s): J96.01 - Acute respiratory failure with hypoxia; J96.02 - Acute respiratory failure with hypercapnia Status: Acute (6) Pulmonary edema: Code(s): J81.1 - Chronic pulmonary edema Status: Acute (7) Fluid overload: Code(s): E87.70 - Fluid overload, unspecified Status: Acute (8) End stage renal disease on dialysis: Code(s): N18.6 - End stage renal disease; Z99.2 - Dependence on renal dialysis Status: Acute (9) Dementia: Code(s): F03.90 - Unspecified dementia, unspecified severity, without behavioral disturbance, psychotic disturbance, mood disturbance, and anxiety Status: Acute (10) Missed dialysis: Status: Acute (11) Alzheimer disease: Code(s): G30.9 - Alzheimer's disease, unspecified; F02.80 - Dementia in other diseases classified elsewhere, unspecified severity, without behavioral disturbance, psychotic disturbance, mood disturbance, and anxiety Status: Acute (12) Altered mental status: Qualifiers: Altered mental status type: somnolence Qualified Code(s): R40.0 - Somnolence Code(s): R41.82 - Altered mental status, unspecified Status: Acute Plan Very unfortunate pleasantly confused lady with multiple chronic medical issues She has missed multiple hemodialysis treatments as she could not tolerate them Admitted on 08/02/2023 with fluid overload and hypoxia requiring intubation Patient has been followed up closely with Nephrology and has had multiple hemodialysis treatment since then She was slowly being weaned off of went to when she self-extubated and she has been stable and hold sats on oxygen via nasal cannula Continue with hemodialysis Follow-up closely as per Nephrology Hypotension stable on midodrine She had angioedema secondary to Reglan which has resolved Continue with oral vancomycin for C diff colitis Continue with C diff precautions DC C diff precautions as per hospital protocol PT/OT evaluation ordered Care coordination consult for DC planning Patient's long-term prognosis remains guarded ? Patient seen and examined at bedside during my morning rounds ? Collaborated with patient's nurse at the bedside in detail and addressed all concerns ? Labs, electrolytes, radiology, investigations and test results reviewed ? Consult/Nursing/Ancilliary notes on the chart reviewed and appreciated ? Spoke with patient/family at the bedside and answered all the questions that they had Repeat labs in a.m. Electrolyte replacement as per protocol. Patient will be monitored very closely on the floor. Further recommendations as per the hospital course. I am signing off. Patient's medical care will be taken over by my covering hospitalist attending in am. Subjective Date/time seen: 08/12/23 21:16 Interval history: Pleasantly confused lady with multiple chronic medical issues, self extubated her yesterday. She is being downgraded to IMU. Holding O2 sats by nasal cannula Review of Systems Review of Systems: Unable to be obtained. Patient is pleasantly confused ROS unobtainable: Yes unobtainable due to medical condition and unobtainable due to mental status Exam Narrative: PHYSICAL EXAMINATION: General:? Patient looks older than her stated age now extubated, drowsy but easy arousable and follows commands, no distress HEENT:? Pupils equal and reactive, sclerae clear, swelling of the tong
[2023-08-12] MEDS: ATORVASTATIN 20 MG TABLET PO (21:32)
[2023-08-13] VITALS (29 sets, daily range): BP systolic 108–181; BP diastolic 50–77; PULSE 78–112; RESP 20–29; TEMP 36.1–37; O2SAT 94–98
[2023-08-13] MEDS: VANCOMYCIN ORAL 125 MG/2.5 ML SYRUP PO ×5 (00:53→23:43)
[2023-08-13] MEDS: hydrALAZINE HCL 20 MG/ML VIAL 10 MG IV PUSH ×2 (01:07→05:48)
[2023-08-13 01:15] LABS: Glucose Point of Care 127 mg/dl (65-105)
[2023-08-13 04:47] LABS: Hematocrit 32.1 % (37.0-47.0); Mean Corpuscular HGB Conc 31.2 g/dl (32-36); Mean Corpuscular Hemoglobin 27.4 pg (26-34); Mean Corpuscular Volume 87.9 fl (80-100); Mean Platelet Volume 9.7 fl (7.4-10.4); Platelet Count Result 243 k/mm3 (150-375); Red Blood Count 3.65 M/mm3 (4.2-5.4); White Blood Count 13.3 K/mm3 (4.5-10.0)
[2023-08-13 05:05] LABS: Alanine Aminotransferase 20 U/L (6-35); Alkaline Phosphatase 111 U/L (38-126); Anion Gap 14 mmol/L (8-16); Aspartate Amino Transferase 15 U/L (14-36); Bilirubin,Total 0.8 mg/dL (0.2-1.3); Blood Urea Nitrogen 70 mg/dL (7-17); Calcium 9.7 mg/dL (8.4-10.2); Carbon Dioxide 24 mmol/L (22-30); Chloride 102 mmol/L (98-107); Estimated CRCL calculation 8 ml/min; Estimated Glomerular Filt Rate 11; Glucose 132 mg/dL (65-110); Magnesium 2.4 mg/dL (1.6-2.3); Potassium 3.6 mmol/L (3.4-5.0); Sodium 140 mmol/L (137-145)
[2023-08-13] MEDS: ALBUTEROL SULFATE NEB 2.5 MG/3 ML INH INHALATION (05:30)
[2023-08-13] MEDS: IPRATROPIUM BR 0.02% INH SOLN 0.5 MG/2.5 ML VIAL INHALATION (05:30)
[2023-08-13] MEDS: CENTRAL LINE FLUSH 10 ML IV PUSH ×3 (05:49→21:26)
[2023-08-13] MEDS: SEVELAMER CARBONATE 800 MG TABLET PO ×3 (08:12→16:59)
[2023-08-13] MEDS: ENOXAPARIN 30 MG/0.3 ML SYRINGE SUB-Q (08:12)
[2023-08-13] MEDS: IPRATROPIUM 0.5 MG/ALBUTEROL SULFATE 2.5 MG AMPUL.NEB 3 ML INHALATION (08:43)
[2023-08-13 08:46] LABS: Glucose Point of Care 134 mg/dl (65-105)
[2023-08-13] MEDS: SODIUM CHLORIDE 0.9% IV 1,000 ML 999 ML IV CONT (08:46)
--- NOTE | 2023-08-13 09:55 | PM.IMPN ---
Progress Note: A&P Assessment and Plan (1) Angioedema: Code(s): T78.3XXA - Angioneurotic edema, initial encounter Status: Acute (2) C. difficile colitis: Code(s): A04.72 - Enterocolitis due to Clostridium difficile, not specified as recurrent Status: Acute (3) Pancytopenia: Code(s): D61.818 - Other pancytopenia Status: Acute (4) Pneumonia: Code(s): J18.9 - Pneumonia, unspecified organism Status: Acute (5) Acute respiratory failure with hypoxia and hypercapnia: Code(s): J96.01 - Acute respiratory failure with hypoxia; J96.02 - Acute respiratory failure with hypercapnia Status: Acute (6) Pulmonary edema: Code(s): J81.1 - Chronic pulmonary edema Status: Acute (7) Fluid overload: Code(s): E87.70 - Fluid overload, unspecified Status: Acute (8) End stage renal disease on dialysis: Code(s): N18.6 - End stage renal disease; Z99.2 - Dependence on renal dialysis Status: Acute (9) Dementia: Code(s): F03.90 - Unspecified dementia, unspecified severity, without behavioral disturbance, psychotic disturbance, mood disturbance, and anxiety Status: Acute (10) Missed dialysis: Status: Acute (11) Alzheimer disease: Code(s): G30.9 - Alzheimer's disease, unspecified; F02.80 - Dementia in other diseases classified elsewhere, unspecified severity, without behavioral disturbance, psychotic disturbance, mood disturbance, and anxiety Status: Acute (12) Altered mental status: Qualifiers: Altered mental status type: somnolence Qualified Code(s): R40.0 - Somnolence Code(s): R41.82 - Altered mental status, unspecified Status: Acute Plan Very unfortunate pleasantly confused lady with multiple chronic medical issues She has missed multiple hemodialysis treatments as she could not tolerate them Admitted on 08/02/2023 with fluid overload and hypoxia requiring intubation. Patient was extubated, tolerated the extubation well, patient is on nasal cannular 2 L Patient has been followed up closely with Nephrology and has had multiple hemodialysis treatment since then. Patient had a dialysis today again, plan to remove 3 L fluid today Continue with hemodialysis Follow-up closely as per Nephrology Hypotension received albumin infusion, blood pressure stable She had angioedema secondary to Reglan which has resolved Continue with oral vancomycin for C diff colitis Continue with C diff precautions DC C diff precautions as per hospital protocol PT/OT evaluation ordered Care coordination consult for DC planning Patient's long-term prognosis remains guarded Repeat labs in a.m. Electrolyte replacement as per protocol. Patient will be monitored very closely on the floor. Further recommendations as per the hospital course. Subjective Date/time seen: 08/13/23 09:55 Interval history: I saw and examined patient in the ICU. Patient was on hemodialysis, patient with on 2 L oxygen via nasal cannular, scheduled to remove fluid above 3 L. Blood pressure stable, afebrile. Patient is nonverbal, patient did not obvious distress Exam Narrative: GENERAL: Ill-appearing in no acute distress. Well-nourished. - EYES: EOMI. Anicteric. - HENT: Moist mucous membranes. - LUNGS: Coarse breath sound bilateral base no wheezing, rhonchi, or rales. - CARDIOVASCULAR: Regular rate and rhythm. No murmur. No JVD. - ABDOMEN: Soft, non-tender and non-distended. No palpable masses. - EXTREMITIES: 2+ lower extremities edema. Peripheral pulses 2+. Non-tender. - NEUROLOGIC: Patient is nonverbal,. Moving all extremities - PSYCHIATRIC: Awake, not oriented x 3. Appropriate mood and affect. - SKIN: No rashes or lesions. Warm. - LYMPH: No cervical lymphadenopathy. Objective Data Vital Signs Vital Signs: Vital Signs - 24 hr 08/12/23 10:00 08/12/23 10:00 08/12/23 11:32 Temperature Pulse Rate 95 99 98 Respiratory
--- NOTE | 2023-08-13 10:24 | PM.PNNEP ---
Progress Note: A&P Assessment and Plan (1) End stage renal disease: Code(s): N18.6 - End stage renal disease Status: Chronic Assessment and Plan: HD is underway continue T/T/S schedule follow electrolytes, volume status, and clearance (2) Acute respiratory failure with hypoxia and hypercapnia: Code(s): J96.01 - Acute respiratory failure with hypoxia; J96.02 - Acute respiratory failure with hypercapnia Status: Acute Assessment and Plan: self extubated (on 08/11/23) breathing is okay today (3) Pneumonia: Code(s): J18.9 - Pneumonia, unspecified organism Status: Acute Assessment and Plan: completed antibiotic course (4) Hypotension: Code(s): I95.9 - Hypotension, unspecified Status: Acute Assessment and Plan: BP is running 110-135 off midodrine therapy follow trend of hemodynamics (5) Anemia: Code(s): D64.9 - Anemia, unspecified Status: Chronic Assessment and Plan: due to ESRD Epogen with HD follow trend of H/H Will continue to follow. Subjective Date/time seen: 08/13/23 10:24 Interval history: Patient is awake. Breathing okay. Patient is on dialysis. She is tolerating it well. She was seen at 9:30 a.m. Exam Narrative: General: elderly female in NAD Heart: normal S1 and S2; no rub or gallop Lungs: coarse breath sounds throughout Abdomen: soft, nontender, nondistended, positive bowel sounds Extremities: 1+ edema Skin: chronic woody skin appearance apparent Objective Data Vital Signs Vital Signs: Vital Signs - 24 hr 08/12/23 11:32 08/12/23 12:03 08/12/23 12:00 Temperature Pulse Rate 98 90 Respiratory Rate 24 H 23 H Blood Pressure Pulse Oximetry 98 Oxygen Delivery Nasal Cannula Oxygen Flow Rate 3 08/12/23 12:00 08/12/23 12:00 08/12/23 14:00 Temperature 97.9 F Pulse Rate 95 89 88 Respiratory Rate 28 H Blood Pressure 145/75 H Pulse Oximetry 100 Oxygen Delivery Oxygen Flow Rate 08/12/23 17:26 08/12/23 16:00 08/12/23 16:00 Temperature Pulse Rate 87 85 Respiratory Rate 20 Blood Pressure Pulse Oximetry 98 Oxygen Delivery Nasal Cannula Oxygen Flow Rate 3 08/12/23 17:43 08/12/23 18:00 08/12/23 16:00 Temperature 97.9 F Pulse Rate 89 98 85 Respiratory Rate 27 H 26 H Blood Pressure 161/70 H Pulse Oximetry 100 Oxygen Delivery Oxygen Flow Rate 08/12/23 19:52 08/12/23 19:52 08/12/23 20:02 Temperature 98.1 F Pulse Rate 96 96 95 Respiratory Rate 22 H 22 H 27 H Blood Pressure 176/77 H Pulse Oximetry 99 100 Oxygen Delivery Nasal Cannula Oxygen Flow Rate 2 08/12/23 20:00 08/12/23 23:36 08/12/23 23:36 Temperature Pulse Rate 101 H 97 Respiratory Rate 24 H 22 H Blood Pressure Pulse Oximetry 100 97 Oxygen Delivery Nasal Cannula Room Air Oxygen Flow Rate 2 08/12/23 20:00 08/13/23 00:00 08/13/23 04:00 Temperature Pulse Rate 107 H Respiratory Rate Blood Pressure Pulse Oximetry Oxygen Delivery Room Air Room Air Oxygen Flow Rate 08/13/23 05:31 08/12/23 20:05 08/12/23 23:45 Temperature Pulse Rate 106 H 96 102 H Respiratory Rate 22 H 24 H 22 H Blood Pressure Pulse Oximetry Oxygen Delivery Oxygen Flow Rate 08/13/23 00:00 08/13/23 04:00 08/13/23 06:30 Temperature 97.7 F 98.0 F Pulse Rate 104 H 105 H Respiratory Rate 29 H 29 H Blood Pressure 181/74 H 177/63 H 147/64 H Pulse Oximetry 94 94 Oxygen Delivery Oxygen Flow Rate 08/13/23 00:00 08/13/23 04:00 08/13/23 06:00 Temperature Pulse Rate 107 H 112 H 103 H Respiratory Rate Blood Pressure Pulse Oximetry Oxygen Delivery Oxygen Flow Rate 08/13/23 08:00 08/13/23 08:42 08/13/23 08:42 Temperature 97.0 F L Pulse Rate 96 103 H Respiratory Rate 26 H 24 H Blood Pressure 119/50 L Pulse Oximetry 95 96 Oxyge
[2023-08-13 15:19] LABS: Glucose Point of Care 145 mg/dl (65-105)
[2023-08-13 18:01] LABS: Glucose Point of Care 149 mg/dl (65-105)
--- NOTE | 2023-08-13 18:01 | PC.NURSE ---
This patient, Dania Demarco, was transferred to [facility] via bed without issue on 08/13/23 at 1742. Personal belongings sent with patient. Report given to KESHA Davis. Appropriate documentation sent with patient.
--- NOTE | 2023-08-13 18:02 | PC.NURSE ---
MINI Dodson, updated on patient transfer and patient condition.
[2023-08-13 18:16] LABS: Glucose Point of Care 137 mg/dl (65-105)
[2023-08-13] MEDS: ATORVASTATIN 20 MG TABLET PO (21:26)
[2023-08-13 23:50] LABS: Glucose Point of Care 144 mg/dl (65-105)
[2023-08-14] VITALS (9 sets, daily range): BP systolic 148–150; BP diastolic 72–75; PULSE 89–105; RESP 14–16; TEMP 36.8–37.2; O2SAT 95–100
[2023-08-14] MEDS: VANCOMYCIN ORAL 125 MG/2.5 ML SYRUP PO ×2 (06:07→12:40)
[2023-08-14] MEDS: CENTRAL LINE FLUSH 10 ML IV PUSH ×3 (06:08→21:39)
[2023-08-14 06:31] LABS: Glucose Point of Care 136 mg/dl (65-105)
[2023-08-14 06:33] LABS: Hematocrit 31.6 % (37.0-47.0); Mean Corpuscular HGB Conc 31.6 g/dl (32-36); Mean Corpuscular Hemoglobin 27.8 pg (26-34); Mean Corpuscular Volume 87.8 fl (80-100); Mean Platelet Volume 9.9 fl (7.4-10.4); Platelet Count Result 218 k/mm3 (150-375); Red Cell Distribution Width 21.1 % (11.5-14.5); White Blood Count 10.4 K/mm3 (4.5-10.0)
[2023-08-14 06:46] LABS: Alanine Aminotransferase 17 U/L (6-35); Albumin Level 3.6 g/dL (3.5-5.1); Alkaline Phosphatase 100 U/L (38-126); Anion Gap 8 mmol/L (8-16); Aspartate Amino Transferase 17 U/L (14-36); Bilirubin,Total 0.8 mg/dL (0.2-1.3); Blood Urea Nitrogen 44 mg/dL (7-17); Calcium 9.8 mg/dL (8.4-10.2); Carbon Dioxide 32 mmol/L (22-30); Chloride 100 mmol/L (98-107); Estimated CRCL calculation 11 ml/min; Estimated Glomerular Filt Rate 15; Glucose 133 mg/dL (65-110); Magnesium 2.2 mg/dL (1.6-2.3); Phosphorus 3.3 mg/dL (2.5-4.5); Potassium 3.5 mmol/L (3.4-5.0); Sodium 140 mmol/L (137-145)
[2023-08-14] MEDS: SEVELAMER CARBONATE 800 MG TABLET PO ×3 (08:53→17:44)
[2023-08-14] MEDS: ENOXAPARIN 30 MG/0.3 ML SYRINGE SUB-Q (08:53)
--- NOTE | 2023-08-14 10:11 | PM.PNNEP ---
Progress Note: A&P Assessment and Plan (1) End stage renal disease: Code(s): N18.6 - End stage renal disease Status: Chronic Assessment and Plan: HD went well yesterday continue T/T/S schedule volume status looks okay today. Potassium and bicarbonate are okay. BUN is well controlled 44 (2) Acute respiratory failure with hypoxia and hypercapnia: Code(s): J96.01 - Acute respiratory failure with hypoxia; J96.02 - Acute respiratory failure with hypercapnia Status: Acute Assessment and Plan: self extubated (on 08/11/23) breathing is okay today she is on nasal cannula 2liters/minute. She looks comfortable. (3) Pneumonia: Code(s): J18.9 - Pneumonia, unspecified organism Status: Acute Assessment and Plan: completed antibiotic course (4) Hypotension: Code(s): I95.9 - Hypotension, unspecified Status: Acute Assessment and Plan: BP is running 117-150 off midodrine therapy follow trend of hemodynamics (5) Anemia: Code(s): D64.9 - Anemia, unspecified Status: Chronic Assessment and Plan: due to ESRD Epogen with HD hemoglobin therapeutic at 10 Will continue to follow. Subjective Date/time seen: 08/14/23 10:12 Interval history: Dania is resting comfortably in bed. She is just finishing breakfast. [place] is helping her to eat. Patient is in a regular room now. Exam Narrative: General: elderly female in NAD Heart: normal S1 and S2; no rub or gallop Lungs: coarse breath sounds throughout Abdomen: bowel sounds positive nontender Extremities: 1+ edema Bilaterally Skin: chronic woody skin appearance apparent Objective Data Vital Signs Vital Signs: Vital Signs - 24 hr 08/13/23 10:15 08/13/23 10:30 08/13/23 10:45 Temperature Pulse Rate 92 92 90 Respiratory Rate Blood Pressure 117/62 137/62 135/77 Pulse Oximetry Oxygen Delivery Fraction of Inspired Oxygen 08/13/23 11:00 08/13/23 11:15 08/13/23 11:30 Temperature Pulse Rate 102 H 106 H 90 Respiratory Rate Blood Pressure 112/51 L 108/65 110/58 L Pulse Oximetry Oxygen Delivery Fraction of Inspired Oxygen 08/13/23 11:45 08/13/23 12:00 08/13/23 12:00 Temperature 97.6 F Pulse Rate 88 91 78 Respiratory Rate 22 H Blood Pressure 111/64 118/58 L Pulse Oximetry 98 Oxygen Delivery Fraction of Inspired Oxygen 08/13/23 14:00 08/13/23 12:00 08/13/23 12:00 Temperature Pulse Rate 86 93 Respiratory Rate Blood Pressure 118/58 L Pulse Oximetry 96 Oxygen Delivery Room Air Fraction of Inspired Oxygen 08/13/23 12:30 08/13/23 12:10 08/13/23 16:00 Temperature Pulse Rate 85 86 89 Respiratory Rate 20 Blood Pressure 123/60 117/63 Pulse Oximetry Oxygen Delivery Fraction of Inspired Oxygen 08/13/23 16:00 08/13/23 21:41 08/13/23 20:00 Temperature 97.8 F 97.2 F L Pulse Rate 88 96 Respiratory Rate 25 H 26 H Blood Pressure 150/76 H 140/69 Pulse Oximetry 96 Oxygen Delivery Fraction of Inspired Oxygen 08/13/23 20:00 08/14/23 00:00 08/14/23 04:00 Temperature Pulse Rate 88 89 94 Respiratory Rate 26 H Blood Pressure Pulse Oximetry 96 Oxygen Delivery Room Air Fraction of Inspired Oxygen 30 08/14/23 06:04 Temperature 98.2 F Pulse Rate 94 Respiratory Rate 14 Blood Pressure 150/75 H Pulse Oximetry 95 Oxygen Delivery Fraction of Inspired Oxygen Intake/Output Intake/Output: Intake & Output 08/11/23 08/12/23 08/13/23 08/14/23 23:59 23:59 23:59 23:59 Intake Total 460 800 120 Output Total 3000 0 3000 Balance -2540 0 -2200 120 Meds/Results Medications: Active Medications Generic Name Dose Route Start Last Admin Trade Name Freq PRN Reason Stop Dose Admin Acetaminophen 650 mg 08/02/23 16:36 Acetaminophen 325 Mg Tablet FEED TUBE Q4H PRN Pain, Mild
[2023-08-14 12:30] LABS: Glucose Point of Care 133 mg/dl (65-105)
--- NOTE | 2023-08-14 16:47 | PM.IMPN ---
Progress Note: A&P Assessment and Plan (1) C. difficile colitis: Code(s): A04.72 - Enterocolitis due to Clostridium difficile, not specified as recurrent Status: Acute Assessment and Plan: Vancomycin discontinued 08/15 at noon after 10-day course Care coordination to finalize return to [place] 08/15 (2) Pneumonia: Code(s): J18.9 - Pneumonia, unspecified organism Status: Acute Assessment and Plan: Completed antibiotics (3) End stage renal disease on dialysis: Code(s): N18.6 - End stage renal disease; Z99.2 - Dependence on renal dialysis Status: Acute Assessment and Plan: Continue HD (4) Alzheimer disease: Code(s): G30.9 - Alzheimer's disease, unspecified; F02.80 - Dementia in other diseases classified elsewhere, unspecified severity, without behavioral disturbance, psychotic disturbance, mood disturbance, and anxiety Status: Acute Assessment and Plan: Seems to be at baseline (5) Altered mental status: Qualifiers: Altered mental status type: somnolence Qualified Code(s): R40.0 - Somnolence Code(s): R41.82 - Altered mental status, unspecified Status: Acute Assessment and Plan: Likely due to metabolic encephalopathy Resolved (6) Acute respiratory failure with hypoxia and hypercapnia: Code(s): J96.01 - Acute respiratory failure with hypoxia; J96.02 - Acute respiratory failure with hypercapnia Status: Acute Assessment and Plan: Resolved (7) Pulmonary edema: Code(s): J81.1 - Chronic pulmonary edema Status: Acute Assessment and Plan: Due to fluid overload caused by missed HD Resolved (8) Angioedema: Code(s): T78.3XXA - Angioneurotic edema, initial encounter Status: Acute Assessment and Plan: Due to metoclopramide, resolved. (9) Pancytopenia: Code(s): D61.818 - Other pancytopenia Status: Acute Assessment and Plan: Resolved Plan Very unfortunate pleasantly confused lady with multiple chronic medical issues She has missed multiple hemodialysis treatments as she could not tolerate them Admitted on 08/02/2023 with fluid overload and hypoxia requiring intubation. Patient was extubated, tolerated the extubation well, patient is on nasal cannular 2 L Patient has been followed up closely with Nephrology and has had multiple hemodialysis treatment since then. Patient had a dialysis today again, plan to remove 3 L fluid today Continue with hemodialysis Follow-up closely as per Nephrology Hypotension received albumin infusion, blood pressure stable She had angioedema secondary to Reglan which has resolved Continue with oral vancomycin for C diff colitis Continue with C diff precautions DC C diff precautions as per hospital protocol PT/OT evaluation ordered Care coordination consult for DC planning Patient's long-term prognosis remains guarded Repeat labs in a.m. Electrolyte replacement as per protocol. Patient will be monitored very closely on the floor. Further recommendations as per the hospital course. Subjective Date/time seen: 08/14/23 16:47 Interval history: Nonverbal. Denied pain or shortness of breath. Review of Systems Review of Systems: ROS unobtainable: Yes unobtainable due to medical condition Exam Narrative: GENERAL: chronically ill-appearing in no acute distress. - EYES: PERRL. Anicteric. - HENT: Moist mucous membranes. - LUNGS: CTA, NL effort. - CARDIOVASCULAR: Regular rate and rhythm. 3/6 XIAO RUSB. - ABDOMEN: Soft, non-tender and non-distended. No palpable masses. - EXTREMITIES: No pitting edema. - NEUROLOGIC: CN symmetric to inspection. Nonverbal. - PSYCHIATRIC: Awake, oriented person only (unable to assess further due to nonverbal status). Objective Data Vital Signs Vital Signs: Vital Signs - 24 hr 08/13/23 21:41 08/13/23 20:00 08/13/23 20:00 Temperature 97.2 F L Pulse Rate
[2023-08-14 17:49] LABS: Glucose Point of Care 140 mg/dl (65-105)
[2023-08-14] MEDS: ATORVASTATIN 20 MG TABLET PO (21:39)
[2023-08-15] VITALS (8 sets, daily range): BP systolic 118–146; BP diastolic 48–71; PULSE 87–109; RESP 14–18; TEMP 36.2–37; O2SAT 97–100
[2023-08-15] MEDS: CENTRAL LINE FLUSH 10 ML IV PUSH ×3 (06:32→20:39)
[2023-08-15 06:33] LABS: Basophils Percent Auto 0.1 % (0.2-1.2); Eosinophils Absolute Auto 0.2 K/mm3 (0-0.3); Eosinophils Percent Auto 1.9 % (0-4.4); Hematocrit 30.9 % (37.0-47.0); Hemoglobin 9.5 g/dL (12.0-15.0); Immature Granulocyte Absolute 0.05 K/mm3 (0.00-0.031); Immature Granulocyte Percent A 0.6 % (0-0.5); Lymphocytes Absolute Auto 0.75 K/mm3 (0.9-3.2); Lymphocytes Percent Auto 8.4 % (18.3-44.2); Mean Corpuscular HGB Conc 30.7 g/dl (32-36); Mean Corpuscular Hemoglobin 27.5 pg (26-34); Mean Corpuscular Volume 89.3 fl (80-100); Mean Platelet Volume 9.3 fl (7.4-10.4); Monocytes Absolute Auto 0.7 K/mm3 (0.1-0.6); Monocytes Percent Auto 8.3 % (2.6-8.5); Neutrophils Absolute Auto 7.2 K/mm3 (1.3-6.7); Neutrophils Percent Auto 80.7 % (45.5-73.1); Platelet Count Result 221 k/mm3 (150-375); Red Blood Count 3.46 M/mm3 (4.2-5.4); Red Cell Distribution Width 21.3 % (11.5-14.5); White Blood Count 8.9 K/mm3 (4.5-10.0)
[2023-08-15 06:48] LABS: Albumin Level 3.5 g/dL (3.5-5.1); Anion Gap 7 mmol/L (8-16); Blood Urea Nitrogen 66 mg/dL (7-17); Calcium 9.5 mg/dL (8.4-10.2); Carbon Dioxide 32 mmol/L (22-30); Chloride 104 mmol/L (98-107); Estimated CRCL calculation 7 ml/min; Estimated Glomerular Filt Rate 9; Glucose 127 mg/dL (65-110); Phosphorus 3.8 mg/dL (2.5-4.5); Potassium 4.1 mmol/L (3.4-5.0); Sodium 143 mmol/L (137-145)
[2023-08-15] MEDS: ENOXAPARIN 30 MG/0.3 ML SYRINGE SUB-Q (08:35)
[2023-08-15] MEDS: SEVELAMER CARBONATE 800 MG TABLET PO ×3 (08:35→16:44)
--- NOTE | 2023-08-15 10:30 | PM.PNNEP ---
Progress Note: A&P Assessment and Plan (1) End stage renal disease: Code(s): N18.6 - End stage renal disease Status: Chronic Assessment and Plan: HD tomorrow continue T/T/S schedule follow electrolytes, volume status, and clearance (2) Acute respiratory failure with hypoxia and hypercapnia: Code(s): J96.01 - Acute respiratory failure with hypoxia; J96.02 - Acute respiratory failure with hypercapnia Status: Acute Assessment and Plan: resolving if not resolved self extubated (on 08/11/23) breathing is okay/stable weaned to room air (3) Pneumonia: Code(s): J18.9 - Pneumonia, unspecified organism Status: Acute Assessment and Plan: completed antibiotic course (4) Hypotension: Code(s): I95.9 - Hypotension, unspecified Status: Acute Assessment and Plan: BP better if not stable off midodrine therapy follow trend of hemodynamics (5) Anemia: Code(s): D64.9 - Anemia, unspecified Status: Chronic Assessment and Plan: due to ESRD Epogen with HD follow trend of H/H Will continue to follow. Subjective Date/time seen: 08/15/23 10:30 Interval history: Follow-up for end stage renal disease on hemodialysis. Chart reviewed since last seen; transferred out of ICU and respiratory status seems relatively stable if not better - weaned to room air; no acute issues/events overnight or earlier this AM; mentation seems at baseline. Exam Narrative: General: elderly female in NAD Heart: normal S1 and S2; no rub Lungs: coarse breath sounds throughout Abdomen: soft, nontender, +BS Extremities: 1+ edema bilaterally Skin: chronic woody skin appearance Objective Data Vital Signs Vital Signs: Vital Signs Temp Pulse Resp BP Pulse Ox O2 Del Method FiO2 08/15/23 08:35 Room Air 08/15/23 06:28 98.6 F 100 14 146/71 H 08/15/23 04:00 97 08/15/23 00:00 109 H 08/14/23 20:00 99 16 98 Room Air 30 08/14/23 20:00 105 H 08/14/23 21:43 98.6 F 99 16 149/75 H 98 08/14/23 16:00 99 08/14/23 12:00 93 08/14/23 16:26 99.0 F 98 16 148/72 H 100 Intake/Output Intake/Output: Intake & Output 08/12/23 08/13/23 08/14/23 08/15/23 23:59 23:59 23:59 23:59 Intake Total 800 440 100 Output Total 0 3000 Balance 0 -2200 440 100 Meds/Results Medications: Active Medications Generic Name Dose Route Start Last Admin Trade Name Freq PRN Reason Stop Dose Admin Acetaminophen 650 mg 08/02/23 16:36 Acetaminophen 325 Mg Tablet FEED TUBE Q4H PRN Pain, Mild Albuterol 2.5 mg 08/13/23 11:49 Albuterol Sulfate Neb 2.5 Mg/3 Ml Inh INHALATION Q4HRT PRN Wheezing Atorvastatin Calcium 20 mg 08/02/23 21:00 08/14/23 21:39 Atorvastatin 20 Mg Tablet PO 20 mg HS MADISYN Administration Enoxaparin Sodium 30 mg 08/09/23 09:00 08/15/23 08:35 Enoxaparin 30 Mg/0.3 Ml Syringe SUB-Q 30 mg DAILY MADISYN Administration Haloperidol 5 mg 08/02/23 17:00 08/03/23 09:56 Haloperidol 5 Mg Tablet FEED TUBE 5 mg BID MADISYN Administration Hydralazine HCl 10 mg 08/06/23 20:02 08/13/23 05:48 Hydralazine Hcl 20 Mg/Ml Vial IV PUSH 10 mg Q4H PRN Administration Blood Pressure - High Albumin Human 50 mls @ 999 mls/hr 08/02/23 07:05 08/05/23 15:30 Albutein IVPB 09/01/23 07:04 999 mls/hr Q10M PRN Administration HYPOTENSION Multi-Ingred Cream/Lotion/Oil/Oint 1 applic 08/13/23 04:59 Eucerin Cream 120 Gm Jar TOPICAL PRN PRN Dry Skin Non-Formulary Medication 500 mg 08/02/23 17:00 08/04/23 10:24 Lanthanum PO 09/01/23 16:59 Not Given TIDWM MADISYN Sevelamer Carbonate 800 mg 08/04/23 12:00 08/15/23 08:35 Sevelamer Carbonate 800 Mg Tablet PO 800 mg TIDWM MADISYN Administration Sodium Chloride 10 ml 08/02/23 22:00 08/15/23 06:32 Central Line Flush IV
--- NOTE | 2023-08-15 11:28 | PCNFU ---
Nutrition Follow-Up Complete: [place] Oral Intake as related to mechanical ventilation as evidenced by NPO. _ Resolved Goal: Meet estimated nutritional needs. - Able to meet nutrition needs PO Pt current nutrition is Heart healthy diet, Puree, Moderately thick liquids level 3. Nutrition recommendation: Continue with current diet orders. Agree with orders Last recorded weight is 60 kg. Bowel Motility: Bowel movement +1 08/15/23 Labs Reviewed: Hgb 9.5, Hct 30.9, GFR 9, BUN 66, Cre 5,4, Glu 127 Meds Noted: liptor, lovenox Skin: Mepilex to rectum Additional Notes: Intakes are very good 90-100% on puree with moderately thick liquids. Needs fed. Discharge planning to SNF in progress Will monitor weight, labs, skin, meds, tube feeding tolerance every Tuesday and Tuesday.
--- NOTE | 2023-08-15 12:48 | P.PNIM_ITS ---
Progress Note: A&P Assessment and Plan (1) C. difficile colitis: Code(s): A04.72 - Enterocolitis due to Clostridium difficile, not specified as recurrent Status: Acute Assessment and Plan: * Vancomycin discontinued 08/15 at noon after 10-day course * Care coordination to finalize return to [place] 08/15 or 08/16 (2) Pneumonia: Code(s): J18.9 - Pneumonia, unspecified organism Status: Acute Assessment and Plan: * Completed antibiotics (3) End stage renal disease on dialysis: Code(s): N18.6 - End stage renal disease; Z99.2 - Dependence on renal dialysis Status: Acute Assessment and Plan: * Continue HD (4) Alzheimer disease: Code(s): G30.9 - Alzheimer's disease, unspecified; F02.80 - Dementia in other diseases classified elsewhere, unspecified severity, without behavioral disturbance, psychotic disturbance, mood disturbance, and anxiety Status: Acute Assessment and Plan: * Seems to be at baseline (5) Altered mental status: Qualifiers: Altered mental status type: somnolence Qualified Code(s): R40.0 - Somnolence Code(s): R41.82 - Altered mental status, unspecified Status: Acute Assessment and Plan: * Likely due to metabolic encephalopathy * Resolved (6) Acute respiratory failure with hypoxia and hypercapnia: Code(s): J96.01 - Acute respiratory failure with hypoxia; J96.02 - Acute respiratory failure with hypercapnia Status: Acute Assessment and Plan: * Resolved (7) Pulmonary edema: Code(s): J81.1 - Chronic pulmonary edema Status: Acute Assessment and Plan: * Due to fluid overload caused by missed HD * Resolved (8) Angioedema: Code(s): T78.3XXA - Angioneurotic edema, initial encounter Status: Acute Assessment and Plan: * Due to metoclopramide, resolved. (9) Pancytopenia: Code(s): D61.818 - Other pancytopenia Status: Acute Assessment and Plan: * Resolved Subjective Date/time seen: 08/15/23 12:48 Interval history: Nonverbal. Pt admitted with Respiratory failure, respiratory acidosis, hypotension, ESRD. Pt recovering from Cdiff infection and pneumonia much better now, awaiting to return [place] Review of Systems Review of Systems: Non verbal, nodding her head Exam Narrative: GENERAL: chronically ill-appearing in no acute distress. - EYES: PERRL. Anicteric. - HENT: Moist mucous membranes. - LUNGS: CTA, NL effort. - CARDIOVASCULAR: Regular rate and rhyth m. 3/6 XIAO RUSB. - ABDOMEN: Soft, non-tender and non-dist ended. No palpable masses. - EXTREMITIES: No pitting edema. - NEUROLOGIC: CN symmetric to inspectio n. Nonverbal. - PSYCHIATRIC: Awake, oriented person on ly (unable to assess further due to nonverbal status). Objective Data Vital Signs Vital Signs: Vital Signs - 24 hr 08/14/23 16:26 08/14/23 16:00 08/14/23 21:43 Temperature 37.2 C 37.0 C Pulse Rate 98 99 99 Respiratory Rate 16 16 Blood Pressure 148/72 H 149/75 H Pulse Oximetry 100 98
--- NOTE | 2023-08-15 12:48 | PM.IMPN ---
Progress Note: A&P Assessment and Plan (1) C. difficile colitis: Code(s): A04.72 - Enterocolitis due to Clostridium difficile, not specified as recurrent Status: Acute Assessment and Plan: Vancomycin discontinued 08/15 at noon after 10-day course Care coordination to finalize return to [place] 08/15 or 08/16 (2) Pneumonia: Code(s): J18.9 - Pneumonia, unspecified organism Status: Acute Assessment and Plan: Completed antibiotics (3) End stage renal disease on dialysis: Code(s): N18.6 - End stage renal disease; Z99.2 - Dependence on renal dialysis Status: Acute Assessment and Plan: Continue HD (4) Alzheimer disease: Code(s): G30.9 - Alzheimer's disease, unspecified; F02.80 - Dementia in other diseases classified elsewhere, unspecified severity, without behavioral disturbance, psychotic disturbance, mood disturbance, and anxiety Status: Acute Assessment and Plan: Seems to be at baseline (5) Altered mental status: Qualifiers: Altered mental status type: somnolence Qualified Code(s): R40.0 - Somnolence Code(s): R41.82 - Altered mental status, unspecified Status: Acute Assessment and Plan: Likely due to metabolic encephalopathy Resolved (6) Acute respiratory failure with hypoxia and hypercapnia: Code(s): J96.01 - Acute respiratory failure with hypoxia; J96.02 - Acute respiratory failure with hypercapnia Status: Acute Assessment and Plan: Resolved (7) Pulmonary edema: Code(s): J81.1 - Chronic pulmonary edema Status: Acute Assessment and Plan: Due to fluid overload caused by missed HD Resolved (8) Angioedema: Code(s): T78.3XXA - Angioneurotic edema, initial encounter Status: Acute Assessment and Plan: Due to metoclopramide, resolved. (9) Pancytopenia: Code(s): D61.818 - Other pancytopenia Status: Acute Assessment and Plan: Resolved Subjective Date/time seen: 08/15/23 12:48 Interval history: Nonverbal. Pt admitted with Respiratory failure, respiratory acidosis, hypotension, ESRD. Pt recovering from Cdiff infection and pneumonia much better now, awaiting to return [place] Review of Systems Review of Systems: Non verbal, nodding her head Exam Narrative: GENERAL: chronically ill-appearing in no acute distress. - EYES: PERRL. Anicteric. - HENT: Moist mucous membranes. - LUNGS: CTA, NL effort. - CARDIOVASCULAR: Regular rate and rhythm. 3/6 XIAO RUSB. - ABDOMEN: Soft, non-tender and non-distended. No palpable masses. - EXTREMITIES: No pitting edema. - NEUROLOGIC: CN symmetric to inspection. Nonverbal. - PSYCHIATRIC: Awake, oriented person only (unable to assess further due to nonverbal status). Objective Data Vital Signs Vital Signs: Vital Signs - 24 hr 08/14/23 16:26 08/14/23 16:00 08/14/23 21:43 Temperature 37.2 C 37.0 C Pulse Rate 98 99 99 Respiratory Rate 16 16 Blood Pressure 148/72 H 149/75 H Pulse Oximetry 100 98 Oxygen Delivery Fraction of Inspired Oxygen 08/14/23 20:00 08/14/23 20:00 08/15/23 00:00 Temperature Pulse Rate 105 H 99 109 H Respiratory Rate 16 Blood Pressure Pulse Oximetry 98 Oxygen Delivery Room Air Fraction of Inspired Oxygen 30 08/15/23 04:00 08/15/23 06:28 08/15/23 08:35 Temperature 37.0 C Pulse Rate 97 100 Respiratory Rate 14 Blood Pressure 146/71 H Pulse Oximetry Oxygen Delivery Room Air Fraction of Inspired Oxygen Intake/Output Intake/Output: Intake & Output 08/12/23 08/13/23 08/14/23 08/15/23 23:59 23:59 23:59 23:59 Intake Total 800 440 100 Output Total 0 3000 Balance 0 -2200 440 100 Meds/Results Medications: Active Medications Generic Name Dose Route Start Last Admin Trade Name Domenicoq PRN Reason Stop Dose Admin Acetaminophen 650 mg 08/02/23 16:36 Acetaminophen 325 Mg Tablet FEED TUB
[2023-08-15] MEDS: ATORVASTATIN 20 MG TABLET PO (20:36)
[2023-08-16] VITALS (23 sets, daily range): BP systolic 111–150; BP diastolic 34–72; PULSE 63–105; RESP 14–20; TEMP 36.5–37; O2SAT 98–100
[2023-08-16] MEDS: CENTRAL LINE FLUSH 10 ML IV PUSH (06:09)
--- NOTE | 2023-08-16 09:03 | PM.PNNEP ---
Progress Note: A&P Assessment and Plan (1) End stage renal disease: Code(s): N18.6 - End stage renal disease Status: Chronic Assessment and Plan: HD today continue T/T/S schedule follow electrolytes, volume status, and clearance (2) Acute respiratory failure with hypoxia and hypercapnia: Code(s): J96.01 - Acute respiratory failure with hypoxia; J96.02 - Acute respiratory failure with hypercapnia Status: Acute Assessment and Plan: resolving if not resolved self extubated (on 08/11/23) breathing is okay/stable weaned to room air (3) Pneumonia: Code(s): J18.9 - Pneumonia, unspecified organism Status: Acute Assessment and Plan: completed antibiotic course (4) Hypotension: Code(s): I95.9 - Hypotension, unspecified Status: Acute Assessment and Plan: BP better if not stable off midodrine therapy follow trend of hemodynamics (5) Anemia: Code(s): D64.9 - Anemia, unspecified Status: Chronic Assessment and Plan: due to ESRD Epogen with HD follow trend of H/H Not opposed to discharge from renal perspective if otherwise medically stable. Will continue to follow. Subjective Date/time seen: 08/16/23 09:03 Interval history: Follow-up for end stage renal disease on hemodialysis. Tolerating hemodialysis treatment at the time of my visit (seen on HD at 8:50AM); resting comfortably and in no apparent distress; breathing/respiratory status stable on room air; no other issues/events overnight or earlier this morning. Exam Narrative: General: elderly female in NAD Heart: normal S1 and S2; no rub Lungs: decreased breath sounds at bases Abdomen: soft, nontender, +BS Extremities: trace - 1+ edema bilaterally Skin: chronic woody skin appearance apparent Objective Data Vital Signs Vital Signs: Vital Signs Temp Pulse Resp BP Pulse Ox O2 Del Method FiO2 08/16/23 09:00 81 135/60 08/16/23 08:30 88 134/57 L 08/16/23 08:15 96 148/63 H 08/16/23 08:00 82 128/57 L 08/16/23 09:15 82 133/35 L 08/16/23 08:46 99 131/63 08/16/23 07:51 90 145/57 H 08/16/23 07:38 98.1 F 82 15 133/58 L 100 08/16/23 07:38 100 08/16/23 06:00 98.0 F 94 20 148/69 H 98 08/16/23 04:00 104 H 08/16/23 00:00 105 H 08/15/23 22:11 97.1 F L 91 18 130/60 97 08/15/23 20:00 Room Air 08/15/23 20:00 105 H 08/15/23 16:00 92 08/15/23 16:00 98.6 F 87 14 118/48 L 100 08/15/23 12:00 101 H Intake/Output Intake/Output: Intake & Output 08/13/23 08/14/23 08/15/23 08/16/23 23:59 23:59 23:59 23:59 Intake Total 800 440 320 Output Total 3000 0 Balance -2200 440 320 Meds/Results Medications: Active Medications Generic Name Dose Route Start Last Admin Trade Name Freq PRN Reason Stop Dose Admin Acetaminophen 650 mg 08/02/23 16:36 Acetaminophen 325 Mg Tablet FEED TUBE Q4H PRN Pain, Mild Albuterol 2.5 mg 08/13/23 11:49 Albuterol Sulfate Neb 2.5 Mg/3 Ml Inh INHALATION Q4HRT PRN Wheezing Atorvastatin Calcium 20 mg 08/02/23 21:00 08/15/23 20:36 Atorvastatin 20 Mg Tablet PO 20 mg HS MADISYN Administration Enoxaparin Sodium 30 mg 08/09/23 09:00 08/15/23 08:35 Enoxaparin 30 Mg/0.3 Ml Syringe SUB-Q 30 mg DAILY MADISYN Administration Epoetin Lucho-epbx 10,000 units 08/16/23 20:00 08/16/23 09:04 Epoetin Lucho-Epbx 10,000 Units/Ml Vial IV PUSH 08/16/23 20:01 10,000 units ONCE ONE Administration Haloperidol 5 mg 08/02/23 17:00 08/03/23 09:56 Haloperidol 5 Mg Tablet FEED TUBE 5 mg BID MADISYN Administration Hydralazine HCl 10 mg 08/06/23 20:02 08/13/23 05:48 Hydralazine Hcl 20 Mg/Ml Vial IV PUSH 10 mg Q4H PRN Administration Blood Pressure - High Albumin Human 50 mls @ 999 mls/hr 08/02/23 07:05 08/05/
[2023-08-16] MEDS: EPOETIN ALFA-EPBX 10,000 UNITS/ML VIAL 10000 UNITS IV PUSH (09:04)
[2023-08-16] MEDS: SODIUM CHLORIDE 0.9% IV 1,000 ML 999 ML IV CONT (09:05)
[2023-08-16] MEDS: ENOXAPARIN 30 MG/0.3 ML SYRINGE SUB-Q (12:23)
--- NOTE | 2023-08-16 12:59 | PM.DS ---
DS: Admitting Diagnosis Discharge Date 08/16/23 Admitting Diagnosis agitation DS: Discharge Diagnosis Discharge Diagnosis (1) C. difficile colitis: Code(s): A04.72 - Enterocolitis due to Clostridium difficile, not specified as recurrent Status: Acute DS: Summary Hospital Course Reason for hospitalization: agitation Hospital Course: This is a 72-year-old female patient history of ESRD on dialysis who has not been getting full treatment dialysis due to agitation.? She has been on Benadryl for the dialysis sessions but still gets agitated so they have been shorter and shorter recently.? Patient has been having trouble breathing all week and the half-way has center to the emergency department a couple of times in which she is discharged.? Overnight she returned back to the emergency department was noted be in respiratory distress started on BiPAP found to have some signs of pulmonary edema on chest x-ray.? She was taken this morning for dialysis session blood pressure has been soft.? Patient normally takes midodrine with dialysis sessions.? Despite BiPAP and dialysis patient is still having significant respiratory acidosis with a venous pH of 7.19.? 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 Patient was managed in the ICU for respiratory failure and weaned off BiPAP and now on nasal cannula oxygen 2 liters, she was managed for C diff colitis and PNA. completed PO vancomycin and abx. neohrology was involved and she was on hemodialysis care coordination was involved nd patient was discharged to SNF. F/u with PCP in 3-5 days, and continue follow up with nephrology Topical management Assessment and Plan (1) C. difficile colitis: ?Code(s): A04.72 - Enterocolitis due to Clostridium difficile, not specified as recurrent ?Status:?Acute ?Assessment and Plan: Vancomycin discontinued 08/15 at noon after 10-day course Care coordination to finalize return to [place] 08/15 or 08/16(2) Pneumonia: ?Code(s): J18.9 - Pneumonia, unspecified organism ?Status:?Acute ?Assessment and Plan: Completed antibiotics(3) End stage renal disease on dialysis: ?Code(s): N18.6 - End stage renal disease; Z99.2 - Dependence on renal dialysis ?Status:?Acute ?Assessment and Plan: Continue HD(4) Alzheimer disease: ?Code(s): G30.9 - Alzheimer's disease, unspecified; F02.80 - Dementia in other diseases classified elsewhere, unspecified severity, without behavioral disturbance, psychotic disturbance, mood disturbance, and anxiety ?Status:?Acute ?Assessment and Plan: Seems to be at baseline(5) Altered mental status: ?Qualifiers: ?Altered mental status type:?somnolence? Qualified Code(s):?R40.0 - Somnolence ?Code(s): R41.82 - Altered mental status, unspecified ?Status:?Acute ?Assessment and Plan: Likely due to metabolic encephalopathy Resolved(6) Acute respiratory failure with hypoxia and hypercapnia: ?Code(s): J96.01 - Acute respiratory failure with hypoxia; J96.02 - Acute respiratory failure with hypercapnia ?Status:?Acute ?Assessment and Plan: Resolved(7) Pulmonary edema: ?Code(s): J81.1 - Chronic pulmonary edema ?Status:?Acute ?Assessment and Plan: Due to fluid overload caused by missed HD Resolved(8) Angioedema: ?Code(s): T78.3XXA - Angioneurotic edema, initial encounter ?Status:?Acute ?Assessment and Plan: Due to metoclopramide, resolved.(9) Pancytopenia: ?Code(s): D61.818 - Other pancytopenia ?Status:?Acute ?Assessment and Plan: Resolved Time Spent with Patient Time attestation: Total time spent providing and/or coordinating discharge services: DS: Data Data Completed and Pending Labs on day of discharge: Labs from last 24 hours 08/16/23 12:25 SARS-CoV-2 RNA (RT-PCR) Pending Discharge Plan
[2023-08-16 13:08] LABS: SARS-CoV-2 RNA PCR Negative (Negative)
[2023-08-22 11:19] LABS: Oxygen Saturation ABG 83.9 % (95.0-100.0); PO2 ABG 46.8 mmHg (80.0-100.0)
[2023-08-22 11:20] LABS: Oxyhemoglobin 80.6 % THb (90.0-100.0)
== END 2023-08-16 15:05 | DRG 130 ==
LOC: ANHED 06:08 → ANHIMU 07:15 → ANHICU 08:00 → ANH3MED 08-13 17:39
PROVIDERS: Internal Medicine; Internal Medicine Nephrology; Nurse Practitioner; Nurse Practitioner Family; Admitting Provider Internal Medicine; Emergency Provider Emergency Medicine; PCP Hospitalist; Visit Provider Internal Medicine
DX: J96.01 Acute respiratory failure with hypoxia (principal); N18.6 End stage renal disease; J96.02 Acute respiratory failure with hypercapnia; J18.9 Pneumonia, unspecified organism; J81.1 Chronic pulmonary edema; Z99.2 Dependence on renal dialysis; D61.818 Other pancytopenia; E87.70 Fluid overload, unspecified; I95.9 Hypotension, unspecified; E87.5 Hyperkalemia; E78.5 Hyperlipidemia, unspecified; N25.0 Renal osteodystrophy; G30.9 Alzheimer's disease, unspecified; F02.80 Dementia in other diseases classified elsewhere, unspecified severity, without behavioral disturbance, psychotic disturbance, mood disturbance, and anxiety; F20.9 Schizophrenia, unspecified; Z87.891 Personal history of nicotine dependence; D63.1 Anemia in chronic kidney disease; A04.72 Enterocolitis due to Clostridium difficile, not specified as recurrent; T78.3XXA Angioneurotic edema, initial encounter; T45.0X5A Adverse effect of antiallergic and antiemetic drugs, initial encounter
CPT/HCPCS: 36415; 36430; 36569; 36600; 71045; 71250; 73030; 74176; 80053; 80069; 80202; 82375; 82565; 82607; 82728; 82746; 82803; 82805; 82948; 83050; 83540; 83550; 83605; 83735; 84100; 84145; 84484; 85025; 85027; 85055; 85384; 85610; 85730; 86140; 86850; 86900; 86901; 87040; 87070; 87205; 87493; 87635; 87641; 92610; 93005; 93306; 93922; 94002; 94003; 94640; 96361; 96365; 96367; 96372; 96374; 96375; 96376; 99284; 99285; A9270; C1751; C9113; G0257; G0378; J0360; J0692; J1200; J1644; J1650; J1940; J2250; J2405; J2765; J2920; J2930; J3010; J3370; J7030; J7040; J7050; P9034; P9047; Q5105